=== PATIENT | male | born 1955 | race Caucasian/White ===

== ENCOUNTER 2017-07-12 12:14 | Day surgery (SDC) | payer BC, SELFPAY ==
[2017-07-12 13:03] VITALS: BP 182/93; PULSE 71; RESP 18; TEMP 36.4
[2017-07-12 13:24] VITALS: BP 174/94; PULSE 64; RESP 20
[2017-07-12 13:26] VITALS: BP 172/97; PULSE 67; RESP 18
--- NOTE | 2017-07-12 13:29 | P.PCN_ITS ---
- Procedure Date: 07/12/17 Time: 13:27 Anesthesiologist:: Tj Moura CRNA Complications:: None Pre-procedure Diagnosis:: Left sacroiliitis Post-procedure Diagnosis:: Same Indications for Procedure:: Very pleasant 62-year-old white male with left hip pain he describes as constant , dull, sharp, stabbing. He has extreme point tenderness over the left SI joint he presents for left SI joint injection per Procedure Details:: Procedure: Left sacroiliac injection under fluoroscopy Informed consent was obtained and the risk and benefits of the procedure were explained to the patient.~ The patient was taken to the procedure room and noninvasive monitors were placed including noninvasive blood pressure cuff and pulse oximeter.~ The patient was placed prone on the procedure table.~ The~ left hip was cleansed using Betadine as a cleansing solution.~ C-arm fluorosocpy was used to view the left SI joint.~ The skin and subcutaneous tissues were anesthetized using Lidocaine 1.5% and a 25-gauge needle.~ After this, a 22-gauge spinal needle was inserted under fluoroscopic guidance into the inferior aspect of the left SI joint.~ Omnipaque dye was injected and a good spread was seen throughout the joint.~ After this, approximately 5 mL of bupivacaine 0.25% and Depo-Medrol 40 mg was incrementally injected into the sacroiliac joint.~ The patient tolerated the procedure well with no complications.~ The patient was observed in the Pain Clinic for a period of 30- 45 minutes, then discharged home neurologically intact.~ Plan and Disposition:: Patient was reevaluated 10 minutes post procedure. He reports 90% improvement terms of his left hip pain
[2017-07-12 13:32] VITALS: BP 165/96; PULSE 71; RESP 18; TEMP 36.4; O2SAT 98
== END 2017-07-12 13:33 | disposition home or self-care (01) ==
LOC: SC.PAINP 12:18
PROVIDERS: Family Provider Family Medicine Geriatric Medicine; PCP Family Medicine Geriatric Medicine; Visit Provider Nurse Anesthetist, Certified Registered
DX: M46.1 Sacroiliitis, not elsewhere classified (principal)
CPT/HCPCS: 27096; G0260; J1040

== ENCOUNTER → 2017-07-25 14:27 | Outpatient (POV) | payer BC, SELFPAY ==
[2017-07-25 14:42] VITALS: BP 141/81; PULSE 18; RESP 18; TEMP 36.1; O2SAT 96; BMI 27.3
--- NOTE | 2017-07-25 14:44 | HMH.PAINSOAP ---
[facility] Pain Management SOAP Note Subjective:: This patient is a pleasant 62-year-old white male with left-sided sacroiliitis. He had a left SI joint injection approximately 3 weeks ago. He got 5 days good pain relief he was approximately 90% better. When he returned to work his pain is to come back. His pain came back with increased activity. We will seek approval and plan on a repeat left SI joint injection again. Objective:: Alert and oriented ?3 in no acute distress. Tenderness over left SI joint. Positive Wilber's test on the left side. Motor strength of the lower extremities is 5/5. There is no gross sensory deficit. Assessment:: Sacroiliitis Plan:: We will seek approval and plan on a left SI joint injection under fluoroscopy.
== END ==
PROVIDERS: Family Provider Family Medicine Geriatric Medicine; PCP Family Medicine Geriatric Medicine; Visit Provider Anesthesiology
DX: M46.1 Sacroiliitis, not elsewhere classified (principal)
CPT/HCPCS: 99212

== ENCOUNTER 2017-08-05 07:24 | Day surgery (SDC) | payer BC, SELFPAY ==
[2017-08-05 08:00] VITALS: BP 169/86; PULSE 67; RESP 18; TEMP 36.1; O2SAT 97; BMI 30.9
--- NOTE | 2017-08-05 08:35 | HMH.PMPROC ---
- Procedure Date: 08/05/17 Time: 08:38 Anesthesiologist:: Reji Cobos MD Complications:: None Pre-procedure Diagnosis:: Sacroiliitis Post-procedure Diagnosis:: Same Indications for Procedure:: This patient is a pleasant 62-year-old white male who we have been treating for left-sided sacroiliitis. He is tender over his left SI joint. He has had this injection approximately a month ago and did very well. He was 90% better. His pain is returning. He is positive Wilber's test on the left side. We will do repeat left SI joint injection under fluoroscopy today. Procedure Details:: Left SI joint injection under fluoroscopy Informed consent was obtained and the risks and benefits of the procedure was going to the patient. Patient was taken to the procedure room. Patient was placed prone on the procedure table. The left hip was prepped using ChloraPrep. The skin and subcutaneous tissues were anesthetized using lidocaine. I placed a 22-gauge spinal needle into the inferior aspect of the left SI joint. Needle placement was confirmed with dye. After this we injected 5 mL bupivacaine 0.25% and Depo-Medrol 40 mg into the left SI joint. The patient tolerated the procedure well with no complication. Plan and Disposition:: We will follow-up with him in 2 weeks. We will reevaluate his symptoms at that time. He is to continue his Plavix.
[2017-08-05 08:36] VITALS: BP 189/100; PULSE 66; RESP 20; O2SAT 98
[2017-08-05 08:39] VITALS: BP 179/82; PULSE 64; RESP 20; O2SAT 98
[2017-08-05 08:40] VITALS: BP 154/94; PULSE 65; RESP 16; TEMP 36.3; O2SAT 96
== END 2017-08-05 08:50 ==
LOC: SC.PAINP 07:26
PROVIDERS: Family Provider Family Medicine Geriatric Medicine; PCP Family Medicine Geriatric Medicine; Visit Provider Anesthesiology
DX: M46.1 Sacroiliitis, not elsewhere classified (principal)
CPT/HCPCS: 27096; G0260; J1040; Q9966

== ENCOUNTER → 2019-03-09 14:26 | Outpatient (CLI) | payer BC, SELFPAY ==
[2019-03-09 15:20] LABS: Basophils % 0.4 % (0.1-2.0); Eosinophils # 0.2 K/mm3 (0.0-0.4); Eosinophils % 1.4 % (0.1-12.0); Hematocrit 44.9 % (42.0-52.0); Hemoglobin 14.4 g/dL (14.1-18.0); Lymphocytes # 3.3 K/mm3 (0.7-4.5); Lymphocytes % 29.5 % (10-50); Mean Corpuscular Hemoglobin 28.6 pg (27.0-31.2); Mean Corpuscular Volume 89.1 fl (80-94); Mean Platelet Volume 7.9 fl (7.4-10.4); Monocytes # 0.6 K/mm3 (0.1-1.0); Monocytes % 5.8 % (1.7-9.3); Neutrophils % 62.9 % (37.0-80.0); Platelet Count 266 K/mm3 (142-424); Red Blood Count 5.04 M/mm3 (4.60-6.20); Red Cell Distribution Width 14.8 % (11.5-17.5); White Blood Count 11.1 K/mm3 (4.8-10.8)
[2019-03-09 17:50] LABS: Alanine Aminotransferase 28 U/L (12-78); Albumin Level 3.6 gm/dL (3.4-5.0); Albumin/Globulin Ratio 1.1 (1.1-1.8); Alkaline Phosphatase 140 U/L (46-116); Anion Gap 14.5 mEq/L (5-15); Aspartate Amino Transferase 14 U/L (15-37); Bilirubin,Total 0.3 mg/dL (0.2-1.0); Blood Urea Nitrogen 19 mg/dL (7-18); Calcium 8.9 mg/dL (8.5-10.1); Carbon Dioxide 25 mmol/L (21.0-32.0); Chloride 104 mmol/L (98-107); Chol/HDL Ratio 3.7 (1-3.5); Cholesterol 132 mg/dL (140-200); Creatinine,Serum 0.97 mg/dL (0.70-1.30); Estimated Glomerular Filt Rate 78 ml/min (>60); GFR (African American) 95 ML/MIN (>60); Globulin 3.4 gm/dl (1.3-3.2); Glucose 118 mg/dL (74-106); HDL Cholesterol 36 mg/dL (27-67); LDL Cholesterol 81 mg/dL (0-130); Potassium 4.5 mmoL/L (3.5-5.1); Sodium 139 mmol/L (136-145); T4 (Thyroxine) 9.7 ug/dl (4.7-13.3); Triglycerides 77 mg/dL (30-200); VLDL Cholesterol 15 mg/dL (0-40)
[2019-03-12 09:55] LABS: Vitamin D 25 Hydroxy 36.9 ng/mL (30.0-100.0)
== END ==
PROVIDERS: Visit Provider Emergency Medicine
DX: I10 Essential (primary) hypertension (principal)
CPT/HCPCS: 80053; 80061; 82652; 84436; 84443; 85025

== ENCOUNTER → 2020-01-01 07:13 | Outpatient (CLI) | payer MEDICARE, BC, SELFPAY ==
--- NOTE | 2020-01-01 | CA_ITS ---
APPROVED REPORT Exam: Pharmacologic Technologist: Smiley Lewis Ht: 5 ft 9 in Wt: 200 lbs BSA: 2.07 m2 HR: 51 bpm BP: 154/73 mmHg Indications: Chest pain, Shortness of Breath Medical History Medications: Clonidine,,,,, Hydralazine,,,,, Aspirin,,,,, Hydrocodone,,,,, Atorvastatin,,,,, EnALAPRIL,,,,, Cyclobenzaprine,,,,, DilTiazem,,,,, Stress Test Details Test: LEXISCAN HR Resting HR: 56 bpm Max Heart Rate (APMHR): 156 bpm Max HR Achieved: 68 bpm Target HR (85% APMHR): 132 bpm % of APMHR: 43 Recovery HR: 56 bpm BP Resting BP: 154.0/73.0 mmHg Max BP: 154.0/73.0 mmHg Recovery BP: 140.0/71.0 mmHg ECG Clinical Exercise duration: 04:01 min Highest Stage Achieved: Exercise capacity: 1.0 METs Stress ECG Conclusion Resting ECG: Sinus bradycardia, ST-T abnormalities inferiorly and laterally (V6). Symptoms: Shortness of air, light-headed. No chest pain. Arrhythmias/Ectopy: Rare PAC ST-T Changes: Exaggeration of baseline ST-T abnormalities. Conclusion: Non-diagnostic Lexiscan stress. Moderate and symptomatic drop in blood pressure with Lexiscan. Myoview images reported separately. Electronically signed by : Yomi Bernard, 01/07/2020 13:00:53
--- NOTE | 2020-01-01 07:13 | NM_ITS ---
APPROVED REPORT Exam: Nuclear Stress Test Indication: Chest pain, SOB, Palpitations, HTN, High cholesterol, Tobacco use, Family history Patient Location: Outpatient Stress Tech: Smiley Joshua [place] Tech:Herminia Cazares, ARRT, RT (R)(N) Ht: 5 ft 9 in Wt: 200 lbs HR: 57 bpm BP: 154/73 mmHg BSA: 2.07 m2 BMI: 29.5 History: Chest pain, SOB, Palpitations, HTN, High cholesterol, Tobacco use, Family history Procedure: Patient received a 0.4 mg of intravenous Lexiscan, resting heart rate 57 bpm, resting blood pressure 154/73 mmHg, with Lexiscan maximum heart rate achived was 64 bpm which is 85 % of the maximum predicted heart rate and blood pressure was 86/50 mmHg. With Lexiscan, patient denied any complaint of chest pain. Cardiac Stress and Resting SPECT Images: Cardiac Stress and Resting SPECT images were obtained using technetium 99m Myoview 31.7 mCi stress and 10.45 mCi at rest. EF= 53% Stress images show decrease activity at the apex and inferior wall more prominent on rest images of uncertain clinical significance. Please correlate with ECG findings. No reversible defects Conclusion: EF= 53% Stress images show decrease activity at the apex and inferior wall more prominent on rest images of uncertain clinical significance. Please correlate with ECG findings. No reversible defects Electronically signed by : Blu Mendosa MD 01/01/2020 19:05:07
--- NOTE | 2020-01-01 07:32 | HMH.ITSHM ---
Current Home Medications as stated by this patient Alejandro Jasmine or traveling sales representative. []HYDROCODONE HYDRALAZINE FLUOXETINE ENALAPRIL DILTIAZEM CYCLOBENZAPRINE CLONIDINE ATORVASTATIN ASA
== END ==
PROVIDERS: PCP Emergency Medicine; Visit Provider Urology
DX: E78.5 Hyperlipidemia, unspecified (principal); F17.200 Nicotine dependence, unspecified, uncomplicated; I10 Essential (primary) hypertension; I25.118 Atherosclerotic heart disease of native coronary artery with other forms of angina pectoris; J44.9 Chronic obstructive pulmonary disease, unspecified; R00.2 Palpitations; R07.89 Other chest pain; Z82.49 Family history of ischemic heart disease and other diseases of the circulatory system; Z90.49 Acquired absence of other specified parts of digestive tract
CPT/HCPCS: 78452; 93017; 93306; A9502; J2785

== ENCOUNTER → 2020-01-22 10:11 | Outpatient (POV) | payer MEDICARE, BC, SELFPAY | PROVIDERS: PCP Emergency Medicine; Visit Provider Otolaryngology | DX: Z00.00 Encounter for general adult medical examination without abnormal findings (principal) ==

== ENCOUNTER → 2020-06-04 16:51 | Outpatient (CLI) | payer MEDICARE, BC, SELFPAY ==
[2020-06-04 19:03] LABS: Basophils # 0.1 K/mm3 (0-0.2); Basophils % 0.9 % (0.1-2.0); Eosinophils # 0.3 K/mm3 (0.0-0.4); Eosinophils % 2.9 % (0.1-12.0); Hematocrit 44.8 % (42.0-52.0); Hemoglobin 15.1 g/dL (14.1-18.0); Lymphocytes # 2.7 K/mm3 (0.7-4.5); Lymphocytes % 26.9 % (10-50); Mean Corpuscular HGB Conc 33.7 g/dL (31.8-35.4); Mean Corpuscular Hemoglobin 30.4 pg (27.0-31.2); Mean Corpuscular Volume 90.3 fl (80-94); Mean Platelet Volume 9.6 fl (7.4-10.4); Monocytes # 0.5 K/mm3 (0.1-1.0); Monocytes % 5.3 % (1.7-9.3); Neutrophils # 6.3 K/mm3 (1.8-7.8); Platelet Count 254 K/mm3 (142-424); Red Blood Count 4.96 M/mm3 (4.60-6.20); Red Cell Distribution Width 14.2 % (11.5-17.5); White Blood Count 9.9 K/mm3 (4.8-10.8)
[2020-06-04 19:21] LABS: Alanine Aminotransferase 20 U/L (12-78); Albumin/Globulin Ratio 1.4 (1.1-1.8); Alkaline Phosphatase 133 U/L (38-126); Anion Gap 12.2 mEq/L (5-15); Aspartate Amino Transferase 24 U/L (17-59); Bilirubin,Total 0.5 mg/dl (0.2-1.3); Blood Urea Nitrogen 18 mg/dl (9-20); Calcium 9.2 mg/dl (8.4-10.2); Carbon Dioxide 27 mmol/L (22.0-30.0); Chloride 103 mmol/L (98-107); Chol/HDL Ratio 3.6 (1-3.5); Cholesterol 144 mg/dl (140-200); Estimated Glomerular Filt Rate 97 ml/min (>60); GFR (African American) 117 ML/MIN (>60); Globulin 2.8 g/dL (1.3-3.2); Glucose 138 mg/dl (74-100); HDL Cholesterol 40 mg/dl (40-60); Potassium 4.2 mmoL/L (3.5-5.1); Sodium 138 mmol/L (136-145); Total Protein,Serum 6.8 g/dl (6.3-8.2); Triglycerides 83 mg/dl (30-150); VLDL Cholesterol 17 mg/dL (0-40)
[2020-06-04 19:33] LABS: Direct LDL Cholesterol 86.51 mg/dL (100-129)
[2020-06-04 19:38] LABS: 25-OH Vitamin D, Total 19.5 ng/mL (30-100)
[2020-06-04 19:39] LABS: Free T4 (Free Thyroxine) 1.17 ng/dl (0.78-2.19)
[2020-06-04 19:53] LABS: Prostate Specific Ag Screen 0.3 ng/ml (0.0-4.0); Thyroid Stimulating Hormone 0.73 uIU/mL (0.465-4.68)
== END ==
PROVIDERS: Visit Provider Emergency Medicine
DX: E55.9 Vitamin D deficiency, unspecified (principal); E66.3 Overweight; R00.1 Bradycardia, unspecified; Z12.5 Encounter for screening for malignant neoplasm of prostate
CPT/HCPCS: 80053; 80061; 82306; 84439; 84443; 85025; G0103

== ENCOUNTER → 2020-07-14 10:33 | Outpatient (CLI) | payer MEDICARE, BC, SELFPAY ==
[2020-07-14 12:42] LABS: Anion Gap 12.3 mEq/L (5-15); Blood Urea Nitrogen 23 mg/dl (9-20); Calcium 9.4 mg/dl (8.4-10.2); Carbon Dioxide 29 mmol/L (22.0-30.0); Chloride 102 mmol/L (98-107); Estimated Glomerular Filt Rate 85 ml/min (>60); GFR (African American) 102 ML/MIN (>60); Glucose 151 mg/dl (74-100); Potassium 4.3 mmoL/L (3.5-5.1); Sodium 139 mmol/L (136-145)
[2020-07-14 13:25] LABS: Hemoglobin A1C 7.1 % (4.0-6.0)
== END ==
PROVIDERS: Emergency Medicine; Visit Provider Nurse Practitioner Family
DX: R73.09 Other abnormal glucose (principal); E78.5 Hyperlipidemia, unspecified; I10 Essential (primary) hypertension; I25.10 Atherosclerotic heart disease of native coronary artery without angina pectoris; J44.9 Chronic obstructive pulmonary disease, unspecified; R00.1 Bradycardia, unspecified; Z72.0 Tobacco use; Z90.49 Acquired absence of other specified parts of digestive tract
CPT/HCPCS: 36415; 80048; 83036

== ENCOUNTER 2020-09-18 11:36 | Emergency (ER) | payer MEDICARE, BC, SELFPAY ==
[2020-09-18] VITALS (8 sets, daily range): BP systolic 125–140; BP diastolic 64–72; PULSE 50–78; RESP 16–18; TEMP 36.6–37.1; O2SAT 92–98; BMI 30.7
--- NOTE | 2020-09-18 12:03 | HMH.EDGENADL ---
ED Disposition Clinical Impression: Horseshoe kidney, Right renal stone Low back pain Qualifiers: Chronicity: acute Back pain laterality: left Sciatica presence: without sciatica Qualified Code(s): M54.5 - Low back pain Disposition: Home, Self-Care Condition on Discharge: Good Instructions: DI for Low Back Pain, DI for Kidney Stones Additional Instructions: Chalfont as needed for pain. Prednisone as prescribed. Follow-up with Dr. Dodson, urology, for horseshoe kidney and renal stone. Call for appointment. Follow-up with your primary care provider for low back pain. Additional instructions for BACK PAIN: See your physician as soon as possible for further evaluation. Return immediately if back pain becomes intolerable, or if fever, numbness or weakness of your legs, loss of control of your bowels or bladder. Additional instructions for CONTROLLED SUBSTANCES: You have been prescribed a medication that is a controlled substance. Controlled substances include pain medications known as opiates and sedative nerve medications known as benzodiazepines. Tramadol, fioricet, and gabapentin are also controlled substances. Some common opiates include: Codeine (such as Tylenol #3) Hydrocodone (Vicodin, Lortab, Lorcet, Chalfont) Oxycodone (Percocet, Percodan, Oxycodone, Oxy IR) Some common benzodiazepines include: Diazepam (Valium) Lorazepam (Ativan) Alprazolam (Xanax) Clonazepam (Klonopin) Oxazepam (Serax) All of these controlled substances are highly addictive and frequently abused. Misuse can and frequently does lead to addiction as well as overdose and . Medication should be stored in a locked cabinet or other secure storage unit. Do not store the medication in a motor vehicle. Short term supplies, 3 days or less, are prescribed because of the highly addictive nature of the medication. Any of the controlled substance medication NOT taken should be disposed of properly and NOT SAVED. The recommended method of disposing of unused medications is: Place the medicines in a sealable plastic bag. If the medicine is a solid, crush it or add water to dissolve it. Add something undesirable (cat litter, coffee grounds, etc.) Dispose of sealed bag in household trash Do not flush or pour unused medicines down a sink or drain. Controlled substances should not be shared, given away or sold. Because of the addictive nature and frequent abuse, these medications are sometimes stolen. These medications should be kept in a safe place where they cannot be stolen. Do not keep them in your car or purse. Lost or stolen prescriptions for controlled substances WILL NOT BE REFILLED in this emergency department, regardless of whether a police report was filed. Prescriptions: Hydrocod/Acet 5/325 mg [Chalfont 5/325mg tablet] 1 tab PO Q6HP PRN #10 tab PRN Reason: Pain Transmission Status: Sent to [id number] predniSONE [Prednisone 20mg Tab] 20 mg PO BID #10 tab Transmission Status: Pending to [id number] Referrals: Homero Jaquez MD [Primary Care Provider] - - Critical Care Critical Care Time: No Attestation: On 09/18/20, the high probability of a clinically significant, sudden or life threatening deterioration of the following system(s) required my full and direct attention, intervention and personal management. The time I documented below is in addition to time spent performing reported procedures but includes the following listed in this critical care notation. Medical Decision Making - Nav Inquiry Pt receiving controlled substance: Yes Nav was queried for this patient: Yes Risks and benefits of using a controlled substance: were discussed with pt by me Vital Signs: 09/18/20 11:37 09/18/20 13:10 09/18/20 13:13 Temperature 98.8 F Temperature Source Oral Pulse Rate 54 L Pulse Rate [Radial] 57 L 51 L Respiratory Rate 16 16 18 Blood Pressure 125/64 Blood Pressure [Right
[2020-09-18 12:06] LABS: Microscopic, Urine URINE MICROSCOPIC (MICROSCOPIC)
[2020-09-18 12:15] LABS: Basophils # 0.1 K/mm3 (0-0.2); Basophils % 0.7 % (0.1-2.0); Eosinophils # 0.6 K/mm3 (0.0-0.4); Eosinophils % 3.6 % (0.1-12.0); Hematocrit 43.2 % (42.0-52.0); Hemoglobin 14.5 g/dL (14.1-18.0); Lymphocytes % 32.6 % (10-50); Mean Corpuscular HGB Conc 33.7 g/dL (31.8-35.4); Mean Corpuscular Hemoglobin 29.1 pg (27.0-31.2); Mean Corpuscular Volume 86.5 fl (80-94); Mean Platelet Volume 7.3 fl (7.4-10.4); Monocytes # 0.8 K/mm3 (0.1-1.0); Monocytes % 5.2 % (1.7-9.3); Neutrophils # 8.9 K/mm3 (1.8-7.8); Neutrophils % 57.9 % (37.0-80.0); Platelet Count 264 K/mm3 (142-424); Red Cell Distribution Width 14.5 % (11.5-17.5); White Blood Count 15.3 K/mm3 (4.8-10.8)
[2020-09-18 12:18] LABS: Chloride 106 mmol/L (98-107); MANUAL DIFFERENTIAL MANUAL DIFFERENTIAL (MANUAL DIFF); Potassium 3.8 mmoL/L (3.5-5.1); Sodium 138 mmol/L (136-145)
[2020-09-18 12:18] LABS: Appearance,Urine CLEAR (Clear); Bilirubin,Urine Negative (Negative); Blood, Urine TRACE-I (Negative); Color,Urine YELLOW (Yellow); Glucose,Urine (UA) Negative (Negative); Ketones,Urine Negative (Negative); Leukocyte Esterase,Urine Negative (Negative); Nitrate,Urine Negative (Negative); Protein,Urine Negative (Negative); Specific Gravity, Urine <= 1.005 (1.005-1.030); Urobilinogen,Urine 0.2 EU/dl (0.2)
[2020-09-18 12:21] LABS: Alanine Aminotransferase 33 U/L (12-78); Albumin/Globulin Ratio 1.3 (1.1-1.8); Alkaline Phosphatase 113 U/L (38-126); Aspartate Amino Transferase 28 U/L (17-59); Bilirubin,Total 0.3 mg/dl (0.2-1.3); Blood Urea Nitrogen 15 mg/dl (9-20); Carbon Dioxide 26 mmol/L (22.0-30.0); Creatinine Clearance Estimated 98 mL/min (50-200); Estimated Glomerular Filt Rate 97 ml/min (>60); GFR (African American) 117 ML/MIN (>60); Globulin 3.1 g/dL (1.3-3.2); Total Protein,Serum 7.1 g/dl (6.3-8.2)
[2020-09-18 12:22] LABS: Calcium 8.9 mg/dl (8.4-10.2); Glucose 154 mg/dl (74-100)
[2020-09-18 12:24] LABS: RBC,Urine Occasional #/hpf (0-3); Squamous Epithelial Cell,Urine Occasional #/hpf (0-5)
--- NOTE | 2020-09-18 12:32 | CT_ITS ---
PROCEDURE: CT ABDOMEN PELVIS WO CON CLINICAL INDICATION: kidney stone Left flank pain COMPARISON: No exams were available for comparison TECHNIQUE: Axial images obtained with sagittal and coronal reformats. All CT scans at the facility use one or more dose reduction, viz: automated exposure control, ma/kV adjustment per patient size (including targeted exams where dose is matched to indication, i.e. head), or iterative reconstruction technique. FINDINGS: LOWER THORAX: 4 mm nodule right middle lobe image number 3. There is mild dilatation of the distal descending thoracic aorta at 3.5 cm. Coronary artery calcifications noted ABDOMEN & PELVIS: The liver, spleen, and pancreas have an unremarkable appearance. There is a 2 cm right adrenal nodule consistent with an adenoma. The left adrenal gland is somewhat enlarged but maintains an adrenal form shape. There is a horseshoe kidney. There is a 9 mm stone in the right renal moiety at the region of the UPJ. No hydronephrosis. The left renal moiety has an unremarkable appearance. No ureteral calculi apparent. No ureteral dilatation. No evidence of appendicitis. There is colonic diverticulosis but no evidence of diverticulitis. No intestinal obstruction or free air. There is mild dilatation of the infrarenal abdominal aorta measuring up to 3.8 cm transverse and 3.1 cm AP. The dilatation is somewhat focal beginning 3 cm below the level renal arteries. Well-circumscribed cystic areas present in the right ilium bilocular measuring approximately 16 x 8 mm. There are degenerative changes of the lumbar spine. IMPRESSION: 1. Horseshoe kidney with 9 mm stone in the right renal moiety at the UPJ. No hydronephrosis. No ureteral calculi. 2. Colonic diverticulosis without diverticulitis. 3. Mild dilatation of the distal descending thoracic aorta at 3.5 cm and in the mid infrarenal abdominal aorta at 3.8 cm. Dictated by: Blu Mendosa MD 09/18/2020 13:20 Blu Mendosa MD in [place] 09/18/2020 13:20
[2020-09-18 12:39] LABS: Eosinophils % 1 % (0-3); Lymphocytes % 38 % (10-50); Monocytes % 5 % (2-9); Neutrophils % 56 % (42-76); Platelet Estimate Normal; RBC Morphology Normal; Total Cells Counted 100
[2020-09-18 13:17] LABS: Erythrocyte Sedimentation Rate 28 mm/hr (0-20)
== END 2020-09-18 13:57 | disposition home or self-care (01) ==
PROVIDERS: Emergency Provider Emergency Medicine; PCP Emergency Medicine
DX: N20.0 Calculus of kidney (principal); Q63.1 Lobulated, fused and horseshoe kidney; E78.5 Hyperlipidemia, unspecified; I10 Essential (primary) hypertension; I25.2 Old myocardial infarction; Z87.442 Personal history of urinary calculi; F17.210 Nicotine dependence, cigarettes, uncomplicated; Z88.5 Allergy status to narcotic agent
CPT/HCPCS: 74176; 80053; 81001; 85007; 85025; 85651; 86140; 96374; 96375; 99283; J2405

== ENCOUNTER → 2020-10-29 07:07 | Outpatient (CLI) | payer MEDICARE, SELFPAY ==
[2020-10-29 08:13] LABS: Basophils # 0.1 K/mm3 (0-0.2); Eosinophils # 0.4 K/mm3 (0.0-0.4); Eosinophils % 3.7 % (0.1-12.0); Hematocrit 41.5 % (42.0-52.0); Hemoglobin 13.5 g/dL (14.1-18.0); Lymphocytes # 4.2 K/mm3 (0.7-4.5); Lymphocytes % 38.7 % (10-50); Mean Corpuscular HGB Conc 32.5 g/dL (31.8-35.4); Mean Corpuscular Hemoglobin 28.8 pg (27.0-31.2); Mean Corpuscular Volume 88.8 fl (80-94); Mean Platelet Volume 7.9 fl (7.4-10.4); Monocytes # 0.7 K/mm3 (0.1-1.0); Monocytes % 6.5 % (1.7-9.3); Neutrophils # 5.4 K/mm3 (1.8-7.8); Neutrophils % 50.1 % (37.0-80.0); Platelet Count 245 K/mm3 (142-424); Red Blood Count 4.67 M/mm3 (4.60-6.20); Red Cell Distribution Width 14.5 % (11.5-17.5); White Blood Count 10.7 K/mm3 (4.8-10.8)
[2020-10-29 08:15] LABS: Chloride 101 mmol/L (98-107); Potassium 3.8 mmoL/L (3.5-5.1); Sodium 136 mmol/L (136-145)
[2020-10-29 08:18] LABS: Anion Gap 12.8 mEq/L (5-15); Blood Urea Nitrogen 21 mg/dl (9-20); Carbon Dioxide 26 mmol/L (22.0-30.0); Estimated Glomerular Filt Rate 85 ml/min (>60); GFR (African American) 102 ML/MIN (>60)
[2020-10-29 08:19] LABS: Calcium 8.9 mg/dl (8.4-10.2); Glucose 219 mg/dl (74-100)
[2020-10-29 08:34] LABS: Coronavirus 19 IgG Antibody Positive (Negative); Coronavirus 19 IgM Antibody Negative (Negative)
== END ==
PROVIDERS: Visit Provider Urology
DX: N20.0 Calculus of kidney (principal); N20.1 Calculus of ureter; Z01.812 Encounter for preprocedural laboratory examination; Z20.822 Contact with and (suspected) exposure to COVID-19
CPT/HCPCS: 36415; 80048; 85025; 86328

== ENCOUNTER 2020-10-31 08:52 | Day surgery (SDC) | payer MEDICARE, MEDICAID, SELFPAY ==
[2020-10-29 11:16] VITALS: BMI 31.0
[2020-10-31] VITALS (11 sets, daily range): BP systolic 115–131; BP diastolic 55–64; PULSE 60–98; RESP 14–20; TEMP 36.4–37.6; O2SAT 92–97
[2020-10-31 10:53] LABS: POC Glucose,Bedside 135 (70-110)
--- NOTE | 2020-10-31 11:59 | P.PN_ITS ---
[facility] Anesthesia Checklist - Patient Identification Patient Identification: Arm Band - Structural Data Admitted From: Home Planned Operative Procedure/s: Right ureteroscopy with laser litho Consent for Planned Operative Procedure(s) Verified: Yes Verified Documents: Surgical Consent, History and Physical - NPO Status Verified Time NPO: 00:00 - Additional verifications Anesthesia Reactions: Yes (hypotension/hypertension) Hx Blood Transfusions: No Blood Transfusion Reaction: No - Anesthesia Plan Anesthesia Risk discussed: Yes Anesthesia Plan: Verified ASA Class: III Anesthesia Type: General [facility] History Medical History: Reports:: Coronary Artery Disease, Diabetes Mellitus Type 2, Hyperlipidemia, Hypertension, Kidney Stones, Myocardial Infarction, Palpitations Denies:: Cancer, Diabetes Mellitus Type 1, Internal Pacemaker, MRSA, Seizures *Have you ever received a pneumonia vaccine?: Yes *Have you received a flu vaccine this season?: Yes Other Medical History: Reports: Arthritis, Sinus Problems. Denies: Blood Transfusion Reaction Anesthesia experience/problems:: None Laterality Cases: Bilateral: Carpal Tunnel Release Other Surgeries: Yes: Cardiac Catheterization, Colon Resection, Coronary Stent, Other. No: Pacemaker Amputation: No Fractures: No - *Social History Smoking Status: Current every day smoker Tobacco Type: cigarettes # Packs/Day (cigarettes): 1 Alcohol Intake: never Substance Use Type: denies use *Occupational Status:: retired Housing: house Household Members: spouse *Travel in the last 8 weeks: None Family Hx:: Heart Attack, Cancer, Coronary Artery Disease
--- NOTE | 2020-10-31 12:59 | P.OP_ITS ---
Date of procedure: 10/31/20 Pre-op Diagnosis:: Kidney stone in a horseshoe kidney, 9 mm Post-op Diagnosis:: Same Procedure performed:: Right ureteroscopy, laser lithotripsy, stone extraction Surgeon:: Amandeep Dodson MD FORESTRY FOREMAN:: Other Anesthesia: GETA Estimated blood loss (mL): 0 Clinical Note:: Patient is a 65-year-old white male with recent right renal colic. CT scan reveals a 9 mm stone near the right UPJ. He presents for urologic management. Operative findings:: The stone was noted to be in the medial portion of the collecting system in the isthmus portion of the horseshoe kidney. Operative note:: Patient taken to the operating room after informed consent was obtained. Was placed on the operating table in the supine position and general anesthesia administered. He was then prepped and draped in a standard surgical fashion. Preoperative antibiotics and sequential compression devices placed. Placed into the lithotomy position and a 22 Maltese cystoscope passed into the urethra and into the bladder without difficulty. The bladder was examined in a systematic fashion. There is no evidence of gross abnormalities, stones, diverticula or trabeculation. The ureteral orifices in their normal anatomic position. A guidewire was passed into the right ureteral orifice and under fluoroscopy passed into the renal pelvis. The cystoscope removed and a navigator ureteral sheath 05/16 was then passed over the wire and the wire removed. A flexible ureteroscope was then passed through the sheath and into the ureter and we navigated up to the renal pelvis. Renal pelvis was inspected and no evidence of any stones superiorly or laterally. Contrast was then injected through the sc ope and the collecting system was noted to extend medially. I was able to flex the scope and cannulate the medial portion of the collecting system and the stone was noted in one of the calyces there. Our 220 nm laser fiber then passed through the ureteroscope and the stone broke up into multiple fragments.. Fragments were removed with a 1.9 Maltese stone basket. The ureteroscope then removed as the rest the stones were felt to be small enough to pass without difficulty. The navigator sheath was removed and the cystoscope was replaced into the bladder and the bladder emptied. Scope removed and Urojet placed into the urethra for comfort. Patient tolerated procedure well without complications. A stent was not felt necessary. Condition: stable Disposition: PACU Specimens:: Stones were removed Complications:: None
[2020-10-31 13:11] LABS: POC Glucose,Bedside 133 (70-110)
--- NOTE | 2020-10-31 13:15 | XR_ITS ---
PROCEDURE: XR KUB CLINICAL INDICATION: URETEROSCOPY COMPARISON: No exams were available for comparison FINDINGS: Fluoroscopy time: 2 minutes and 41 seconds. Single images submitted with a catheter looped in the mid abdominal region on the right. IMPRESSION: Ureteroscopy performed with C-arm guidance Dictated by: Blu Mendosa MD 10/31/2020 15:31 Blu Mendosa MD in [place] 10/31/2020 15:31
--- NOTE | 2020-10-31 15:08 | HMH.ANESI ---
[facility] Anesthesia Record Part I Intake, IV Amount: 1,400 Estimated blood loss (mL): 30 Urine output (mL): 0 Blood Pressure: 130/63 SaO2: 93 Pulse Rate: 98 Respiratory Rate: 14 Temperature: 99.7 F Patient is:: Awake, Drowsy Stable to PACU at:: 12:59
--- NOTE | 2020-11-03 08:21 | HMH.ANESII ---
[facility] Anesthesia Record Part II Discharge Time: 13:29 Destination: Surgical Day Care (OP Surgery) PACU nurse assessment reviewed?: Yes Patient Condition:: Good Anesthesia Complications:: None Swallowing reflex intact?: Yes Cyanosis?: No Blood Pressure: 121/58 Pulse Rate: 69 Temperature: 98.3 F Mental Status: Alert & Oriented Pain level:: 0 Nausea and/or vomitting:: None Intake, IV Amount: 0
[2020-11-03 08:22] VITALS: BP 121/58; PULSE 69; TEMP 36.8
== END 2020-10-31 14:08 | disposition home or self-care (01) ==
PROVIDERS: PCP Emergency Medicine; Visit Provider Urology
PROC: (CPT 52352; principal; 2020-10-31 10:45)
DX: N20.0 Calculus of kidney (principal); I25.10 Atherosclerotic heart disease of native coronary artery without angina pectoris; E11.9 Type 2 diabetes mellitus without complications; E78.5 Hyperlipidemia, unspecified; I10 Essential (primary) hypertension; I25.2 Old myocardial infarction; R00.2 Palpitations; M19.90 Unspecified osteoarthritis, unspecified site; Z72.0 Tobacco use; Z82.49 Family history of ischemic heart disease and other diseases of the circulatory system; Z82.3 Family history of stroke; Z80.9 Family history of malignant neoplasm, unspecified
CPT/HCPCS: 50590; 74018; 76000; 82962; 96374; J2405

== ENCOUNTER → 2020-11-14 12:49 | Outpatient (CLI) | payer MEDICARE, MEDICAID, SELFPAY ==
--- NOTE | 2020-11-14 12:53 | XR_ITS ---
PROCEDURE: XR KUB CLINICAL INDICATION: ureteral stone COMPARISON: CT CT ABDOMEN PELVIS WO CON from 09/18/2020 FINDINGS: The presence of overlying bowel gas limits evaluation for calculi. Mild to moderate fecal retention of the colon. No evidence of ureteral calculi noted within the limitations of the study. Multilevel degenerative changes of the lumbar spine are noted. Multiple metallic densities are noted projecting over the left lower quadrant. IMPRESSION: No evidence of ureteral calculi within the limitations of the study. Noncontrast CT scan of the abdomen and pelvis should be considered for further evaluation. Dictated by: Claudia Rios 11/14/2020 16:45 Claudia Rios in [place] 11/14/2020 16:45
== END ==
PROVIDERS: PCP Emergency Medicine; Visit Provider Urology
DX: N20.1 Calculus of ureter (principal)
CPT/HCPCS: 74018

== ENCOUNTER → 2021-01-12 14:26 | Outpatient (CLI) | payer MEDICARE, MEDICAID, SELFPAY ==
[2021-01-12 14:46] LABS: Basophils # 0.1 K/mm3 (0-0.2); Basophils % 0.7 % (0.1-2.0); Eosinophils # 0.3 K/mm3 (0.0-0.4); Eosinophils % 2.8 % (0.1-12.0); Hematocrit 40.4 % (42.0-52.0); Hemoglobin 13.8 g/dL (14.1-18.0); Lymphocytes # 2.8 K/mm3 (0.7-4.5); Lymphocytes % 26.2 % (10-50); Mean Corpuscular HGB Conc 34.1 g/dL (31.8-35.4); Mean Corpuscular Hemoglobin 29.4 pg (27.0-31.2); Mean Platelet Volume 8.4 fl (7.4-10.4); Monocytes # 0.5 K/mm3 (0.1-1.0); Monocytes % 4.3 % (1.7-9.3); Platelet Count 288 K/mm3 (142-424); Red Cell Distribution Width 14.5 % (11.5-17.5); White Blood Count 10.5 K/mm3 (4.8-10.8)
[2021-01-12 14:57] LABS: Chloride 104 mmol/L (98-107)
[2021-01-12 14:58] LABS: Potassium 4.2 mmoL/L (3.5-5.1); Sodium 139 mmol/L (136-145)
[2021-01-12 15:00] LABS: Alanine Aminotransferase 21 U/L (12-78); Alkaline Phosphatase 113 U/L (38-126); Anion Gap 13.2 mEq/L (5-15); Aspartate Amino Transferase 27 U/L (17-59); Bilirubin,Total 0.3 mg/dl (0.2-1.3); Blood Urea Nitrogen 18 mg/dl (9-20); Carbon Dioxide 26 mmol/L (22.0-30.0); Cholesterol 135 mg/dl (140-200); Estimated Glomerular Filt Rate 85 ml/min (>60); GFR (African American) 102 ML/MIN (>60); Triglycerides 123 mg/dl (30-150); VLDL Cholesterol 25 mg/dL (0-40)
[2021-01-12 15:01] LABS: Albumin Level 3.9 g/dl (3.5-5.0); Albumin/Globulin Ratio 1.4 (1.1-1.8); Calcium 8.8 mg/dl (8.4-10.2); Chol/HDL Ratio 3.6 (1-3.5); Globulin 2.8 g/dL (1.3-3.2); Glucose 118 mg/dl (74-100); HDL Cholesterol 37 mg/dl (40-60); Total Protein,Serum 6.7 g/dl (6.3-8.2)
[2021-01-12 15:07] LABS: Opiate Screen,Urine Negative ng/ml (<300); Phencyclidine Screen,Urine Negative ng/ml (<25)
[2021-01-12 15:09] LABS: Amphetamine/Metha Screen,Urine Negative ng/ml (<1000); Benzodiazepines Screen,Urine Negative ng/ml (<200)
[2021-01-12 15:10] LABS: Barbiturates Screen,Urine Negative ng/ml (<200)
[2021-01-12 15:12] LABS: Cannabinoid Screen,Urine Negative ng/ml (<50); Direct LDL Cholesterol 74.89 mg/dL (100-129)
[2021-01-12 15:13] LABS: Cocaine Screen,Urine Negative ng/ml (<300)
[2021-01-12 15:14] LABS: Methadone Screen,Urine Negative ng/ml (<300)
[2021-01-12 15:15] LABS: Hemoglobin A1C 6.7 % (4.0-6.0)
[2021-01-12 15:18] LABS: T4 (Thyroxine) 9.1 ug/dl (5.53-11.0)
[2021-01-12 15:32] LABS: Thyroid Stimulating Hormone 1.23 uIU/mL (0.465-4.68)
[2021-01-14 09:01] LABS: PSA, Free 0.09 ng/mL; Prostate Specific Ag 0.4 ng/mL (0.0-4.0)
== END ==
PROVIDERS: Visit Provider Emergency Medicine
DX: E11.9 Type 2 diabetes mellitus without complications (principal); M54.5 Low back pain; Z12.5 Encounter for screening for malignant neoplasm of prostate; Z79.84 Long term (current) use of oral hypoglycemic drugs
CPT/HCPCS: 80053; 80061; 80305; 83036; 84153; 84154; 84436; 84443; 85025

== ENCOUNTER → 2021-07-29 17:45 | Outpatient (CLI) | payer MEDICARE, MEDICAID, SELFPAY ==
[2021-07-29 18:20] LABS: Barbiturates Screen,Urine Negative ng/ml (<200)
[2021-07-29 18:21] LABS: Amphetamine/Metha Screen,Urine Negative ng/ml (<1000); Benzodiazepines Screen,Urine Negative ng/ml (<200)
[2021-07-29 18:22] LABS: Cannabinoid Screen,Urine Negative ng/ml (<50)
[2021-07-29 18:23] LABS: Cocaine Screen,Urine Negative ng/ml (<300); Methadone Screen,Urine Negative ng/ml (<300)
[2021-07-29 18:24] LABS: Opiate Screen,Urine Negative ng/ml (<300)
[2021-07-29 18:25] LABS: Phencyclidine Screen,Urine Negative ng/ml (<25)
== END ==
PROVIDERS: Visit Provider Emergency Medicine
DX: M25.512 Pain in left shoulder (principal)
CPT/HCPCS: 80305

== ENCOUNTER 2021-11-26 08:00 | Outpatient (RCR) | payer MEDICARE, MEDICAID, SELFPAY ==
--- NOTE | 2021-10-13 13:56 | HMH.PTOPEV ---
PT Outpatient Evaluation Rehab PT Outpatient Evaluation Start: 10/13/21 13:38 Freq: Status: Active Protocol: Document 10/13/21 13:38 KAREN (Rec: 10/13/21 13:55 KAREN [id number]) Electronically Signed By Micah Marte, PT 10/13/21 13:38 Outpatient Therapy Subjective History Subjective History Patient is a 66 year old male presenting to outpatient PT with reports of chronic LBP with LLE radicular symptoms. Patient has hx of LS discectomy approximately 20 years ago. Patient reports hx of DDD, though no imaging to confirm. No specific mechanism of injury to report. Comorbidities include hx of of HTN, HL, diabetes, cardiac stents x 2 and chronic kidney stones. Chief Complaint Pain,Stiff,Paresthesia Symptom Type Ache,Sharp,Burning Symptoms Relieved By Rest/Positioning,Heat, Prescription Meds Symptoms Aggravated By Standing,Physical Activity, Walking Prior Functional Limitations Lifting,Standing,Walking, Bending/Stooping Current Functional Limitations Lifting,Housework,Standing, Walking,Bending/Stooping Symptom Description Constant but Variable Level of pain today (0-10) 7 Pain scale - at its best (0-10) 4 Pain scale - at its worst (0-10) 9 Lumbopelvic Eval Posture Thoracic Spine Posture Standing Position Increased Kyphosis Lumbar Spine Posture Standing Position Decreased Lordosis Palapation tenderness bilateral lumbar spinal tenderness Yes: 3/4 buttock tenderness Yes: 3/4 Accessory Movement L2 bilateral L3 bilateral L4 bilateral L5 bilateral S1 bilateral Range of Motion Lumbar Spine Active Flexion Range of 58 Motion (degrees) Lumbar Spine Active Extension Range of 16 Motion (degrees) Left Lumbar Spine Lateral Flexion Active 15 Range of Motion (degrees) Right Lumbar Spine Lateral Flexion 17 Active Range of Motion (degrees) Lumbar Spine ROM Limitations Soft Tissue Tightness,Bony Restriction Manual Muscle Test Left Knee Extension Strength Grade 4- Good- Knee Flexion Strength Grade 4- Good- Hip Flexion Strength Grade 4- Good- Extensor Hallucis Longus Strength Grade
--- NOTE | 2021-11-10 10:30 | HMH.RHREAS ---
Rehab Reassessment Rehab OP Re-assessment Start: 11/10/21 10:08 Freq: Status: Active Protocol: Document 11/10/21 10:08 KAREN (Rec: 11/10/21 10:30 KAREN [id number]) Electronically Signed By Micah Marte, PT 11/10/21 10:08 Rehab Re-assessment Subjective Subjective Patient reports 50% improvement since start of care. Objective Objective Notes AROM: flx WNL; ext WNL; SBr 22 ; SBl 20 MMT: RLE WNL; LLE 4/5 grossly Pain: 2/10 today; 6/10 at worst over past week Neuro: intermittent NT to LLE L4/5 dermatome Walking tolerance: approx 10' Assessment Progress Assessment Progressing as Expected Assessment Notes Patient agrees that he is showing significant improvement. He continues to have LLE weakness/radicular symptoms, though he is experiencing decreased intensity, frequency and duration of symptoms. Patient is responding well to progression of lumbar mechanical traction. Compliance with HEP noted. Patient would benefit from continuing skilled PT services in order to address functional limitations with all standing, ambulatory, bending and lifting activities . Patient goals met STG 2 Goals Not Met All other Revised Goals NA Plan Plan Continue with current POC. Frequency of Therapy 2x/week Duration of therapy 4 weeks Time and Billing Re-Eval Time 15 Re-Eval Billing Units 1 PHYSICIAN CERTIFICATION: I certify the specified therapy services for Alejandro Jasmine are required, authorized, and reviewed every 30 days.
== END 2021-11-26 08:05 | disposition home or self-care (01) ==
LOC: PT 08:00
PROVIDERS: PCP Emergency Medicine; Visit Provider Nurse Practitioner Family
DX: M54.50 Low back pain, unspecified (principal)
CPT/HCPCS: 97010; 97012; 97014; 97110; 97163; 97164; G0283

== ENCOUNTER → 2022-01-01 13:13 | Outpatient (CLI) | payer MEDICARE, MEDICAID, SELFPAY ==
[2022-01-01 12:37] LABS: Basophils # 0.1 K/mm3 (0-0.2); Eosinophils # 0.5 K/mm3 (0.0-0.4); Eosinophils % 4.3 % (0.1-12.0); Hematocrit 46.2 % (42.0-52.0); Hemoglobin 14.3 g/dL (14.1-18.0); Lymphocytes # 3.9 K/mm3 (0.7-4.5); Lymphocytes % 31.3 % (10-50); Mean Corpuscular HGB Conc 30.9 g/dL (31.8-35.4); Mean Corpuscular Hemoglobin 29.5 pg (27.0-31.2); Mean Corpuscular Volume 95.3 fl (80-94); Monocytes # 0.8 K/mm3 (0.1-1.0); Neutrophils # 7.2 K/mm3 (1.8-7.8); Neutrophils % 57.5 % (37.0-80.0); Platelet Count 286 K/mm3 (142-424); Red Blood Count 4.85 M/mm3 (4.60-6.20); White Blood Count 12.5 K/mm3 (4.8-10.8)
[2022-01-01 12:42] LABS: Alanine Aminotransferase 25 U/L (12-78); Albumin Level 3.8 g/dl (3.5-5.0); Albumin/Globulin Ratio 1.4 (1.1-1.8); Alkaline Phosphatase 113 U/L (38-126); Anion Gap 11.5 mEq/L (5-15); Aspartate Amino Transferase 25 U/L (17-59); Bilirubin,Total 0.2 mg/dl (0.2-1.3); Blood Urea Nitrogen 15 mg/dl (9-20); Calcium 9.1 mg/dl (8.4-10.2); Carbon Dioxide 30 mmol/L (22.0-30.0); Chloride 101 mmol/L (98-107); Chol/HDL Ratio 3.9 (1-3.5); Cholesterol 121 mg/dl (140-200); Estimated Glomerular Filt Rate 84 ml/min (>60); GFR (African American) 102 ML/MIN (>60); Globulin 2.7 g/dL (1.3-3.2); Glucose 144 mg/dl (74-100); HDL Cholesterol 31 mg/dl (40-60); Potassium 4.5 mmoL/L (3.5-5.1); Sodium 138 mmol/L (136-145); Total Protein,Serum 6.5 g/dl (6.3-8.2); Triglycerides 104 mg/dl (30-150); VLDL Cholesterol 21 mg/dL (0-40)
[2022-01-01 12:53] LABS: Direct LDL Cholesterol 66.93 mg/dL (100-129)
[2022-01-01 12:59] LABS: Free T4 (Free Thyroxine) 0.93 ng/dl (0.78-2.19)
[2022-01-01 13:00] LABS: 25-OH Vitamin D, Total 45.1 ng/mL (30-100)
[2022-01-01 13:04] LABS: Hemoglobin A1C 7.2 % (4.0-6.0)
[2022-01-01 13:13] LABS: Prostate Specific Ag Screen 0.4 ng/ml (0.0-4.0); Thyroid Stimulating Hormone 0.56 uIU/mL (0.465-4.68)
== END ==
PROVIDERS: PCP Emergency Medicine; Visit Provider Emergency Medicine
DX: E11.9 Type 2 diabetes mellitus without complications (principal); Z12.5 Encounter for screening for malignant neoplasm of prostate; E55.9 Vitamin D deficiency, unspecified; Z79.84 Long term (current) use of oral hypoglycemic drugs
CPT/HCPCS: 80053; 80061; 82306; 83036; 84439; 84443; 85025; G0103

== ENCOUNTER → 2022-04-02 15:53 | Outpatient (CLI) | payer MEDICARE, MEDICAID, SELFPAY ==
[2022-04-02 14:45] LABS: Creatinine,Urine Random 87 mg/dL (Not Estab.)
[2022-04-02 14:47] LABS: Microalbumin < 6.000 mg/L (0-16.7)
== END ==
PROVIDERS: PCP Emergency Medicine; Visit Provider Emergency Medicine
DX: E11.9 Type 2 diabetes mellitus without complications (principal); Z79.84 Long term (current) use of oral hypoglycemic drugs
CPT/HCPCS: 82043; 82570

== ENCOUNTER → 2022-10-01 23:40 | Outpatient (CLI) | payer MEDICARE, MEDICAID, SELFPAY ==
[2022-10-01 19:14] LABS: Amphetamine/Metha Screen,Urine Negative ng/ml (<1000)
[2022-10-01 19:15] LABS: Barbiturates Screen,Urine Negative ng/ml (<200); Benzodiazepines Screen,Urine Negative ng/ml (<200)
[2022-10-01 19:16] LABS: Cannabinoid Screen,Urine Negative ng/ml (<50)
[2022-10-01 19:17] LABS: Cocaine Screen,Urine Negative ng/ml (<300); Methadone Screen,Urine Negative ng/ml (<300)
[2022-10-01 19:18] LABS: Opiate Screen,Urine Negative ng/ml (<300)
[2022-10-01 19:19] LABS: Phencyclidine Screen,Urine Negative ng/ml (<25)
== END ==
PROVIDERS: PCP Emergency Medicine; Visit Provider Emergency Medicine
DX: Z79.899 Other long term (current) drug therapy (principal)
CPT/HCPCS: 80305

== ENCOUNTER → 2022-10-06 14:56 | Outpatient (CLI) | payer MEDICARE, MEDICAID, SELFPAY ==
--- NOTE | 2022-10-06 14:56 | CT_ITS ---
FINAL REPORT TECHNIQUE: Thin section axial CT images of the facial bones and sinuses were obtained without contrast. Coronal reformatted images were also obtained.This study was performed with techniques to keep radiation doses as low as reasonably achievable, (ALARA). Individualized dose reduction techniques using automated exposure control or adjustment of mA and/or kV according to the patient''''s size were employed. CLINICAL HISTORY: sinusitis COMPARISON: None FINDINGS: There is mild mucoperiosteal thickening of the ethmoid air cells and maxillary sinuses. There are no air-fluid levels. The OMCs are patent. There is no fracture. IMPRESSION: Mild chronic changes of chronic bilateral maxillary and ethmoid sinusitis. Reviewed, Interpreted and Dictated by Esequiel Núñez MD Transcribed by Sabine Clark Authenticated and [facility]
== END ==
PROVIDERS: PCP Emergency Medicine; Visit Provider Emergency Medicine
DX: J32.9 Chronic sinusitis, unspecified (principal)
CPT/HCPCS: 70486

== ENCOUNTER → 2022-11-24 09:05 | Outpatient (CLI) | payer MEDICARE, MEDICAID, SELFPAY ==
[2022-11-24 09:37] LABS: Basophils % 0.5 % (0.1-2.0); Eosinophils # 0.2 K/mm3 (0.0-0.4); Eosinophils % 2.9 % (0.1-12.0); Hematocrit 41.4 % (42.0-52.0); Hemoglobin 13.7 g/dL (14.1-18.0); Lymphocytes # 2.9 K/mm3 (0.7-4.5); Lymphocytes % 39.7 % (10-50); Mean Corpuscular HGB Conc 33.2 g/dL (31.8-35.4); Mean Corpuscular Hemoglobin 29.4 pg (27.0-31.2); Mean Corpuscular Volume 88.5 fl (80-94); Mean Platelet Volume 8.1 fl (7.4-10.4); Monocytes # 0.5 K/mm3 (0.1-1.0); Monocytes % 6.7 % (1.7-9.3); Neutrophils # 3.7 K/mm3 (1.8-7.8); Neutrophils % 50.2 % (37.0-80.0); Platelet Count 229 K/mm3 (142-424); Red Blood Count 4.68 M/mm3 (4.60-6.20); Red Cell Distribution Width 14.2 % (11.5-17.5); White Blood Count 7.4 K/mm3 (4.8-10.8)
[2022-11-24 10:02] LABS: Alanine Aminotransferase 33 U/L (12-78); Albumin Level 3.7 g/dl (3.5-5.0); Alkaline Phosphatase 104 U/L (38-126); Aspartate Amino Transferase 33 U/L (17-59); Bilirubin,Indirect 0.3 mg/dL (0.0-0.9); Bilirubin,Total 0.3 mg/dl (0.2-1.3); Bilirubin,Unconjugated 0.4 mg/dL (0.0-1.1); Blood Urea Nitrogen 20 mg/dl (9-20); Calcium 8.6 mg/dl (8.4-10.2); Carbon Dioxide 27 mmol/L (22.0-30.0); Chloride 99 mmol/L (98-107); Chol/HDL Ratio 4.3 (1-3.5); Cholesterol 139 mg/dl (140-200); Estimated Glomerular Filt Rate 84 ml/min (>60); GFR (African American) 102 ML/MIN (>60); Glucose 129 mg/dl (74-100); HDL Cholesterol 32 mg/dl (40-60); Sodium 138 mmol/L (136-145); Total Protein,Serum 6.2 g/dl (6.3-8.2); Triglycerides 119 mg/dl (30-150); VLDL Cholesterol 24 mg/dL (0-40)
[2022-11-24 10:13] LABS: Direct LDL Cholesterol 84.62 mg/dL (100-129)
[2022-11-24 10:19] LABS: Free T4 (Free Thyroxine) 0.95 ng/dl (0.78-2.19)
[2022-11-24 10:33] LABS: Thyroid Stimulating Hormone 1.52 uIU/mL (0.465-4.68)
== END ==
PROVIDERS: PCP Emergency Medicine; Visit Provider Physician Assistant
DX: E11.9 Type 2 diabetes mellitus without complications (principal); E78.2 Mixed hyperlipidemia; F17.200 Nicotine dependence, unspecified, uncomplicated; I25.10 Atherosclerotic heart disease of native coronary artery without angina pectoris; J44.9 Chronic obstructive pulmonary disease, unspecified; I63.9 Cerebral infarction, unspecified; R06.00 Dyspnea, unspecified; I11.9 Hypertensive heart disease without heart failure; Z79.84 Long term (current) use of oral hypoglycemic drugs
CPT/HCPCS: 36415; 80048; 80061; 80076; 84439; 84443; 85025

== ENCOUNTER 2022-12-06 11:21 | Emergency (ER) | payer MEDICARE, MEDICAID, SELFPAY ==
[2022-12-06] VITALS (9 sets, daily range): BP systolic 127–160; BP diastolic 66–81; PULSE 55–64; RESP 14–17; TEMP 36.8; O2SAT 95–98; BMI 29.9
--- NOTE | 2022-12-06 | ECG_ITS ---
APPROVED REPORT Exam: Resting ECG HR:66 bpm ECG Measurements Heart Rate 66 AXES NJ 164 P 68 QRSd 94 QRS 48 QT 419 T 72 QTc 432 Conclusion SINUS RHYTHM NONSPECIFIC T-WAVE ABNORMALITY BORDERLINE ECG UNCONFIRMED REPORT Electronically signed by : Clifton Ortega MD 12/09/2022 13:30:53
--- NOTE | 2022-12-06 11:27 | PC.NURSE ---
Dr. Leahy at
--- NOTE | 2022-12-06 11:31 | XR_ITS ---
FINAL REPORT TECHNIQUE: Single view chest CLINICAL HISTORY: chest pain COMPARISON: 09/11/2019 FINDINGS: A single view of the chest was obtained. The heart and mediastinum are within normal limits. The lungs are clear. There is no pneumothorax. Osseous structures are unremarkable. IMPRESSION: No acute cardiopulmonary process. Reviewed, Interpreted and Dictated by Lita Guy MD Transcribed by Arlene Romero Authenticated and [facility]
--- NOTE | 2022-12-06 11:31 | HMH.EDGENADL ---
Discharge Plan Disposition Patient Disposition: Home, Self-Care Condition: Fair Chief Complaint: Chest Pain Prescriptions Prescriptions: No Action aspirin [Adult Low Dose Aspirin] 81 mg tablet,delayed release (DR/EC) 81 mg PO DAILY cholecalciferol (vitamin D3) 50 mcg (2,000 unit) capsule 50 mcg PO DAILY fluoxetine 20 mg capsule 20 mg PO DAILY (DME) lancets [Accu-Chek Fastclix Lancet Drum] Misc See Rx Instructions .ROUTE .COMPLEX Qty: 102 0RF Dose Instruction: USE 1 LANCET TO CHECK GLUCOSE TWICE DAILY Rx Instructions: USE 1 LANCET TO CHECK GLUCOSE TWICE DAILY hydrocodone-acetaminophen 5-325 mg tablet 1 tab PO Q6H 30 Days Qty: 120 0RF hydralazine 10 mg tablet See Rx Instructions .ROUTE .COMPLEX Qty: 360 0RF Rx Instructions: Take 2 tablets by mouth twice daily clonidine HCl 0.1 mg tablet 0.1 mg PO HS Qty: 90 3RF atorvastatin 80 mg tablet See Rx Instructions .ROUTE .COMPLEX Rx Instructions: TAKE 1 TABLET BY MOUTH AT BEDTIME diltiazem HCl [DILT-XR] 240 mg capsule,ext.rel 24h degradable See Rx Instructions .ROUTE .COMPLEX Rx Instructions: Take 1 capsule by mouth once daily enalapril maleate 20 mg tablet See Rx Instructions .ROUTE .COMPLEX Rx Instructions: Take 1 tablet by mouth once daily hydrochlorothiazide 25 mg tablet See Rx Instructions .ROUTE .COMPLEX Rx Instructions: Take 1 tablet by mouth once daily metformin 500 mg tablet extended release 24 hr See Rx Instructions .ROUTE .COMPLEX Rx Instructions: Take 1 tablet by mouth once daily cyclobenzaprine 5 mg tablet See Rx Instructions .ROUTE .COMPLEX Rx Instructions: TAKE 1 TABLET BY MOUTH AT BEDTIME NEEDED FOR MUSCLE SPASM Repatha SureClick 140 mg/mL pen injector 140 mg SQ Q2W Referrals Follow up/Referrals: Homero Jaquez MD [Primary Care Provider] - See instructions Yomi Bernard MD [Staff Physician] - See instructions Activity Restrictions/Add. Instructions Additional Instructions/Restrictions: You have been evaluated for chest pain. Work-up today does not show signs of a heart attack or abnormal heart rhythm. Please follow-up with cardiology, Dr. Bernard in clinic. Continue taking all medications as prescribed. Return to the emergency department at once if chest pain should return or if you have any new or worsening symptoms, difficulty breathing or any other concerns. Clinical Impressions Clinical Impression: Chest pain, CAD (coronary artery disease) Instructions Patient Instructions: DI for Chest Pain Discharge ED Provider: Pao Leahy Adult HPI General Chief complaint: Chest Pain Stated complaint: chest pain Time Seen by Provider: 12/06/22 11:26 Mode of Arrival: Ambulatory Source of Information: Patient Limitations: No Limitations History of Present Illness HPI narrative: 67-year-old male presenting to the emergency department with chest pain. Episode happened approximately 1 hour prior to arrival. He was sitting at home when he had a sharp pain that radiated across his chest. Located anterior and radiated to his left arm. No radiation to the jaw or back. Pain lasted for a few minutes and then resolved. No associated nausea, diaphoresis. No numbness, weakness, tingling in his arms or legs. He has had occasional fatigue over the last few days. Feels like he tires easily with minimal work. He has a history of coronary artery disease. Took 325 mg aspirin after chest pain this morning. Continues to smoke tobacco, about 9 cigarettes a day Related Data Home Medications Medication Instructions Recorded Confirmed aspirin 81 mg tablet,delayed 81 mg PO DAILY heart 09/06/18 12/06/22 release (Adult Low Dose Aspirin) cholecalciferol (vitamin D3) 50 50 mcg PO DAILY Supplement 11/04/20 12/06/22 mcg (2,000 unit) capsule fluoxetine 20 mg capsule 20 mg PO DAILY Depression 11/24
[2022-12-06 11:37] LABS: Basophils # 0.1 K/mm3 (0-0.2); Basophils % 0.6 % (0.1-2.0); Eosinophils # 0.2 K/mm3 (0.0-0.4); Eosinophils % 2.3 % (0.1-12.0); Hematocrit 43.1 % (42.0-52.0); Hemoglobin 14.1 g/dL (14.1-18.0); Lymphocytes # 2.8 K/mm3 (0.7-4.5); Mean Corpuscular HGB Conc 32.7 g/dL (31.8-35.4); Mean Corpuscular Hemoglobin 28.7 pg (27.0-31.2); Mean Corpuscular Volume 87.8 fl (80-94); Mean Platelet Volume 8.6 fl (7.4-10.4); Monocytes # 0.6 K/mm3 (0.1-1.0); Monocytes % 7.2 % (1.7-9.3); Neutrophils % 57.9 % (37.0-80.0); Platelet Count 275 K/mm3 (142-424); Potassium 3.8 mmoL/L (3.5-5.1); Red Blood Count 4.91 M/mm3 (4.60-6.20); Red Cell Distribution Width 14.2 % (11.5-17.5); Sodium 140 mmol/L (136-145); White Blood Count 8.7 K/mm3 (4.8-10.8)
[2022-12-06 11:38] LABS: Chloride 102 mmol/L (98-107)
--- NOTE | 2022-12-06 11:38 | PC.NURSE ---
rad at BS for portable xray
[2022-12-06 11:40] LABS: Anion Gap 12.8 mEq/L (5-15); Blood Urea Nitrogen 27 mg/dl (9-20); Calcium 9.1 mg/dl (8.4-10.2); Carbon Dioxide 29 mmol/L (22.0-30.0); Creatinine Clearance Estimated 85 mL/min (50-200); Estimated Glomerular Filt Rate 67 ml/min (>60); GFR (African American) 81 ML/MIN (>60); Glucose 169 mg/dl (74-100)
[2022-12-06 11:54] LABS: Troponin I < 0.01 ng/ml (0.00-0.034)
--- NOTE | 2022-12-06 12:42 | PC.NURSE ---
spoke with rad staff r/t xray results-states sending down a preliminary report
--- NOTE | 2022-12-06 12:43 | PC.NURSE ---
rounded on pt. no needs at this time.
--- NOTE | 2022-12-06 13:24 | PC.NURSE ---
waiting nurse infection control back from [facility] in cardiology for consult
--- NOTE | 2022-12-06 13:51 | EXP.CARD.CON ---
History of Present Illness History of Present Illness Consult date: 12/06/22 Requesting physician: Pao Leahy Consult reason: chest pain Chief complaint: Chest pain, fatigue Additional Medical History:: 1. 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 No records available. 2. Hypertension 3. Hyperlipidemia 4. Continued tobacco use A. COPD 5. Diabetes mellitus type 2 History of present illness: 67-year-old male presenting to the emergency department with chest pain.? Episode happened approximately 1 hour prior to arrival.? He was sitting at home when he had a sharp pain that radiated across his chest.? Located anterior and radiated to his left arm.? No radiation to the jaw or back.? Pain lasted for a few minutes and then resolved.? No associated nausea, diaphoresis.? No numbness, weakness, tingling in his arms or legs.? He has had occasional fatigue over the last few days.? Feels like he tires easily with minimal work.? He has a history of coronary artery disease.? Took 325 mg aspirin after chest pain this morning.? Continues to smoke tobacco, about 9 cigarettes a day. The above per Dr. Leahy Patient confirms events as noted above. He relates that the symptoms of fatigue are reminiscent of his symptoms prior to coronary stenting in 2017. Initial troponin at this time is normal. He does relate some hard heartbeat episodes at times without lightheadedness or dizziness. Home blood pressure and pulse rate recordings are reviewed with no significant findings. [facility] Disclaimer: The information contained in this section may have been updated after the patient was seen, as this information can be updated by other users. Medical History CAD (coronary artery disease) Chronic back pain COPD (chronic obstructive pulmonary disease) Dyspnea Family history of heart disease Hypertension Palpitations Sinus bradycardia Tobacco user Surgical History History of colon resection Social History (Updated 12/06/22 @ 11:33 by Yessenia Tabares RN) Smoking Status: Current every day smoker tobacco type: cigars second hand exposure: No alcohol intake: never substance use type: denies use current occupational status: retired Travel in the last 8 weeks: None household members: spouse housing: house current occupational exposures/hazards: No caffeine: No Review of Systems Review of Systems Review of systems:: pertinent systems reviewed and negative unless documented below Constitutional Constitutional: Denies headache(s) ENT Ears, Nose, Mouth, and Throat: Denies dizziness and Denies headache(s) *Cardiovascular Cardiovascular: Reports as per HPI, Reports chest pain, Denies dyspnea and Reports palpitations *Respiratory Respiratory: Denies dyspnea *Musculoskeletal Musculoskeletal: Denies numbness *Neurologic Neurologic: Denies dizziness, Denies headache(s) and Denies numbness Endocrine Endocrine: Reports palpitations Exam Data for Last 24 hours Vital signs and Labs for Last 24 Hours: Temp Pulse Resp BP Pulse Ox 98.3 F 55 L 14 138/71 96 12/06/22 11:26 12/06/22 13:00 12/06/22 13:00 12/06/22 13:00 12/06/22 13:00 Laboratory Results - last 24 hr 12/06/22 11:23: WBC 8.7, RBC 4.91, Hgb 14.1, Hct 43.1, MCV 87.8, MCH 28.7, MCHC 32.7, RDW 14.2, Plt Count 275, MPV 8.6, Neut % (Auto) 57.9, Lymph % (Auto) 32.0, Richardson % (Auto) 7.2, Eos % (Auto) 2.3, Baso % (Auto) 0.6, Neut # (Auto) 5.0, Lymph # (Auto) 2.8, Richardson # (Auto) 0.6, Eos # (Auto) 0.2, Baso # (Auto) 0.1 12/06/22 11:23: Sodium 140, Potassium 3.8, Chloride 102, Carbon Dioxide 29, Anion Gap 12.8, BUN 27 H, Creatinine 1.10, Estimated Creat Clear 85, Estimated GFR 67, Est GFR ( Amer) 81, Glucose 169 H, Calcium 9.1, Troponin I < 0.01 I & O for Last 24 hours: Intake & Output 12/04/22 12/05/22 12/06/22 12/07/22 11:59 11:59 11:59 11:59 Weight 203 lb Constitutional Cons
--- NOTE | 2022-12-06 14:15 | PC.NURSE ---
RT at BS
--- NOTE | 2022-12-06 14:24 | PC.NURSE ---
Holter monitor in place per RT Fany
[2022-12-06 14:33] LABS: Troponin I < 0.01 ng/ml (0.00-0.034)
== END 2022-12-06 14:53 | disposition home or self-care (01) ==
PROVIDERS: Emergency Provider Emergency Medicine; PCP Emergency Medicine
DX: R07.9 Chest pain, unspecified (principal); M79.602 Pain in left arm; I10 Essential (primary) hypertension; J44.9 Chronic obstructive pulmonary disease, unspecified; F17.290 Nicotine dependence, other tobacco product, uncomplicated; I25.10 Atherosclerotic heart disease of native coronary artery without angina pectoris
CPT/HCPCS: 71045; 80048; 84484; 85025; 93005; 93225; 99285

== ENCOUNTER → 2022-12-17 10:45 | Outpatient (CLI) | payer MEDICARE, MEDICAID, SELFPAY ==
--- NOTE | 2022-12-17 | CA_ITS ---
APPROVED REPORT Exam: Pharmacologic Technologist: Emma Roldan, Ht: 5 ft 9 in Wt: 203 lbs BSA: 2.08 m2 HR: 46 bpm BP: 117/61 mmHg Rhythm: Sinus bradycardia Medical History Medical History: HTN, Hyperlipidemia, Diabetes Medications: Hydralazine,,,,, Aspirin,,,,, Hydrochlorothiazide,,,,, Atorvastatin,,,,, Vit D3,,,,, Cyclobenzaprine,,,,, Fluoxetine HCL,,,,, EnALAPRIL Maleate,,,,, Hydrocodone-Acetaminohen,,,,, Metformin ER,,,,, DilTiazem HCI ER,,,,, Allergies: MORPHINE, OXYCODONE, ACETAMINOPHEN Cardiac Risk Factors: HTN, Hyperlipidemia, Diabetes , FHX of CAD, Smoking Stress Test Details Test: LEXISCAN HR Resting HR: 47 bpm Max Heart Rate (APMHR): 153 bpm Max HR Achieved: 66 bpm Target HR (85% APMHR): 130 bpm % of APMHR: 43 Recovery HR: 56 bpm BP Resting BP: 117/61 mmHg Max BP: 118/55 mmHg Recovery BP: 117.0/55.0 mmHg ECG Resting ECG: SB Clinical Exercise duration: 04:00 min Highest Stage Achieved: Exercise capacity: n/a METs Stress ECG Conclusion The patient developed mild shortness of breath and lightheadedness. Significant ST change with pharmacologic stress testing. Myoview images are reported separately Test Summary REST 01:18 . . 47 . 117/ 61 . . Stage 1 . . . . . . . Myoview Injected Stage 1 01:00 . . 57 . . . . Stage 2 01:00 . . 66 . 109/ 50 . . Stage 3 01:00 . . 62 . 110/ 57 . . Stage 4 01:00 . . 60 . 118/ 55 . Stop exercise at 04:00 RECOVERY 01:00 . . 55 . . . . RECOVERY 01:47 . . 56 . 117/ 55 . . Electronically signed by : Mireille Benito, 12/20/2022 01:28:29
--- NOTE | 2022-12-17 10:45 | NM_ITS ---
APPROVED REPORT Exam: Nuclear Stress Test Indication: chest pain..palpitations..fatigue Patient Location: Outpatient Stress Tech: Emma Roldan NM Tech:Milagros ReyesUMBERTO RT(R)(N) Ht: 5 ft 9 in Wt: 209 lbs HR: 47 bpm BP: 117/61 mmHg BSA: 2.10 m2 TID: 1.29 BMI: 30.8 History: chest pain..palpitations..fatigue Procedure: Patient received 0.4 mg of intravenous Lexiscan, resting heart rate 47 bpm, resting blood pressure 117/61 mmHg, with Lexiscan maximum heart rate achieved was 66 bpm which is 85 % of the maximum predicted heart rate and blood pressure was 118/55 mmHg. With Lexiscan, patient denied any complaint of chest pain. Cardiac Stress and Resting SPECT Images: Cardiac Stress and Resting SPECT images were obtained using technetium 99m Myoview 32.9 mCi stress and 10.98 mCi at rest. Resting and stress perfusion imaging in both supine and prone positions demonstrate medium sized, mild, fixed perfusion defect in the basal to mid inferior LV wall. There is increase in transient ischemic dilatation (TID 1.29), suggestive of possible balanced ischemia or multivessel disease. Gated imaging demonstrates normal global LV systolic function. There is mild hypokinesis in the basal inferior LV wall. LVEF is calculated at 54%. Conclusion: Medium sized, mild, fixed perfusion defect in the basal to mid inferior LV wall. No evidence of reversible ischemia There is increase in transient ischemic dilatation (TID 1.29), suggestive of possible balanced ischemia or multivessel disease. Gated imaging demonstrates normal global LV systolic function. There is mild hypokinesis in the basal inferior LV wall. LVEF is calculated at 54%. Electronically signed by : Mireille Benito, 12/20/2022 01:33:41
== END ==
LOC: RAD 10:45
PROVIDERS: PCP Emergency Medicine; Visit Provider Physician Assistant
DX: E78.2 Mixed hyperlipidemia (principal); I10 Essential (primary) hypertension; I25.10 Atherosclerotic heart disease of native coronary artery without angina pectoris; R07.9 Chest pain, unspecified
CPT/HCPCS: 78452; 93017; A9502; J2785

== ENCOUNTER 2022-12-25 21:03 | Emergency (ER) | payer MEDICARE, MEDICAID, SELFPAY ==
[2022-12-25 21:05] VITALS: BP 171/90; PULSE 63; RESP 16; TEMP 36.7; O2SAT 97; BMI 31.0
[2022-12-25 21:11] VITALS: BMI 31.0
--- NOTE | 2022-12-25 21:12 | XR_ITS ---
PROCEDURE INFORMATION: Exam: XR Chest Exam date and time: 12/25/2022 9:53 PM Age: 67 years old Clinical indication: Pain; Chest pressure; Additional info: Cp TECHNIQUE: Imaging protocol: Radiologic exam of the chest. Views: 2 views. Total images: 2 COMPARISON: CR XR CHEST PORTABLE 12/06/2022 11:33 AM FINDINGS: Tubes, catheters and devices: EKG leads are present. Lungs: Chronic accentuation of bronchovascular markings. No acute infiltrate, airspace consolidation, or vascular congestion. No pulmonary interstitial edema. Pleural spaces: Unremarkable. No pleural effusion. No pneumothorax. Heart/Mediastinum: Unremarkable. No cardiomegaly. No mediastinal widening or hilar enlargement. Vasculature: Tortuous atherosclerotic thoracic aorta. Bones/joints: Moderate degenerative changes thoracic spine. IMPRESSION: No radiographically acute cardiopulmonary process.
--- NOTE | 2022-12-25 21:15 | ECG_ITS ---
APPROVED REPORT Exam: Resting ECG HR:63 bpm ECG Measurements Heart Rate 63 AXES NC 164 P 71 QRSd 93 QRS 53 QT 433 T 82 QTc 439 Conclusion SINUS RHYTHM NORMAL ECG UNCONFIRMED REPORT Electronically signed by : Clifton Ortega MD 12/26/2022 06:44:26
[2022-12-25 21:16] LABS: Basophils % 0.3 % (0.1-2.0); Eosinophils # 0.5 K/mm3 (0.0-0.4); Eosinophils % 4.2 % (0.1-12.0); Hematocrit 41.8 % (42.0-52.0); Hemoglobin 13.8 g/dL (14.1-18.0); Lymphocytes # 3.4 K/mm3 (0.7-4.5); Lymphocytes % 29.3 % (10-50); Mean Corpuscular Hemoglobin 28.7 pg (27.0-31.2); Mean Corpuscular Volume 86.9 fl (80-94); Monocytes # 0.6 K/mm3 (0.1-1.0); Monocytes % 5.3 % (1.7-9.3); Neutrophils # 7.1 K/mm3 (1.8-7.8); Neutrophils % 60.9 % (37.0-80.0); Platelet Count 262 K/mm3 (142-424); Red Blood Count 4.81 M/mm3 (4.60-6.20); Red Cell Distribution Width 14.3 % (11.5-17.5); White Blood Count 11.7 K/mm3 (4.8-10.8)
[2022-12-25 21:21] LABS: Anion Gap 15.7 mEq/L (5-15); Blood Urea Nitrogen 20 mg/dl (9-20); Calcium 8.3 mg/dl (8.4-10.2); Carbon Dioxide 26 mmol/L (22.0-30.0); Chloride 101 mmol/L (98-107); Creatinine Clearance Estimated 97 mL/min (50-200); Estimated Glomerular Filt Rate 75 ml/min (>60); GFR (African American) 90 ML/MIN (>60); Glucose 232 mg/dl (74-100); Potassium 3.7 mmoL/L (3.5-5.1); Sodium 139 mmol/L (136-145)
[2022-12-25 21:30] VITALS: BP 128/65; PULSE 62; O2SAT 95
[2022-12-25 21:33] LABS: NT Pro Brain Natriuretic Pep. 76.7 pg/mL (0-125)
[2022-12-25 21:34] LABS: Troponin I < 0.01 ng/ml (0.00-0.034)
--- NOTE | 2022-12-25 21:39 | PC.NURSE ---
ROUNDED ON PT NOTHING NEEDED AT THIS TIME
--- NOTE | 2022-12-25 21:48 | HMH.EDCP ---
Discharge Plan Disposition Patient Disposition: Home, Self-Care Prescriptions Prescriptions: New isosorbide mononitrate 30 mg tablet extended release 24 hr 30 mg PO DAILY Qty: 30 0RF No Action aspirin [Adult Low Dose Aspirin] 81 mg tablet,delayed release (DR/EC) 81 mg PO DAILY cholecalciferol (vitamin D3) 50 mcg (2,000 unit) capsule 50 mcg PO DAILY hydrocodone-acetaminophen 5-325 mg tablet 1 tab PO Q6H 30 Days Qty: 120 0RF hydralazine 10 mg tablet See Rx Instructions .ROUTE .COMPLEX Qty: 360 0RF Rx Instructions: Take 2 tablets by mouth twice daily fluoxetine 20 mg capsule 20 mg PO DAILY Qty: 90 2RF (DME) lancets [Accu-Chek Fastclix Lancet Drum] [facility] [place] See Rx Instructions .ROUTE .COMPLEX Qty: 102 3RF Dose Instruction: USE 1 LANCET TO CHECK GLUCOSE TWICE DAILY Rx Instructions: USE 1 LANCET TO CHECK GLUCOSE TWICE DAILY metformin 500 mg tablet extended release 24 hr See Rx Instructions .ROUTE .COMPLEX Qty: 90 0RF Rx Instructions: Take 1 tablet by mouth once daily diltiazem HCl [DILT-XR] 240 mg capsule,ext.rel 24h degradable See Rx Instructions .ROUTE .COMPLEX Qty: 90 0RF Rx Instructions: Take 1 capsule by mouth once daily atorvastatin 80 mg tablet See Rx Instructions .ROUTE .COMPLEX Rx Instructions: TAKE 1 TABLET BY MOUTH AT BEDTIME enalapril maleate 20 mg tablet See Rx Instructions .ROUTE .COMPLEX Rx Instructions: Take 1 tablet by mouth once daily hydrochlorothiazide 25 mg tablet See Rx Instructions .ROUTE .COMPLEX Rx Instructions: Take 1 tablet by mouth once daily cyclobenzaprine 5 mg tablet See Rx Instructions .ROUTE .COMPLEX Rx Instructions: TAKE 1 TABLET BY MOUTH AT BEDTIME NEEDED FOR MUSCLE SPASM Repatha SureClick 140 mg/mL pen injector 140 mg SQ Q2W clonidine HCl 0.1 mg tablet 0.1 mg PO HS Referrals Follow up/Referrals: Homero Jaquez MD [Primary Care Provider] - See instructions Yomi Bernard MD [Staff Physician] - See instructions Clinical Impressions Clinical Impression: Angina at rest Instructions Patient Instructions: DI for Angina Discharge ED Provider: Leonid (ED)Homero Chest Pain HPI General Chief Complaint: Chest Pain Stated Complaint: Chest pain Time Seen by Provider: 12/25/22 21:30 Mode of Arrival: Ambulatory Source of Information: Patient, Spouse and Medical Record Limitations: No Limitations Description of Symptoms (Recalled from ER Triage Doc. by RN): pt c/o lt side achy chest pain that started 30 min prior to arrival. pt states took 324mg ASA, and is scheduled for heart cath on tuesday History of Present Illness HPI narrative: lt sided chest pain with hx of angina and relieved with ntg - has pending heart cath - MD complaint: chest pain indicative of cardiac Onset (ago): hour(s) Duration: now resolved Activity at onset: during rest Pain location: substernal Severity: moderate Quality: tightness Risk Factors for CAD: Family Hx of CAD, Diabetes and Smoking Treatments prior to or on arrival for Cardiac Chest Pain: none KALLIE Score for Non-Stemi Age of Patient: 60-69 years old Heart Rate: 70-89 bpm Systolic Blood Pressure: 120-139 mmhg Serum Creatinine: 0.80-1.19 mg/dl CHF [place] Class: I-No CHF Other Risk Factors: None Non-Stemi Risk Score: 108 Risk Stratification: 1-108 = Low Risk Related Data Home Medications Medication Instructions Recorded Confirmed aspirin 81 mg tablet,delayed 81 mg PO DAILY heart 09/06/18 12/25/22 release (Adult Low Dose Aspirin) cholecalciferol (vitamin D3) 50 50 mcg PO DAILY Supplement 11/04/20 12/25/22 mcg (2,000 unit) capsule atorvastatin 80 mg tablet See Rx Instructions .Route 12/06/22 12/25/22 .COMPLEX Cholesterol cyclobenzaprine 5 mg tablet See Rx Instructions .Route 12/06/22 12/25/22 .COMPLEX Pain enalapril maleate 20 mg tablet See Rx Instructions .Route 12/06/22 0
--- NOTE | 2022-12-25 21:55 | PC.NURSE ---
leandro on phone with dr noyola
[2022-12-25 22:00] VITALS: BP 141/69; PULSE 61; O2SAT 95
[2022-12-25 22:30] VITALS: BP 143/71; PULSE 57; O2SAT 95
--- NOTE | 2022-12-25 22:45 | PC.NURSE ---
NOTHING NEEDED AT THIS TIME, VISITOR AT BS
[2022-12-25 23:00] VITALS: BP 143/70; PULSE 49; RESP 18; O2SAT 96
[2022-12-25 23:31] VITALS: BP 130/60; PULSE 42; RESP 16; O2SAT 96
[2022-12-26] VITALS: BP 128/66; PULSE 50; RESP 14; O2SAT 95
[2022-12-26 00:39] LABS: Troponin I < 0.01 ng/ml (0.00-0.034)
[2022-12-26 00:44] VITALS: BP 125/69; PULSE 51; RESP 16; TEMP 36.6; O2SAT 96
== END 2022-12-26 01:20 | disposition home or self-care (01) ==
PROVIDERS: Emergency Provider Emergency Medicine; PCP Emergency Medicine
DX: I20.9 Angina pectoris, unspecified (principal); I11.9 Hypertensive heart disease without heart failure; J44.9 Chronic obstructive pulmonary disease, unspecified; Z87.891 Personal history of nicotine dependence
CPT/HCPCS: 71046; 80048; 83880; 84484; 85025; 93005; 96360; 99284; 99285

== ENCOUNTER 2023-01-15 11:17 | Emergency (ER) | payer MEDICARE, MEDICAID, SELFPAY ==
[2023-01-15 11:17] VITALS: BP 120/47; PULSE 53; RESP 18; TEMP 36.8; O2SAT 99; BMI 29.2
--- NOTE | 2023-01-15 11:33 | EXP.UTC ---
Discharge Plan Disposition Patient Disposition: Home, Self-Care Condition: Good Prescriptions Prescriptions: No Action aspirin [Adult Low Dose Aspirin] 81 mg tablet,delayed release (DR/EC) 81 mg PO DAILY cholecalciferol (vitamin D3) 50 mcg (2,000 unit) capsule 50 mcg PO DAILY hydrocodone-acetaminophen 5-325 mg tablet 1 tab PO Q6H 30 Days Qty: 120 0RF hydralazine 10 mg tablet See Rx Instructions .ROUTE .COMPLEX Qty: 360 0RF Rx Instructions: Take 2 tablets by mouth twice daily fluoxetine 20 mg capsule 20 mg PO DAILY Qty: 90 2RF (DME) lancets [Accu-Chek Fastclix Lancet Drum] [facility] [place] See Rx Instructions .ROUTE .COMPLEX Qty: 102 3RF Dose Instruction: USE 1 LANCET TO CHECK GLUCOSE TWICE DAILY Rx Instructions: USE 1 LANCET TO CHECK GLUCOSE TWICE DAILY metformin 500 mg tablet extended release 24 hr See Rx Instructions .ROUTE .COMPLEX Qty: 90 0RF Rx Instructions: Take 1 tablet by mouth once daily diltiazem HCl [DILT-XR] 240 mg capsule,ext.rel 24h degradable See Rx Instructions .ROUTE .COMPLEX Qty: 90 0RF Rx Instructions: Take 1 capsule by mouth once daily atorvastatin 80 mg tablet See Rx Instructions .ROUTE .COMPLEX Rx Instructions: TAKE 1 TABLET BY MOUTH AT BEDTIME enalapril maleate 20 mg tablet See Rx Instructions .ROUTE .COMPLEX Rx Instructions: Take 1 tablet by mouth once daily hydrochlorothiazide 25 mg tablet See Rx Instructions .ROUTE .COMPLEX Rx Instructions: Take 1 tablet by mouth once daily cyclobenzaprine 5 mg tablet See Rx Instructions .ROUTE .COMPLEX Rx Instructions: TAKE 1 TABLET BY MOUTH AT BEDTIME NEEDED FOR MUSCLE SPASM Repatha SureClick 140 mg/mL pen injector 140 mg SQ Q2W clonidine HCl 0.1 mg tablet 0.1 mg PO HS isosorbide mononitrate 30 mg tablet extended release 24 hr 30 mg PO DAILY Qty: 30 0RF Referrals Follow up/Referrals: Homero Jaquez MD [Primary Care Provider] - See instructions Jany Parker DPM [Staff Physician] - See instructions Activity Restrictions/Add. Instructions Additional Instructions/Restrictions: Rest the extremity, Wear the eduardo wrap for compression, Elevate the extremity as tolerated while you are resting. Follow up with Dr. Parker (podiatry). I put in a referral but you need to call her office and schedule an appointment. Follow up with your regular doctor. GO TO THE ER FOR ANY WORSENING SYMPTOMS Clinical Impressions Clinical Impression: Ankle pain, left Instructions Patient Instructions: DI for Ankle Pain, Ketorolac Injection Discharge [place] [facility] [place] General Stated complaint: left pain no known accident Time Seen by Provider: 01/15/23 11:33 History of Present Illness Provider Complaint: He states that he has had left ankle and foot pain since last night. He denies any known injury. Related Data Home Medications Medication Instructions Recorded Confirmed aspirin 81 mg tablet,delayed 81 mg PO DAILY heart 09/06/18 01/13/23 release (Adult Low Dose Aspirin) cholecalciferol (vitamin D3) 50 50 mcg PO DAILY Supplement 11/04/20 01/13/23 mcg (2,000 unit) capsule atorvastatin 80 mg tablet See Rx Instructions .Route 12/06/22 01/13/23 .COMPLEX Cholesterol cyclobenzaprine 5 mg tablet See Rx Instructions .Route 12/06/22 01/13/23 .COMPLEX Pain enalapril maleate 20 mg tablet See Rx Instructions .Route 12/06/22 01/13/23 .COMPLEX High blood pressure evolocumab 140 mg/mL subcutaneous 140 mg SQ Q2W Cholesterol 12/06/22 01/13/23 pen injector (Alia Guillen) hydrochlorothiazide 25 mg tablet See Rx Instructions .Route 12/06/22 01/13/23 .COMPLEX High blood pressure clonidine HCl 0.1 mg tablet 0.1 mg PO HS High blood pressure 12/25/22 01/13/23 Previous Rx's Medication Instructions Recorded hydrocodone 5 mg-acetaminophen 325 1 tab PO Q6H Pain 30 days #120 tabs 10/26/22
--- NOTE | 2023-01-15 11:42 | XR_ITS ---
PROCEDURE INFORMATION: Exam: XR Left Foot Exam date and time: 01/15/2023 11:43 AM Age: 67 years old Clinical indication: Pain; Foot; Left; Additional info: Left foot and ankle pain, no known injury TECHNIQUE: Imaging protocol: Radiologic exam of the left foot. Views: 3 or more views. COMPARISON: CR XR ANKLE LT MIN 3V 01/15/2023 11:41 AM FINDINGS: Bones/joints: Normal. Soft tissues: Normal. IMPRESSION: No acute findings.
--- NOTE | 2023-01-15 11:42 | XR_ITS ---
PROCEDURE INFORMATION: Exam: XR Left Ankle Exam date and time: 01/15/2023 11:41 AM Age: 67 years old Clinical indication: Pain; Ankle; Left; Additional info: Left foot and ankle pain, no known injury TECHNIQUE: Imaging protocol: Radiologic exam of the left ankle. Views: 3 or more views. COMPARISON: No relevant prior studies available. FINDINGS: Bones/joints: Normal. Soft tissues: Normal. IMPRESSION: No acute findings.
[2023-01-15 12:35] VITALS: BP 120/47; PULSE 53; RESP 18; TEMP 36.8; O2SAT 99
== END 2023-01-15 12:36 | disposition home or self-care (01) ==
PROVIDERS: Emergency Provider Nurse Practitioner Family; PCP Emergency Medicine
DX: M25.572 Pain in left ankle and joints of left foot (principal); I25.10 Atherosclerotic heart disease of native coronary artery without angina pectoris; J44.9 Chronic obstructive pulmonary disease, unspecified; Z87.891 Personal history of nicotine dependence; I11.9 Hypertensive heart disease without heart failure
CPT/HCPCS: 73610; 73630; 96372; 99204; 99212; G0463

== ENCOUNTER 2023-01-25 07:55 | Day surgery (SDC) | payer MEDICARE, MEDICAID, SELFPAY ==
[2023-01-25] VITALS (13 sets, daily range): BP systolic 112–147; BP diastolic 61–85; PULSE 42–54; RESP 16–20; TEMP 36.8; O2SAT 93–99; BMI 29.2
--- NOTE | 2023-01-25 07:14 | IR_ITS ---
APPROVED REPORT Patient Location: Outpatient PROCEDURES Left heart catheterization Left ventriculogram Selective coronary angiogram Drug-eluting stent deployment to the distal circumflex artery Intravascular ultrasound to the circumflex artery Intravascular ultrasound to the proximal LAD Informed consent was obtained prior to the procedure. COMPLICATIONS None Estimated Blood Loss: Less than 10 mls TECHNIQUE One percent lidocaine used to anesthetize the right anterior aspect of the wrist. The right radial artery was accessed via the Seldinger technique. A 6 English sheath was placed in the right radial artery. 150 mg magnesium sulfate, 800 mcg of nitroglycerin, 1mg Lidocaine and 5000 U Heparin were given through the arterial sheath. The papa catheter was also used to perform left heart catheterization, left ventriculogram and selective coronary angiogram. At the end the diagnostic angiogram therapeutic heparin was administered giving a therapeutic ACT and the guide catheter was placed in the left main artery followed by Choice PT extra-support wire being placed on the circumflex artery. A 3.5 x 12 mm [place] frontier stent was deployed at 18 vinod reducing the severe stenosis to 0%. AASHISH-3 flow was present before and after the procedure. Intravascular ultrasound probe was then advanced to assess the expansion of the stent as well as the moderate calcified proximal disease. The stent had excellent stent apposition with excellent sizing. The proximal portion of the dominant circumflex artery had an MLA greater then 4 mm??? therefore no percutaneous revascularization was undertaken in the proximal segment. The Choice PT extra-support wire was then placed to the LAD where additional interrogation was performed with intravascular ultrasound probe. The proximal portion had an MLA of 4.5 mm???. Because this did not meet hemodynamic significance the apparatus was removed. At the end of the procedure the apparatus was removed the sheath was removed good hemostasis was achieved using TR banding patient was transferred to the postop putting in stable condition ANGIOGRAPHIC RESULTS The left main artery Normal The left anterior descending artery Has proximal 30% calcified stenoses. The midportion has diffuse 20 to 30% stenoses. Large first diagonal artery has proximal and mid vessel 20 to 30% stenoses The circumflex artery There is a large dominant vessel and proximally normal. Gives rise to a large first obtuse marginal artery which has an ostial 60 to 70% stenosis followed by a proximal 50% stenosis. This vessel is 2.75 mm in diameter. Distal to the first obtuse marginal artery the circumflex artery has a calcified concentric 50 to 60% stenosis followed by additional mid vessel 40% stenoses. Distally he had still proximal to a large posterior descending artery the circumflex artery has a concentric 70 to 80% stenosis. Distal to the stenosis there are 3 obtuse marginal arteries. 1 functioning as a posterior descending artery and then to small to medium size distal terminal obtuse marginal arteries The right coronary artery Vestigial with proximal 40% stenosis The RIDLEY ventriculogram reveals Normal 65% The left ventricular end-diastolic pressure 10 mmHg IMPRESSION Severe disease in the distal dominant circumflex artery as described above Successful stent to the distal circumflex artery severe disease reduced to 0% with 1 drug-eluting stent Moderate to severe disease throughout the proximal and mid LAD as described above as well as moderate disease throughout the proximal and mid dominant right coronary Normal ejection fraction Normal left ventricular end-diastolic pressure PLAN 1. Dual antiplatelet therapy 2. LDL less than 55 to be achieved with high intensity statin 3. Avoid
[2023-01-25 08:33] LABS: Basophils # 0.1 K/mm3 (0-0.2); Basophils % 0.6 % (0.1-2.0); Eosinophils # 0.5 K/mm3 (0.0-0.4); Eosinophils % 3.7 % (0.1-12.0); Hematocrit 44.7 % (42.0-52.0); Hemoglobin 14.2 g/dL (14.1-18.0); Lymphocytes # 3.4 K/mm3 (0.7-4.5); Lymphocytes % 25.8 % (10-50); Mean Corpuscular HGB Conc 31.8 g/dL (31.8-35.4); Mean Corpuscular Hemoglobin 28.7 pg (27.0-31.2); Mean Corpuscular Volume 90.3 fl (80-94); Monocytes # 0.8 K/mm3 (0.1-1.0); Monocytes % 5.7 % (1.7-9.3); Neutrophils # 8.4 K/mm3 (1.8-7.8); Neutrophils % 64.2 % (37.0-80.0); Platelet Count 288 K/mm3 (142-424); Red Blood Count 4.95 M/mm3 (4.60-6.20); Red Cell Distribution Width 14.4 % (11.5-17.5); White Blood Count 13.1 K/mm3 (4.8-10.8)
[2023-01-25 08:39] LABS: Blood Urea Nitrogen 23 mg/dl (9-20); Calcium 8.9 mg/dl (8.4-10.2); Carbon Dioxide 30 mmol/L (22.0-30.0); Chloride 106 mmol/L (98-107); Creatinine Clearance Estimated 83 mL/min (50-200); Estimated Glomerular Filt Rate 67 ml/min (>60); GFR (African American) 81 ML/MIN (>60); Glucose 144 mg/dl (74-100); Sodium 141 mmol/L (136-145)
[2023-01-25 13:34] LABS: CATHL Activated Clotting Time > 400 SEC (74-125)
--- NOTE | 2023-01-25 14:54 | P.CONPHA_ITS ---
PHA Field Administrative Assistant Discharge Med Data Warehouse Manager: Alejandro Jasmine has received discharge medication counseling on the following medications: ASPIRIN DR 81 MG DAILY ATORVASTATIN 80 MG HS ENALAPRIL 20 MG DAILY MD ADDING BRILINTA 90 MG BID BUT NOT BETA REYMUNDO AT THIS TIME.
== END 2023-01-25 15:14 | disposition home or self-care (01) ==
PROVIDERS: PCP Emergency Medicine; Visit Provider Internal Medicine
DX: I25.118 Atherosclerotic heart disease of native coronary artery with other forms of angina pectoris; E11.9 Type 2 diabetes mellitus without complications; E78.2 Mixed hyperlipidemia; F17.210 Nicotine dependence, cigarettes, uncomplicated; I10 Essential (primary) hypertension; J44.9 Chronic obstructive pulmonary disease, unspecified; R94.39 Abnormal result of other cardiovascular function study; Z79.899 Other long term (current) drug therapy; Z79.84 Long term (current) use of oral hypoglycemic drugs; Z82.49 Family history of ischemic heart disease and other diseases of the circulatory system
CPT/HCPCS: 80048; 85025; 85347; 92928; 92978; 92979; 93458; 99152; 99153; C1725; C1760; C1769; C1876; C9600; J1644; Q9967

== ENCOUNTER → 2023-01-26 16:35 | Outpatient (CLI) | payer MEDICARE, MEDICAID, SELFPAY ==
[2023-01-26 13:57] LABS: Opiate Screen,Urine Negative ng/ml (<300); Phencyclidine Screen,Urine Negative ng/ml (<25)
[2023-01-26 13:59] LABS: Amphetamine/Metha Screen,Urine Negative ng/ml (<1000); Barbiturates Screen,Urine Negative ng/ml (<200)
[2023-01-26 14:00] LABS: Benzodiazepines Screen,Urine Positive ng/ml (<200)
[2023-01-26 14:04] LABS: Cannabinoid Screen,Urine Negative ng/ml (<50); Cocaine Screen,Urine Negative ng/ml (<300)
[2023-01-26 14:05] LABS: Methadone Screen,Urine Negative ng/ml (<300)
== END ==
PROVIDERS: PCP Emergency Medicine; Visit Provider Emergency Medicine
DX: Z79.899 Other long term (current) drug therapy (principal)
CPT/HCPCS: 80305

== ENCOUNTER → 2023-02-08 09:59 | Outpatient (CLI) | payer MEDICARE, MEDICAID, SELFPAY ==
[2023-02-08 10:31] LABS: Basophils # 0.1 K/mm3 (0-0.2); Basophils % 0.6 % (0.1-2.0); Eosinophils # 0.3 K/mm3 (0.0-0.4); Eosinophils % 3.2 % (0.1-12.0); Hematocrit 43.2 % (42.0-52.0); Hemoglobin 13.9 g/dL (14.1-18.0); Lymphocytes % 28.3 % (10-50); Mean Corpuscular HGB Conc 32.1 g/dL (31.8-35.4); Mean Corpuscular Hemoglobin 28.8 pg (27.0-31.2); Mean Corpuscular Volume 89.7 fl (80-94); Monocytes # 0.6 K/mm3 (0.1-1.0); Neutrophils # 6.6 K/mm3 (1.8-7.8); Platelet Count 282 K/mm3 (142-424); Red Blood Count 4.81 M/mm3 (4.60-6.20); Red Cell Distribution Width 14.2 % (11.5-17.5); White Blood Count 10.6 K/mm3 (4.8-10.8)
[2023-02-08 10:53] LABS: Alanine Aminotransferase 28 U/L (12-78); Albumin Level 3.9 g/dl (3.5-5.0); Alkaline Phosphatase 98 U/L (38-126); Aspartate Amino Transferase 24 U/L (17-59); Bilirubin,Indirect 0.2 mg/dL (0.0-0.9); Bilirubin,Total 0.2 mg/dl (0.2-1.3); Bilirubin,Unconjugated 0.4 mg/dL (0.0-1.1); Blood Urea Nitrogen 26 mg/dl (9-20); Calcium 9.2 mg/dl (8.4-10.2); Carbon Dioxide 30 mmol/L (22.0-30.0); Chloride 104 mmol/L (98-107); Cholesterol 110 mg/dl (140-200); Estimated Glomerular Filt Rate 67 ml/min (>60); GFR (African American) 81 ML/MIN (>60); Glucose 137 mg/dl (74-100); HDL Cholesterol 37 mg/dl (40-60); Sodium 141 mmol/L (136-145); Total Protein,Serum 6.6 g/dl (6.3-8.2); Triglycerides 115 mg/dl (30-150); VLDL Cholesterol 23 mg/dL (0-40)
[2023-02-08 11:04] LABS: Direct LDL Cholesterol 53.89 mg/dL (100-129)
[2023-02-08 11:09] LABS: Free T4 (Free Thyroxine) 0.67 ng/dl (0.78-2.19)
[2023-02-08 11:24] LABS: Thyroid Stimulating Hormone 2.49 uIU/mL (0.465-4.68)
== END ==
PROVIDERS: PCP Emergency Medicine; Visit Provider Internal Medicine
DX: E11.9 Type 2 diabetes mellitus without complications (principal); E78.5 Hyperlipidemia, unspecified; F17.200 Nicotine dependence, unspecified, uncomplicated; I20.8 Other forms of angina pectoris; J44.9 Chronic obstructive pulmonary disease, unspecified; R06.00 Dyspnea, unspecified; I63.9 Cerebral infarction, unspecified; I11.9 Hypertensive heart disease without heart failure; Z79.84 Long term (current) use of oral hypoglycemic drugs
CPT/HCPCS: 36415; 80048; 80061; 80076; 84439; 84443; 85025

== ENCOUNTER 2023-03-10 11:02 | Emergency (ER) | payer MEDICARE, MEDICAID, SELFPAY ==
[2023-03-10 11:32] VITALS: BMI 29.8
[2023-03-10 11:33] VITALS: BP 141/70; PULSE 62; RESP 18; TEMP 36.6; O2SAT 98; BMI 29.8
[2023-03-10 11:37] VITALS: BP 141/70; PULSE 62; RESP 16; TEMP 36.6; O2SAT 98
[2023-03-10 11:51] LABS: Microscopic, Urine URINE MICROSCOPIC (MICROSCOPIC)
[2023-03-10 11:54] LABS: Appearance,Urine CLEAR (Clear); Bilirubin,Urine Negative (Negative); Blood, Urine TRACE-I (Negative); Color,Urine YELLOW (Yellow); Glucose,Urine (UA) TRACE (Negative); Ketones,Urine Negative (Negative); Leukocyte Esterase,Urine Negative (Negative); Nitrate,Urine Negative (Negative); PH,Urine 6.5 (5.0-8.5); Protein,Urine Negative (Negative); Specific Gravity, Urine 1.015 (1.005-1.030); Urobilinogen,Urine 0.2 EU/dl (0.2)
[2023-03-10 11:59] LABS: Basophils # 0.1 K/mm3 (0-0.2); Basophils % 0.4 % (0.1-2.0); Chloride 103 mmol/L (98-107); Eosinophils # 0.5 K/mm3 (0.0-0.4); Eosinophils % 3.5 % (0.1-12.0); Hematocrit 46.8 % (42.0-52.0); Hemoglobin 15.3 g/dL (14.1-18.0); Lymphocytes # 3.2 K/mm3 (0.7-4.5); Mean Corpuscular HGB Conc 32.6 g/dL (31.8-35.4); Mean Corpuscular Hemoglobin 29.2 pg (27.0-31.2); Mean Corpuscular Volume 89.5 fl (80-94); Mean Platelet Volume 7.6 fl (7.4-10.4); Monocytes # 0.7 K/mm3 (0.1-1.0); Monocytes % 5.1 % (1.7-9.3); Neutrophils # 8.6 K/mm3 (1.8-7.8); Neutrophils % 65.9 % (37.0-80.0); Platelet Count 259 K/mm3 (142-424); Red Blood Count 5.23 M/mm3 (4.60-6.20); Red Cell Distribution Width 14.1 % (11.5-17.5); Sodium 141 mmol/L (136-145)
[2023-03-10 12:00] LABS: Potassium 4.3 mmoL/L (3.5-5.1)
[2023-03-10 12:02] LABS: Alanine Aminotransferase 31 U/L (12-78); Alkaline Phosphatase 126 U/L (38-126); Aspartate Amino Transferase 31 U/L (17-59); Bilirubin,Total 0.3 mg/dl (0.2-1.3); Blood Urea Nitrogen 18 mg/dl (9-20); Creatinine Clearance Estimated 71 mL/min (50-200); Estimated Glomerular Filt Rate 55 ml/min (>60); GFR (African American) 67 ML/MIN (>60)
[2023-03-10 12:03] LABS: Albumin/Globulin Ratio 1.3 (1.1-1.8); Anion Gap 12.3 mEq/L (5-15); Calcium 9.7 mg/dl (8.4-10.2); Carbon Dioxide 30 mmol/L (22.0-30.0); Globulin 3.1 g/dL (1.3-3.2); Glucose 121 mg/dl (74-100); Total Protein,Serum 7.1 g/dl (6.3-8.2)
[2023-03-10 12:07] LABS: Squamous Epithelial Cell,Urine Occasional #/hpf (0-5); WBC,Urine Occasional #/hpf (0-3)
--- NOTE | 2023-03-10 12:18 | CT_ITS ---
FINAL REPORT TECHNIQUE: Pre-and postcontrast images of the abdomen and pelvis were performed by computed tomography. Extensive 3-D reconstruction images were performed. A CTA was performed. This study was performed with techniques to keep radiation doses as low as reasonably achievable (ALARA). Individualized dose reduction techniques using automated exposure control or adjustment of mA and/or kV according to the patient''s size were employed. CLINICAL HISTORY: L flank pain, PCP concerned about AAA. h/o stones COMPARISON: 09/18/2020 FINDINGS: ABDOMEN There is mild bibasilar atelectasis. There is a horseshoe kidney. The stone seen on the prior exam is no longer seen today. There is bilateral adrenal gland enlargement, favor adenomas. The liver, spleen and pancreas are unremarkable. CTA: There is a 4.2 cm abdominal aortic aneurysm below the level of the main renal arteries. The SMA, celiac axis, and CHAD are patent. There is no significant stenosis or calcification. The renal arteries are patent bilaterally. IMPRESSION: Abdominal aortic aneurysm. PELVIS: The appendix is not identified. The bladder is unremarkable. There are multiple sigmoid diverticula. The iliac arteries are unremarkable. IMPRESSION: No acute process. Reviewed, Interpreted and Dictated by Rbo Levine III, MD Transcribed by Miriam Lema Authenticated and [facility]
--- NOTE | 2023-03-10 12:24 | HMH.EDGENADL ---
Discharge Plan Disposition Patient Disposition: Home, Self-Care Condition: Good Prescriptions Prescriptions: No Action aspirin [Adult Low Dose Aspirin] 81 mg tablet,delayed release (DR/EC) 81 mg PO DAILY cholecalciferol (vitamin D3) 50 mcg (2,000 unit) capsule 50 mcg PO DAILY clopidogrel [Plavix] 75 mg tablet 75 mg PO DAILY Qty: 30 11RF enalapril maleate 20 mg tablet 20 mg PO DAILY hydrochlorothiazide 25 mg tablet 25 mg PO DAILY diltiazem HCl 120 mg capsule,extended release 24 hr 120 mg PO DAILY Qty: 90 3RF hydrocodone-acetaminophen 5-325 mg tablet 1 tab PO Q6H 30 Days Qty: 120 0RF fluoxetine 20 mg capsule 20 mg PO DAILY Qty: 90 2RF (DME) lancets [Accu-Chek Fastclix Lancet Drum] Misc See Rx Instructions .ROUTE .COMPLEX Qty: 102 3RF Dose Instruction: USE 1 LANCET TO CHECK GLUCOSE TWICE DAILY Rx Instructions: USE 1 LANCET TO CHECK GLUCOSE TWICE DAILY metformin 500 mg tablet extended release 24 hr See Rx Instructions .ROUTE .COMPLEX Qty: 90 0RF Hold Instructions: Resume on 01/28/23. Rx Instructions: Take 1 tablet by mouth once daily Repatha SureClick 140 mg/mL pen injector 140 mg SQ Q2W Qty: 2 5RF hydralazine 10 mg tablet See Rx Instructions .ROUTE .COMPLEX 30 Days Qty: 120 3RF Rx Instructions: Take 2 tablets by mouth twice daily (DME) Accu-Chek Guide test strips Strip See Rx Instructions .Route Qty: 100 2RF Rx Instructions: As directed or bid cyclobenzaprine 5 mg tablet See Rx Instructions .ROUTE .COMPLEX Rx Instructions: TAKE 1 TABLET BY MOUTH AT BEDTIME NEEDED FOR MUSCLE SPASM clonidine HCl 0.1 mg tablet 0.1 mg PO HS Referrals Follow up/Referrals: Homero Jaquez MD [Primary Care Provider] - See instructions Activity Restrictions/Add. Instructions Additional Instructions/Restrictions: You were evaluated in the emergency department today. Please take your pain medication at home as prescribed. Orally hydrate at home is much as possible. Follow-up with your urologist as soon as possible as well as your primary care provider for reassessment of your kidney function. Return to the emergency department for any new or worsening symptoms, such as fever, inability to tolerate oral intake, worsening pain, or other concerns. Clinical Impressions Clinical Impression: Ureterolithiasis, LUCIAN (acute kidney injury) Instructions Patient Instructions: DI for Kidney Stones, DI for Low Back Pain Discharge ED Provider: Clarice Kevin General Adult HPI General Chief complaint: Back Pain/Injury Stated complaint: phy ref, Lt lower side back pain Time Seen by Provider: 03/10/23 11:21 Mode of Arrival: Ambulatory Source of Information: Patient Limitations: No Limitations Description of Symptoms (Recalled from ER Triage Doc. by RN): Pt arrives to ed via private vehicle with complaints of left flank pain that began Tuesday while fishing. Pt denies any injury. Pt states that pain became worse Tuesday. Pt states that the pain is intermittent and is a 10 when it occurs. Denies hematuria, fever, nausea or vomiting. History of Present Illness HPI narrative: This patient is a 67-year-old male with a history of CAD, horseshoe kidney, COPD, AAA on CT scan from 2020, and recurrent ureterolithiasis presenting to the emergency department for evaluation with concern for left flank pain that radiates around to his abdomen. He states that it started on Tuesday while fishing and became worse Tuesday. It is intermittent and colicky and is sharp 10 out of 10 when it is happening. He denies any gross hematuria, fevers, chills, nausea, vomiting, or other concerns. He states that he feels the same as prior kidney stones. He denies any changes with movement, recent traumatic injuries, notable strain/sprains, or other concerns. He was seen by his PCP, Dr. Jaquez, here today, who he reports referred him here with conc
[2023-03-10 13:01] VITALS: BP 124/67; PULSE 58; RESP 16; O2SAT 96
[2023-03-10 13:31] VITALS: BP 120/73; PULSE 54; RESP 14; O2SAT 97
--- NOTE | 2023-03-10 13:36 | PC.NURSE ---
BRIAN Amin rounded on patient, no needs. Call light within reach
[2023-03-10 14:58] VITALS: BP 154/66; PULSE 56; RESP 17; TEMP 36.6; O2SAT 97
== END 2023-03-10 15:07 | disposition home or self-care (01) ==
PROVIDERS: Emergency Provider Emergency Medicine; PCP Emergency Medicine
DX: R10.9 Unspecified abdominal pain (principal); N20.1 Calculus of ureter; N17.9 Acute kidney failure, unspecified; I25.10 Atherosclerotic heart disease of native coronary artery without angina pectoris; J44.9 Chronic obstructive pulmonary disease, unspecified; Q63.1 Lobulated, fused and horseshoe kidney; I10 Essential (primary) hypertension; F17.290 Nicotine dependence, other tobacco product, uncomplicated
CPT/HCPCS: 74174; 80053; 81001; 85025; 96361; 96374; 96375; 99285; J0131; Q9967

== ENCOUNTER → 2023-03-28 06:15 | Outpatient (CLI) | payer MEDICARE, MEDICAID, SELFPAY ==
--- NOTE | 2023-03-28 06:27 | CT_ITS ---
FINAL REPORT TECHNIQUE: Thin section axial images were obtained from the lung bases to the pubic symphysis without IV contrast. Coronal reconstruction images were obtained from the axial data. Exam was performed using dose reduction technique. CLINICAL HISTORY: LEFT FLANK PAIN COMPARISON: 03/10/2023, 09/18/2020 FINDINGS: There is a horseshoe kidney. There are no renal or ureteral stones. There is no hydronephrosis or perinephric stranding. The gallbladder is present. There are bilateral adrenal nodules, stable from prior exam which likely represent adenomas. The remaining unenhanced solid abdominal organs are unremarkable. There is a stable, infrarenal abdominal aortic aneurysm measuring 4.2 cm. There is no evidence of small bowel obstruction. The appendix is not visualized. There are no secondary findings of appendicitis. There is diverticulosis without evidence of diverticulitis. GI tract is without acute abnormality. There is no lymphadenopathy or ascites. No acute osseous abnormality is identified. IMPRESSION: No renal or ureteral stones. No hydronephrosis. Horseshoe kidney Stable infrarenal abdominal aortic aneurysm. Reviewed, Interpreted and Dictated by Lita Guy MD Transcribed by Arlene Romero Authenticated and [facility]
== END ==
PROVIDERS: PCP Emergency Medicine; Visit Provider Urology
DX: R10.9 Unspecified abdominal pain (principal)
CPT/HCPCS: 74176

== ENCOUNTER → 2023-04-11 15:40 | Outpatient (CLI) | payer MEDICARE, MEDICAID, SELFPAY ==
[2023-04-11 21:46] LABS: Amphetamine/Metha Screen,Urine Negative ng/ml (<1000); Barbiturates Screen,Urine Negative ng/ml (<200)
[2023-04-11 21:47] LABS: Benzodiazepines Screen,Urine Negative ng/ml (<200); Cannabinoid Screen,Urine Negative ng/ml (<50)
[2023-04-11 21:48] LABS: Cocaine Screen,Urine Negative ng/ml (<300)
[2023-04-11 21:49] LABS: Methadone Screen,Urine Negative ng/ml (<300); Opiate Screen,Urine Negative ng/ml (<300)
[2023-04-11 21:51] LABS: Phencyclidine Screen,Urine Negative ng/ml (<25)
== END ==
PROVIDERS: PCP Emergency Medicine; Visit Provider Emergency Medicine
DX: M25.512 Pain in left shoulder (principal); Z79.899 Other long term (current) drug therapy
CPT/HCPCS: 80305

== ENCOUNTER 2023-10-27 13:20 | Outpatient (CLI) | payer MEDICARE, MEDICAID, SELFPAY ==
[2023-10-27 19:26] LABS: Basophils # 0.1 K/mm3 (0-0.2); Basophils % 1.1 % (0.1-2.0); Eosinophils # 0.4 K/mm3 (0.0-0.4); Eosinophils % 3.8 % (0.1-12.0); Hemoglobin 13.9 g/dL (14.1-18.0); Lymphocytes # 2.7 K/mm3 (0.7-4.5); Lymphocytes % 29.4 % (10-50); Mean Corpuscular HGB Conc 30.9 g/dL (31.8-35.4); Mean Corpuscular Hemoglobin 29.6 pg (27.0-31.2); Mean Corpuscular Volume 95.7 fl (80-94); Mean Platelet Volume 9.6 fl (7.4-10.4); Monocytes # 0.5 K/mm3 (0.1-1.0); Monocytes % 5.8 % (1.7-9.3); Neutrophils # 5.5 K/mm3 (1.8-7.8); Neutrophils % 59.9 % (37.0-80.0); Platelet Count 279 K/mm3 (142-424); Red Cell Distribution Width 14.3 % (11.5-17.5); White Blood Count 9.1 K/mm3 (4.8-10.8)
[2023-10-27 19:31] LABS: Alanine Aminotransferase 22 U/L (12-78); Albumin Level 4.1 g/dl (3.5-5.0); Albumin/Globulin Ratio 1.6 (1.1-1.8); Alkaline Phosphatase 98 U/L (38-126); Anion Gap 10.7 mEq/L (5-15); Aspartate Amino Transferase 25 U/L (17-59); Bilirubin,Total 0.5 mg/dl (0.2-1.3); Blood Urea Nitrogen 22 mg/dl (9-20); Calcium 9.6 mg/dl (8.4-10.2); Carbon Dioxide 30 mmol/L (22.0-30.0); Chloride 104 mmol/L (98-107); Cholesterol 159 mg/dl (140-200); Estimated Glomerular Filt Rate 55 ml/min (>60); GFR (African American) 66 ML/MIN (>60); Globulin 2.5 g/dL (1.3-3.2); Glucose 122 mg/dl (74-100); HDL Cholesterol 32 mg/dl (40-60); Potassium 4.7 mmoL/L (3.5-5.1); Sodium 140 mmol/L (136-145); Total Protein,Serum 6.6 g/dl (6.3-8.2); Triglycerides 143 mg/dl (30-150); VLDL Cholesterol 29 mg/dL (0-40)
[2023-10-27 19:47] LABS: Direct LDL Cholesterol 92.23 mg/dL (100-129)
[2023-10-27 19:48] LABS: 25-OH Vitamin D, Total 55.1 ng/mL (30-100)
[2023-10-27 20:05] LABS: Prostate Specific Ag Screen 0.6 ng/ml (0.0-4.0); Thyroid Stimulating Hormone 0.83 uIU/mL (0.465-4.68)
[2023-10-27 20:24] LABS: Vitamin B12 278 pg/mL (239-931)
[2023-10-27 20:36] LABS: Creatinine,Urine Random 100 mg/dL (Not Estab.)
[2023-10-27 20:42] LABS: Microalbumin < 6.000 mg/L (0-16.7)
[2023-10-27 21:07] LABS: Hemoglobin A1C 6.5 % (4.0-6.0)
== END 2023-10-27 23:59 | disposition home or self-care (01) ==
LOC: LAB.DROPOF 10-28 13:21
PROVIDERS: PCP Internal Medicine; Visit Provider Internal Medicine
DX: R53.83 Other fatigue (principal); E11.9 Type 2 diabetes mellitus without complications; E05.90 Thyrotoxicosis, unspecified without thyrotoxic crisis or storm; Z12.5 Encounter for screening for malignant neoplasm of prostate; E55.9 Vitamin D deficiency, unspecified; E53.8 Deficiency of other specified B group vitamins; E78.5 Hyperlipidemia, unspecified; Z79.899 Other long term (current) drug therapy
CPT/HCPCS: 80053; 80061; 82043; 82306; 82570; 82607; 83036; 84443; 85025; G0103

== ENCOUNTER 2023-11-14 11:38 | Outpatient (CLI) | payer MEDICARE, SELFPAY ==
--- NOTE | 2023-11-14 11:42 | XR_ITS ---
FINAL REPORT CLINICAL HISTORY: Foot Pain FINDINGS: RIGHT FOOT 3 views of the right foot were obtained. There is no acute fracture or dislocation. There is a plantar calcaneal spur. Visualized joint spaces are normally aligned. Soft tissues are unremarkable. IMPRESSION: No acute bony abnormality. Reviewed, Interpreted and Dictated by Rob Levine III, MD Transcribed by Arlene Romero Authenticated and [facility]
--- NOTE | 2023-11-14 11:42 | XR_ITS ---
FINAL REPORT CLINICAL HISTORY: Foot Pain FINDINGS: LEFT FOOT Three views of the left foot demonstrate no acute fracture or dislocation. There are mild degenerative changes. The visualized joint spaces are normally aligned. The soft tissues are unremarkable. IMPRESSION: No acute bony abnormality. Reviewed, Interpreted and Dictated by Rob Levine III, MD Transcribed by Arlene Romero Authenticated and [facility]
== END 2023-11-14 23:59 | disposition home or self-care (01) ==
LOC: RAD 11:39
PROVIDERS: PCP Internal Medicine; Visit Provider Podiatrist
DX: M79.671 Pain in right foot (principal); M79.672 Pain in left foot; B35.1 Tinea unguium; B37.9 Candidiasis, unspecified; B48.8 Other specified mycoses
CPT/HCPCS: 73630; 87102; 87206; 87220

== ENCOUNTER 2023-11-25 14:41 | Outpatient (CLI) | payer MEDICARE, SELFPAY ==
--- NOTE | 2023-11-25 14:42 | CT_ITS ---
FINAL REPORT TECHNIQUE: Thin section axial images were obtained from the lung apices to the upper abdomen by computed tomography. Reformatted images were obtained and reviewed. This study was performed with techniques to keep radiation doses al low as reasonably achievable (ALARA). Individualized dose reduction techniques using automated exposure control or adjustment of mA and/or kV according to the patient's size were employed. CLINICAL HISTORY: lung cancer screening former smoker x 1 year 1ppd x 50 years COMPARISON: None FINDINGS: CHEST CT LOW DOSE 69-year-old male, former smoker who quit 1 year ago, [id number] history of smoking CTDI vol (mGy): 2.9 DLP (mGy-cm): 104.99 There is no axillary adenopathy. There is no mediastinal or hilar mass or adenopathy. The heart is normal in size. Dense coronary artery calcifications are present. There is no pericardial or pleural effusion. Lung window images demonstrate no suspicious infiltrate or nodule. Limited images of the upper abdomen reveal small low-attenuation foci in the adrenal glands bilaterally most likely adrenal adenomas.. IMPRESSION: Lung-RADS category 1. Recommend 12 month follow up low dose chest CT. Reviewed, Interpreted and Dictated by Esequiel Núñez MD Transcribed by Raya Asher Authenticated and [facility]
== END 2023-11-25 23:59 | disposition home or self-care (01) ==
LOC: RAD 14:42
PROVIDERS: PCP Internal Medicine; Visit Provider Internal Medicine
DX: Z87.891 Personal history of nicotine dependence (principal)
CPT/HCPCS: 71271

== ENCOUNTER 2023-12-19 11:07 | Outpatient (CLI) | payer MEDICARE, SELFPAY ==
--- NOTE | 2023-12-19 11:08 | NM_ITS ---
APPROVED REPORT Exam: Nuclear Stress Test Indication: CAD, HTN, DM, Family history Patient Location: Outpatient Stress Tech: Smiley Lewis NM Tech:Herminia Cazares, ARRT, RT (R)(N) Ht: 5 ft 9 in Wt: 208 lbs HR: 63 bpm BP: 115/61 mmHg BSA: 2.10 m2 Rhythm: NSR TID: 1.16 BMI: 30.7 History: CAD, HTN, DM, Family history Procedure: Patient received 0.4 mg of intravenous Lexiscan, resting heart rate 63 bpm, resting blood pressure 115/61 mmHg, with Lexiscan maximum heart rate achieved was 83 bpm which is % of the maximum predicted heart rate and blood pressure was 115/61 mmHg. With Lexiscan, patient denied any complaint of chest pain. Cardiac Stress and Resting SPECT Images: Cardiac Stress and Resting SPECT images were obtained using technetium 99m Myoview 32.5 mCi stress and 10.86 mCi at rest. Resting and stress imaging in supine and prone positions demonstrate medium sized, moderate, partially reversible perfusion defect in the basal to mid inferior LV wall. Gated imaging demonstrates normal global LV systolic function. LVEF is calculated at 59%. Conclusion: Medium sized, moderate, partially reversible perfusion defect in the basal to mid inferior LV wall. Findings are suggestive of partial reversible ischemia. Gated imaging demonstrates normal global LV systolic function. LVEF is calculated at 59%. Electronically signed by : Mireille Benito MD 12/20/2023 12:54:58
[2023-12-19] MEDS: ISOTOPE MYOVIEW (PER STUDY) 1 DOSE IV (13:04)
[2023-12-19] MEDS: SODIUM CHLORIDE 0.9% 10ML SYR (RAD ONLY) 10 ML IV ×2 (13:04)
[2023-12-19] MEDS: REGADENOSON 0.4MG/5ML SYRINGE 0.4 MG IV (13:04)
--- NOTE | 2023-12-19 14:05 | CA_ITS ---
APPROVED REPORT Exam: Pharmacologic Technologist: Smiley Lewis Ht: 5 ft 9 in Wt: 208 lbs BSA: 2.10 m2 HR: 59 bpm BP: 115/61 mmHg Rhythm: NSR Indications: CAD Medical History Medications: Hydralazine,,,,, Aspirin,,,,, Vitamin D3,,,,, HCTZ,,,,, EnALAPRIL,,,,, Plavix,,,,, Fluoxetine,,,,, Cyclobenzaprine,,,,, DilTiazem,,,,, Evolocumab,,,,, SeMaglutide,,,,, Hydrocodone-Acetaminophen,,,,, Stress Test Details Test: LEXISCAN HR Resting HR: 63 bpm Max Heart Rate (APMHR): 152 bpm Max HR Achieved: 83 bpm Target HR (85% APMHR): 129 bpm % of APMHR: 55 Recovery HR: 71 bpm BP Resting BP: 115.0/61.0 mmHg Max BP: 115.0/61.0 mmHg Recovery BP: 111.0/59.0 mmHg ECG Resting ECG: Normal sinus rhythm, NSSTTW Abnormalities inferiorly and laterally. Stress ECG: No significant ST changes Arrhythmia: None Clinical Exercise duration: 04:03 min Highest Stage Achieved: Exercise capacity: 1.0 METs Stress ECG Conclusion Symptoms: None Arrhythmias/Ectopy: None ST-T Changes: No significant ST changes Concluision: Unremarkable ECG portion of Lexiscan stress test. Myoview images reported separately. Test Summary REST . . . . . . . Resting REST 07:50 . . 63 . 115/ 61 . . Stage 1 . . . . . . . Myoview Injected Stage 1 01:00 . . 77 . . . . Stage 2 . . . . . . . lightheaded Stage 2 01:00 . . 80 . 98/ 50 . . Stage 3 01:00 . . 73 . 105/ 51 . . Stage 4 01:00 . . 70 . 107/ 51 . . Stage 4 01:03 . . 69 . 107/ 51 . Stop exercise at 04:03 RECOVERY 01:00 . . 67 . . . . RECOVERY 02:00 . . 70 . 111/ 57 . . RECOVERY 03:00 . . 65 . 111/ 59 . . RECOVERY 03:16 . . 68 . 111/ 59 . . Electronically signed by : Mireille Benito MD 12/20/2023 12:02:15
== END 2023-12-19 23:59 | disposition home or self-care (01) ==
PROVIDERS: PCP Internal Medicine; Visit Provider Nurse Practitioner
DX: I25.118 Atherosclerotic heart disease of native coronary artery with other forms of angina pectoris (principal); I11.9 Hypertensive heart disease without heart failure; Z87.891 Personal history of nicotine dependence
CPT/HCPCS: 78452; 93017; 93018; A9502; J2785

== ENCOUNTER 2023-12-23 07:48 | Emergency (ER) | payer MEDICARE, SELFPAY ==
[2023-12-23 07:49] VITALS: BP 129/84; PULSE 78; RESP 22; TEMP 36.6; O2SAT 100; BMI 30.7
[2023-12-23 07:51] VITALS: BP 129/84; PULSE 87; O2SAT 95
--- NOTE | 2023-12-23 07:56 | PC.NURSE ---
family at [facility]
[2023-12-23 08:00] VITALS: BP 129/84; PULSE 83; O2SAT 97
[2023-12-23] MEDS: KETOROLAC 30MG/ML VIAL 30 MG IM (08:12)
[2023-12-23] MEDS: LIDOCAINE 5% TRANSDERMAL PATCH 1 EACH TP (08:12)
[2023-12-23] MEDS: predniSONE 20MG TAB 40 MG PO (08:12)
[2023-12-23] MEDS: ACETAMINOPHEN 500MG TAB 1000 MG PO (08:12)
[2023-12-23] MEDS: METHOCARBAMOL 500MG TABLET 1500 MG PO (08:12)
[2023-12-23] MEDS: diazePAM 5MG TABLET 5 MG PO (08:16)
[2023-12-23 08:30] VITALS: BP 129/84; PULSE 68; O2SAT 94
--- NOTE | 2023-12-23 08:50 | ED_ITS ---
Discharge Plan Disposition Patient Disposition: Home, Self-Care Prescriptions Prescriptions: New lidocaine 5 % adhesive patch,medicated 1 patch topical DAILY Qty: 30 0RF Rx Instructions: leave on most painful area for up to 12 hrs methocarbamol 750 mg tablet 1,500 mg PO TID 5 Days Qty: 30 0RF No Action aspirin [Adult Low Dose Aspirin] 81 mg tablet,delayed release (DR/EC) 81 mg PO DAILY cholecalciferol (vitamin D3) 50 mcg (2,000 unit) capsule 50 mcg PO DAILY hydrocodone-acetaminophen 5-325 mg tablet 1 tab PO Q6H PRN (Reason: Pain in lower back) clopidogrel [Plavix] 75 mg tablet 75 mg PO DAILY Qty: 30 11RF diltiazem HCl 120 mg capsule,extended release 24 hr 120 mg PO DAILY Qty: 90 3RF (DME) lancets [Accu-Chek Fastclix Lancet Drum] Misc See Rx Instructions .ROUTE .COMPLEX Qty: 102 3RF Dose Instruction: USE 1 LANCET TO CHECK GLUCOSE TWICE DAILY Rx Instructions: USE 1 LANCET TO CHECK GLUCOSE TWICE DAILY metformin 500 mg tablet extended release 24 hr See Rx Instructions .ROUTE .COMPLEX Qty: 90 2RF Hold Instructions: Resume on 01/28/23. Rx Instructions: Take 1 tablet by mouth once daily hydrochlorothiazide 25 mg tablet See Rx Instructions .ROUTE .COMPLEX Qty: 90 3RF Dose Instruction: Take 1 tablet by mouth once daily Rx Instructions: Take 1 tablet by mouth once daily fluoxetine 20 mg capsule 20 mg PO DAILY Qty: 90 2RF Repatha SureClick 140 mg/mL pen injector 140 mg SQ Q2W Qty: 6 3RF Ozempic 0.25 mg or 0.5 mg (2 mg/3 mL) pen injector See Rx Instructions .ROUTE .COMPLEX Qty: 3 0RF Dose Instruction: INJECT 0.25MG SUBCUTANEOUSLY ONCE WEEKLY FOR 4 WEEKS Rx Instructions: INJECT 0.25MG SUBCUTANEOUSLY ONCE WEEKLY FOR 4 WEEKS hydralazine 10 mg tablet See Rx Instructions .ROUTE .COMPLEX Qty: 120 0RF Dose Instruction: TAKE 2 TABLETS BY MOUTH TWICE DAILY FOR HIGH BLOOD PRESSURE FOR 30 DAYS Rx Instructions: TAKE 2 TABLETS BY MOUTH TWICE DAILY FOR HIGH BLOOD PRESSURE FOR 30 DAYS (DME) Accu-Chek Guide test strips Strip See Rx Instructions .Route Qty: 100 2RF Rx Instructions: As directed or bid enalapril maleate 20 mg tablet See Rx Instructions .ROUTE .COMPLEX Qty: 90 0RF Dose Instruction: Take 1 tablet by mouth once daily Rx Instructions: Take 1 tablet by mouth once daily cyclobenzaprine 5 mg tablet See Rx Instructions .ROUTE .COMPLEX Rx Instructions: TAKE 1 TABLET BY MOUTH AT BEDTIME NEEDED FOR MUSCLE SPASM Referrals Follow up/Referrals: Duy Smiley DO [Primary Care Provider] - See instructions Activity Restrictions/Add. Instructions Additional Instructions/Restrictions: Prednisone each morning for the next 5 days. Take Tylenol 1000 mg every 6 hours (4 times daily) to help with pain. Lidocaine patch once every 24 hours as needed over point of maximal tenderness. Robaxin can cause you to feel drowsy. Do not drive, operate heavy machinery, or engage in any activity that may make you tired, fall asleep, and because harm to yourself or others while taking this medication. Also do not mix this medication with cyclobenzaprine. Be sure to only take 1 or the other as they can cause sedation. Check your sugars throughout the day while on prednisone. Follow-up with family doctor regarding this visit to the emergency department. Talk to them about scheduling spine surgeon appointment sometime in the next 6 or 7 months. In the meantime, go through physical therapy, medications, etc. If MRI is needed, be sure to have that scheduled before spine surgery appointment. If symptoms resolve, you can cancel the spine surgery appointment, as it is no longer needed. Clinical Impressions Clinical Impression: Cervical radiculopathy, Back muscle spasm Discharge ED Provider: Vin Morton General Adult HPI General Chief complaint: PAIN Stated complaint: back pain Time Seen by Provider: 12/23/23 07:57 Mode of Arrival: Ambulatory Source of Information: Patient and Spouse Limitations: No Limitations Description of Symptoms (Recalled from ER Triage Doc. by RN): back spasms.pain History of Present Illness HPI narrative: Please note that above description of symptoms, in this electronic medical record under categorization of recalled from ER triage doctor by RN are reflective of an initial nursing assessment, however, is not reflective of my full history and physical exam that was personally taken and clarified. Consequentially, this preceding description of symptoms, which may include the patient's categorized chief complaint in the EMR, do not reflect my personal clinical impression, and the ultimate description of history of present illness and patient stated complaints should be deferred to this section of the note. Unless stated otherwise or congruent with this section of the note, additional signs, symptoms, or incongruence should be interpreted as inaccurate with my clinical impression. Related Data Home Medications Medication Instructions Recorded Confirmed aspirin 81 mg tablet,delayed 81 mg PO DAILY heart 09/06/18 12/21/23 release (Adult Low Dose Aspirin) cholecalciferol (vitamin D3) 50 50 mcg PO DAILY Supplement 11/04/20 12/21/23 mcg (2,000 unit) capsule cyclobenzaprine 5 mg tablet See Rx Instructions .Route 12/06/22 12/21/23 .COMPLEX Pain hydrocodone 5 mg-acetaminophen 325 1 tab PO Q6H PRN Pain in lower back 12/13/23 12/21/23 mg tablet Previous Rx's Medication Instructions Recorded lancets (Accu-Chek Fastclix Lancet #102 ea 12/15/22 Drum) clopidogrel 75 mg tablet (Plavix) 75 mg PO DAILY #30 tabs 02/08/23 diltiazem HCl 120 mg capsule,24 120 mg PO DAILY #90 caps 02/08/23 hr,extended release metformin 500 mg tablet,extended See Rx Instructions .Route 04/26/23 release 24 hr .COMPLEX dm #90 tabs hydrochlorothiazide 25 mg tablet See Rx Instructions .Route 08/23/23 .COMPLEX #90 tabs fluoxetine 20 mg capsule 20 mg PO DAILY Depression #90 caps 09/12/23 evolocumab 140 mg/mL subcutaneous 140 mg SQ Q2W Cholesterol #6 mL 10/11/23 pen injector (Alia Guillen) semaglutide 0.25 mg or 0.5 mg (2 See Rx Instructions .Route 11/23/23 mg/3 mL) subcutaneous pen injector .COMPLEX #3 mL (Ozempic) hydralazine 10 mg tablet See Rx Instructions .Route 11/29/23 .COMPLEX #120 tabs blood sugar diagnostic (Accu-Chek #100 ea 12/12/23 Guide test strips) enalapril maleate 20 mg tablet See Rx Instructions .Route 12/21/23 .COMPLEX #90 tabs lidocaine 5 % topical patch 1 patch topical DAILY #30 ea 12/23/23 methocarbamol 750 mg tablet 1,500 mg (2 x 750 mg) PO TID 5 12/23/23 days #30 tabs Allergies Allergy/AdvReac Type Severity Reaction Status Date / Time oxycodone [From Percocet] Allergy Unknown Verified 12/21/23 10:51 allergy reaction atorvastatin AdvReac Unknown Verified 12/21/23 10:51 morphine AdvReac Unknown Verified 12/21/23 10:51 allergy reaction PFSH [facility] Disclaimer: The information contained in this section may have been updated after the patient was seen, as this information can be updated by other users. Medical History Abrasion of ear canal Hearing loss in left ear Otalgia, bilateral Bleeding from right ear I saw some dried blood in the right EAC however I did not see any in overt lesions. Myopathy Dyspnea Sinus bradycardia Palpitations Family history of heart disease Tobacco user COPD (chronic obstructive pulmonary disease) Patient has quit smoking. Patient states he will have the limited dose CT scan done in the very near future. Will review this at this time. Will follow-up with him in about 4 weeks. CAD (coronary artery disease) Hypertension Patient and his significant other bring in blood pressure readings and blood sugar readings. I congratulated them on their thoroughness. His blood pressures have been doing extremely well at home and have been generally less than 130/80 as he said. Will continue current therapy. Chronic back pain Surgical History History of heart artery stent History of cardiac cath History of colon resection Social History Smoking Status: Never smoker second hand exposure: No alcohol intake: never substance use type: denies use current occupational status: retired Travel in the last 8 weeks: None household members: spouse housing: house current occupational exposures/hazards: No caffeine: No ROS Obtained: Yes All systems reviewed & no additional complaints except as documented Physical Exam General General appearance: alert and in no apparent distress Head Head exam: atraumatic and normocephalic Eye Eye exam: Present normal appearance, PERRL and EOMI ENT ENT exam: Present mucous membranes moist Neck Neck exam: Present normal inspection, full ROM and trachea midline Respiratory Respiratory exam: Absent respiratory distress, wheezes, stridor, accessory muscle use or prolonged expiratory phase Cardiovascular Cardiovascular exam: Present normal rhythm Abdominal Exam Abdominal exam: Present soft; Absent distention, tenderness, guarding, rebound or rigidity Extremities Exam Extremities exam: Absent edema Back Exam Back exam: Present paraspinal tenderness Neurological Exam Neurological exam: Present alert, oriented X3, CN II-XII intact and normal gait; Absent motor sensory deficit Skin Skin exam: Present warm and dry; Absent diaphoresis or erythema Medical Decision Making Medical Records Medical records reviewed: Yes I reviewed the patient's medical records. Nav Inquiry Pt receiving controlled substance: No Nav was queried for this patient: No Vital Signs: 12/23/23 07:49 12/23/23 07:51 12/23/23 08:00 Temperature 97.9 F Temperature Source Oral Pulse Rate 87 83 Pulse Rate [Right] 78 Respiratory Rate 22 Blood Pressure 129/84 129/84 Blood Pressure [Right Arm] 129/84 Blood Pressure Mean [Right Arm] 99 02 Sat by Pulse Oximetry 100 95 97 Oxygen Delivery Method Room Air Room Air 12/23/23 08:30 Temperature Temperature Source Pulse Rate 68 Pulse Rate [Right] Respiratory Rate Blood Pressure 129/84 Blood Pressure [Right Arm] Blood Pressure Mean [Right Arm] 02 Sat by Pulse Oximetry 94 L Oxygen Delivery Method Room Air Orders (Tests/Meds): ED MEDICATIONS Discontinued Medications Generic Name Dose Route Start Last Admin Trade Name Freq PRN Reason Stop Dose Admin Acetaminophen 1,000 mg 12/23/23 07:57 12/23/23 08:12 Acetaminophen 500mg Tab PO 12/23/23 07:58 1,000 mg ONCE ONE Administration Diazepam 5 mg 12/23/23 08:14 12/23/23 08:16 Diazepam 5mg Tablet PO 12/23/23 08:15 5 mg ONCE ONE Administration Ketorolac Tromethamine 30 mg 12/23/23 07:57 12/23/23 08:12 Ketorolac 30mg/Ml Vial IM 12/23/23 07:58 30 mg ONCE ONE Administration Lidocaine 1 each 12/23/23 07:57 12/23/23 08:12 Lidocaine 5% Transdermal Patch TP 12/23/23 07:58 1 each ONCE ONE Administration Methocarbamol 1,500 mg 12/23/23 07:57 12/23/23 08:12 Methocarbamol 500mg Tablet PO 12/23/23 07:58 1,500 mg ONCE ONE Administration Prednisone 40 mg 12/23/23 07:57 12/23/23 08:12 Prednisone 20mg Tab PO 12/23/23 07:58 40 mg ONCE ONE Administration Medical Decision Narrative: 68-year-old male history of hypertension, high for lipidemia, CAD, tobacco use disorder, AAA 4.2 cm (most recently checked just a couple weeks ago, stable from 6 months ago), degenerative disc disease, rotator cuff injury presenting with back spasms. They have been going on for about a week at this point. Patient was seen 2 days ago by his family doctor, received trigger point injection of the muscle. Helped for about 24 hours, his back and significantly worse. Has cramping, stabbing, directly medial to his left shoulder blade between left shoulder blade and spine. Made worse with moving, twisting, changing position. No associated chest pain, shortness of breath, nausea, vomiting, syncope, neurologic deficits, or any other concerns. No bowel or bladder dysfunction, lower extremity weakness. No fevers. No recent trauma. States that he thinks it is related to his rotator cuff injury or cervical spine disease. History was obtained via conversation with patient. On arrival, patient hemodynamically stable, alert, oriented x4, appropriate, GCS 15, moving all extremities spontaneously, pupils equal and reactive to light. Full physical exam performed and significant for patient in mild distress secondary to pain when moving, but no distress at all at rest. Has acute muscular spasm and paraspinal tenderness on the left side made worse with application of pressure. Range of motion makes this worse. No bowel or bladder dysfunction. Cardiac exam within normal limits. Pulmonary exam within normal limits. Pulses equal and symmetric in upper and lower extremities. Neurovascular intact. Differential includes muscle spasm, cervical radiculopathy, trigger point, thoracic aortic disease, ACS, ND, among others. Patient was given ketamine for pain, Toradol IM, topical lidocaine patch 5%, 5 mg Valium p.o., 1500 mg Robaxin p.o. for symptomatic management and correction of underlying abnormalities. Patient was placed in observation beginning at 8 AM in order to give meds, evaluate for improvement and determine need for more medication, admission versus home-going. The patient was provided meds as above while awaiting results. Because pain is topical, made worse with change in position, no neurovascular deficits, normal cardiopulmonary exam, very well- appearing, labs imaging of the chest was considered, but given well appearance not deemed necessary at this time. On reevaluation, around 920, patient states that his pain is much further improved, tolerable. At this time, I feel patient is appropriate for discharge. Total observation time 1.5 hours. Conversation was had with patient regarding checking his sugars throughout the day while being on prednisone as well as his blood pressure and heart rate, he voiced his understanding. Also recommended that he follow-up with his family doctor to schedule spine evaluation for cervical spine, meds, physical therapy, and potentially MRI in the meantime to prepare for spine surgery appointment if needed. He voices understanding. Because patient at baseline without signs or symptoms of clinical decompensation, deemed appropriate for discharge. Results were relayed to patient who voiced understanding and were agreeable to outpatient management and follow up. I discussed my clinical impression with patient and answered all questions. At this time, the evidence for any other entities in the differential is insufficient to warrant any further testing or ED observation. This was explained as well. Advisory was given that persistent or worsening symptoms require further evaluation. I confirmed the understanding of this discussion. Manager Of Regulatory Affairs disclaimer Much of this encounter note is an electronic front end drupal developer spoken language to printed text. Electronic front end drupal developer of the spoken language may permit errors. Although I have reviewed the note, some errors may still exist. Critical Care Critical Care Time Critical Care Time: No
[2023-12-23 09:38] VITALS: BP 129/81; PULSE 61; RESP 13; TEMP 36.7
== END 2023-12-23 09:39 | disposition home or self-care (01) ==
PROVIDERS: Emergency Provider Emergency Medicine; PCP Internal Medicine
DX: M54.12 Radiculopathy, cervical region (principal); M62.830 Muscle spasm of back
CPT/HCPCS: 96372; 99283; J1885

== ENCOUNTER 2024-01-13 08:12 | Outpatient (CLI) | payer MEDICARE, SELFPAY ==
[2024-01-13 09:39] LABS: Alanine Aminotransferase 18 U/L (12-78); Albumin Level 3.9 g/dl (3.5-5.0); Alkaline Phosphatase 95 U/L (38-126); Aspartate Amino Transferase 21 U/L (17-59); Bilirubin,Indirect 0.4 mg/dL (0.0-0.9); Bilirubin,Total 0.4 mg/dl (0.2-1.3); Bilirubin,Unconjugated 0.5 mg/dL (0.0-1.1); Chol/HDL Ratio 3.8 (1-3.5); Cholesterol 161 mg/dl (140-200); HDL Cholesterol 42 mg/dl (40-60); Total Protein,Serum 6.6 g/dl (6.3-8.2); Triglycerides 115 mg/dl (30-150); VLDL Cholesterol 23 mg/dL (0-40)
[2024-01-13 09:40] LABS: Alanine Aminotransferase 19 U/L (12-78); Albumin Level 3.9 g/dl (3.5-5.0); Albumin/Globulin Ratio 1.6 (1.1-1.8); Alkaline Phosphatase 96 U/L (38-126); Aspartate Amino Transferase 21 U/L (17-59); Bilirubin,Total 0.4 mg/dl (0.2-1.3); Blood Urea Nitrogen 25 mg/dl (9-20); Calcium 9.5 mg/dl (8.4-10.2); Carbon Dioxide 29 mmol/L (22.0-30.0); Chloride 104 mmol/L (98-107); Estimated Glomerular Filt Rate 60 ml/min (>60); GFR (African American) 73 ML/MIN (>60); Globulin 2.5 g/dL (1.3-3.2); Glucose 125 mg/dl (74-100); Sodium 139 mmol/L (136-145); Total Protein,Serum 6.4 g/dl (6.3-8.2)
[2024-01-13 09:50] LABS: Direct LDL Cholesterol 100.13 mg/dL (100-129)
[2024-01-13 11:44] LABS: Hemoglobin A1C 6.5 % (4.0-6.0)
[2024-01-13 15:35] LABS: Creatinine,Urine Random 88 mg/dL (Not Estab.)
[2024-01-13 15:38] LABS: Microalbumin < 6.000 mg/L (0-16.7)
== END 2024-01-13 23:59 | disposition home or self-care (01) ==
LOC: LAB 08:12
PROVIDERS: Physician Assistant; PCP Internal Medicine; Visit Provider Internal Medicine
DX: I11.9 Hypertensive heart disease without heart failure (principal); Z87.891 Personal history of nicotine dependence; E11.9 Type 2 diabetes mellitus without complications; Z79.84 Long term (current) use of oral hypoglycemic drugs; Z79.85 Long-term (current) use of injectable non-insulin antidiabetic drugs
CPT/HCPCS: 36415; 80053; 80061; 80076; 82043; 82570; 83036

== ENCOUNTER 2024-02-08 08:45 | Emergency (ER) | payer MEDICARE, SELFPAY ==
[2024-02-08 08:55] VITALS: BP 123/59; PULSE 74; RESP 22; TEMP 36.8; O2SAT 95; BMI 30.5
--- NOTE | 2024-02-08 09:02 | ED_ITS ---
Discharge Plan Disposition Patient Disposition: Still a Patient Condition: Good Prescriptions Prescriptions: New prednisone 10 mg tablet 10 mg PO BID 5 Days Qty: 10 0RF amoxicillin-pot clavulanate 875-125 mg Tablet 1 tab PO Q12H Qty: 20 0RF guaifenesin [Mucinex] 600 mg tablet extended release 12hr 1,200 mg PO BID PRN (Reason: cough) Qty: 20 0RF benzonatate 100 mg capsule 100 mg PO TID PRN (Reason: cough) Qty: 15 0RF No Action (DME) lancets [Accu-Chek Fastclix Lancet Drum] Misc See Rx Instructions .ROUTE .COMPLEX Qty: 102 3RF Dose Instruction: USE 1 LANCET TO CHECK GLUCOSE TWICE DAILY Rx Instructions: USE 1 LANCET TO CHECK GLUCOSE TWICE DAILY (DME) Accu-Chek Guide test strips Strip See Rx Instructions .Route Qty: 100 2RF Rx Instructions: As directed or bid hydralazine 10 mg tablet 10 mg PO DAILY Patient Comments: TAKE 2 TABLETS BY MOUTH TWICE DAILY FOR HIGH BLOOD PRESSURE hydrocodone-acetaminophen 5-325 mg tablet 1 tab PO DAILY Patient Comments: TAKE 1 TABLET BY MOUTH EVERY 6 HOURS NEEDED IN FOR PAIN LOWER BACK enalapril maleate 20 mg tablet 20 mg PO DAILY Patient Comments: TAKE 1 TABLET BY MOUTH ONCE DAILY clopidogrel 75 mg tablet 75 mg PO DAILY Patient Comments: TAKE 1 TABLET BY MOUTH ONCE DAILY diltiazem HCl 120 mg capsule,extended release 24 hr 120 mg PO DAILY Patient Comments: TAKE 1 CAPSULE BY MOUTH ONCE DAILY nitroglycerin 0.4 mg tablet, sublingual 0.4 mg sublingual [id number] PRN (Reason: Chest Pain) Patient Comments: DISSOLVE ONE TABLET UNDER THE TONGUE EVERY 5 MINUTES NEEDED FOR CHEST PAIN. DO NOT EXCEED A TOTAL OF 3 DOSES IN 15 MINUTES hydrochlorothiazide 25 mg tablet 25 mg PO DAILY Patient Comments: TAKE 1 TABLET BY MOUTH ONCE DAILY fluoxetine 20 mg capsule 20 mg PO DAILY Patient Comments: TAKE 1 CAPSULE BY MOUTH ONCE DAILY FOR DEPRESSION metformin 500 mg tablet extended release 24 hr 500 mg PO DAILY Patient Comments: TAKE 1 TABLET BY MOUTH ONCE DAILY FOR DIABETES cyclobenzaprine 5 mg tablet 5 mg PO HS Patient Comments: TAKE 1 TABLET BY MOUTH AT BEDTIME NEEDED FOR PAIN FOR MUSCLE SPASM ranolazine 500 mg tablet extended release 12 hr 500 mg PO BID Patient Comments: TAKE 1 TABLET BY MOUTH TWICE DAILY Repatha SureClick 140 mg/mL pen injector 140 mg SQ WEEKLY Patient Comments: INJECT 1 SYRINGE SUBCUTANEOUSLY EVERY TWO WEEKS FOR CHOLESTEROL Ozempic 0.25 mg or 0.5 mg (2 mg/3 mL) pen injector 0.25 mg SQ DAILY Patient Comments: INJECT 0.25MG SUBCUTANEOUSLY ONCE WEEKLY FOR 4 WEEKS Referrals Follow up/Referrals: Duy Smiley DO [Primary Care Provider] - See instructions Activity Restrictions/Add. Instructions Additional Instructions/Restrictions: * Start antibiotic tomorrow. Be sure to complete entire prescription even if feeling better * Monitor temp. Tylenol every 4 hours as needed and / or ibuprofen every 6 hours as needed ( As long as your primary care physician has told you that it ok to take both. For fever/aches/pains ER if no less than 101 despite Tylenol or Motrin * Humidifier/vaporizer or hot steamy shower * Mucinex during the day for your cough and cough suppressant only at night. Be sure to drink lots of water. *Tessalon Perles will not cause drowsiness but use at bedtime to help stop cough so that you may get some rest. *Start steroid tomorrow. Helps with inflammation therefore, cough and wheezing. Follow directions on the package. Reviewed side effects. Patient reports taking them before. Follow up IMMEDIATELY for new or worsening of symptoms OR no noticeable improvement over the next 48-72 hours. 911 immediately for any life threatening symptoms such as chest pain or difficulty breathing Clinical Impressions Clinical Impression: Bronchitis Sinusitis Qualifiers: Sinusitis location: unspecified location Chronicity: unspecified Qualified Code(s): J32.9 - Chronic sinusitis, unspecified Instructions Patient Instructions: Acute Bronchitis, DI for Sinusitis Print Language Print Language: [place] Discharge ED Provider: Ana Ware [facility] [place] General Stated complaint: cough, SOA, dizzyness, Mode of Arrival: Ambulatory Source of Information: Patient and Spouse Limitations: No Limitations Time Seen by Provider: 02/08/24 09:02 Description of Symptoms (Recalled from Triage Doc. by RN): PATIENT C/O SOA, BODY ACHES, RATTLING IN CHEST, DIZZINESS, AND SLIGHTLY PRODUCTIVE COUGH THAT STARTED LAST WEEK HEENT Symptoms (Recalled from RN notes): No Resp Symptoms (Recalled from RN notes): Yes Skin Symptoms (Recalled from RN notes): No MS Symptoms (Recalled from RN notes): No Functional Status (Recalled from RN notes): WNL History of Present Illness Provider Complaint: Patient states that he started feeling bad last week with sinus congestion and pressure, states feels like it has moved into his chest now causing him to have cough, chest congestion, burning in his chest like he gets with bronchitis, and rattling in his chest States today he wasnt feeling any better so he came in to get checked Related Data Home Medications ?Medication ?Instructions ?Recorded ?Confirmed clopidogrel 75 mg tablet 75 mg PO DAILY 02/08/24 02/08/24 cyclobenzaprine 5 mg tablet 5 mg PO HS 02/08/24 02/08/24 diltiazem HCl 120 mg capsule,24 120 mg PO DAILY 02/08/24 02/08/24 hr,extended release enalapril maleate 20 mg tablet 20 mg PO DAILY 02/08/24 02/08/24 evolocumab 140 mg/mL subcutaneous 140 mg SQ WEEKLY 02/08/24 02/08/24 pen injector (Alia Guillen) fluoxetine 20 mg capsule 20 mg PO DAILY 02/08/24 02/08/24 hydralazine 10 mg tablet 10 mg PO DAILY 02/08/24 02/08/24 hydrochlorothiazide 25 mg tablet 25 mg PO DAILY 02/08/24 02/08/24 hydrocodone 5 mg-acetaminophen 325 1 tab PO DAILY 02/08/24 02/08/24 mg tablet metformin 500 mg tablet,extended 500 mg PO DAILY 02/08/24 02/08/24 release 24 hr nitroglycerin 0.4 mg sublingual 0.4 mg sublingual [id number] PRN 02/08/24 02/08/24 tablet Chest Pain ranolazine 500 mg tablet,extended 500 mg PO BID 02/08/24 02/08/24 release,12 hr semaglutide 0.25 mg or 0.5 mg (2 0.25 mg SQ DAILY 02/08/24 02/08/24 mg/3 mL) subcutaneous pen injector (Saloni) Previous Rx's ?Medication ?Instructions ?Recorded lancets (Accu-Chek Fastclix Lancet #102 ea 12/15/22 Drum) blood sugar diagnostic (Accu-Chek #100 ea 12/12/23 Guide test strips) amoxicillin 875 mg-potassium 1 tab PO Q12H #20 tabs 02/08/24 clavulanate 125 mg tablet benzonatate 100 mg capsule 100 mg PO TID PRN cough #15 caps 02/08/24 guaifenesin 600 mg tablet, 1,200 mg (2 x 600 mg) PO BID PRN 02/08/24 extended release 12 hr (Mucinex) cough #20 tabs prednisone 10 mg tablet 10 mg PO BID 5 days #10 tabs 02/08/24 Allergies Allergy/AdvReac Type Severity Reaction Status Date / Time oxycodone [From Percocet] Allergy Unknown Verified 01/11/24 10:19 allergy reaction atorvastatin AdvReac Unknown Verified 01/11/24 10:19 morphine AdvReac Unknown Verified 01/11/24 10:19 allergy reaction Worker's Comp Is this a Worker's Comp case?: No [facility] Disclaimer: The information contained in this section may have been updated after the patient was seen, as this information can be updated by other users. Medical History (Updated 02/08/24 @ 09:34 by Ana Ware APRN) Hyperlipidemia Abrasion of ear canal Hearing loss in left ear Otalgia, bilateral Bleeding from right ear Myopathy Dyspnea Sinus bradycardia Palpitations Family history of heart disease Tobacco user COPD (chronic obstructive pulmonary disease) CAD (coronary artery disease) Hypertension Chronic back pain Surgical History History of heart artery stent History of cardiac cath History of colon resection Social History Smoking Status: Never smoker second hand exposure: No alcohol intake: never substance use type: denies use current occupational status: retired Travel in the last 8 weeks: None household members: spouse housing: house current occupational exposures/hazards: No caffeine: No ROS Obtained: Yes All systems reviewed & no additional complaints except as documented and Yes Systems reviewed as appropriate & no additional complaints except as documented Constitutional Constitutional: Reports system reviewed and no additional complaints, except as documented, Reports as per HPI, Reports body ache, Reports chills, Denies fever(s) and Reports headache(s) ENT Ears, Nose, Mouth, and Throat: Reports system reviewed and no additional complaints, except as documented, Reports as per HPI, Reports otalgia, Reports headache(s), Reports sinus pain and Reports sinus pressure Cardiovascular Cardiovascular: Reports system reviewed and no additional complaints, except as documented and Reports as per HPI Respiratory Respiratory: Reports system reviewed and no additional complaints, except as documented, Reports as per HPI, Denies shortness of breath, Reports chest congestion and Reports cough Gastrointestinal Gastrointestingal: Reports system reviewed and no additional complaints, except as documented and as per HPI Musculoskeletal Musculoskeletal: Reports system reviewed and no additional complaints, except as documented and Reports as per HPI Neurologic Neurologic: Reports headache(s) Physical Exam General General appearance: alert and in no apparent distress ENT ENT exam: Present mucous membranes moist Expanded ENT Exam Nose exam: Present sinus tenderness Throat exam: Present other (pharyngeal erythema noted with PND) Respiratory Respiratory exam: Present normal lung sounds bilaterally; Absent respiratory distress or wheezes Cardiovascular Cardiovascular exam: Present regular rate, normal rhythm and normal heart sounds Abdominal Exam Abdominal exam: Present soft and normal bowel sounds; Absent distention or tenderness Neurological Exam Neurological exam: Present alert, oriented X3 and normal gait Medical Decision Making Nav Inquiry Pt receiving controlled substance: No Nav was queried for this patient: No Vital Signs: 02/08/24 08:55 Temperature 98.3 F Temperature Source Oral Pulse Rate [Left Brachial] 74 Respiratory Rate 22 Blood Pressure [Left Arm] 123/59 L Blood Pressure Mean [Left Arm] 80 Blood Pressure Source [Left Arm] Automatic Cuff Blood Pressure Position [Left Arm] Sitting 02 Sat by Pulse Oximetry 95 Oxygen Delivery Method Room Air Medical Decision Narrative: Patient states that he is a diabetic but his blood sugars has been running ok an he has taken steriods in the past without complications or reactions Discussed Cxr and patient declined
[2024-02-08] MEDS: cefTRIAXone 1GM VIAL 1 GM IM (09:33)
[2024-02-08] MEDS: LIDOCAINE 1% 5ML PF VIAL IM (09:33)
[2024-02-08] MEDS: METHYLPREDNISOLONE SOD SUCC 125MG VIAL 125 MG IM (09:33)
[2024-02-08 09:37] VITALS: BP 123/59; PULSE 74; RESP 22; TEMP 36.8; O2SAT 95
== END 2024-02-08 09:47 | disposition home or self-care (01) ==
PROVIDERS: Emergency Provider Nurse Practitioner; PCP Internal Medicine
DX: J20.9 Acute bronchitis, unspecified (principal); J01.90 Acute sinusitis, unspecified; E11.9 Type 2 diabetes mellitus without complications; Z79.84 Long term (current) use of oral hypoglycemic drugs; Z79.85 Long-term (current) use of injectable non-insulin antidiabetic drugs
CPT/HCPCS: 96372; 99212; 99214; G0463; J0696; J2919

== ENCOUNTER 2024-02-12 14:55 | Emergency (ER) | payer MEDICARE, SELFPAY ==
[2024-02-12 15:00] VITALS: BP 145/91; PULSE 93; RESP 20; TEMP 36.7; O2SAT 95; BMI 30.4
--- NOTE | 2024-02-12 15:21 | XR_ITS ---
PROCEDURE INFORMATION: Exam: XR Chest Exam date and time: 02/12/2024 3:17 PM Age: 68 years old Clinical indication: Shortness of breath; Additional info: SOA, cough TECHNIQUE: Imaging protocol: Radiologic exam of the chest. Views: 2 views. COMPARISON: CT LUNG SCREENING 11/25/2023 2:43 PM FINDINGS: Lungs: Unremarkable. No consolidation. Pleural spaces: Unremarkable. No pleural effusion. No pneumothorax. Heart/Mediastinum: Unremarkable. No cardiomegaly. Bones/joints: Unremarkable. IMPRESSION: No acute findings.
--- NOTE | 2024-02-12 15:27 | EXP.UTC ---
Discharge Plan Disposition Patient Disposition: Home, Self-Care Condition: Good Prescriptions Prescriptions: New levofloxacin 500 mg tablet 500 mg PO DAILY Qty: 7 0RF methylprednisolone 4 mg Tablets,Dose Pack 4 mg PO DIRECTED 6 Days Qty: 21 0RF Rx Instructions: Take 1 pack as directed for 6 days albuterol sulfate [Ventolin HFA] 90 mcg/actuation HFA aerosol inhaler 2 puff inhalation Q6H PRN (Reason: shortness of breath or wheezing) Qty: 6.7 0RF No Action (DME) lancets [Accu-Chek Fastclix Lancet Drum] Misc See Rx Instructions .ROUTE .COMPLEX Qty: 102 3RF Dose Instruction: USE 1 LANCET TO CHECK GLUCOSE TWICE DAILY Rx Instructions: USE 1 LANCET TO CHECK GLUCOSE TWICE DAILY (DME) Accu-Chek Guide test strips Strip See Rx Instructions .Route Qty: 100 2RF Rx Instructions: As directed or bid hydralazine 10 mg tablet 10 mg PO DAILY Patient Comments: TAKE 2 TABLETS BY MOUTH TWICE DAILY FOR HIGH BLOOD PRESSURE hydrocodone-acetaminophen 5-325 mg tablet 1 tab PO DAILY Patient Comments: TAKE 1 TABLET BY MOUTH EVERY 6 HOURS NEEDED IN FOR PAIN LOWER BACK enalapril maleate 20 mg tablet 20 mg PO DAILY Patient Comments: TAKE 1 TABLET BY MOUTH ONCE DAILY clopidogrel 75 mg tablet 75 mg PO DAILY Patient Comments: TAKE 1 TABLET BY MOUTH ONCE DAILY diltiazem HCl 120 mg capsule,extended release 24 hr 120 mg PO DAILY Patient Comments: TAKE 1 CAPSULE BY MOUTH ONCE DAILY nitroglycerin 0.4 mg tablet, sublingual 0.4 mg sublingual [id number] PRN (Reason: Chest Pain) Patient Comments: DISSOLVE ONE TABLET UNDER THE TONGUE EVERY 5 MINUTES NEEDED FOR CHEST PAIN. DO NOT EXCEED A TOTAL OF 3 DOSES IN 15 MINUTES hydrochlorothiazide 25 mg tablet 25 mg PO DAILY Patient Comments: TAKE 1 TABLET BY MOUTH ONCE DAILY fluoxetine 20 mg capsule 20 mg PO DAILY Patient Comments: TAKE 1 CAPSULE BY MOUTH ONCE DAILY FOR DEPRESSION metformin 500 mg tablet extended release 24 hr 500 mg PO DAILY Patient Comments: TAKE 1 TABLET BY MOUTH ONCE DAILY FOR DIABETES cyclobenzaprine 5 mg tablet 5 mg PO HS Patient Comments: TAKE 1 TABLET BY MOUTH AT BEDTIME NEEDED FOR PAIN FOR MUSCLE SPASM ranolazine 500 mg tablet extended release 12 hr 500 mg PO BID Patient Comments: TAKE 1 TABLET BY MOUTH TWICE DAILY Repatha SureClick 140 mg/mL pen injector 140 mg SQ WEEKLY Patient Comments: INJECT 1 SYRINGE SUBCUTANEOUSLY EVERY TWO WEEKS FOR CHOLESTEROL Ozempic 0.25 mg or 0.5 mg (2 mg/3 mL) pen injector 0.25 mg SQ DAILY Patient Comments: INJECT 0.25MG SUBCUTANEOUSLY ONCE WEEKLY FOR 4 WEEKS prednisone 10 mg tablet 10 mg PO BID 5 Days Qty: 10 0RF amoxicillin-pot clavulanate 875-125 mg Tablet 1 tab PO Q12H Qty: 20 0RF guaifenesin [Mucinex] 600 mg tablet extended release 12hr 1,200 mg PO BID PRN (Reason: cough) Qty: 20 0RF benzonatate 100 mg capsule 100 mg PO TID PRN (Reason: cough) Qty: 15 0RF Referrals Follow up/Referrals: Duy Smiley DO [Primary Care Provider] - See instructions Activity Restrictions/Add. Instructions Additional Instructions/Restrictions: Drink plenty of fluids. Take tylenol for pain or fever. Stop the amoxicillin/clavulanate antibiotics and start the levaquin (levofloxacin) antibiotics. Stop the prednisone that you are on and start the steroid dose pack (medrol dose pack) tomorrow. Follow up with your regular doctor. GO TO THE ER FOR ANY WORSENING SYMPTOMS Clinical Impressions Clinical Impression: COPD exacerbation, Acute viral syndrome Instructions Patient Instructions: How to Use a Metered-Dose Inhaler, Albuterol Oral Inhalation, Ceftriaxone Injection, Dexamethasone Injection Print Language Print Language: [place]ian Discharge ED Provider: Bryce Jeffries [facility] [place] HPI General Stated complaint: soa, bodyaches, headache, cough Mode of Arrival: Ambulatory Source of Information: Patient Limitations: No Limitations Time Seen by Provider: 02/12/24 15:27 Description of Symptoms (Recalled from Triage Doc. by RN): PATIENT C/O SOA, COUGH AND CONGESTION SINCE LAST WEEK. HE STATES HE WAS SEEN AT [facility] 4 DAYS AGO AND GIVEN ANTIBIOTICS, STEROIDS, AND MUCINEX, BUT STATES HE IS NOT BETTER. HEENT Symptoms (Recalled from RN notes): Yes Resp Symptoms (Recalled from RN notes): Yes Skin Symptoms (Recalled from RN notes): No MS Symptoms (Recalled from RN notes): No Functional Status (Recalled from RN notes): WNL History of Present Illness Provider Complaint: He is back today with worsening chest congestion. He denies chest pain. Related Data Home Medications ?Medication ?Instructions ?Recorded ?Confirmed clopidogrel 75 mg tablet 75 mg PO DAILY 02/08/24 02/08/24 cyclobenzaprine 5 mg tablet 5 mg PO HS 02/08/24 02/08/24 diltiazem HCl 120 mg capsule,24 120 mg PO DAILY 02/08/24 02/08/24 hr,extended release enalapril maleate 20 mg tablet 20 mg PO DAILY 02/08/24 02/08/24 evolocumab 140 mg/mL subcutaneous 140 mg SQ WEEKLY 02/08/24 02/08/24 pen injector (Alia Guillen) fluoxetine 20 mg capsule 20 mg PO DAILY 02/08/24 02/08/24 hydralazine 10 mg tablet 10 mg PO DAILY 02/08/24 02/08/24 hydrochlorothiazide 25 mg tablet 25 mg PO DAILY 02/08/24 02/08/24 hydrocodone 5 mg-acetaminophen 325 1 tab PO DAILY 02/08/24 02/08/24 mg tablet metformin 500 mg tablet,extended 500 mg PO DAILY 02/08/24 02/08/24 release 24 hr nitroglycerin 0.4 mg sublingual 0.4 mg sublingual [id number] PRN 02/08/24 02/08/24 tablet Chest Pain ranolazine 500 mg tablet,extended 500 mg PO BID 02/08/24 02/08/24 release,12 hr semaglutide 0.25 mg or 0.5 mg (2 0.25 mg SQ DAILY 02/08/24 02/08/24 mg/3 mL) subcutaneous pen injector (Saloni) Previous Rx's ?Medication ?Instructions ?Recorded lancets (Accu-Chek Fastclix Lancet #102 ea 12/15/22 Drum) blood sugar diagnostic (Accu-Chek #100 ea 12/12/23 Guide test strips) amoxicillin 875 mg-potassium 1 tab PO Q12H #20 tabs 02/08/24 clavulanate 125 mg tablet benzonatate 100 mg capsule 100 mg PO TID PRN cough #15 caps 02/08/24 guaifenesin 600 mg tablet, 1,200 mg (2 x 600 mg) PO BID PRN 02/08/24 extended release 12 hr (Mucinex) cough #20 tabs prednisone 10 mg tablet 10 mg PO BID 5 days #10 tabs 02/08/24 albuterol sulfate 90 mcg/actuation 2 puff inhalation Q6H PRN 02/12/24 aerosol inhaler (Ventolin HFA) shortness of breath or wheezing #6.7 grams levofloxacin 500 mg tablet 500 mg PO DAILY #7 tabs 02/12/24 methylprednisolone 4 mg tablets in 4 mg PO DIRECTED 6 days #21 tabs 02/12/24 a dose pack Allergies Allergy/AdvReac Type Severity Reaction Status Date / Time oxycodone [From Percocet] Allergy Unknown Verified 01/11/24 10:19 allergy reaction atorvastatin AdvReac Unknown Verified 01/11/24 10:19 morphine AdvReac Unknown Verified 01/11/24 10:19 allergy reaction Worker's Comp Is this a Worker's Comp case?: No [facility] Disclaimer: The information contained in this section may have been updated after the patient was seen, as this information can be updated by other users. Medical History (Updated 02/12/24 @ 16:06 by Bryce Jeffries APRN) Hyperlipidemia Abrasion of ear canal Hearing loss in left ear Otalgia, bilateral Bleeding from right ear Myopathy Dyspnea Sinus bradycardia Palpitations Family history of heart disease Tobacco user COPD (chronic obstructive pulmonary disease) CAD (coronary artery disease) Hypertension Chronic back pain Surgical History History of heart artery stent History of cardiac cath History of colon resection Social History Smoking Status: Never smoker second hand exposure: No alcohol intake: never substance use type: denies use current occupational status: retired Travel in the last 8 weeks: None household members: spouse housing: house current occupational exposures/hazards: No caffeine: No ROS Obtained: Yes All systems reviewed & no additional complaints except as documented Constitutional Constitutional: Reports poor appetite Eyes Eyes: Reports system reviewed and no additional complaints, except as documented ENT Ears, Nose, Mouth, and Throat: Reports as per HPI Cardiovascular Cardiovascular: Reports system reviewed and no additional complaints, except as documented and Denies chest pain Respiratory Respiratory: Denies shortness of breath, Reports chest congestion, Reports cough, Denies stridor and Denies wheezing Gastrointestinal Gastrointestingal: Reports system reviewed and no additional complaints, except as documented; Denies abdominal pain, diarrhea or vomiting Musculoskeletal Musculoskeletal: Reports system reviewed and no additional complaints, except as documented and Denies arthralgias Integumentary/Breasts Skin/Breast: Reports system reviewed and no additional complaints, except as documented and Denies rash Neurologic Neurologic: Denies paresthesias Allergic/Immunologic Allergic/Immunologic: Denies wheezing Physical Exam General General appearance: alert and in no apparent distress Eye Eye exam: Present normal appearance, PERRL and EOMI ENT ENT exam: Present mucous membranes moist and normal external ear exam Expanded ENT Exam External ear exam: Present normal external inspection TM/Canal exam: Bilateral TM: erythema and bulging Nose exam: Absent sinus tenderness Nasal speculum exam: Bilateral: normal Mouth exam: Present normal external inspection; Absent drooling Teeth exam: Present normal inspection Throat exam: Present tonsillar erythema and tonsillomegaly Neck Neck exam: Present normal inspection, full ROM and trachea midline; Absent tenderness, lymphadenopathy or thyromegaly Chest Chest inspection: Present normal inspection and symmetric chest wall rise; Absent tenderness or rash Respiratory Respiratory exam: Present normal lung sounds bilaterally; Absent respiratory distress, wheezes, stridor or accessory muscle use Cardiovascular Cardiovascular exam: Present regular rate, normal rhythm and normal heart sounds Abdominal Exam Abdominal exam: Present soft; Absent distention, tenderness, guarding, rebound or rigidity Extremities Exam Extremities exam: Present normal inspection, full ROM and normal capillary refill; Absent tenderness or calf tenderness Back Exam Back exam: Present normal inspection and full ROM; Absent tenderness Neurological Exam Neurological exam: Present alert and oriented X3 Psychiatric Psychiatric exam: Present normal affect and normal mood Skin Skin exam: Present warm, dry, intact and normal color Lymphatic Lymphatic Findings: no adenopathy Medical Decision Making Medical Records Medical records reviewed: No I reviewed the patient's medical records. Nav Inquiry Pt receiving controlled substance: No Vital Signs: 02/12/24 15:00 Temperature 98.0 F Temperature Source Oral Pulse Rate [Left Brachial] 93 H Respiratory Rate 20 Blood Pressure [Left Arm] 145/91 H Blood Pressure Mean [Left Arm] 109 Blood Pressure Source [Left Arm] Automatic Cuff Blood Pressure Position [Left Arm] Sitting 02 Sat by Pulse Oximetry 95 Oxygen Delivery Method Room Air Lab Data Lab results reviewed: Yes I reviewed the patient's lab results. Orders (Tests/Meds): ORDERS Category Date Time Status Chest XR 2 view (NOT portable) [XR chest 2V] Stat Exams 02/12/24 15:21 Ordered
[2024-02-12] MEDS: LIDOCAINE 1% 5ML PF VIAL IM (15:55)
[2024-02-12] MEDS: DEXAMETHASONE 4MG/ML 1ML VIAL 8 MG IM (15:55)
[2024-02-12] MEDS: cefTRIAXone 1GM VIAL 1 GM IM (15:55)
[2024-02-12 16:07] VITALS: BP 145/91; PULSE 93; RESP 20; TEMP 36.7; O2SAT 95
[2024-02-12 16:17] LABS: Influenza A, PCR Not Detected (NotDetected); Influenza B, PCR Not Detected (NotDetected)
[2024-02-12 16:46] LABS: Coronavirus 19, PCR Detected (NotDetected)
--- NOTE | 2024-02-12 20:25 | PC.NURSE ---
ATTEMPTED TO CALL PATIENT TO NOTIFY HIM OF POSITIVE COVID TEST, NO ANSWER
== END 2024-02-12 16:12 | disposition home or self-care (01) ==
PROVIDERS: Emergency Provider Nurse Practitioner Family; PCP Internal Medicine
DX: U07.1 COVID-19 (principal); J44.1 Chronic obstructive pulmonary disease with (acute) exacerbation; R06.02 Shortness of breath; R05.9 Cough, unspecified
CPT/HCPCS: 71046; 87636; 96372; 99212; 99214; G0463; J0696; J1100

== ENCOUNTER 2024-02-14 09:45 | Outpatient (CLI) | payer MEDICARE, SELFPAY ==
[2024-02-14 19:45] LABS: Creatinine,Urine Random 96 mg/dL (Not Estab.); Microalbumin < 6.000 mg/L (0-16.7)
== END 2024-02-14 23:59 | disposition home or self-care (01) ==
LOC: LAB.DROPOF 02-15 13:58
PROVIDERS: PCP Internal Medicine; Visit Provider Internal Medicine
DX: R73.03 Prediabetes (principal)
CPT/HCPCS: 82043; 82570

== ENCOUNTER 2024-02-17 09:42 | Emergency (ER) | payer MEDICARE, SELFPAY ==
[2024-02-17] VITALS (9 sets, daily range): BP systolic 95–118; BP diastolic 48–66; PULSE 59–70; RESP 16–18; TEMP 36.8; O2SAT 95–98; BMI 30.4
--- NOTE | 2024-02-17 10:20 | CT_ITS ---
FINAL REPORT CLINICAL HISTORY: R flank and RLQ pain COMPARISON: 03/28/2023 FINDINGS: CT OF THE ABDOMEN AND PELVIS WITH CONTRAST Axial CT images of the abdomen and pelvis were obtained after the administration of IV contrast. Coronal reformatted images were also obtained and reviewed. This study was performed with techniques to keep radiation doses as low as reasonably achievable (ALARA). Individualized dose reduction techniques using automated exposure control or adjustment of mA and/or kV according to the patient''s size were employed. Abdomen: Mild atelectasis is noted at the lung bases.. The heart is normal in size. The liver has an unremarkable appearance, without evidence of mass or biliary ductal dilatation. The spleen is unremarkable. There are stable bilateral adrenal masses which are consistent with adenomas. The pancreas has an unremarkable appearance. 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 There is no hydronephrosis. A 4.2 cm infrarenal abdominal aortic aneurysm is stable. There is no free fluid or adenopathy. No mass or abnormal fluid collection is seen. Pelvis: The appendix is not visualized; there are no secondary signs of appendicitis. Descending and sigmoid diverticulosis is noted without evidence of diverticulitis. Mild bladder wall thickening is likely inflammatory. No inflammatory process is seen. There is no evidence of mass or adenopathy. There is no evidence of bowel obstruction. IMPRESSION: Descending and sigmoid diverticulosis without evidence of diverticulitis. Mild bladder wall thickening, likely inflammatory. 4.2 cm stable infrarenal abdominal arctic aneurysm. No evidence of appendicitis. Reviewed, Interpreted and Dictated by Rob Levine III, MD Transcribed by Sabine Clark Authenticated and [facility]
[2024-02-17 10:23] LABS: Microscopic, Urine URINE MICROSCOPIC (MICROSCOPIC)
[2024-02-17 10:26] LABS: Appearance,Urine CLEAR (Clear); Bilirubin,Urine Negative (Negative); Blood, Urine Negative (Negative); Color,Urine YELLOW (Yellow); Glucose,Urine (UA) Negative (Negative); Ketones,Urine Negative (Negative); Leukocyte Esterase,Urine Negative (Negative); Nitrate,Urine Negative (Negative); Protein,Urine Negative (Negative); Specific Gravity, Urine 1.015 (1.005-1.030); Urobilinogen,Urine 0.2 EU/dl (0.2)
[2024-02-17 10:27] LABS: Basophils # 0.1 K/mm3 (0-0.2); Basophils % 0.7 % (0.1-2.0); Eosinophils # 0.3 K/mm3 (0.0-0.4); Eosinophils % 1.7 % (0.1-12.0); Hematocrit 42.7 % (42.0-52.0); Hemoglobin 13.5 g/dL (14.1-18.0); Lymphocytes # 3.9 K/mm3 (0.7-4.5); Lymphocytes % 19.9 % (10-50); Mean Corpuscular HGB Conc 31.6 g/dL (31.8-35.4); Mean Corpuscular Hemoglobin 28.8 pg (27.0-31.2); Mean Corpuscular Volume 91.2 fl (80-94); Mean Platelet Volume 7.8 fl (7.4-10.4); Monocytes # 1.4 K/mm3 (0.1-1.0); Monocytes % 7.3 % (1.7-9.3); Neutrophils # 13.8 K/mm3 (1.8-7.8); Neutrophils % 70.5 % (37.0-80.0); Platelet Count 350 K/mm3 (142-424); Red Blood Count 4.68 M/mm3 (4.60-6.20); Red Cell Distribution Width 14.6 % (11.5-17.5); White Blood Count 19.6 K/mm3 (4.8-10.8)
[2024-02-17 10:29] LABS: Albumin Level 3.4 g/dl (3.5-5.0); Chloride 99 mmol/L (98-107); Potassium 3.3 mmoL/L (3.5-5.1); Sodium 132 mmol/L (136-145)
[2024-02-17] MEDS: diphenhydrAMINE 50MG/ML VIAL 25 MG IV (10:29)
[2024-02-17] MEDS: KETOROLAC 30MG/ML VIAL 15 MG IV (10:30)
[2024-02-17] MEDS: MORPHINE 4MG/ML SYRINGE 4 MG IV (10:30)
[2024-02-17 10:31] LABS: Alanine Aminotransferase 25 U/L (12-78); Aspartate Amino Transferase 21 U/L (17-59); Blood Urea Nitrogen 31 mg/dl (9-20); Creatinine Clearance Estimated 67 mL/min (50-200); Estimated Glomerular Filt Rate 50 ml/min (>60); GFR (African American) 61 ML/MIN (>60)
[2024-02-17] MEDS: ONDANSETRON 4MG/2ML VIAL 4 MG IV (10:31)
[2024-02-17 10:32] LABS: Albumin/Globulin Ratio 1.2 (1.1-1.8); Alkaline Phosphatase 81 U/L (38-126); Anion Gap 9.3 mEq/L (5-15); Bilirubin,Total 0.6 mg/dl (0.2-1.3); Calcium 8.4 mg/dl (8.4-10.2); Carbon Dioxide 27 mmol/L (22.0-30.0); Globulin 2.8 g/dL (1.3-3.2); Glucose 150 mg/dl (74-100); Lipase 160 U/L (23-300); MANUAL DIFFERENTIAL MANUAL DIFFERENTIAL (MANUAL DIFF); Total Protein,Serum 6.2 g/dl (6.3-8.2)
[2024-02-17] MEDS: LACTATED RINGERS 1000ML 1,000 ML 999 ML IV (10:32)
--- NOTE | 2024-02-17 10:40 | PC.NURSE ---
pt out of room with Rad for CT
[2024-02-17 10:43] LABS: Bacteria,Urine Trace /lpf; Squamous Epithelial Cell,Urine Occasional #/hpf (0-5); WBC,Urine Occasional #/hpf (0-3)
[2024-02-17] MEDS: IOPAMIDOL-370 (76%);100ML BOTTLE 75 ML IV (10:44)
[2024-02-17] MEDS: SODIUM CHLORIDE 0.9% 10ML SYR (RAD ONLY) 10 ML IV (10:45)
--- NOTE | 2024-02-17 10:46 | HMH.EDGENADL ---
Discharge Plan Disposition Patient Disposition: Home, Self-Care Prescriptions Prescriptions: New prednisone 20 mg tablet 40 mg PO DAILY 5 Days Qty: 10 0RF No Action (DME) lancets [Accu-Chek Fastclix Lancet Drum] Misc See Rx Instructions .ROUTE .COMPLEX Qty: 102 3RF Dose Instruction: USE 1 LANCET TO CHECK GLUCOSE TWICE DAILY Rx Instructions: USE 1 LANCET TO CHECK GLUCOSE TWICE DAILY (DME) Accu-Chek Guide test strips Strip See Rx Instructions .Route Qty: 100 2RF Rx Instructions: As directed or bid hydralazine 10 mg tablet 10 mg PO DAILY Patient Comments: TAKE 2 TABLETS BY MOUTH TWICE DAILY FOR HIGH BLOOD PRESSURE hydrocodone-acetaminophen 5-325 mg tablet 1 tab PO DAILY Patient Comments: TAKE 1 TABLET BY MOUTH EVERY 6 HOURS NEEDED IN FOR PAIN LOWER BACK enalapril maleate 20 mg tablet 20 mg PO DAILY Patient Comments: TAKE 1 TABLET BY MOUTH ONCE DAILY clopidogrel 75 mg tablet 75 mg PO DAILY Patient Comments: TAKE 1 TABLET BY MOUTH ONCE DAILY diltiazem HCl 120 mg capsule,extended release 24 hr 120 mg PO DAILY Patient Comments: TAKE 1 CAPSULE BY MOUTH ONCE DAILY nitroglycerin 0.4 mg tablet, sublingual 0.4 mg sublingual [id number] PRN (Reason: Chest Pain) Patient Comments: DISSOLVE ONE TABLET UNDER THE TONGUE EVERY 5 MINUTES NEEDED FOR CHEST PAIN. DO NOT EXCEED A TOTAL OF 3 DOSES IN 15 MINUTES hydrochlorothiazide 25 mg tablet 25 mg PO DAILY Patient Comments: TAKE 1 TABLET BY MOUTH ONCE DAILY fluoxetine 20 mg capsule 20 mg PO DAILY Patient Comments: TAKE 1 CAPSULE BY MOUTH ONCE DAILY FOR DEPRESSION metformin 500 mg tablet extended release 24 hr 500 mg PO DAILY Patient Comments: TAKE 1 TABLET BY MOUTH ONCE DAILY FOR DIABETES cyclobenzaprine 5 mg tablet 5 mg PO HS Patient Comments: TAKE 1 TABLET BY MOUTH AT BEDTIME NEEDED FOR PAIN FOR MUSCLE SPASM ranolazine 500 mg tablet extended release 12 hr 500 mg PO BID Patient Comments: TAKE 1 TABLET BY MOUTH TWICE DAILY Repatha SureClick 140 mg/mL pen injector 140 mg SQ WEEKLY Patient Comments: INJECT 1 SYRINGE SUBCUTANEOUSLY EVERY TWO WEEKS FOR CHOLESTEROL Ozempic 0.25 mg or 0.5 mg (2 mg/3 mL) pen injector 0.25 mg SQ DAILY Patient Comments: INJECT 0.25MG SUBCUTANEOUSLY ONCE WEEKLY FOR 4 WEEKS guaifenesin [Mucinex] 600 mg tablet extended release 12hr 1,200 mg PO BID PRN (Reason: cough) Qty: 20 0RF benzonatate 100 mg capsule 100 mg PO TID PRN (Reason: cough) Qty: 15 0RF levofloxacin 500 mg tablet 500 mg PO DAILY Qty: 7 0RF methylprednisolone 4 mg Tablets,Dose Pack 4 mg PO DIRECTED 6 Days Qty: 21 0RF Rx Instructions: Take 1 pack as directed for 6 days albuterol sulfate [Ventolin HFA] 90 mcg/actuation HFA aerosol inhaler 2 puff inhalation Q6H PRN (Reason: shortness of breath or wheezing) Qty: 6.7 0RF Referrals Follow up/Referrals: Duy Smiley DO [Primary Care Provider] - See instructions Activity Restrictions/Add. Instructions Additional Instructions/Restrictions: Call your family doctor to establish care for this visit to the emergency department and schedule follow-up within 48 hours to ensure improvement. If you have any worsening of your condition or any other concerning signs or symptoms, return to the emergency department or your primary care doctor for further evaluation. Clinical Impressions Clinical Impression: Radiculopathy Instructions Patient Instructions: DI for Low Back Pain Print Language Print Language: Kyrgyz Discharge ED Provider: Vin Morton General Adult HPI General Chief complaint: Back Pain/Injury Stated complaint: Back pain Time Seen by Provider: 02/17/24 09:44 Mode of Arrival: Ambulatory Source of Information: Patient and Spouse Limitations: No Limitations Description of Symptoms (Recalled from ER Triage Doc. by RN): pt c/o R flank pain that radiates accross his lower back. pt states this has been ongoing since 02/11. pt states the pain comes in waves, is sharp, and an 8/10. pt denies injury. pt has a hx of horseshoe kidneyes, multiple kidney stones, lithotripsy, a laser procedure on a stone, and 3x surgical removal of stones. pt last saw Dr. Dodson for a stone in 2020. pt took 2x 5mg hydrocodone and a cyclobenzaprine between [id number] without any relief. History of Present Illness HPI narrative: Please note that above description of symptoms, in this electronic medical record under categorization of recalled from ER triage doctor by RN are reflective of an initial nursing assessment, however, is not reflective of my full history and physical exam that was personally taken and clarified. Consequentially, this preceding description of symptoms, which may include the patient's categorized chief complaint in the EMR, do not reflect my personal clinical impression, and the ultimate description of history of present illness and patient stated complaints should be deferred to this section of the note. Unless stated otherwise or congruent with this section of the note, additional signs, symptoms, or incongruence should be interpreted as inaccurate with my clinical impression. Related Data Home Medications ?Medication ?Instructions ?Recorded ?Confirmed clopidogrel 75 mg tablet 75 mg PO DAILY 02/08/24 02/14/24 cyclobenzaprine 5 mg tablet 5 mg PO HS 02/08/24 02/14/24 diltiazem HCl 120 mg capsule,24 120 mg PO DAILY 02/08/24 02/14/24 hr,extended release enalapril maleate 20 mg tablet 20 mg PO DAILY 02/08/24 02/14/24 evolocumab 140 mg/mL subcutaneous 140 mg SQ WEEKLY 02/08/24 02/14/24 pen injector (Alia Guillen) fluoxetine 20 mg capsule 20 mg PO DAILY 02/08/24 02/14/24 hydralazine 10 mg tablet 10 mg PO DAILY 02/08/24 02/14/24 hydrochlorothiazide 25 mg tablet 25 mg PO DAILY 02/08/24 02/14/24 hydrocodone 5 mg-acetaminophen 325 1 tab PO DAILY 02/08/24 02/14/24 mg tablet metformin 500 mg tablet,extended 500 mg PO DAILY 02/08/24 02/14/24 release 24 hr nitroglycerin 0.4 mg sublingual 0.4 mg sublingual [id number] PRN 02/08/24 02/14/24 tablet Chest Pain ranolazine 500 mg tablet,extended 500 mg PO BID 02/08/24 02/14/24 release,12 hr semaglutide 0.25 mg or 0.5 mg (2 0.25 mg SQ DAILY 02/08/24 02/14/24 mg/3 mL) subcutaneous pen injector (Ozempic) Previous Rx's ?Medication ?Instructions ?Recorded lancets (Accu-Chek Fastclix Lancet #102 ea 12/15/22 Drum) blood sugar diagnostic (Accu-Chek #100 ea 12/12/23 Guide test strips) benzonatate 100 mg capsule 100 mg PO TID PRN cough #15 caps 02/08/24 guaifenesin 600 mg tablet, 1,200 mg (2 x 600 mg) PO BID PRN 02/08/24 extended release 12 hr (Mucinex) cough #20 tabs albuterol sulfate 90 mcg/actuation 2 puff inhalation Q6H PRN 02/12/24 aerosol inhaler (Ventolin HFA) shortness of breath or wheezing #6.7 grams levofloxacin 500 mg tablet 500 mg PO DAILY #7 tabs 02/12/24 methylprednisolone 4 mg tablets in 4 mg PO DIRECTED 6 days #21 tabs 02/12/24 a dose pack prednisone 20 mg tablet 40 mg (2 x 20 mg) PO DAILY 5 days 02/17/24 #10 tabs Allergies Allergy/AdvReac Type Severity Reaction Status Date / Time oxycodone [From Percocet] Allergy Unknown Verified 02/14/24 09:49 allergy reaction morphine AdvReac Mild Other Verified 02/17/24 10:26 atorvastatin AdvReac Unknown Verified 02/14/24 09:49 [facility] Disclaimer: The information contained in this section may have been updated after the patient was seen, as this information can be updated by other users. Medical History Hyperlipidemia Abrasion of ear canal Hearing loss in left ear Otalgia, bilateral Bleeding from right ear I saw some dried blood in the right EAC however I did not see any in overt lesions. Myopathy Dyspnea Sinus bradycardia Palpitations Family history of heart disease Tobacco user COPD (chronic obstructive pulmonary disease) CAD (coronary artery disease) Hypertension Chronic back pain Surgical History History of heart artery stent History of cardiac cath History of colon resection Social History Smoking Status: Former smoker second hand exposure: No alcohol intake: never substance use type: denies use current occupational status: retired Travel in the last 8 weeks: None household members: spouse housing: house current occupational exposures/hazards: No caffeine: No ROS Obtained: Yes All systems reviewed & no additional complaints except as documented Physical Exam General General appearance: alert and in no apparent distress Head Head exam: atraumatic and normocephalic Eye Eye exam: Present normal appearance, PERRL and EOMI Neck Neck exam: Present normal inspection, full ROM and trachea midline Respiratory Respiratory exam: Present normal lung sounds bilaterally; Absent respiratory distress, wheezes, stridor, accessory muscle use or prolonged expiratory phase Cardiovascular Cardiovascular exam: Present regular rate, normal rhythm and other (Pulses equal symmetric in upper and lower extremities) Abdominal Exam Abdominal exam: Present soft; Absent distention, tenderness, guarding, rebound, rigidity or pulsatile mass Extremities Exam Extremities exam: Absent edema Back Exam Back exam: Present CVA tenderness (R); Absent CVA tenderness (L) Neurological Exam Neurological exam: Present alert, oriented X3 and CN II-XII intact; Absent motor sensory deficit Skin Skin exam: Present warm and dry; Absent diaphoresis or erythema Medical Decision Making Medical Records Medical records reviewed: Yes I reviewed the patient's medical records. Nav Inquiry Pt receiving controlled substance: No Nav was queried for this patient: No Vital Signs: 02/17/24 10:01 02/17/24 10:02 02/17/24 10:29 Temperature 98.2 F Temperature Source Oral Pulse Rate 68 67 Pulse Rate [Left] 70 Respiratory Rate 16 Blood Pressure 99/60 L 98/48 L Blood Pressure [Right Arm] 113/63 Blood Pressure Mean [Right Arm] 79 Blood Pressure Source [Right Arm] Automatic Cuff Blood Pressure Position [Right Arm] Sitting 02 Sat by Pulse Oximetry 97 98 95 Oxygen Delivery Method Room Air Room Air 02/17/24 11:00 02/17/24 11:30 Temperature Temperature Source Pulse Rate 65 64 Pulse Rate [Left] Respiratory Rate Blood Pressure 99/55 L 111/66 Blood Pressure [Right Arm] Blood Pressure Mean [Right Arm] Blood Pressure Source [Right Arm] Blood Pressure Position [Right Arm] 02 Sat by Pulse Oximetry 97 96 Oxygen Delivery Method Room Air Lab Data Lab Results 02/17/24 09:48: Urine Color Yellow, Urine Appearance Clear, Urine pH 6.0, Ur Specific [place] 1.015, Urine Protein Negative, Urine Glucose (UA) Negative, Urine Ketones Negative, Urine Blood Negative, Urine Nitrate Negative, Urine Bilirubin Negative, Urine Urobilinogen 0.2, Ur Leukocyte Esterase Negative, Urine RBC None, Urine WBC Occasional, Ur Squamous Epith Cells Occasional, Urine Bacteria Trace 02/17/24 10:05: WBC 19.6 H, RBC 4.68, Hgb 13.5 L, Hct 42.7, MCV 91.2, MCH 28.8, MCHC 31.6 L, RDW 14.6, Plt Count 350, MPV 7.8, Neut % (Auto) 70.5, Lymph % (Auto) 19.9, [place] % (Auto) 7.3, Eos % (Auto) 1.7, Baso % (Auto) 0.7, Neut # (Auto) 13.8 H, Lymph # (Auto) 3.9, [place] # (Auto) 1.4 H, Eos # (Auto) 0.3, Baso # (Auto) 0.1, Total Counted 100, Neutrophils % (Manual) 61, Lymphocytes % (Manual) 31, Monocytes % (Manual) 6, Eosinophils % (Manual) 2, Platelet Estimate Normal, RBC Morphology Normal, Sodium 132 L, Potassium 3.3 L, Chloride 99, Carbon Dioxide 27, Anion Gap 9.3, BUN 31 H, Creatinine 1.40 H, Estimated Creat Clear 67, Estimated GFR 50 L, Est GFR ( Amer) 61, Glucose 150 H, Calcium 8.4, Total Bilirubin 0.6, AST 21, ALT 25, Alkaline Phosphatase 81, Total Protein 6.2 L, Albumin 3.4 L, Globulin 2.8, Albumin/Globulin Ratio 1.2, Lipase 160 02/17/24 10:05 02/17/24 10:05 Orders (Tests/Meds): ED MEDICATIONS Generic Name Dose Route Start Last Admin Trade Name Freq PRN Reason Stop Dose Admin Sodium Chloride 10 ml 02/17/24 10:43 02/17/24 10:45 Sodium Chloride 0.9% 10ml Syr (Rad Only) IV 03/18/24 10:42 10 ml NEEDED PRN Administration Maintain IV Site Discontinued Medications Generic Name Dose Route Start Last Admin Trade Name Freq PRN Reason Stop Dose Admin Diphenhydramine HCl 25 mg 02/17/24 10:18 02/17/24 10:29 Diphenhydramine 50mg/Ml Vial IV 02/17/24 10:19 25 mg ONCE ONE Administration Lactated Ringer's 1,000 mls @ 999 mls/hr 02/17/24 10:20 02/17/24 10:32 Lactated Ringer's 1000 Ml Bag IV 02/17/24 11:20 999 mls/hr .Q1H1M ONE Administration Iopamidol 75 ml 02/17/24 10:43 02/17/24 10:44 Iopamidol-370 (76%);100ml Bottle IV 02/17/24 10:44 75 ml ONCE ONE Administration Ketorolac Tromethamine 15 mg 02/17/24 10:18 02/17/24 10:30 Ketorolac 30mg/Ml Vial IV 02/17/24 10:19 15 mg ONCE ONE Administration Morphine Sulfate 4 mg 02/17/24 10:18 02/17/24 10:30 Morphine 4mg/Ml Syringe IV 02/17/24 10:19 4 mg ONCE ONE Administration Ondansetron HCl 4 mg 02/17/24 10:18 02/17/24 10:31 Ondansetron 4mg/2ml Vial IV 02/17/24 10:19 4 mg ONCE ONE Administration ORDERS Category Date Time Status CT abdomen pelvis w con Stat Cat Scan 02/17/24 10:20 Completed POCUS Point of Care (ER Only) Stat Exams 02/17/24 11:40 Ordered CBC w/Auto Diff [Complete Blood Count Auto Diff] Stat Lab 02/17/24 10:05 Completed CMP [Comprehensive Metabolic Panel] Stat Lab 02/17/24 10:05 Completed Lipase Stat Lab 02/17/24 10:05 Completed [place] Ab, Modified 2-Tier Stat Lab 02/17/24 11:05 Received UA [Urinalysis and Microscopic] Stat Lab 02/17/24 09:48 Completed Medical Decision Narrative: 68-year-old male history of hypertension, hyperlipidemia, COPD, chronic tobacco use, horseshoe kidneys, infrarenal AAA, numerous kidney stones necessitating instrumentation presenting with right flank pain. Patient states has been going on for 3 to 4 days. Is intensifying, but waxes and wanes, mostly in his right flank, radiates intermittently into his abdomen on the right side. No vomiting, fevers, chills, dysuria, hematuria, changes in bowel habits, urinary or stool incontinence or retention. Patient states that he has taken Tylenol, Motrin, hydrocodone, lidocaine patches, minimal help with any of this. Also states that he incidentally noted a tick that was on the back of his neck about a week ago and was engorged with blood when he removed it. Lightheadedness intermittently. has had tenderness and redness in the area since that time. Denies chest pain, shortness of breath, palpitations, neck stiffness, confusion, vision changes, or any other concerns. It should be noted that patient has , which is currently not at goal and complicates care. History was obtained via conversation with patient. On arrival, patient hemodynamically stable, alert, oriented x4, appropriate, GCS 15, moving all extremities spontaneously, pupils equal and reactive to light. Full physical exam performed and significant for very well-appearing male no acute distress. He does have right paraspinal flank tenderness without overlying skin changes. Abdomen is soft, nontender, nondistended, no skin changes there is well. No pulsatile abdominal mass. Lower extremities nontender, patient ambulatory. No midline spinal tenderness. No saddle anesthesia or lower extremity neurologic deficits. Differential includes nephrolithiasis, UTI/pyelonephritis, abdominal dissection, pancreatitis, cholecystitis, among others. Patient placed on continuous cardiac monitoring and continuous pulse ox with initial blood pressure 99/60, heart rate 68, saturation 97% on room air Patient was given Toradol, morphine, lidocaine patch, Benadryl for symptomatic management and correction of underlying abnormalities. Workup independently interpreted and significant for leukocytosis, the patient is on prednisone for bronchitis recently, likely contributing. Mild LUCIAN, given fluids for this. Urinalysis negative, CT abdomen pelvis without concern for intra-abdominal abnormality on independent interpretation. Bedside [id number] ultrasound without gallbladder abnormality or aortic abnormality. On reevaluation, patient states that he is having pain, lidocaine patch was applied. Results were relayed to patient. Given history, physical exam, workup, I feel like this is most likely dealer compliance representative of a radiculopathy and musculoskeletal pain in the setting of coughing from bronchitis. Prednisone called in again. I feel this is less likely to be related to patient's horseshoe kidney, aorta, etc. given workup and very well-appearing patient. Doxycycline was discussed, patient preferred not being started on empiric doxycycline until hydros resulted, I feel this is appropriate. Because patient at baseline without signs or symptoms of clinical decompensation, deemed appropriate for discharge. Results were relayed to patient who voiced understanding and were agreeable to outpatient management and follow up. I discussed my clinical impression with patient and answered all questions. At this time, the evidence for any other entities in the differential is insufficient to warrant any further testing or ED observation. This was explained as well. Advisory was given that persistent or worsening symptoms require further evaluation. I confirmed the understanding of this discussion. Licensed Tax Consultant disclaimer Much of this encounter note is an electronic enterprise application architect spoken language to printed text. Electronic enterprise application architect of the spoken language may permit errors. Although I have reviewed the note, some errors may still exist. Critical Care Critical Care Time Critical Care Time: No
[2024-02-17 12:27] LABS: Eosinophils % 2 % (0-3); Lymphocytes % 31 % (10-50); Monocytes % 6 % (2-9); Neutrophils % 61 % (42-76); Total Cells Counted 100
[2024-02-17 12:28] LABS: Platelet Estimate Normal; RBC Morphology Normal
[2024-02-17] MEDS: LIDOCAINE 5% TRANSDERMAL PATCH 1 EACH TP (13:18)
[2024-02-18 11:31] LABS: Lyme Ab CIA Negative (Negative)
== END 2024-02-17 13:22 | disposition home or self-care (01) ==
PROVIDERS: Emergency Provider Emergency Medicine; PCP Internal Medicine
DX: M54.16 Radiculopathy, lumbar region (principal); R05.9 Cough, unspecified; E87.1 Hypo-osmolality and hyponatremia; E87.6 Hypokalemia; D72.829 Elevated white blood cell count, unspecified; J44.9 Chronic obstructive pulmonary disease, unspecified; I10 Essential (primary) hypertension; E78.5 Hyperlipidemia, unspecified; Q63.1 Lobulated, fused and horseshoe kidney; E11.9 Type 2 diabetes mellitus without complications; Z79.84 Long term (current) use of oral hypoglycemic drugs; Z79.85 Long-term (current) use of injectable non-insulin antidiabetic drugs; Z87.442 Personal history of urinary calculi
CPT/HCPCS: 74177; 80053; 81001; 83690; 85007; 85025; 85027; 86618; 96361; 96374; 96375; 99285; J1200; J1885; J2270; J2405; J7120; Q9967

== ENCOUNTER 2024-02-20 15:46 | Emergency (ER) | payer MEDICARE, SELFPAY ==
[2024-02-20] VITALS (9 sets, daily range): BP systolic 118–149; BP diastolic 66–79; PULSE 60–84; RESP 15–22; TEMP 36.8–37.1; O2SAT 95–97; BMI 30.4
--- NOTE | 2024-02-20 15:48 | ECG_ITS ---
APPROVED REPORT Exam: Resting ECG HR:79 bpm ECG Measurements Heart Rate 79 AXES OK 157 P 83 QRSd 89 QRS 67 QT 386 T 87 QTc 420 Conclusion Normal sinus rhythm Electronically signed by : ARIC BOURNE, 02/21/2024 14:25:40
--- NOTE | 2024-02-20 15:52 | CT_ITS ---
PROCEDURE INFORMATION: Exam: CTA Chest With Contrast Exam date and time: 02/20/2024 4:13 PM Age: 68 years old Clinical indication: Shortness of breath; Sternal or substernal pain; Additional info: Chest pain/soa TECHNIQUE: Imaging protocol: Computed tomographic angiography of the chest with contrast. Exam focused on the arteries. 3D rendering (Not supervised by radiologist): MIP and/or 3D reconstructed images were created by the technologist. Radiation optimization: All CT scans at this facility use at least one of these dose optimization techniques: automated exposure control; mA and/or kV adjustment per patient size (includes targeted exams where dose is matched to clinical indication); or iterative reconstruction. Contrast material: ISOVUE 370; Contrast volume: 70 ml; Contrast route: INTRAVENOUS (IV); COMPARISON: 1. CT LUNG SCREENING 11/25/2023 2:43 PM 2. CR XR CHEST 2V 02/12/2024 3:17 PM 3. CR XR CHEST 2V 12/25/2022 9:53 PM FINDINGS: Pulmonary arteries: There is weak opacification of the pulmonary arterial tree without large central pulmonary arterial filling defect. Aorta: There is atherosclerotic disease of the visualized aorta and its major branch vessels. Stable dilation of the descending thoracic aorta without evidence for aortic dissection. Lungs: There are questionable peripheral subsegmental filling defects such as in the posterior right lower lobe (image 220 series 110) and left lower lobe (image 232 series 10). Scattered areas of bronchial wall thickening which are likely chronic inflammatory. A few areas of subpleural reticulation are noted, nonspecific. Pleural spaces: Unremarkable. No pneumothorax. No pleural effusion. Heart: Unremarkable. No cardiomegaly. No pericardial effusion. Heart RV/LV ratio: The RV to LV ratio is 0.0. Coronary arteries: There is moderate coronary atherosclerotic disease/calcification although evaluation is limited secondary to the non gated nature of the study. Lymph nodes: There are calcified mediastinal lymph nodes likely reflecting prior granulomatous disease. Dominant mediastinal nodes Pancreas: There is fatty replacement of the pancreas. Adrenal glands: There is a 1.9 cm right adrenal adenoma. There is adenomatous change of the left adrenal gland. Kidneys and ureters: Partially visualized horseshoe kidney. Bones/joints: There is diffuse degenerative disease of the visualized osseous structures. Soft tissues: Unremarkable. Other findings: Motion artifact mildly limits evaluation. IMPRESSION: 1. There is weak opacification of the pulmonary arterial tree without large central pulmonary arterial filling defect. There are questionable peripheral subsegmental filling defects such as in the posterior right lower lobe (image 220 series 110) and left lower lobe (image 232 series 10). 2. Stable dilation of the descending thoracic aorta measuring up to 3.6 cm without evidence for dissection or aneurysm.
--- NOTE | 2024-02-20 15:52 | CT_ITS ---
PROCEDURE INFORMATION: Exam: CTA Abdomen and Pelvis With Contrast Exam date and time: 02/20/2024 4:13 PM Age: 68 years old Clinical indication: Abdominal pain; Generalized; Additional info: Gi bleed, brbpr, abd pain/nausea TECHNIQUE: Imaging protocol: Computed tomographic angiography of the abdomen and pelvis with contrast. Exam focused on the arteries. 3D rendering (Not supervised by radiologist): MIP and/or 3D reconstructed images were created by the technologist. Radiation optimization: All CT scans at this facility use at least one of these dose optimization techniques: automated exposure control; mA and/or kV adjustment per patient size (includes targeted exams where dose is matched to clinical indication); or iterative reconstruction. Contrast material: ISOVUE 370; Contrast volume: 70 ml; Contrast route: INTRAVENOUS (IV); COMPARISON: 1. CT ANGIO ABDOMEN PELVIS 03/10/2023 1:[address] ABDOMEN PELVIS W CON 02/17/2024 10:[address] ABDOMEN PELVIS WO CON 03/28/2023 6:25 AM FINDINGS: Aorta: No aortic aneurysm. No aortic dissection. Celiac trunk and mesenteric arteries: No occlusion or significant stenosis. Renal arteries: No occlusion or significant stenosis. Right iliac arteries: No occlusion or significant stenosis. Left iliac arteries: No occlusion or significant stenosis. Liver: No mass. Gallbladder and biliary ducts: Unremarkable. No calcified stones. No ductal dilation. Pancreas: There is fatty replacement of the pancreas. Spleen: Unremarkable. No splenomegaly. Adrenal glands: Stable right adrenal adenoma measuring 1.9 cm. Thickening of the left adrenal gland likely reflecting adenomatous hyperplasia. Kidneys and ureters: There is a horseshoe kidney. Stomach and bowel: There are scattered colonic diverticula without evidence for active diverticulitis. Linear hyperdensity is noted within mid sigmoid colon on the arterial phase (153 series 5). Appendix: No evidence of appendicitis. Intraperitoneal space: Unremarkable. No free air. No significant fluid collection. Lymph nodes: Unremarkable. No enlarged lymph nodes. Urinary bladder: There is moderate distention of the urinary bladder. Reproductive: Unremarkable as visualized. Bones/joints: No acute fracture. Soft tissues: There are postsurgical changes of the ventral abdominal wall. Other findings: Please see the dedicated interpretation of the thorax for findings in that region. IMPRESSION: 1. Extensive colonic diverticula without CT evidence for active diverticulitis. There is linear hyperdensity within the mid sigmoid colon (image 153 series 5) which may reflect normal mucosal enhancement but active hemorrhage is difficult to exclude in the absence delayed phase imaging. 2. Please see the dedicated interpretation of the thorax for findings in that region.
--- NOTE | 2024-02-20 15:52 | PC.NURSE ---
RT notified of VBG order
[2024-02-20 15:57] LABS: Lactate Venous 2.4 mmol/L (0.4-2.0); VBG Base Excess 2.9 mmol/L (-2.4-2.3); VBG HCO3 27.8 mmol/L (23-30); VBG Oxygen Saturation 59.3 % (50-70); VBG PCO2 46.6 mmol/L (35-51); VBG PH 7.39 mmol/L (7.31-7.41); VBG PO2 31.9 mmol/L (28-40); VBG Total CO2 29.2 mmol/L (23-27)
[2024-02-20 15:59] LABS: Basophils # 0.1 K/mm3 (0-0.2); Basophils % 0.6 % (0.1-2.0); Eosinophils # 0.3 K/mm3 (0.0-0.4); Eosinophils % 2.5 % (0.1-12.0); Hematocrit 39.5 % (42.0-52.0); Hemoglobin 12.6 g/dL (14.1-18.0); Lymphocytes # 2.6 K/mm3 (0.7-4.5); Lymphocytes % 19.9 % (10-50); Mean Corpuscular HGB Conc 31.9 g/dL (31.8-35.4); Mean Corpuscular Hemoglobin 29.3 pg (27.0-31.2); Mean Corpuscular Volume 91.8 fl (80-94); Mean Platelet Volume 7.8 fl (7.4-10.4); Monocytes # 0.8 K/mm3 (0.1-1.0); Monocytes % 6.1 % (1.7-9.3); Neutrophils # 9.3 K/mm3 (1.8-7.8); Platelet Count 363 K/mm3 (142-424); Red Cell Distribution Width 14.5 % (11.5-17.5); White Blood Count 13.1 K/mm3 (4.8-10.8)
--- NOTE | 2024-02-20 16:00 | [facility].EDCP ---
Discharge Plan Disposition Patient Disposition: Home, Self-Care Condition: Good Prescriptions Prescriptions: New pantoprazole 40 mg tablet,delayed release (DR/EC) 40 mg PO DAILY Qty: 30 1RF No Action (DME) lancets [Accu-Chek Fastclix Lancet Drum] Misc See Rx Instructions .ROUTE .COMPLEX Qty: 102 3RF Dose Instruction: USE 1 LANCET TO CHECK GLUCOSE TWICE DAILY Rx Instructions: USE 1 LANCET TO CHECK GLUCOSE TWICE DAILY (DME) Accu-Chek Guide test strips Strip See Rx Instructions .Route Qty: 100 2RF Rx Instructions: As directed or bid prednisone 20 mg tablet 40 mg PO DAILY 5 Days Qty: 10 0RF hydralazine 10 mg tablet 10 mg PO DAILY Patient Comments: TAKE 2 TABLETS BY MOUTH TWICE DAILY FOR HIGH BLOOD PRESSURE hydrocodone-acetaminophen 5-325 mg tablet 1 tab PO DAILY Patient Comments: TAKE 1 TABLET BY MOUTH EVERY 6 HOURS NEEDED IN FOR PAIN LOWER BACK enalapril maleate 20 mg tablet 20 mg PO DAILY Patient Comments: TAKE 1 TABLET BY MOUTH ONCE DAILY clopidogrel 75 mg tablet 75 mg PO DAILY Patient Comments: TAKE 1 TABLET BY MOUTH ONCE DAILY diltiazem HCl 120 mg capsule,extended release 24 hr 120 mg PO DAILY Patient Comments: TAKE 1 CAPSULE BY MOUTH ONCE DAILY nitroglycerin 0.4 mg tablet, sublingual 0.4 mg sublingual [id number] PRN (Reason: Chest Pain) Patient Comments: DISSOLVE ONE TABLET UNDER THE TONGUE EVERY 5 MINUTES NEEDED FOR CHEST PAIN. DO NOT EXCEED A TOTAL OF 3 DOSES IN 15 MINUTES hydrochlorothiazide 25 mg tablet 25 mg PO DAILY Patient Comments: TAKE 1 TABLET BY MOUTH ONCE DAILY fluoxetine 20 mg capsule 20 mg PO DAILY Patient Comments: TAKE 1 CAPSULE BY MOUTH ONCE DAILY FOR DEPRESSION metformin 500 mg tablet extended release 24 hr 500 mg PO DAILY Patient Comments: TAKE 1 TABLET BY MOUTH ONCE DAILY FOR DIABETES cyclobenzaprine 5 mg tablet 5 mg PO HS Patient Comments: TAKE 1 TABLET BY MOUTH AT BEDTIME NEEDED FOR PAIN FOR MUSCLE SPASM ranolazine 500 mg tablet extended release 12 hr 500 mg PO BID Patient Comments: TAKE 1 TABLET BY MOUTH TWICE DAILY Repatha SureClick 140 mg/mL pen injector 140 mg SQ WEEKLY Patient Comments: INJECT 1 SYRINGE SUBCUTANEOUSLY EVERY TWO WEEKS FOR CHOLESTEROL Ozempic 0.25 mg or 0.5 mg (2 mg/3 mL) pen injector 0.25 mg SQ DAILY Patient Comments: INJECT 0.25MG SUBCUTANEOUSLY ONCE WEEKLY FOR 4 WEEKS guaifenesin [Mucinex] 600 mg tablet extended release 12hr 1,200 mg PO BID PRN (Reason: cough) Qty: 20 0RF benzonatate 100 mg capsule 100 mg PO TID PRN (Reason: cough) Qty: 15 0RF levofloxacin 500 mg tablet 500 mg PO DAILY Qty: 7 0RF albuterol sulfate [Ventolin HFA] 90 mcg/actuation HFA aerosol inhaler 2 puff inhalation Q6H PRN (Reason: shortness of breath or wheezing) Qty: 6.7 0RF Referrals Follow up/Referrals: Duy Smiley DO [Primary Care Provider] - See instructions Activity Restrictions/Add. Instructions Additional Instructions/Restrictions: You were evaluated in the emergency department today. At this time, your workup is reassuring. It is possible your chest pain could be due to acid reflux in the setting of your steroid use. Please filler picker your prescription for pantoprazole and take daily as prescribed. Follow-up very closely with your primary care provider as well as your channel specialist. Return to the emergency department for new or worsening symptoms. Clinical Impressions Clinical Impression: Chest pain Instructions Patient Instructions: DI for Gastroesophageal Reflux Disease (GERD), DI for Atypical Chest Pain Print Language Print Language: Maltese Discharge ED Provider: Clarice Kevin HPI General Chief Complaint: Chest Pain Stated Complaint: CHest Pain Time Seen by Provider: 02/20/24 15:49 Mode of Arrival: Ambulatory Source of Information: Patient and Spouse Limitations: No Limitations Description of Symptoms (Recalled from ER Triage Doc. by RN): Pt. here with complaints of shortness of breath and chest pain since this morning at 430 am. His states he woke up and has been having intermintent chest discomfort, she gave him a nitro at 1000 am and 300 pm. She states he was diagnosed with covid and bronchitis on 02/12/24. He was then seen in the ED on 02/17/24 with similar complaints. He states he is not feeling better even with the medication he was given. History of Present Illness HPI narrative: This patient is a 68-year-old male with a history of CAD status post stenting, AAA, hypertension, hyperlipidemia, COPD, tobacco dependence, type 2 diabetes, and diverticulosis presenting to the emergency department for evaluation with concern for chest pain. He states that he is having midsternal/left-sided chest pain that is nonradiating that is intermittent. It started this morning. Nothing seems to bring it on or make it worse. He states he took some nitroglycerin x 2 around 3 PM which did improve the pain a little bit, but is still there. He states all he wants is the pain to go away. Patient reports that he has been sick for about 10 days now with bronchitis. He also notes that he is having bright red blood per rectum for the last 10 days. He was evaluated 02/08/2024 in [facility] because he felt like nasal congestion had moved to his chest. It looks like he was diagnosed with upper respiratory infection was prescribed prednisone, Augmentin, Mucinex, and Tessalon Perles. He was then evaluated 02/12/2024 in [facility] for similar issues and was prescribed Levaquin, Medrol Dosepak, and albuterol. he was diagnosed with COVID-19 and bronchitis at that time. He also saw his primary care provider 02/14/2024, and at that time he was noted to be improved on the steroid taper. He was then evaluated in the emergency department 02/17/2024 for right flank/right-sided abdominal pain at that time and it was felt that he likely had musculoskeletal pain in the setting of his cough. CT scan showed diverticulosis without evidence of diverticulitis. Patient was discharged home after reassuring workup. Related Data Home Medications ?Medication ?Instructions ?Recorded ?Confirmed clopidogrel 75 mg tablet 75 mg PO DAILY 02/08/24 02/20/24 cyclobenzaprine 5 mg tablet 5 mg PO HS 02/08/24 02/20/24 diltiazem HCl 120 mg capsule,24 120 mg PO DAILY 02/08/24 02/20/24 hr,extended release enalapril maleate 20 mg tablet 20 mg PO DAILY 02/08/24 02/20/24 evolocumab 140 mg/mL subcutaneous 140 mg SQ WEEKLY 02/08/24 02/20/24 pen injector (Alia Guillen) fluoxetine 20 mg capsule 20 mg PO DAILY 02/08/24 02/20/24 hydralazine 10 mg tablet 10 mg PO DAILY 02/08/24 02/20/24 hydrochlorothiazide 25 mg tablet 25 mg PO DAILY 02/08/24 02/20/24 hydrocodone 5 mg-acetaminophen 325 1 tab PO DAILY 02/08/24 02/20/24 mg tablet metformin 500 mg tablet,extended 500 mg PO DAILY 02/08/24 02/20/24 release 24 hr nitroglycerin 0.4 mg sublingual 0.4 mg sublingual [id number] PRN 02/08/24 02/20/24 tablet Chest Pain ranolazine 500 mg tablet,extended 500 mg PO BID 02/08/24 02/20/24 release,12 hr semaglutide 0.25 mg or 0.5 mg (2 0.25 mg SQ DAILY 02/08/24 02/20/24 mg/3 mL) subcutaneous pen injector (Ozempic) Previous Rx's ?Medication ?Instructions ?Recorded lancets (Accu-Chek Fastclix Lancet #102 ea 12/15/22 Drum) blood sugar diagnostic (Accu-Chek #100 ea 12/12/23 Guide test strips) benzonatate 100 mg capsule 100 mg PO TID PRN cough #15 caps 02/08/24 guaifenesin 600 mg tablet, 1,200 mg (2 x 600 mg) PO BID PRN 02/08/24 extended release 12 hr (Mucinex) cough #20 tabs albuterol sulfate 90 mcg/actuation 2 puff inhalation Q6H PRN 02/12/24 aerosol inhaler (Ventolin HFA) shortness of breath or wheezing #6.7 grams levofloxacin 500 mg tablet 500 mg PO DAILY #7 tabs 02/12/24 prednisone 20 mg tablet 40 mg (2 x 20 mg) PO DAILY 5 days 02/17/24 #10 tabs pantoprazole 40 mg tablet,delayed 40 mg PO DAILY #30 tabs 02/20/24 release Allergies Allergy/AdvReac Type Severity Reaction Status Date / Time oxycodone [From Percocet] Allergy Unknown Verified 02/20/24 15:50 allergy reaction morphine AdvReac Mild Other Verified 02/20/24 15:50 atorvastatin AdvReac Unknown Verified 02/20/24 15:50 [facility] Disclaimer: The information contained in this section may have been updated after the patient was seen, as this information can be updated by other users. Medical History Hyperlipidemia Abrasion of ear canal Hearing loss in left ear Otalgia, bilateral Bleeding from right ear Myopathy Dyspnea Sinus bradycardia Palpitations Family history of heart disease Tobacco user COPD (chronic obstructive pulmonary disease) CAD (coronary artery disease) Hypertension Chronic back pain Surgical History History of heart artery stent History of cardiac cath History of colon resection Social History Smoking Status: Former smoker second hand exposure: No alcohol intake: never substance use type: denies use current occupational status: retired Travel in the last 8 weeks: None household members: spouse housing: house current occupational exposures/hazards: No caffeine: No ROS Obtained: Yes All systems reviewed & no additional complaints except as documented Physical Exam General General appearance: alert and in no apparent distress Comment: Pale, diaphoretic, uncomfortable appearing Head Head exam: atraumatic and normocephalic Eye Eye exam: Present normal appearance, PERRL and EOMI ENT ENT exam: Present normal exam, normal oropharynx, mucous membranes moist and normal external ear exam Neck Neck exam: Present normal inspection, full ROM and trachea midline; Absent tenderness Chest Chest inspection: Present symmetric chest wall rise and tenderness (Midsternal) Respiratory Respiratory exam: Present normal lung sounds bilaterally; Absent respiratory distress, wheezes, stridor or accessory muscle use Cardiovascular Cardiovascular exam: Present regular rate and normal rhythm Abdominal Exam Abdominal exam: Present soft and tenderness (Mild); Absent distention or guarding Extremities Exam Extremities exam: Present normal inspection, full ROM and normal capillary refill; Absent tenderness or edema Back Exam Back exam: Present normal inspection and full ROM; Absent tenderness Neurological Exam Neurological exam: Present alert, oriented X3, CN II-XII intact and normal gait; Absent motor sensory deficit Psychiatric Psychiatric exam: Present normal affect and normal mood Skin Skin exam: Present warm, dry, diaphoresis and pallor HEART Score HEART Score HEART Score assessment performed?: Yes History (anamnesis): Slightly suspicious ECG: Normal Age: >65 years Risk factors: Atherosclerosis history Troponin: </= normal limit HEART Score: 4 Critical Care Critical Care Time Critical Care Time: No Medical Decision Making Medical Records Medical records reviewed: Yes I reviewed the patient's medical records. Nav Inquiry Pt receiving controlled substance: No Vital Signs Vital Signs: 02/20/24 15:48 02/20/24 15:50 02/20/24 16:31 Temperature 98.7 F Temperature Source Oral Pulse Rate 79 67 Pulse Rate [Right Brachial] 84 Respiratory Rate 22 18 Blood Pressure 134/68 Blood Pressure [Right Arm] 149/73 H Blood Pressure Mean Blood Pressure Mean [Right Arm] 98 Blood Pressure Source [Right Arm] Automatic Cuff Blood Pressure Position [Right Arm] Sitting 02 Sat by Pulse Oximetry 97 97 Oxygen Delivery Method Room Air Room Air 02/20/24 17:00 02/20/24 17:30 02/20/24 18:01 Temperature Temperature Source Pulse Rate 63 62 60 Pulse Rate [Right Brachial] Respiratory Rate 15 15 19 Blood Pressure 118/70 118/66 141/72 H Blood Pressure [Right Arm] Blood Pressure Mean Blood Pressure Mean [Right Arm] Blood Pressure Source [Right Arm] Blood Pressure Position [Right Arm] 02 Sat by Pulse Oximetry 95 96 96 Oxygen Delivery Method Room Air Room Air Room Air 02/20/24 18:30 02/20/24 19:08 02/20/24 19:31 Temperature 98.2 F Temperature Source Pulse Rate 64 65 69 Pulse Rate [Right Brachial] Respiratory Rate 15 16 Blood Pressure 131/75 122/79 122/79 Blood Pressure [Right Arm] Blood Pressure Mean 93 Blood Pressure Mean [Right Arm] Blood Pressure Source [Right Arm] Blood Pressure Position [Right Arm] 02 Sat by Pulse Oximetry 95 97 Oxygen Delivery Method Room Air Room Air Room Air Lab Data Labs: Lab Results 02/20/24 15:50: WBC 13.1 H, RBC 4.30 L, Hgb 12.6 L, Hct 39.5 L, MCV 91.8, MCH 29.3, MCHC 31.9, RDW 14.5, Plt Count 363, MPV 7.8, Neut % (Auto) 71.0, Lymph % (Auto) 19.9, [place] % (Auto) 6.1, Eos % (Auto) 2.5, Baso % (Auto) 0.6, Neut # (Auto) 9.3 H, Lymph # (Auto) 2.6, [place] # (Auto) 0.8, Eos # (Auto) 0.3, Baso # (Auto) 0.1, PT 10.3, INR 0.91, APTT 28.2, D-Dimer 0.48, Sodium 134 L, Potassium 3.9, Chloride 99, Carbon Dioxide 30, Anion Gap 8.9, BUN 15, Creatinine 1.00, Estimated Creat Clear 93, Estimated GFR 74, Est GFR ( Amer) 90, Glucose 231 H, Calcium 8.8, Total Bilirubin 0.4, AST 24, ALT 31, Alkaline Phosphatase 82, Troponin I < 0.01, Total Protein 6.7, Albumin 3.5, Globulin 3.2, Albumin/Globulin Ratio 1.1, Lipase 61 02/20/24 15:52: VBG pH 7.39, VBG pCO2 46.6, VBG pO2 31.9, VBG HCO3 27.8, VBG Total CO2 29.2 H, VBG O2 Saturation 59.3, VBG Base Excess 2.9 H, VBG Lactic Acid 2.4 H 02/20/24 15:54: Lactate 2.0 02/20/24 17:09: Urine Color Yellow, Urine Appearance Clear, Urine pH 7.0, Ur Specific [place] 1.015, Urine Protein Negative, Urine Glucose (UA) Trace, Urine Ketones Negative, Urine Blood Negative, Urine Nitrate Negative, Urine Bilirubin Negative, Urine Urobilinogen 0.2, Ur Leukocyte Esterase Negative, Urine RBC None, Urine WBC None, Ur Squamous Epith Cells None, Urine Bacteria None 02/20/24 18:36: Troponin I < 0.01 02/20/24 15:50 02/20/24 15:50 Response Orders (Tests/Meds): ED MEDICATIONS Discontinued Medications Generic Name Dose Route Start Last Admin Trade Name Freq PRN Reason Stop Dose Admin Acetaminophen 1,000 mg 02/20/24 15:54 02/20/24 16:03 Acetaminophen 1,000mg/100ml Vial IV 02/20/24 15:55 1,000 mg ONCE ONE Administration Belladonna Alkaloids 60 ml 02/20/24 15:54 02/20/24 16:03 Belladonna Alkaloids 60 Ml Ml PO 02/20/24 15:55 60 ml ONCE ONE Administration Iopamidol 70 ml 02/20/24 16:22 02/20/24 16:25 Iopamidol-370 (76%);100ml Bottle IV 02/20/24 16:23 70 ml ONCE ONE Administration Morphine Sulfate 4 mg 02/20/24 15:54 02/20/24 15:59 Morphine 4mg/Ml Syringe IV 02/20/24 15:55 Not Given ONCE ONE Ondansetron HCl 4 mg 02/20/24 15:54 02/20/24 16:03 Ondansetron 4mg/2ml Vial IV 02/20/24 15:55 4 mg ONCE ONE Administration Pantoprazole Sodium 40 mg 02/20/24 15:54 02/20/24 16:03 Pantoprazole 40mg Vial IV 02/20/24 15:55 40 mg ONCE ONE Administration Sodium Chloride 10 ml 02/20/24 15:54 02/20/24 16:03 Sodium Chloride 0.9% 10ml Vial IV 03/21/24 15:53 10 ml NEEDED PRN Administration dilute protonix Sodium Chloride 50 ml 02/20/24 16:22 02/20/24 16:24 0.9 % Sodium Chloride 50 Ml Vial IV 02/20/24 16:23 50 ml ONCE ONE Administration Sodium Chloride 10 ml 02/20/24 16:22 02/20/24 16:25 Sodium Chloride 0.9% 10ml Syr (Rad Only) IV 03/21/24 16:21 10 ml NEEDED PRN Administration Maintain IV Site ORDERS Category Date Time Status CT angio abdomen pelvis Stat Cat Scan 02/20/24 15:52 Completed CTA Chest [CT angio chest PE protocol] Stat Cat Scan 02/20/24 15:52 Completed Activated Partial Thrombo Time Stat Lab 02/20/24 15:50 Completed Complete Blood Count Auto Diff Stat Lab 02/20/24 15:50 Completed Comprehensive Metabolic Panel Stat Lab 02/20/24 15:50 Completed D-Dimer Stat Lab 02/20/24 15:50 Completed Lactic Acid Stat Lab 02/20/24 15:54 Completed Lipase Stat Lab 02/20/24 15:50 Completed Prothrombin Time INR Stat Lab 02/20/24 15:50 Completed Trop I [Troponin I] Stat Lab 02/20/24 15:50 Completed Troponin I Q3H Lab 02/20/24 18:36 Completed UA [Urinalysis and Microscopic] Stat Lab 02/20/24 17:09 Completed VBG [Venous Blood Gas] Stat RT 02/20/24 15:52 Completed ECG Data Tracing #1: Attestation: I reviewed this ECG and interpreted as documented below: ECG Narrative: Normal sinus rhythm with a ventricular rate of [address] changes concerning for ischemia. Normal axis and intervals. ECG initial impression date: 02/20/24 ECG initial impression time: 15:49 MDM Narrative Medical Decision Narrative: In summary, this patient is a 68-year-old male presenting to the Emergency Department for evaluation of chest pain. He has also been having bright red blood per rectum and has had multiple recent visits for upper respiratory infection. Differential diagnoses considered include but are not limited to COPD exacerbation, pneumonia, viral syndrome, ACS, dysrhythmia, PE, GERD, esophageal spasms, costochondritis, bleeding diverticulum, bleeding hemorrhoid, colitis, symptomatic anemia. Ruling out the most morbid conditions drove assessment. It should be noted patient's history includes CAD, hypertension, hyperlipidemia, type 2 diabetes, COPD which may or may not be at goal therapy. This complicates all aspects of care by increasing patient's risk for morbidity. I reviewed patient's past medical records and noted multiple recent evaluations and CTC, primary care, as well as here as per HPI, which details his visits and diagnoses. On exam, the patient is uncomfortable appearing, pale, and diaphoretic. Workup included CBC, CMP, troponin, BNP, VBG with lactic acid, lipase, PT, PTT, urinalysis, EKG, CTA chest, abdomen, pelvis. EKG is normal. Vitals are reassuring on cardiac telemetry with no hypoxia or tachycardia. I gave the patient GI cocktail, IV Tylenol, and pantoprazole for symptomatic improvement. It is possible he could have gastritis/esophagitis in the setting of all of this steroid use causing spasms and irritation. I independently interpreted CT scan prior to the radiologist read and noted large focal consolidation concerning for pneumonia and no obvious stranding around his distal colon concerning for diverticulitis or colitis. Please see their read for final interpretation. Radiology noted concerns for possible area of bleeding versus normal mucosa in the sigmoid colon. For this, I called general surgery Dr. Burciaga for consultation. Ultimately, doubt serious active bleed as the bleeding has been going on for approximately 10 days, the patient is hemodynamically stable, and hemoglobin is only slightly dropped. I called and had an interactive discussion with Dr. Burciaga who advised that he feels this is unlikely to be acute contrast extravasation in the setting of minor bleeding, and he feels that the patient would benefit from close monitoring by PCP as an outpatient since he is stable. Radiology noted they noted they cannot exclude PE given poor contrast timing, though he does not have central PE. I added on a D-dimer for further assessment, which is negative. Unlikely to be PE. Labs were obtained that demonstrated mild leukocytosis which is improved from prior labs in the setting of steroid use. Hemoglobin is down slightly from 13.5 3 days ago to 12.6 today. VBG was reassuring, though the VBG lactic acid is mildly elevated her serum lactic acid is actually normal. Lipase, liver enzymes, kidney function normal. initial troponin negative. On subsequent reassessments, the patient is resting early with improved symptoms and normal vital signs on cardiac telemetry. Ultimately, he would benefit from close outpatient follow-up for his rectal bleeding. He had resolution of his symptoms after administration of medications above and states that he is feeling fine. At 1700, patient was placed in ED observation status pending second troponin and reassessment to determine whether or not the patient would be appropriate for discharge versus admission. The patient was provided serial reevaluations and cardiac monitoring while awaiting ultimate disposition. On multiple subsequent reassessments, the patient states that he is still feeling better. Second troponin came back negative. Given reassuring workup and exam, it is felt that the patient is appropriate for discharge at this time. I had discussions with him regarding the importance of outpatient follow-up for all of his complaints, with both primary care and with cardiology. He was discharged at 1930. total ED observation time was 2 hours 30 minutes. I had a [id number] visit with the patient when providing discharge instructions. The total time involved in discharging this patient was less than 30 minutes.
[2024-02-20] MEDS: ACETAMINOPHEN 1,000MG/100ML VIAL 1000 MG IV (16:03)
[2024-02-20] MEDS: BELLADONNA ALKALOIDS 60 ML ML PO (16:03)
[2024-02-20] MEDS: ONDANSETRON 4MG/2ML VIAL 4 MG IV (16:03)
[2024-02-20] MEDS: SODIUM CHLORIDE 0.9% 10ML VIAL 10 ML IV (16:03)
[2024-02-20] MEDS: PANTOPRAZOLE 40MG VIAL 40 MG IV (16:03)
--- NOTE | 2024-02-20 16:04 | PC.NURSE ---
Pt gone to RAD via wheelchair
[2024-02-20 16:09] LABS: Albumin Level 3.5 g/dl (3.5-5.0); Chloride 99 mmol/L (98-107); Potassium 3.9 mmoL/L (3.5-5.1); Sodium 134 mmol/L (136-145)
[2024-02-20 16:11] LABS: Activated Partial Thrombo Time 28.2 seconds (22.8-30.6); INR 0.91 (0.9-1.1); Prothrombin Time 10.3 seconds (10.1-12.5)
[2024-02-20 16:12] LABS: Alanine Aminotransferase 31 U/L (12-78); Albumin/Globulin Ratio 1.1 (1.1-1.8); Alkaline Phosphatase 82 U/L (38-126); Anion Gap 8.9 mEq/L (5-15); Aspartate Amino Transferase 24 U/L (17-59); Bilirubin,Total 0.4 mg/dl (0.2-1.3); Blood Urea Nitrogen 15 mg/dl (9-20); Calcium 8.8 mg/dl (8.4-10.2); Carbon Dioxide 30 mmol/L (22.0-30.0); Creatinine Clearance Estimated 93 mL/min (50-200); Estimated Glomerular Filt Rate 74 ml/min (>60); GFR (African American) 90 ML/MIN (>60); Globulin 3.2 g/dL (1.3-3.2); Glucose 231 mg/dl (74-100); Lipase 61 U/L (23-300); Total Protein,Serum 6.7 g/dl (6.3-8.2)
--- NOTE | 2024-02-20 16:22 | PC.NURSE ---
Pt returned to room from RAD
[2024-02-20] MEDS: 0.9 % SODIUM CHLORIDE 50 ML VIAL IV (16:24)
[2024-02-20 16:25] LABS: Troponin I < 0.01 ng/ml (0.00-0.034)
[2024-02-20] MEDS: SODIUM CHLORIDE 0.9% 10ML SYR (RAD ONLY) 10 ML IV (16:25)
[2024-02-20] MEDS: IOPAMIDOL-370 (76%);100ML BOTTLE 70 ML IV (16:25)
[2024-02-20 17:14] LABS: Microscopic, Urine URINE MICROSCOPIC (MICROSCOPIC)
[2024-02-20 17:18] LABS: D-Dimer 0.48 ug/mL (0.0-0.5)
[2024-02-20 17:19] LABS: Appearance,Urine CLEAR (Clear); Bilirubin,Urine Negative (Negative); Blood, Urine Negative (Negative); Color,Urine YELLOW (Yellow); Glucose,Urine (UA) TRACE (Negative); Ketones,Urine Negative (Negative); Leukocyte Esterase,Urine Negative (Negative); Nitrate,Urine Negative (Negative); Protein,Urine Negative (Negative); Specific Gravity, Urine 1.015 (1.005-1.030); Urobilinogen,Urine 0.2 EU/dl (0.2)
[2024-02-20 19:12] LABS: Troponin I < 0.01 ng/ml (0.00-0.034)
[2024-02-20 19:57] LABS: Reflex Lactic Add Lactic Reflex
== END 2024-02-20 19:33 | disposition home or self-care (01) ==
PROVIDERS: Emergency Provider Emergency Medicine; PCP Internal Medicine
DX: R07.9 Chest pain, unspecified (principal); I11.9 Hypertensive heart disease without heart failure; I25.10 Atherosclerotic heart disease of native coronary artery without angina pectoris; E78.5 Hyperlipidemia, unspecified; E11.9 Type 2 diabetes mellitus without complications; J44.9 Chronic obstructive pulmonary disease, unspecified; Z87.891 Personal history of nicotine dependence
CPT/HCPCS: 71275; 74174; 80053; 81001; 82803; 83605; 83690; 84484; 85025; 85378; 85610; 85730; 93005; 96374; 96375; 99285; J0131; J2405; Q9967

== ENCOUNTER 2024-04-02 10:14 | Day surgery (SDC) | payer MEDICARE, SELFPAY ==
[2024-04-02] VITALS (11 sets, daily range): BP systolic 100–164; BP diastolic 61–107; PULSE 59–76; RESP 18–20; O2SAT 95–99; BMI 30.8
--- NOTE | 2024-04-02 07:08 | IR_ITS ---
APPROVED REPORT Patient Location: Outpatient Administrative Resources Associate: UMBERTO Kyle RT (R) PROCEDURES Left heart catheterization Left ventriculogram Selective coronary angiogram Drug-eluting stent deployment to the proximal and mid dominant circumflex artery Drug-eluting stent deployment to the ostial proximal ramus intermedius INDICATION Coronary artery disease, Angina pectoris, Informed consent was obtained prior to the procedure. COMPLICATIONS NONE Estimated Blood Loss: LESS THAN 10 ML TECHNIQUE One percent lidocaine used to anesthetize the right anterior aspect of the wrist. The right radial artery was accessed via the Seldinger technique. A 6 Norwegian sheath was placed in the right radial artery. 2.5 mg of Verapamil, 800 mcg of nitroglycerin, 1mg Lidocaine and 5000 U Heparin were given through the arterial sheath. The papa catheter was also used to perform selective coronary angiogram. At the end of the diagnostic angiogram therapeutic Was administered giving a therapeutic ACT and the guide catheters placed in left main artery followed by a Choice PT extra-support wire placed down the dominant circumflex artery. A 3.5 x 30 mm Heidrick frontier stent was placed in the proximal to mid circumflex artery and deployed at 20 vinod. An additional wire was then placed into the ramus intermedius and a 2.75 x 22 mm Bautista frontier stent was placed in the ostial proximal segment and deployed at 20 vinod. A 3 mm x 12 mm balloon was then placed in the proximal circumflex artery adjacent from the ramus intermedius and then deployed pushing the struts of the ramus intermedius out of the way of the left circumflex artery. Following this a 4 mm x 15 mm Bautista frontier stent was placed in the proximal circumflex artery overlapping the ostium of the ramus intermedius as well as overlapping the 3.5 mm stent. This was deployed at 20 vinod. The wire which had been removed from the ramus intermedius was then placed back through the stent struts into the ramus intermedius and a 1.5 x 12 mm balloon was deployed at 15 vinod in the ostial segment to open the struts going into the ramus intermedius. Following this a 3 mm x 12 mm compliant balloon was deployed at 15 vinod in the ostial proximal segment to further post dilate. AASHISH-3 flow was present before and after the procedure. After achieving excellent angiographic sterols with AASHISH-3 flow being present before and after the procedure and both blood vessels the apparatus was removed the sheath was removed and hemostasis was achieved using TR banding patient was transferred to the postop putting in stable condition ANGIOGRAPHIC RESULTS The left main artery Normal The left anterior descending artery Has proximal 30% stenoses with mid vessel 30% stenoses. Stent in the ostial proximal first diagonal artery is widely patent with minimal in-stent restenosis The circumflex artery Is a large dominant vessel and has proximal and mid vessel 40% hazy stenoses. A large ramus intermedius has an ostial 80 to 90% stenosis followed by an additional 60% concentric stenosis The right coronary artery Small nondominant normal The RIDLEY ventriculogram reveals Not performed The left ventricular end-diastolic pressure Not measured IMPRESSION Severe disease in a large ostial proximal ramus intermedius Successful stenting of the proximal to mid dominant circumflex artery moderate disease reduced to 0% with 2 contiguous drug-eluting stents with bifurcating stents into a large ostial proximal ramus intermedius Patent diagonal artery stent Mild disease in the proximal mid LAD as described above PLAN 1. Dual antiplatelet therapy 2. Cardiac rehabilitation 3. Avoidance of tobacco products 4. Risk factor modification 5. LDL less than 55 to achieve that high intensity statin Electronically signed by : Yomi Bernard MD 04/02/2024 13:57:57
[2024-04-02 10:44] LABS: Basophils # 0.1 K/mm3 (0-0.2); Basophils % 0.7 % (0.1-2.0); Eosinophils # 0.4 K/mm3 (0.0-0.4); Eosinophils % 3.1 % (0.1-12.0); Hematocrit 43.1 % (42.0-52.0); Lymphocytes # 3.6 K/mm3 (0.7-4.5); Lymphocytes % 29.2 % (10-50); Mean Corpuscular HGB Conc 32.5 g/dL (31.8-35.4); Mean Corpuscular Hemoglobin 29.5 pg (27.0-31.2); Mean Corpuscular Volume 90.8 fl (80-94); Mean Platelet Volume 7.2 fl (7.4-10.4); Monocytes # 0.7 K/mm3 (0.1-1.0); Monocytes % 5.4 % (1.7-9.3); Neutrophils # 7.7 K/mm3 (1.8-7.8); Neutrophils % 61.5 % (37.0-80.0); Platelet Count 320 K/mm3 (142-424); Red Blood Count 4.75 M/mm3 (4.60-6.20); Red Cell Distribution Width 14.5 % (11.5-17.5); White Blood Count 12.5 K/mm3 (4.8-10.8)
[2024-04-02 10:48] LABS: Chloride 98 mmol/L (98-107); Potassium 3.3 mmoL/L (3.5-5.1); Sodium 135 mmol/L (136-145)
[2024-04-02 10:51] LABS: Anion Gap 11.3 mEq/L (5-15); Blood Urea Nitrogen 19 mg/dl (9-20); Carbon Dioxide 29 mmol/L (22.0-30.0); Creatinine Clearance Estimated 86 mL/min (50-200); Estimated Glomerular Filt Rate 67 ml/min (>60); GFR (African American) 81 ML/MIN (>60)
[2024-04-02 10:52] LABS: Calcium 9.1 mg/dl (8.4-10.2); Glucose 140 mg/dl (74-100)
[2024-04-02] MEDS: diphenhydrAMINE 50MG/ML VIAL 50 MG IV (12:58)
[2024-04-02] MEDS: HEPARIN 1,000 UNITS/ML 10ML VIAL (CATH LAB) 10000 UNIT IV ×2 (12:59→14:15)
[2024-04-02] MEDS: NITROGLYCERIN 800MCG/8ML SYR (CATH LAB) 800 MCG IA (12:59)
[2024-04-02] MEDS: LIDOCAINE 1% 10ML MDV 20 ML IJ (12:59)
[2024-04-02] MEDS: VERAPAMIL 2.5MG/ML 2ML VIAL 2.5 MG IV (12:59)
[2024-04-02] MEDS: HEPARIN 1,000 UNITS/500ML NS (CATH LAB) 3000 UNIT IV (12:59)
[2024-04-02] MEDS: 0.9 % SODIUM CHLORIDE 500 ML 25 ML IV (13:00)
[2024-04-02] MEDS: MIDAZOLAM HCL 1MG/1ML 5ML VIAL 1 MG IV (13:01)
[2024-04-02] MEDS: FENTANYL 100MCG/2ML VIAL 50 MCG IV (13:01)
[2024-04-02] MEDS: PROPOFOL 10MG/ML 20ML VIAL 60 MG IV (13:51)
[2024-04-02] MEDS: IOPAMIDOL-370 (76%);100ML BOTTLE 90 ML IV (14:25)
[2024-04-02 14:32] LABS: CATHL Activated Clotting Time 218 SEC (74-125)
== END 2024-04-02 16:34 | disposition home or self-care (01) ==
PROVIDERS: PCP Internal Medicine; Visit Provider Internal Medicine
DX: E11.9 Type 2 diabetes mellitus without complications; R94.39 Abnormal result of other cardiovascular function study; I25.118 Atherosclerotic heart disease of native coronary artery with other forms of angina pectoris; E78.2 Mixed hyperlipidemia; R06.00 Dyspnea, unspecified; I10 Essential (primary) hypertension; Z79.84 Long term (current) use of oral hypoglycemic drugs; Z79.85 Long-term (current) use of injectable non-insulin antidiabetic drugs; Z79.899 Other long term (current) drug therapy; I77.1 Stricture of artery
CPT/HCPCS: 36415; 80048; 85025; 85347; 92928; 93458; 99152; 99153; C1725; C1769; C1874; C9600; J1200; J1644; J2250; J3010; Q9967

== ENCOUNTER 2024-04-05 09:20 | Outpatient (CLI) | payer MEDICARE, SELFPAY ==
[2024-04-05 09:41] LABS: Basophils # 0.1 K/mm3 (0-0.2); Basophils % 0.6 % (0.1-2.0); Eosinophils # 0.5 K/mm3 (0.0-0.4); Eosinophils % 4.1 % (0.1-12.0); Hematocrit 40.4 % (42.0-52.0); Hemoglobin 13.2 g/dL (14.1-18.0); Lymphocytes # 3.7 K/mm3 (0.7-4.5); Lymphocytes % 33.1 % (10-50); Mean Corpuscular HGB Conc 32.7 g/dL (31.8-35.4); Mean Corpuscular Hemoglobin 29.7 pg (27.0-31.2); Mean Corpuscular Volume 90.8 fl (80-94); Mean Platelet Volume 7.1 fl (7.4-10.4); Monocytes # 0.6 K/mm3 (0.1-1.0); Monocytes % 5.5 % (1.7-9.3); Neutrophils # 6.4 K/mm3 (1.8-7.8); Neutrophils % 56.7 % (37.0-80.0); Platelet Count 301 K/mm3 (142-424); Red Blood Count 4.45 M/mm3 (4.60-6.20); Red Cell Distribution Width 14.5 % (11.5-17.5); White Blood Count 11.2 K/mm3 (4.8-10.8)
[2024-04-05 09:59] LABS: Chloride 101 mmol/L (98-107); Sodium 136 mmol/L (136-145)
[2024-04-05 10:00] LABS: Potassium 3.3 mmoL/L (3.5-5.1)
[2024-04-05 10:02] LABS: Blood Urea Nitrogen 19 mg/dl (9-20); Estimated Glomerular Filt Rate 74 ml/min (>60); GFR (African American) 90 ML/MIN (>60)
[2024-04-05 10:03] LABS: Anion Gap 11.3 mEq/L (5-15); Calcium 9.2 mg/dl (8.4-10.2); Carbon Dioxide 27 mmol/L (22.0-30.0); Glucose 163 mg/dl (74-100)
== END 2024-04-05 23:59 | disposition home or self-care (01) ==
LOC: LAB 09:21
PROVIDERS: PCP Internal Medicine; Visit Provider Internal Medicine
DX: I25.10 Atherosclerotic heart disease of native coronary artery without angina pectoris (principal)
CPT/HCPCS: 36415; 80048; 85025

== ENCOUNTER 2024-04-16 12:03 | Outpatient (CLI) | payer MEDICARE, SELFPAY ==
[2024-04-16 13:03] LABS: Chloride 101 mmol/L (98-107)
[2024-04-16 13:04] LABS: Potassium 3.8 mmoL/L (3.5-5.1); Sodium 137 mmol/L (136-145)
[2024-04-16 13:07] LABS: Anion Gap 9.8 mEq/L (5-15); Blood Urea Nitrogen 16 mg/dl (9-20); Calcium 9.4 mg/dl (8.4-10.2); Carbon Dioxide 30 mmol/L (22.0-30.0); Estimated Glomerular Filt Rate 60 ml/min (>60); GFR (African American) 73 ML/MIN (>60); Glucose 141 mg/dl (74-100)
== END 2024-04-16 23:59 | disposition home or self-care (01) ==
LOC: LAB 12:04
PROVIDERS: PCP Internal Medicine; Visit Provider Physician Assistant
DX: E87.6 Hypokalemia (principal)
CPT/HCPCS: 36415; 80048

== ENCOUNTER 2024-07-05 10:35 | Outpatient (CLI) | payer MEDICARE, SELFPAY ==
[2024-07-05 19:00] LABS: Hemoglobin A1C 7.2 % (4.0-6.0)
[2024-07-05 19:11] LABS: Chol/HDL Ratio 6.8 (1-3.5); Cholesterol 163 mg/dl (140-200); HDL Cholesterol 24 mg/dl (40-60); Triglycerides 248 mg/dl (30-150); VLDL Cholesterol 50 mg/dL (0-40)
[2024-07-05 19:22] LABS: Direct LDL Cholesterol 105.03 mg/dL (100-129)
== END 2024-07-05 23:59 | disposition home or self-care (01) ==
LOC: LAB.DROPOF 07-07 08:28
PROVIDERS: PCP Internal Medicine; Visit Provider Internal Medicine
DX: E78.5 Hyperlipidemia, unspecified (principal); E11.9 Type 2 diabetes mellitus without complications; Z79.84 Long term (current) use of oral hypoglycemic drugs; Z79.85 Long-term (current) use of injectable non-insulin antidiabetic drugs
CPT/HCPCS: 80061; 83036

== ENCOUNTER 2024-12-28 08:43 | Outpatient (CLI) | payer MEDICARE, SELFPAY ==
[2024-12-28 18:36] LABS: Creatinine,Urine Random 160 mg/dL (Not Estab.)
[2024-12-28 18:39] LABS: Microalbumin/Creatinine Ratio 6.4
[2024-12-28 18:49] LABS: Alanine Aminotransferase 18 U/L (12-78); Albumin/Globulin Ratio 1.6 (1.1-1.8); Alkaline Phosphatase 115 U/L (38-126); Anion Gap 16.1 mEq/L (5-15); Aspartate Amino Transferase 21 U/L (17-59); Bilirubin,Total 0.6 mg/dl (0.2-1.3); Blood Urea Nitrogen 17 mg/dl (9-20); Calcium 9.6 mg/dl (8.4-10.2); Carbon Dioxide 29 mmol/L (22.0-30.0); Chloride 94 mmol/L (98-107); Estimated Glomerular Filt Rate 60 ml/min (>60); GFR (African American) 73 ML/MIN (>60); Globulin 2.5 g/dL (1.3-3.2); Glucose 130 mg/dl (74-100); Potassium 4.1 mmoL/L (3.5-5.1); Sodium 135 mmol/L (136-145); Total Protein,Serum 6.5 g/dl (6.3-8.2)
[2024-12-28 18:54] LABS: Hemoglobin A1C 9.3 % (4.0-6.0)
[2024-12-28 19:17] LABS: Prostate Specific Ag Screen 0.4 ng/ml (0.0-4.0)
--- OUTSIDE RECORDS SUMMARY | 2024-12-29 08:14 | XMS_ITS | Clinical Summary ---
Author Organization Healthcare Address [address] [id number] Care Team Providers Care Bundle Helper Name Role Phone Annmarie Gutierrez MD Primary Care Provider [phone] Social History Tobacco Use Types Packs/Day Years Used Date Smoking Tobacco: Never Assessed Sex and Gender Information Value Date Recorded Sex Assigned at Not on file Legal Sex Male 8:25 PM EDT Gender Identity Not on file Sexual Orientation Not on file Plan of Treatment Health Maintenance Due Date Last Done Comments UKY-Depression Screening 1955 UKY-/Child/Adol SDOH Screenings 1955 UKY- SDOH Screenings 1973 UKY-Adult SDOH Screenings 1973 UKY-DTaP,Tdap,and Td Vaccine s (1 - Tdap) 1974 CT Colonography 2000 Colonoscopy 2000 FIT-DNA 2000 FIT 2000 FOBT 2000 Sigmoidoscopy 2000 UKY-Colorectal Cancer Screening 2000 UKY-Pneumococcal Vaccine: 50 + Years (1 of 1 - PCV) 2005 UKY-Zoster Vaccines (1 of 2) 2005 [id number] Vaccine (1 - 20 24-25 season) 2024 UKY-Influenza Vaccine (Seas[place] n Ended) 2025 UKY-RSV Vaccine: 60+ Years o r (1 - 1-dose 75+ series) 2030 HPV Vaccines Aged Out No longer eligi ble based on patient's age to complete this topic UKY-HIB Vaccines Aged Out No longer e ligible based on patient's age to complete this topic UKY-Hepatitis A Vaccines Aged Out No longer eligible based on patient's age to complete this topic UKY-IPV Vaccines Aged Out No longer e ligible based on patient's age to complete this topic UKY-Rotavirus Vaccines Aged Out No lo nger eligible based on patient's age to complete this topic Care Teams Bundle Helper Relationship Specialty Start Date End [place] [address] PCP - General 11/14/20
--- OUTSIDE RECORDS SUMMARY | 2024-12-29 08:15 | XMS_ITS | Data Portability ---
Author Organization [place] [facility] [place] [facility] Address [address] [place] [address] Care Team Providers Care Surveying Or Spatial Science Technician Name Role Phone NATALEE SIMPSON Primary Care Provider [phone] Assessment No assessment recorded. Plan of Treatment Reminders Order Date Submit Date Provider Last Modified By Organization Details Last Modified Time Details Appointments None recorded. Lab None recorded. Referral None recorded. Procedures None recorded. Surgeries None recorded. Imaging CT, abdomen + pelvis, w/o contrast 2022 023 [facility] (Scheduling), [address], [place], [address], 09:28:13 Medication Orders None recorded. Patient TargetsNo targets recorded. Patient InstructionsNo instructions recorded. Reason for Referral None Reported. Results Created Date Observation Date Name Description Value Unit Range Abnormal Flag Note LastModifiedBy Organization Detail LastModifiedTime 03/28/20 23 03/28/2023 CT, abdom en + pelvi s, w/o contr ast No observ ation record ed. [facility] [address], [place], [address], 04/14/2023 14:49:58 Result Notes None recorded. Medical Equipment None Reported. Allergies No known drug allergies Medications Name Sig Start Date Stop Date Status Note LastModified by Organization Details LastModified Time hydralazine 10 mg tablet TAKE 2 TABLETS BY MOUTH TWICE DAILY FOR HIGH BLOOD PRESSURE active Not Available Not Available No t Available atorvastatin 80 mg tablet TAKE 1 TABLET BY MOUTH AT BEDTIME active Not Available Not Available No t Available clonidine HCl 0.1 mg tablet TAKE 1 TABLET BY MOUTH ONCE DAILY AT BEDTIME NIGHTLY active Not Available Not Available No t Available hydrocodone 5 mg-acetamino phen 325 mg tablet TAKE 1 TABLET BY MOUTH EVERY 6 HOURS FOR PAIN active Not Available Not Available No t Available enalapril maleate 20 mg tablet TAKE 1 TABLET BY MOUTH ONCE DAILY active Not Available Not Available No t Available isosorbide mononitrate ER 30 mg tablet,exten ded release 24 hr TAKE 1 TABLET BY MOUTH ONCE DAILY active Not Available Not Available No t Available clopidogrel 75 mg tablet TAKE 1 TABLET BY MOUTH ONCE DAILY active Not Available Not Available No t Available diltiazem ER 120 mg capsule,24 hr,extended release TAKE 1 CAPSULE BY MOUTH ONCE DAILY active Not Available Not Available No t Available hydrochlorot hiazide 25 mg tablet TAKE 1 TABLET BY MOUTH ONCE DAILY active Not Available Not Available No t Available fluoxetine 20 mg capsule TAKE 1 CAPSULE BY MOUTH ONCE DAILY active Not Available Not Available No t Available metformin ER 500 mg tablet,exten ded release 24 hr TAKE 1 TABLET BY MOUTH ONCE DAILY active Not Available Not Available No t Available cyclobenzapr ine 5 mg tablet TAKE 1 TABLET BY MOUTH AT BEDTIME NEEDED FOR MUSCLE SPASM active Not Available Not Available No t Available DILT-XR 240 mg capsule, extended release TAKE 1 CAPSULE BY MOUTH ONCE DAILY FOR HIGH BLOOD PRESSURE active Not Available Not Available No t Available aspirin active Not Available Not Avail able Not Available hydrochlorot hiazide active Not Available Not Available Not Available Brilinta 90 mg tablet TAKE ONE TABLET BY MOUTH TWICE DAILY active Not Available Not Available No t Available Repatha SureClick 140 mg/mL subcutaneous pen injector INJECT 140MG SUBCUTANEOU SLY EVERY 2 WEEKS FOR CHOLESTEROL active Not Available Not Available Not Available Accu-Chek Guide test strips USE 1 STRIP TO CHECK GLUCOSE TWICE DAILY TO TEST SUGAR DIRECTED active Not Available Not Available No t Available Accu-Chek Fastclix Lancet Drum USE 1 TO CHECK GLUCOSE TWICE DAILY FOR DIABETES active Not Available Not Available No t Available Vitals Date Recorded Body height Body mass index (BMI) Body weight Body temperature Provider Name and Address Organization Details Last Updated DateTime 03/21/2023 175.26 cm 29.8 kg/m2 00115.66 g 97 [degF] [facility] - [facility] - [place] [facility] [place] 03/21/2023 14:56:01 Social History None recorded. Functional Status None recorded. Mental Status None recorded. Family History Relationship Description Onset Age of this Age Resolved Age Notes LastModified by Organization Details LastModified Time Father Myocardial infarction pt. added direct ly (03/21) [email or web address] Not available 03/21/2023 07:11:36 Father Hypertensive disorder pt. added direct ly (03/21) [email or web address] Not available 03/21/2023 07:12:00 Brother Myocardial infarction pt. added direct ly (03/21) [email or web address] Not available 03/21/2023 07:11:36 Brother Hypertensive disorder pt. added direct ly (03/21) [email or web address] Not available 03/21/2023 07:12:01 Brother Kidney disease pt. added direct ly (03/21) [email or web address] Not available 03/21/2023 07:12:12 Sister Myocardial infarction pt. 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 Recent CT scan shows no evidence of kidney stones or obstructio n. This study was done with contrast. We will repeat a CT scan without contrast to evaluate for stone. Health Concerns Section Related Observation LastModified by Organization Detai ls LastModified Time None Recorded Concern Status LastModified by Organization Details LastModified Time None Recorded Advance Directives Directive None Recorded Payers Insurance Date Sequence Insurance Name Policy Number Policy Mcgee Covered Member ID Mcgee Member ID Guarantor Name 01/21/2024 1 [employer] [employer] (MEDICARE REPLACEMENT HMO) [id number] Alejandro Jasmine [id number] Alejandro Jasmine Notes Date Note Type Note Provider Name and Address Organization Details Recorded Time 03/21/2023 text/html Patient is a 67-year-old white male with a history of nephrolithiasis with recent left-sided flank pain. He went to [facility] on March 10 with left-sided flank pain. 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 No evidence of stones were noted. Amandeep Dodson Jr, MD [address] [place] [address], [address], [place], [address], [facility] [place] [facility] [place] & [place] 03/24/2023 12:49:03
== END 2024-12-29 23:59 | disposition home or self-care (01) ==
PROVIDERS: PCP Family Medicine; Visit Provider Family Medicine
DX: E11.9 Type 2 diabetes mellitus without complications (principal); Z12.5 Encounter for screening for malignant neoplasm of prostate
CPT/HCPCS: 80053; 82043; 82570; 83036; G0103

== ENCOUNTER 2025-01-15 09:31 | Outpatient (CLI) | payer MEDICARE, SELFPAY ==
--- OUTSIDE RECORDS SUMMARY | 2025-01-15 09:35 | XMS_ITS | Clinical Summary ---
Author Organization Healthcare Address [address] [id number] Care Team Providers Care Retail Department Reset Name Role Phone Annmarie Gutierrez MD Primary Care Provider [phone] Social History Tobacco Use Types Packs/Day Years [...] 2005 UKY-Zoster Vaccines (1 of 2) 2005 [id number] Vaccine (1 - 20 24-25 season) 2024 UKY-Influenza Vaccine (#1) 2025 UKY-RSV Vaccine: 60+ Years o r [...] age to complete this topic Care Teams Retail Department Reset Relationship Specialty Start Date End Date [place] [address] PCP - General 11/14/20
[2025-01-15 10:10] LABS: Hematocrit 38.9 % (42.0-52.0); Hemoglobin 12.7 g/dL (14.1-18.0); Immature Granulocytes % 0.2 %; Mean Corpuscular HGB Conc 32.6 g/dL (31.8-35.4); Mean Corpuscular Hemoglobin 27.5 pg (27.0-31.2); Mean Corpuscular Volume 84.4 fl (80-94); Nucleated Red Blood Cells % 0 %; Platelet Count 255 K/mm3 (142-424); Red Blood Count 4.61 M/mm3 (4.60-6.20); Red Cell Distribution Width-SD 42.6 fL; White Blood Count 13.1 K/mm3 (4.8-10.8)
[2025-01-15 10:45] LABS: Albumin Level 3.8 g/dl (3.5-5.0); Chloride 98 mmol/L (98-107)
[2025-01-15 10:46] LABS: Potassium 4.1 mmoL/L (3.5-5.1); Sodium 137 mmol/L (136-145)
[2025-01-15 10:48] LABS: Alanine Aminotransferase 18 U/L (12-78); Anion Gap 14.1 mEq/L (5-15); Aspartate Amino Transferase 22 U/L (17-59); Bilirubin,Unconjugated 0.2 mg/dL (0.0-1.1); Blood Urea Nitrogen 10 mg/dl (9-20); Carbon Dioxide 29 mmol/L (22.0-30.0); Creatinine,Serum 1.10 mg/dl (0.66-1.25); Estimated Glomerular Filt Rate 66 ml/min (>60); GFR (African American) 80 ML/MIN (>60); Total Protein,Serum 6.2 g/dl (6.3-8.2)
[2025-01-15 10:49] LABS: Alkaline Phosphatase 117 U/L (38-126); Bilirubin,Direct 0.1 mg/dl (0.0-0.4); Bilirubin,Indirect 0.2 mg/dL (0.0-0.9); Bilirubin,Total 0.3 mg/dl (0.2-1.3); Calcium 8.4 mg/dl (8.4-10.2); Cholesterol 127 mg/dl (140-200); Glucose 123 mg/dl (74-100); HDL Cholesterol 30 mg/dl (40-60); Magnesium 1.5 mg/dl (1.6-2.3); Triglycerides 142 mg/dl (30-150)
[2025-01-15 11:07] LABS: Free T4 (Free Thyroxine) 1.18 ng/dl (0.78-2.19)
[2025-01-15 11:18] LABS: Thyroid Stimulating Hormone 2.15 uIU/mL (0.465-4.68)
== END 2025-01-15 23:59 | disposition home or self-care (01) ==
LOC: LAB 09:32
PROVIDERS: PCP Family Medicine; Visit Provider Physician Assistant
DX: I25.118 Atherosclerotic heart disease of native coronary artery with other forms of angina pectoris (principal); E11.9 Type 2 diabetes mellitus without complications; I10 Essential (primary) hypertension; E78.2 Mixed hyperlipidemia
CPT/HCPCS: 36415; 80048; 80061; 80076; 83735; 84439; 84443; 85025

== ENCOUNTER 2025-02-25 12:59 | Outpatient (CLI) | payer MEDICARE, SELFPAY ==
--- OUTSIDE RECORDS SUMMARY | 2025-02-25 13:07 | XMS_ITS | Clinical Summary ---
Author Organization Healthcare Address [address] [id number] Care Team Providers Care Paper Carrier Name Role Phone Annmarie Gutierrez MD Primary Care Provider [phone] Social History Tobacco Use Types Packs/Day Years Used Date Smoking Tobacco: Never Assessed Sex and Gender Information Value Date Recorded Sex Assigned at Not on file Legal Sex Male 8:25 PM EDT Gender Identity Not on file Sexual Orientation Not on file Plan of Treatment Health Maintenance Due Date Last Done Comments UKY-Depression Screening 1955 UKY-Infant/Child/Adol SDOH Screenings 1955 UKY- SDOH Screenings 1973 UKY-Adult SDOH Screenings 1973 UKY-DTaP,Tdap,and Td Vaccine s (1 - Tdap) 1974 CT Colonography 2000 Colonoscopy 2000 FIT-DNA 2000 FIT 2000 FOBT 2000 Sigmoidoscopy 2000 UKY-Colorectal Cancer Screening 2000 UKY-Pneumococcal Vaccine: 50 + Years (1 of 1 - PCV) 2005 UKY-Zoster Vaccines (1 of 2) 2005 [id number] Vaccine (1 - 20 24-25 season) 2024 [...] age to complete this topic Care Teams Paper Carrier Relationship Specialty Start Date End [place] [address] PCP - General 11/14/20
--- OUTSIDE RECORDS SUMMARY | 2025-02-25 13:07 | XMS_ITS | Clinical Summary ---
[facility] Address [address] [place] [address] Care Team Providers Care Dry Kiln Worker Name Role Phone Annmarie Gutierrez MD Primary Care Provider [phone] Allergies Active Allergy Reactions Criticality Noted Date Comments Morphine And Codeine Delirium 01/25/2017 all opioids above 5 mg makes me itch Medications enalapril (VASOTEC) 20 MG tablet Take 20 mg by mouth Daily. Active diltiaZEM CD (CARTIA XT) 120 MG 24 hr capsule Take 120 mg by mouth 2 (Two) Times a Day. Active FLUoxetine (PROzac) 20 MG capsule Take 20 mg by mouth Daily. Active CloNIDine (CATAPRES) 0.1 MG tablet Take 0.1 mg by mouth As Needed for High Blood Pressure. Active cyclobenzaprine (FLEXERIL) 10 MG tablet Take 10 mg by mouth 3 (Three) Times a Day As Needed for Muscle Spasms. Active HYDROcodone-acet aminophen (NORCO) 5-325 MG per tablet Take 1 tablet by mouth Every 6 (Six) Hours As Needed. Active hydrALAZINE (APRESOLINE) 25 MG tablet Take 20 mg by mouth 2 (Two) Times a Day. Active aspirin 325 MG tablet Take 325 mg by mouth Daily. Active clopidogrel (PLAVIX) 75 MG tablet Take 1 tablet by mouth Daily. 30 tablet 11 01/25/2017 Active atorvastatin (LIPITOR) 40 MG tablet Take 1 tablet by mouth Daily. 30 tablet 11 01/25/2017 Active Active Problems Problem Noted Date Diagnosed Date Abnormal stress test 01/20/2017 Overview (01/20/2017): Added automatically from request for surgery [id number] Family History Medical History Relation Name Comments Heart disease Brother Heart disease Father Relation Name Status Comments Brother Father Social History Tobacco Use Types Packs/Day Years Used Date Smoking Tobacco: Every Day Cigarettes Smokeless Tobacco: Never Comments:3-4 cigs per day cu rrently Alcohol Use Standard Drinks/Week Comments No 0 (1 standard drink = 0.6 oz pur e alcohol) Abuse Screen Answer Date Recorded Unsafe at Home or Work/School Not on file Feels Threatened by Someone? Not on file 03/2023 Does Anyone Keep You from Co ntacting Others or Doint Things Outside the Home? Not on file 04/11/2023 Physical Sign of Abuse Present Not on file 1 Housing Stability Answer Date Recorded Current Living Arrangements Not on file 03/2023 Potentially Unsafe Housing Conditions Not on dillon e 04/11/2023 Family and Community Support Answer Danyel e Recorded Help with Day-to-Day Activities Not on file 04/11/2023 Lonely or Isolated Not on file 04/11/2023 Employment Answer Date Recorded Do you want help finding or keeping work or a ruy b? Not on file 04/11/2023 Disabilities Answer Date Recorded Concentrating, Remembering, or Making Decisions Difficulty Not on file 04/11/2023 Doing Errands Independently Difficulty Not on fi le 04/11/2023 Education Answer Date Recorded Help with school or training? Not on file Preferred Language Not on file 04/11/2023 Sex and Gender Information Value Date Recorded Sex Assigned at Not on file Legal Sex Male 11:24 AM EDT Gender Identity Not on file Sexual Orientation Not on file Last Filed Vital Signs Vital Sign Reading Time Taken Comments Blood Pressure 152/91 01/25/2017 3:45 PM EDT Pulse 56 01/25/2017 3:45 PM EDT Temperature 36.6 C (97.8 F) 01/25/2017 8:45 AM EDT Respiratory Rate 16 01/25/2017 11:38 AM EDT Oxygen Saturation 97% 01/25/2017 11:38 AM EDT Inhaled Oxygen Concentration - - Weight 92.1 kg (203 lb 0.7 oz) 01/25/2017 8:45 A M EDT Height 175.3 cm (5' 9 ) 01/25/2017 8:45 AM EDT Body Mass Index 29.98 01/25/2017 8:45 AM EDT Plan of Treatment Health Maintenance Due Date Last Done Comments TDAP/TD VACCINES (1 - Tdap) 1974 COLOGUARD 2000 COLON CANCER SCREENING 5 YEA R SIGMOIDOSCOPY 2000 COLONOSCOPY [address] S[address]ING [address] COLONOGRAPHY 2000 FECAL OCCULT BLOOD TEST 2000 FIT Testing (1 year) 2000 ZOSTER VACCINE (1 of 2) 2005 ANNUAL PHYSICAL 01/21/2017 HEPATITIS C SCREENING 01/21/2017 AAA SCREEN ONCE 2020 Pneumococcal Vaccine 50+ (2 of 2 - PCV) 06/04/2021 06/04/2020 COVID-19 Vaccine (6 - 2023-2 5 season) 2024 04/06/2022, 11/24/2021, 05/26/2021, Additional history exists INFLUENZA VACCINE 04/03/2025 04/06/2022, , 04/22/2020, Additional history exists Medical Devices Implanted Type Area Postbed Stitcher Device Identifier Shelf Expiration Date Model / Serial / Lot Stent Xience Alpine Wali Rx [id number] - [id number] Implanted:Qty: 1 on 01/25/2017 by Saurav English MD at [facility] [id number] / / Stent Xience Alpine Wali Rx [id number] - [id number] Implanted:Qty: 1 on 01/25/2017 by Saurav English MD at [facility] VASCULAR [id number] / / Insurance J[facility]ET [facility] PPO Care Teams Dry Kiln Worker Relationship Specialty Start Date End Date Annmarie Gutierrez MD PCP - General Family Medicine 01/25/17
--- NOTE | 2025-02-25 14:00 | US_ITS ---
FINAL REPORT TECHNIQUE: Limited sonographic imaging of the urinary bladder was obtained. CLINICAL HISTORY: urinary issues FINDINGS: Urinary bladder is incompletely distended on initial imaging. Urinary bladder volume is 74 cc. There is wall thickening of the urinary bladder favored to be related to incomplete distention. No filling defect is seen. There are bilateral ureteral jets identified. There is 17 cc postvoid residual noted. IMPRESSION: Incomplete distention on initial imaging. Small postvoid residual noted. Reviewed, Interpreted and Dictated by Lita Guy MD Transcribed by Arlene Romero Authenticated and [facility]
[2025-02-25 14:39] LABS: Prostate Specific Ag, Diagnost 0.491 ng/ml (0.0-4.0)
== END 2025-02-25 23:59 | disposition home or self-care (01) ==
PROVIDERS: PCP Family Medicine; Visit Provider Family Medicine
DX: N39.43 Post-void dribbling (principal); R39.198 Other difficulties with micturition; Z87.442 Personal history of urinary calculi
CPT/HCPCS: 36415; 76857; 84153

== ENCOUNTER 2025-03-15 18:45 | Emergency (ER) | payer MEDICARE, SELFPAY ==
[2025-03-15 18:50] VITALS: BP 143/69; PULSE 64; RESP 18; TEMP 36.4; O2SAT 96; BMI 29.3
--- OUTSIDE RECORDS SUMMARY | 2025-03-15 19:03 | XMS_ITS | Clinical Summary ---
Author Organization Healthcare Address [address] [id number] Care Team Providers Care Pet Sitter Name Role Phone Annmarie Gutierrez MD Primary Care Provider [phone] Social History Tobacco Use Types Packs/Day Years [...] 2005 UKY-Zoster Vaccines (1 of 2) 2005 [id number] Vaccine (1 - 20 24-25 season) 2025 UKY-Influenza Vaccine (#1) 2025 UKY-RSV Vaccine: 60+ [...] age to complete this topic Care Teams Pet Sitter Relationship Specialty Start Date End [place] [address] PCP - General 11/14/20
--- OUTSIDE RECORDS SUMMARY | 2025-03-15 19:03 | XMS_ITS | Clinical Summary ---
[facility] [address] [place] [address] Care Team Providers Care Inspector Automatic Typewriter Name Role Phone Annmarie Gutierrez MD Primary Care Provider [phone] Allergies Active Allergy Reactions Criticality Noted Date [...] (01/20/2017): Added automatically from request for surgery [id number] Family History Medical History Relation Name Comments [...] PCV) 06/04/2021 06/04/2020 COVID-19 Vaccine (6 - 2024-2 6 season) 2025 04/06/2022, 11/24/2021, 05/26/2021, Additional history exists INFLUENZA VACCINE 04/03/2025 04/06/2022, , 04/22/2020, Additional history exists Medical Devices Implanted Type Area Protective Signal Repairer Device Identifier Shelf Expiration Date Model / Serial / Lot Stent Xience Alpine Wali Rx [id number] - [id number] Implanted:Qty: 1 on 01/25/2017 by Saurav English MD at [facility] [id number] / / Stent Xience Alpine Wali Rx [id number] - [id number] Implanted:Qty: 1 on 01/25/2017 by Saurav English MD at [facility] VASCULAR [id number] / / Insurance [facility]ET [facility] PPO Care Teams Inspector Automatic Typewriter Relationship Specialty Start Date End Date Annmarie Gutierrez MD PCP - General Family Medicine 01/25/17
[2025-03-15 19:06] LABS: Hematocrit 37.3 % (42.0-52.0); Hemoglobin 12.6 g/dL (14.1-18.0); Immature Granulocytes % 0.4 %; Mean Corpuscular HGB Conc 33.8 g/dL (31.8-35.4); Mean Corpuscular Hemoglobin 28.1 pg (27.0-31.2); Mean Corpuscular Volume 83.1 fl (80-94); Nucleated Red Blood Cells % 0 %; Platelet Count 278 K/mm3 (142-424); Red Blood Count 4.49 M/mm3 (4.60-6.20); Red Cell Distribution Width-SD 43.2 fL; White Blood Count 15.1 K/mm3 (4.8-10.8)
[2025-03-15 19:06] LABS: Microscopic, Urine URINE MICROSCOPIC (MICROSCOPIC)
[2025-03-15 19:07] LABS: Bilirubin,Urine Negative (Negative); Color,Urine YELLOW (Yellow); Glucose,Urine (UA) Negative (Negative); Ketones,Urine Negative (Negative); Leukocyte Esterase,Urine Negative (Negative); PH,Urine 6.0 (5.0-8.5); Protein,Urine Negative (Negative); Specific Gravity, Urine 1.015 (1.005-1.030); Urobilinogen,Urine 0.2 EU/dl (0.2)
[2025-03-15 19:16] LABS: INR 0.97 (0.9-1.1); Prothrombin Time 10.8 seconds (10.1-12.5)
[2025-03-15 19:17] LABS: Albumin Level 4.0 g/dl (3.5-5.0); Chloride 100 mmol/L (98-107); Potassium 3.3 mmoL/L (3.5-5.1); Sodium 138 mmol/L (136-145)
[2025-03-15 19:19] LABS: Blood Urea Nitrogen 20 mg/dl (9-20); Creatinine Clearance Estimated 81 mL/min (50-200); Creatinine,Serum 1.10 mg/dl (0.66-1.25); Estimated Glomerular Filt Rate 66 ml/min (>60); GFR (African American) 80 ML/MIN (>60); Lipase 68 U/L (23-300)
[2025-03-15 19:20] LABS: Alanine Aminotransferase 15 U/L (12-78); Albumin/Globulin Ratio 1.6 (1.1-1.8); Alkaline Phosphatase 92 U/L (38-126); Anion Gap 14.3 mEq/L (5-15); Aspartate Amino Transferase 23 U/L (17-59); Bilirubin,Total 0.4 mg/dl (0.2-1.3); Calcium 8.8 mg/dl (8.4-10.2); Carbon Dioxide 27 mmol/L (22.0-30.0); Globulin 2.5 g/dL (1.3-3.2); Glucose 128 mg/dl (74-100); Total Protein,Serum 6.5 g/dl (6.3-8.2)
[2025-03-15 19:38] LABS: Troponin I < 0.01 ng/ml (0.00-0.034)
[2025-03-15 19:41] VITALS: BP 129/79; PULSE 59; RESP 14; O2SAT 96
--- NOTE | 2025-03-15 19:44 | CT_ITS ---
PROCEDURE INFORMATION: Exam: CTA Abdomen and Pelvis With Contrast Exam date and time: 03/15/2025 7:58 PM Age: 69 years old Clinical indication: Abdominal pain; Generalized; Additional info: Abd pain TECHNIQUE: Imaging protocol: Computed tomographic angiography of the abdomen and pelvis with contrast. Exam focused on the arteries. 3D rendering (Not supervised by radiologist): MIP and/or 3D reconstructed images were created by the technologist. Radiation optimization: All CT scans at this facility use at least one of these dose optimization techniques: automated exposure control; mA and/or kV adjustment per patient size (includes targeted exams where dose is matched to clinical indication); or iterative reconstruction. Contrast material: ISOVUE; Contrast volume: 80 ml; Contrast route: INTRAVENOUS (IV); COMPARISON: CT ANGIO ABDOMEN PELVIS 02/20/2024 4:13 PM FINDINGS: Aorta: Infrarenal abdominal aortic aneurysm 4.47 x 3.3 cm. Celiac trunk and mesenteric arteries: No occlusion or significant stenosis. Renal arteries: No occlusion or significant stenosis. Right iliac arteries: No occlusion or significant stenosis. Left iliac arteries: No occlusion or significant stenosis. Liver: No mass. Gallbladder and biliary ducts: The gallbladder is unremarkable Pancreas: Pancreatic atrophy Spleen: Unremarkable. No splenomegaly. Adrenal glands: Unremarkable. No mass. Kidneys and ureters: Horseshoe kidney Stomach and bowel: Heterogeneous mass in the cecum measures 4.5 x 3.7 cm. There may be additional masses in the right colon Rule out colon cancer. Diverticulosis of the rectosigmoid. No diverticulitis. Appendix: No evidence of appendicitis. Intraperitoneal space: Unremarkable. No free air. No significant fluid collection. Lymph nodes: Unremarkable. No enlarged lymph nodes. Urinary bladder: Unremarkable. No mass. Reproductive: Unremarkable as visualized. Bones/joints: No acute fracture. Soft tissues: Unremarkable. IMPRESSION: Heterogeneous mass in the cecum measures 4.5 x 3.7 cm. There may be additional masses in the right colon Rule out colon cancer Infrarenal abdominal aortic aneurysm 4.47 x 3.3 cm. THIS REPORT CONTAINS FINDINGS THAT MAY BE CRITICAL TO PATIENT CARE. The findings were verbally communicated via telephone conference with VIVI LAYTON at 9:24 PM EDT on 03/15/2025. The findings were acknowledged and understood.
--- NOTE | 2025-03-15 19:54 | ED_ITS ---
<Statement entered by Houston Mg DO - 03/16/25 23:38> I was consulted by the HARSH, and we discussed the complexity of problems being addressed. I approved the treatment and management plan for this patient's care in the emergency department, thus performing a substantive portion of the medical decision making. This is a 69-year-old gentleman who presented to the emergency department for concerns of GI bleeding. His hemoglobin was ultimately stable from prior at 12.6. We did perform a CT scan of the abdomen pelvis which found concerns for a colonic mass. Patient was offered admission as well as transfer to the [facility] for further workup of this and he declined and instead wished to go home as he stated that he would not pursue any treatment surgically or with chemotherapy. I felt like this was a reasonable decision and given that he was not actively anemic and was stable from a vital sign perspective. He was discharged home with instructions for outpatient follow-up with COLBY Mg DO Discharge Plan Disposition Patient Disposition: Home, Self-Care Condition: Good Prescriptions Prescriptions: No Action cholecalciferol (vitamin D3) 50 mcg (2,000 unit) capsule 50 mcg PO DAILY tamsulosin [Flomax] 0.4 mg capsule 0.4 mg PO DAILY Qty: 30 2RF cyclobenzaprine 5 mg tablet See Rx Instructions .ROUTE .COMPLEX Qty: 90 3RF Dose Instruction: TAKE 1 TABLET BY MOUTH AT BEDTIME NEEDED FOR PAIN FOR MUSCLE SPASM Rx Instructions: TAKE 1 TABLET BY MOUTH AT BEDTIME NEEDED FOR PAIN FOR MUSCLE SPASM enalapril maleate 20 mg tablet 20 mg PO DAILY Qty: 180 5RF clopidogrel 75 mg tablet See Rx Instructions .ROUTE .COMPLEX Qty: 90 3RF Dose Instruction: Take 1 tablet by mouth once daily Rx Instructions: Take 1 tablet by mouth once daily (DME) lancets [Accu-Chek Fastclix Lancet Drum] [facility] [place] See Rx Instructions .ROUTE .COMPLEX Qty: 102 3RF Dose Instruction: USE 1 LANCET TO CHECK GLUCOSE TWICE DAILY Rx Instructions: USE 1 LANCET TO CHECK GLUCOSE TWICE DAILY pantoprazole 40 mg tablet,delayed release (DR/EC) 40 mg PO DAILY Qty: 90 1RF bisoprolol fumarate 5 mg tablet 5 mg PO DAILY Qty: 90 3RF metformin 1,000 mg tablet 1,000 mg PO BID Qty: 120 4RF hydralazine 10 mg tablet See Rx Instructions .ROUTE .COMPLEX Qty: 120 2RF Dose Instruction: TAKE 2 TABLETS BY MOUTH TWICE DAILY FOR HIGH BLOOD PRESSURE Rx Instructions: TAKE 2 TABLETS BY MOUTH TWICE DAILY FOR HIGH BLOOD PRESSURE hydrocodone-acetaminophen 5-325 mg tablet 1 tab PO DAILY PRN (Reason: pain) Qty: 30 0RF atorvastatin 80 mg tablet 80 mg PO DAILY Qty: 30 5RF hydrochlorothiazide 25 mg tablet 25 mg PO DAILY Qty: 90 1RF Patient Comments: TAKE 1 TABLET BY MOUTH ONCE DAILY (DME) Accu-Chek Guide test strips Strip See Rx Instructions .Route Qty: 100 5RF Rx Instructions: As directed or bid fluoxetine 20 mg capsule See Rx Instructions .ROUTE .COMPLEX Qty: 90 0RF Dose Instruction: Take 1 capsule by mouth once daily Rx Instructions: Take 1 capsule by mouth once daily nitroglycerin 0.4 mg tablet, sublingual 0.4 mg sublingual [id number] PRN (Reason: Chest Pain) Patient Comments: DISSOLVE ONE TABLET UNDER THE TONGUE EVERY 5 MINUTES NEEDED FOR CHEST PAIN. DO NOT EXCEED A TOTAL OF 3 DOSES IN 15 MINUTES aspirin 81 mg Tablet,Chewable 81 mg PO DAILY Qty: 30 3RF Referrals Follow up/Referrals: Stacie Arango APRN [Primary Care Provider, Family Practice] - See instructions Activity Restrictions/Add. Instructions Additional Instructions/Restrictions: Today you were evaluated in the emergency department for abdominal pain. We discussed that you have masses in your colon on your CT scan, which may be suggestive of cancer. You were offered admission, transfer to , however ultimately decided to be discharged home. Please know that you may return to the ED at any time. Return to the ED immediately if you have any worsening of your condition. Please call your GI doctor Tuesday and discuss new findings with them. Keep your follow-up appointment. Clinical Impressions Clinical Impression: Abdominal pain, Cecum mass, Fatigue Instructions Patient Instructions: DI for Acute Abdominal Pain Print Language Print Language: Brazilian Discharge ED Provider: Houston Mg Adult HPI General Chief complaint: Abdominal Pain Stated complaint: abdominal pain Time Seen by Provider: 03/15/25 19:38 Mode of Arrival: Ambulatory Source of Information: Patient and Spouse Description of Symptoms (Recalled from ER Triage Doc. by RN): Pt presents for evaluation of abdominal pain. Pt has been having black tarry stool. Pt reports he has had dark stools 2-3 weeks. Pt reports having mid upper abd pain. Pt states he has nausea every time he eats and drinks. History of Present Illness HPI narrative: patient is a 69-year-old male PMHx diabetes, CAD (clopidogrel), obesity, abdominal aortic aneurysm, hyperlipidemia, tobacco use, COPD, chronic back pain who presents to the ED for complaints of upper abdominal pain x 2 weeks & fatigue. Patient states he has had black tarry stools for almost 1 month, has been seen by PCP for this and is scheduled to see GI the first week of April. Patient states that his abdominal pain has been persistent, no change in the type of abdominal pain over the past 2 weeks. Related Data Home Medications ?Medication ?Instructions ?Recorded ?Confirmed nitroglycerin 0.4 mg sublingual 0.4 mg sublingual Q10M INP PRN 02/08/24 03/06/25 tablet Chest Pain cholecalciferol (vitamin D3) 50 50 mcg PO DAILY 03/06/25 mcg (2,000 unit) capsule Previous Rx's ?Medication ?Instructions ?Recorded aspirin 81 mg chewable tablet 81 mg PO DAILY #30 tabs 04/02/24 clopidogrel 75 mg tablet See Rx Instructions .Route 1 .COMPLEX #90 tabs lancets (Accu-Chek Fastclix Lancet #102 ea 05/11/24 Drum) cyclobenzaprine 5 mg tablet See Rx Instructions .Route 07/05/24 .COMPLEX #90 tabs pantoprazole 40 mg tablet,delayed 40 mg PO DAILY stoma ch issues #90 11/12/24 release tabs bisoprolol fumarate 5 mg tablet 5 mg PO DAILY #90 tabs 12/12/24 metformin 1,000 mg tablet 1,000 mg PO BID #120 tabs hydralazine 10 mg tablet See Rx Instructions .Route 0 01/14/25 .COMPLEX #120 tabs hydrocodone 5 mg-acetaminophen 325 1 tab PO DAILY PRN pain #30 tabs 01/24/25 mg tablet atorvastatin 80 mg tablet 80 mg PO DAILY #30 tabs 01/02 02/25 hydrochlorothiazide 25 mg tablet 25 mg PO DAILY #90 ta bs 02/12/25 blood sugar diagnostic (Accu-Chek #100 ea 02/14/25 Guide test strips) tamsulosin 0.4 mg capsule (Flomax) 0.4 mg PO DAILY #30 caps 02/20/25 enalapril maleate 20 mg tablet 20 mg PO DAILY #180 tab s 03/06/25 fluoxetine 20 mg capsule See Rx Instructions .Route 0 03/10/25 .COMPLEX #90 caps Allergies Allergy/AdvReac Type Severity Reaction Status Date / Time morphine AdvReac Mild Other Verified 03/06/25 08:50 oxycodone (From Percocet) AdvReac Unknown Verified 03/06/25 08:50 allergy reaction [facility] Disclaimer: The information contained in this section may have been updated after the patient was seen, as this information can be updated by other users. Medical History Perforation of left tympanic membrane Deviated septum Mixed hearing loss Mixed hyperlipidemia Bradycardia Diabetes mellitus type 2 with complications Diabetes mellitus type 2, noninsulin dependent Acute dysfunction of both eustachian tubes Sinus bradycardia Bleeding from right ear I saw some dried blood in the right EAC however I did not see any in overt lesions. Abrasion of ear canal Atypical chest pain Arthralgia of left acromioclavicular joint Obesity Diabetes mellitus Right renal stone Low back pain Sinusitis Chest pain Abnormal cardiovascular stress test Atypical angina Angina at rest Ankle pain, left Ureterolithiasis LUCIAN (acute kidney injury) Lamellar nail splitting Onychoincurvatum Ingrown toenail of both feet Class 1 obesity Trigger point of thoracic region Fatigue Bronchitis COPD exacerbation Acute viral syndrome H/O nephrolithotomy with removal of calculi Chest pain Sinus pressure Tinnitus Dizziness Hypokalemia Hyperlipidemia Hearing loss in left ear Otalgia, bilateral Myopathy Dyspnea Palpitations Family history of heart disease Tobacco user COPD (chronic obstructive pulmonary disease) CAD (coronary artery disease) Hypertension Chronic back pain Surgical History History of back surgery History of carpal tunnel release of both wrists History of heart artery stent History of cardiac cath History of colon resection Family History Other No significant family history Social History Smoking Status: Former smoker second hand exposure: No alcohol intake: never substance use type: denies use current occupational status: retired Travel in the last 8 weeks?: Inside the [place] household members: spouse housing: house current occupational exposures/hazards: No caffeine: No Have you lived/traveled outside [place] in past 30 days?: No Contact w/someone who lives/traveled outside US past 30 days?: No Exposure to someone with infectious disease in past 14 days?: No Do you have a fever (greater than 100.4 F or 38 C)?: No Have you tested positive for COVID-19?: No Exposed to someone with COVID-19 in past 14 days?: No Do you have a sore throat?: No Do you have a cough?: No Do you have any weakness?: No Do you have any diarrhea?: No Are you experiencing any unusual bleeding?: No Do you have any muscle aches/pain?: No Do you have any abdominal pain?: No Are you experiencing loss of taste or smell?: No Other Medical History Have you received the Flu Vaccine for this season: Yes Have you received the Pneumonia Vaccine: Yes ROS Obtained: Yes Systems reviewed as appropriate & no additional complaints except as documented Physical Exam General General appearance: alert Head Head exam: atraumatic Eye Eye exam: Present PERRL Neck Neck exam: Present full ROM Respiratory Respiratory exam: Present normal lung sounds bilaterally Cardiovascular Cardiovascular exam: Present regular rate Abdominal Exam Abdominal exam: Present soft and tenderness (midline upper ); Absent distention Extremities Exam Extremities exam: Present full ROM Neurological Exam Neurological exam: Present alert and oriented X3 Skin Skin exam: Present warm Medical Decision Making Medical Records Screening: Per USPSTF and CDC recommendations, given the prevalence of disease in our region, it is our hospital?s policy to screen for HIV and viral Hepatitis for all patients aged 18 and over and those with ongoing risk factors. Nav Inquiry Pt receiving controlled substance: No Vital Signs: 03/15/25 18:50 03/15/25 19:41 03/15/25 20:30 Temperature 97.5 F L Temperature Source Oral Pulse Rate 59 L 56 L Pulse Rate [Left] 64 Respiratory Rate 18 14 13 Blood Pressure 129/79 129/68 Blood Pressure [Right Arm] 143/69 H Blood Pressure Mean [Right Arm] 93 Blood Pressure Source Blood Pressure Source [Right Arm] Automatic Cuff Blood Pressure Position Blood Pressure Position [Right Arm] Sitting 02 Sat by Pulse Oximetry 96 96 95 Oxygen Delivery Method Room Air 03/15/25 21:57 Temperature 98.6 F Temperature Source Pulse Rate 68 Pulse Rate [Left] Respiratory Rate 16 Blood Pressure 121/69 Blood Pressure [Right Arm] Blood Pressure Mean [Right Arm] Blood Pressure Source Automatic Cuff Blood Pressure Source [Right Arm] Blood Pressure Position Sitting Blood Pressure Position [Right Arm] 02 Sat by Pulse Oximetry Oxygen Delivery Method Room Air Lab Data Lab Results 03/15/25 18:55: WBC 15.1 H, RBC 4.49 L, Hgb 12.6 L, Hct 37.3 L, MCV 83.1, MCH 28.1, MCHC 33.8, RDW 14.3, Plt Count 278, MPV 9.6, Neut % (Auto) 63.6, Lymph % (Auto) 26.5, [place] % (Auto) 6.7, Eos % (Auto) 2.4, Baso % (Auto) 0.4, Neut # (Auto) 9.6 H, Lymph # (Auto) 4.0, [place] # (Auto) 1.0, Eos # (Auto) 0.4, Baso # (Auto) 0.1, PT 10.8, INR 0.97, Sodium 138, Potassium 3.3 L, Chloride 100, Carbon Dioxide 27, Anion Gap 14.3, BUN 20, Creatinine 1.10, Estimated Creat Clear 81, Estimated GFR 66, Est GFR ( Amer) 80, Glucose 128 H, Calcium 8.8, Total Bilirubin 0.4, AST 23, ALT 15, Alkaline Phosphatase 92, Troponin I < 0.01, Total Protein 6.5, Albumin 4.0, Globulin 2.5, Albumin/Globulin Ratio 1.6, Lipase 68 03/15/25 18:57: Urine Color Yellow, Urine Appearance Clear, Urine pH 6.0, Ur Specific [place] 1.015, Urine Protein Negative, Urine Glucose (UA) Negative, Urine Ketones Negative, Urine Blood Negative, Urine Nitrate Negative, Urine Bilirubin Negative, Urine Urobilinogen 0.2, Ur Leukocyte Esterase Negative, Urine RBC 3-5, Urine WBC Occasional, Ur Squamous Epith Cells 3-5, Urine Mucus 2+ 03/15/25 18:55 03/15/25 18:55 Orders (Tests/Meds): ED MEDICATIONS Discontinued Medications Generic Name Dose Route Start Last Admin Trade Name Freq PRN Reason Stop Dose Admin Hydroxyzine Pamoate 25 mg 03/15/25 21:41 03/15/25 21:54 Hydroxyzine Pamoate 25mg Capsule PO 03/15/25 21:42 25 mg ONCE ONE Administration Iopamidol 80 ml 03/15/25 19:58 03/15/25 19:59 Iopamidol-370 (76%);100ml Bottle IV 03/15/25 19:59 80 ml ONCE ONE Administration Sodium Chloride 50 ml 03/15/25 19:58 03/15/25 19:59 0.9 % Sodium Chloride 50 Ml Vial IV 03/15/25 19:59 50 ml ONCE ONE Administration Sodium Chloride 10 ml 03/15/25 19:58 03/15/25 19:59 Sodium Chloride 0.9% 10ml Syr (Rad Only) IV 04/14/25 19:57 10 ml NEEDED PRN Administration Maintain IV Site ORDERS Category Date Time Status CT angio abd/pel - GI Bleed Stat Cat Scan 03/15/25 19:44 Completed Complete Blood Count Auto Diff Stat Lab 03/15/25 18:55 Completed Comprehensive Metabolic Panel Stat Lab 03/15/25 18:55 Completed Lipase Stat Lab 03/15/25 18:55 Completed Prothrombin Time INR Stat Lab 03/15/25 18:55 Completed Troponin I Stat Lab 03/15/25 18:55 Completed Urinalysis and Microscopic Stat Lab 03/15/25 18:57 Completed Medical Decision Narrative: In summary, patient is a 69-year-old male PMHx diabetes, CAD (clopidogrel), obesity, abdominal aortic aneurysm, hyperlipidemia, tobacco use, COPD, chronic back pain who presents to the ED for complaints of upper abdominal pain x 2 weeks & fatigue. Patient states he has had black tarry stools for almost 1 month, has been seen by PCP for this and is scheduled to see GI the first week of April. Patient states that his abdominal pain has been persistent, no change in the type of abdominal pain over the past 2 weeks. He states it feels more like a ache. He also denies any change in his chronic back pain. Patient denies fever, chills, headache, visual disturbance, vomiting, chest pain, shortness of breath dysuria. Upon initial evaluation patient is alert, oriented and cooperative. He is stable. Physical exam is remarkable for a soft abdomen, upper abdominal tenderness midline. Differential diagnosis include GI bleed, rupture, ACS, dissection, infectious process, among others. Discussed with patient and family that we will proceed with labs and imaging, GI protocol. CBC remarkable for WBC 15.1, stable hemoglobin and hematocrit. Normal PT and INR. CMP unremarkable for any actionable abnormalities. First troponin < 0.01. Lipase 68. Urinalysis unremarkable for any infectious process. CT scan of the abdomen and pelvis remarkable for a mass in the cecum measuring 4.5 x 3.7 cm with additional masses in the right colon. Noted to have a abdominal aortic aneurysm 4.47 x 3.3 cm. I had a long, interactive discussion with patient about the CT scan findings. Advised him that a final diagnosis of cancer cannot be made until there is further evaluation including biopsy. I offered transfer to , patient states he does not want to be transferred or admitted. He would like to go home. I discussed the risk, patient verbalized understanding. He is very clear on his wishes to go home, he verbalizes an understanding that if he changes his mind he may return to the ED. We discussed very strict return precautions and he verbalized understanding of this as well. With respect to the patient's wishes, he remains alert and oriented, hemodynamically stable, I am comfortable he discharging him home at this time in the care of his . Patient is requesting a medication to help him sleep tonight due to the news he received. Shared decision making used, we will administer 1 Vistaril dose. He was advised to continue to follow-up with GI, call them Tuesday morning to update them as they will most likely move his appointment. Critical Care Critical Care Time Critical Care Time: No
--- NOTE | 2025-03-15 19:58 | PC.NURSE ---
Dr. Mg said that he did not want to call [facility] back he wanted to just go ahead with calling [facility] is on the phone with them now.
[2025-03-15] MEDS: 0.9 % SODIUM CHLORIDE 50 ML VIAL IV (19:59)
[2025-03-15] MEDS: SODIUM CHLORIDE 0.9% 10ML SYR (RAD ONLY) 10 ML IV (19:59)
[2025-03-15] MEDS: IOPAMIDOL-370 (76%);100ML BOTTLE 80 ML IV (19:59)
[2025-03-15 20:02] LABS: Mucus,Urine 2+ /lpf; WBC,Urine Occasional #/hpf (0-3)
[2025-03-15 20:30] VITALS: BP 129/68; PULSE 56; RESP 13; O2SAT 95
[2025-03-15 21:57] VITALS: BP 121/69; PULSE 68; RESP 16; TEMP 37; O2SAT 97
== END 2025-03-15 22:00 | disposition home or self-care (01) ==
PROVIDERS: Emergency Provider Student in an Organized Health Care Education/Training Program; PCP Family Medicine
DX: R10.9 Unspecified abdominal pain (principal); K63.89 Other specified diseases of intestine; R53.83 Other fatigue; E11.9 Type 2 diabetes mellitus without complications; E78.5 Hyperlipidemia, unspecified; I10 Essential (primary) hypertension
CPT/HCPCS: 74174; 80053; 81001; 83690; 84484; 85025; 85610; 99285; Q9967

== ENCOUNTER 2025-03-18 08:34 | Emergency (ER) | payer MEDICARE, SELFPAY ==
--- NOTE | 2025-03-18 08:40 | ECG_ITS ---
APPROVED REPORT Exam: Resting ECG HR:72 bpm ECG Measurements Heart Rate 72 AXES CA 169 P 60 QRSd 99 QRS 30 QT 446 T 38 QTc 470 Conclusion SINUS RHYTHM WITH OCCASIONAL SUPRAVENTRICULAR PREMATURE COMPLEXES NONSPECIFIC ST & T-WAVE ABNORMALITY PROLONGED QT INTERVAL ABNORMAL ECG UNCONFIRMED REPORT Electronically signed by : Bryce Jeffries, 03/18/2025 15:26:26
[2025-03-18 08:44] VITALS: BP 146/75; PULSE 79; RESP 18; TEMP 36.9; O2SAT 97; BMI 29.3
[2025-03-18] MEDS: LACTATED RINGERS 1000ML 1,000 ML 999 ML IV ×2 (08:56→10:02)
--- OUTSIDE RECORDS SUMMARY | 2025-03-18 08:57 | XMS_ITS | Clinical Summary ---
Author Organization Healthcare Address [address] [id number] Care Team Providers Care Instructional Leader Name Role Phone Annmarie Gutierrez MD Primary Care Provider [phone] Social History Tobacco Use Types Packs/Day Years [...] 2005 UKY-Zoster Vaccines (1 of 2) 2005 [id number] Vaccine (1 - 20 24-25 season) 2025 [...] age to complete this topic Care Teams Instructional Leader Relationship Specialty Start Date End [place] [id number] PCP - General 11/14/20
--- OUTSIDE RECORDS SUMMARY | 2025-03-18 08:57 | XMS_ITS | Clinical Summary ---
Author Organization [facility] Address [address] [place] [address] Care Team Providers Care Pipe Layer Helper Name Role Phone Annmarie Gutierrez MD Primary Care Provider [phone] Allergies Active Allergy Reactions Criticality Noted Date [...] (01/20/2017): Added automatically from request for surgery [id number] Family History Medical History Relation Name Comments [...] history exists Medical Devices Implanted Type Area Enrober Tender Device Identifier Shelf Expiration Date Model / Serial / Lot Stent Xience Alpine Wali Rx [id number] - [id number] Implanted:Qty: 1 on 01/25/2017 by Saurav English MD at [facility] [id number] / / Stent Xience Alpine Wali Rx [id number] - [id number] Implanted:Qty: 1 on 01/25/2017 by Saurav English MD at [facility] VASCULAR [id number] / / Insurance [facility] P[facility] Care Teams Pipe Layer Helper Relationship Specialty Start Date End Date Annmarie Gutierrez MD PCP - General Family Medicine 01/25/17
[2025-03-18 09:00] VITALS: BP 134/69; PULSE 67; RESP 19; O2SAT 96
[2025-03-18 09:00] LABS: Hematocrit 38.6 % (42.0-52.0); Hemoglobin 12.7 g/dL (14.1-18.0); Immature Granulocytes % 0.4 %; Mean Corpuscular HGB Conc 32.9 g/dL (31.8-35.4); Mean Corpuscular Hemoglobin 27.4 pg (27.0-31.2); Mean Corpuscular Volume 83.4 fl (80-94); Nucleated Red Blood Cells % 0 %; Platelet Count 308 K/mm3 (142-424); Red Blood Count 4.63 M/mm3 (4.60-6.20); Red Cell Distribution Width-SD 43.4 fL; White Blood Count 17.0 K/mm3 (4.8-10.8)
[2025-03-18 09:04] LABS: Alanine Aminotransferase 21 U/L (12-78); Albumin Level 4.3 g/dl (3.5-5.0); Albumin/Globulin Ratio 1.7 (1.1-1.8); Alkaline Phosphatase 87 U/L (38-126); Anion Gap 15.0 mEq/L (5-15); Aspartate Amino Transferase 28 U/L (17-59); Bilirubin,Total 0.5 mg/dl (0.2-1.3); Blood Urea Nitrogen 15 mg/dl (9-20); Calcium 9.0 mg/dl (8.4-10.2); Carbon Dioxide 25 mmol/L (22.0-30.0); Chloride 98 mmol/L (98-107); Creatinine Clearance Estimated 68 mL/min (50-200); Creatinine,Serum 1.30 mg/dl (0.66-1.25); Estimated Glomerular Filt Rate 55 ml/min (>60); GFR (African American) 66 ML/MIN (>60); Globulin 2.6 g/dL (1.3-3.2); Glucose 112 mg/dl (74-100); Sodium 135 mmol/L (136-145); Total Protein,Serum 6.9 g/dl (6.3-8.2)
[2025-03-18 09:07] LABS: Potassium 3.0 mmoL/L (3.5-5.1)
[2025-03-18 09:30] VITALS: BP 129/61; PULSE 61; RESP 19; O2SAT 96
--- NOTE | 2025-03-18 09:47 | HMH.EDGENADL ---
Discharge Plan Disposition Patient Disposition: Home, Self-Care Prescriptions Prescriptions: No Action cholecalciferol (vitamin D3) 50 mcg (2,000 unit) capsule 50 mcg PO DAILY tamsulosin [Flomax] 0.4 mg capsule 0.4 mg PO DAILY Qty: 30 2RF cyclobenzaprine 5 mg tablet See Rx Instructions .ROUTE .COMPLEX Qty: 90 3RF Dose Instruction: TAKE 1 TABLET BY MOUTH AT BEDTIME NEEDED FOR PAIN FOR MUSCLE SPASM Rx Instructions: TAKE 1 TABLET BY MOUTH AT BEDTIME NEEDED FOR PAIN FOR MUSCLE SPASM enalapril maleate 20 mg tablet 20 mg PO DAILY Qty: 180 5RF clopidogrel 75 mg tablet See Rx Instructions .ROUTE .COMPLEX Qty: 90 3RF Dose Instruction: Take 1 tablet by mouth once daily Rx Instructions: Take 1 tablet by mouth once daily (DME) lancets [Accu-Chek Fastclix Lancet Drum] Misc See Rx Instructions .ROUTE .COMPLEX Qty: 102 3RF Dose Instruction: USE 1 LANCET TO CHECK GLUCOSE TWICE DAILY Rx Instructions: USE 1 LANCET TO CHECK GLUCOSE TWICE DAILY pantoprazole 40 mg tablet,delayed release (DR/EC) 40 mg PO DAILY Qty: 90 1RF bisoprolol fumarate 5 mg tablet 5 mg PO DAILY Qty: 90 3RF metformin 1,000 mg tablet 1,000 mg PO BID Qty: 120 4RF hydralazine 10 mg tablet See Rx Instructions .ROUTE .COMPLEX Qty: 120 2RF Dose Instruction: TAKE 2 TABLETS BY MOUTH TWICE DAILY FOR HIGH BLOOD PRESSURE Rx Instructions: TAKE 2 TABLETS BY MOUTH TWICE DAILY FOR HIGH BLOOD PRESSURE hydrocodone-acetaminophen 5-325 mg tablet 1 tab PO DAILY PRN (Reason: pain) Qty: 30 0RF atorvastatin 80 mg tablet 80 mg PO DAILY Qty: 30 5RF hydrochlorothiazide 25 mg tablet 25 mg PO DAILY Qty: 90 1RF Patient Comments: TAKE 1 TABLET BY MOUTH ONCE DAILY (DME) Accu-Chek Guide test strips Strip See Rx Instructions .Route Qty: 100 5RF Rx Instructions: As directed or bid fluoxetine 20 mg capsule See Rx Instructions .ROUTE .COMPLEX Qty: 90 0RF Dose Instruction: Take 1 capsule by mouth once daily Rx Instructions: Take 1 capsule by mouth once daily nitroglycerin 0.4 mg tablet, sublingual 0.4 mg sublingual [id number] PRN (Reason: Chest Pain) Patient Comments: DISSOLVE ONE TABLET UNDER THE TONGUE EVERY 5 MINUTES NEEDED FOR CHEST PAIN. DO NOT EXCEED A TOTAL OF 3 DOSES IN 15 MINUTES aspirin 81 mg Tablet,Chewable 81 mg PO DAILY Qty: 30 3RF Referrals Follow up/Referrals: Stacie Arango APRN [Primary Care Provider, Family Practice] - See instructions Activity Restrictions/Add. Instructions Additional Instructions/Restrictions: Please follow-up tomorrow at 10:30 AM with Caitlyn carrasquillo with Dr. Baeza office. You may bring your stool sample with the outpatient diarrhea PCR panel order with you. There is no evidence of any upper gastrointestinal bleed today. Clinical Impressions Clinical Impression: Abdominal pain, Diarrhea, Hypokalemia, Palpitations, Hypomagnesemia Instructions Patient Instructions: DI for Diarrhea and Traveler's Diarrhea -- Adult, DI for Diarrhea and Traveler's Diarrhea -- Child, DI for Nausea -- Adult, DI for Nausea -- Child Print Language Print Language: Dutch Discharge ED Provider: Seb Jeffries General Adult HPI General Chief complaint: Nausea/Vomiting/Diarrhea Stated complaint: heart palpitations-light headed Time Seen by Provider: 03/18/25 09:32 Mode of Arrival: Wheelchair Source of Information: Patient Description of Symptoms (Recalled from ER Triage Doc. by RN): Reports being in this ER recently with diarrhea for weeks. States he was told that he has several masses in his colon. States that the diarrhea is not getting any better and he has started to become dizzy, weak and feels like his heart is pounding sometimes. History of Present Illness HPI narrative: Patient is a 69-year-old male presenting today with palpitations diarrhea and what he describes as black stool. States has been having black tarry stool for the last 2 weeks and having some epigastric discomfort. Was here just a few days ago and had unremarkable labs but had a CT scan showing a potential colonic mass. He has follow-up with gastroenterology in April of next month. States his abdominal pain is somewhat improved but still present. Is on aspirin and Plavix for coronary artery disease and stents. Denies any chest pain exertional symptoms etc. Related Data Home Medications ?Medication ?Instructions ?Recorded ?Confirmed nitroglycerin 0.4 mg sublingual 0.4 mg sublingual [id number] PRN 02/08/24 03/06/25 tablet Chest Pain cholecalciferol (vitamin D3) 50 50 mcg PO DAILY 04/16/24 03/06/25 mcg (2,000 unit) capsule Previous Rx's ?Medication ?Instructions ?Recorded aspirin 81 mg chewable tablet 81 mg PO DAILY #30 tabs 04/02/24 clopidogrel 75 mg tablet See Rx Instructions .Route 04/16/24 .COMPLEX #90 tabs lancets (Accu-Chek Fastclix Lancet #102 ea 05/11/24 Drum) cyclobenzaprine 5 mg tablet See Rx Instructions .Route 07/05/24 .COMPLEX #90 tabs pantoprazole 40 mg tablet,delayed 40 mg PO DAILY stomach issues #90 11/12/24 release tabs bisoprolol fumarate 5 mg tablet 5 mg PO DAILY #90 tabs 12/12/24 metformin 1,000 mg tablet 1,000 mg PO BID #120 tabs 01/02/25 hydralazine 10 mg tablet See Rx Instructions .Route 01/14/25 .COMPLEX #120 tabs hydrocodone 5 mg-acetaminophen 325 1 tab PO DAILY PRN pain #30 tabs 01/24/25 mg tablet atorvastatin 80 mg tablet 80 mg PO DAILY #30 tabs 01/28/25 hydrochlorothiazide 25 mg tablet 25 mg PO DAILY #90 tabs 02/12/25 blood sugar diagnostic (Accu-Chek #100 ea 02/14/25 Guide test strips) tamsulosin 0.4 mg capsule (Flomax) 0.4 mg PO DAILY #30 caps 02/20/25 enalapril maleate 20 mg tablet 20 mg PO DAILY #180 tabs 03/06/25 fluoxetine 20 mg capsule See Rx Instructions .Route 03/10/25 .COMPLEX #90 caps Allergies Allergy/AdvReac Type Severity Reaction Status Date / Time morphine AdvReac Mild Other Verified 03/06/25 08:50 oxycodone (From Percocet) AdvReac Unknown Verified 03/06/25 08:50 allergy reaction [facility] Disclaimer: The information contained in this section may have been updated after the patient was seen, as this information can be updated by other users. Medical History Perforation of left tympanic membrane Deviated septum Mixed hearing loss Mixed hyperlipidemia Bradycardia Diabetes mellitus type 2 with complications Diabetes mellitus type 2, noninsulin dependent Acute dysfunction of both eustachian tubes Sinus bradycardia Bleeding from right ear I saw some dried blood in the right EAC however I did not see any in overt lesions. Abrasion of ear canal Atypical chest pain Arthralgia of left acromioclavicular joint Obesity Diabetes mellitus Right renal stone Low back pain Sinusitis Chest pain Abnormal cardiovascular stress test Atypical angina Angina at rest Ankle pain, left Ureterolithiasis LUCIAN (acute kidney injury) Lamellar nail splitting Onychoincurvatum Ingrown toenail of both feet Class 1 obesity Trigger point of thoracic region Fatigue Bronchitis COPD exacerbation Acute viral syndrome H/O nephrolithotomy with removal of calculi Chest pain Sinus pressure Tinnitus Dizziness Hypokalemia Hyperlipidemia Hearing loss in left ear Otalgia, bilateral Myopathy Dyspnea Palpitations Family history of heart disease Tobacco user COPD (chronic obstructive pulmonary disease) CAD (coronary artery disease) Hypertension Chronic back pain Surgical History History of back surgery History of carpal tunnel release of both wrists History of heart artery stent History of cardiac cath History of colon resection Family History Other No significant family history Social History Smoking Status: Former smoker second hand exposure: No alcohol intake: never substance use type: denies use current occupational status: retired Travel in the last 8 weeks?: Inside the [place] household members: spouse housing: house current occupational exposures/hazards: No caffeine: No Other Medical History Have you received the Flu Vaccine for this season: Yes Have you received the Pneumonia Vaccine: Yes ROS Obtained: Yes All systems reviewed & no additional complaints except as documented Physical Exam General General appearance: alert and in no apparent distress Respiratory Respiratory exam: Present normal lung sounds bilaterally Cardiovascular Cardiovascular exam: Present regular rate Abdominal Exam Abdominal exam: Present soft; Absent distention or tenderness Rectal Exam Rectal exam: Present other (Black stool on rectal exam sent to the lab for development) Neurological Exam Neurological exam: Present alert and oriented X3 Medical Decision Making Medical Records Screening: Per USPSTF and CDC recommendations, given the prevalence of disease in our region, it is our hospital?s policy to screen for HIV and viral Hepatitis for all patients aged 18 and over and those with ongoing risk factors. Nav Inquiry Pt receiving controlled substance: No Vital Signs: 03/18/25 08:44 03/18/25 09:00 03/18/25 09:30 Temperature 98.5 F Temperature Source Oral Pulse Rate 67 61 Pulse Rate [Radial] 79 Respiratory Rate 18 19 19 Blood Pressure 134/69 129/61 Blood Pressure [Right Arm] 146/75 H Blood Pressure Mean [Right Arm] 98 Blood Pressure Source [Right Arm] Automatic Cuff Blood Pressure Position [Right Arm] Sitting 02 Sat by Pulse Oximetry 97 96 96 Oxygen Delivery Method Room Air 03/18/25 10:06 Temperature Temperature Source Pulse Rate 61 Pulse Rate [Radial] Respiratory Rate 18 Blood Pressure 122/68 Blood Pressure [Right Arm] Blood Pressure Mean [Right Arm] Blood Pressure Source [Right Arm] Blood Pressure Position [Right Arm] 02 Sat by Pulse Oximetry 95 Oxygen Delivery Method Lab Data Lab results reviewed: Yes I reviewed the patient's lab results. Lab Results 03/18/25 08:45: WBC 17.0 H, RBC 4.63, Hgb 12.7 L, Hct 38.6 L, MCV 83.4, MCH 27.4, MCHC 32.9, RDW 14.4, Plt Count 308, MPV 9.9, Neut % (Auto) 64.0, Lymph % (Auto) 26.6, [place] % (Auto) 7.1, Eos % (Auto) 1.5, Baso % (Auto) 0.4, Neut # (Auto) 10.9 H, Lymph # (Auto) 4.5, [place] # (Auto) 1.2 H, Eos # (Auto) 0.3, Baso # (Auto) 0.1, PT 11.0, INR 0.99, APTT 25.2, Sodium 135 L, Potassium 3.0 L, Chloride 98, Carbon Dioxide 25, Anion Gap 15.0, BUN 15, Creatinine 1.30 H, Estimated Creat Clear 68, Estimated GFR 55 L, Est GFR ( Amer) 66, Glucose 112 H, Calcium 9.0, Magnesium 1.3 L, Total Bilirubin 0.5, AST 28, ALT 21 D, Alkaline Phosphatase 87, Troponin I < 0.01, Total Protein 6.9, Albumin 4.3, Globulin 2.6, Albumin/Globulin Ratio 1.7, Lipase 51, TSH 2.74 03/18/25 09:52: Stool Occult Blood Negative 03/18/25 10:06: Lactate 3.1 H 03/18/25 08:45 03/18/25 08:45 Orders (Tests/Meds): ED MEDICATIONS Discontinued Medications Generic Name Dose Route Start Last Admin Trade Name Jama PRN Reason Stop Dose Admin Lactated Ringer's 1,000 mls @ 999 mls/hr 03/18/25 08:52 03/18/25 10:03 Lactated Ringer's 1000 Ml Bag IV 03/18/25 09:52 Infused .Q1H1M ONE Infusion Lactated Ringer's 1,000 mls @ 999 mls/hr 03/18/25 09:45 03/18/25 10:02 Lactated Ringer's 1000 Ml Bag IV 03/18/25 10:45 999 mls/hr .Q1H1M WILBERTO Administration Magnesium Oxide 400 mg 03/18/25 11:08 Magnesium Oxide 400mg Tablet PO 03/18/25 11:09 ONCE ONE Potassium Chloride 40 meq 03/18/25 09:44 03/18/25 10:02 Potassium Chloride 20meq Tab PO 03/18/25 09:45 40 meq ONCE ONE Administration ORDERS Category Date Time Status Complete Blood Count Auto Diff Stat Lab 03/18/25 08:45 Completed Comprehensive Metabolic Panel Stat Lab 03/18/25 08:45 Completed Diarrhea 23 Panel, PCR Stat Lab 03/18/25 09:45 Ordered Lactic Acid Stat Lab 03/18/25 10:06 Completed Lipase Stat Lab 03/18/25 08:45 Completed Magnesium Stat Lab 03/18/25 08:45 Completed Occult Blood,Stool Stat Lab 03/18/25 09:52 Completed PT/PTT Stat Lab 03/18/25 08:45 Completed TSH [Thyroid Stimulating Hormone] Stat Lab 03/18/25 08:45 Completed Trop I [Troponin I] Stat Lab 03/18/25 08:45 Completed Troponin I Q3H Lab 03/18/25 12:45 Ordered Troponin I Q3H Lab 03/18/25 15:45 Ordered Medical Decision Narrative: Patient with above history and physical. EKG performed I personally interpreted shows a ventricular rate of 72 no acute ischemic changes noted no significant arrhythmia normal axis no significant conduction abnormalities noted. Patient's abdominal exam is benign. States has had melena for the last several days H&H is stable no BUN/creatinine ratio elevation. However he does have black stool on my exam will send Hemoccult and diarrhea panel. No indication for repeat CT imaging but he did have a colonic mass that was recently found possibly colonic cancer. Regarding palpitations EKG unremarkable potassium is low which could have caused him to have an arrhythmia he is asymptomatic from the standpoint at the moment we will replace his potassium. Will reassess after his workup is complete. Reassessment 1111 patient had a low potassium and magnesium both of which were replaced felt much better after IV fluids likely patient had some dehydration's electrolyte abnormalities causing his palpitations. No evidence of any significant arrhythmia particular ventricular arrhythmia while in the emergency department today. No stool sample was given we are trying to get an outpatient order placed for diarrhea PCR panel. Abdominal exams continue to be benign. We called Dr. Baeza office and they got him into their clinic tomorrow morning at 1030 to be seen by Caitlyn carrasquillo. No cardiovascular emergency noted today. Patient discharged in stable condition. Of note patient's H&H BUN and occult stool were all unremarkable. No evidence of upper GI bleed specifically. Critical Care Critical Care Time Critical Care Time: Yes Attestation: On 03/18/25, the high probability of a clinically significant, sudden or life threatening deterioration of the following system(s) required my full and direct attention, intervention and personal management. The time I documented below is in addition to time spent performing reported procedures but includes the following listed in this critical care notation. Total Time Total Critical Care Time: 35
--- NOTE | 2025-03-18 09:52 | PC.NURSE ---
Dr. Jeffries notified of K+3.0.
[2025-03-18 09:58] LABS: Activated Partial Thrombo Time 25.2 seconds (22.8-30.6); INR 0.99 (0.9-1.1); Prothrombin Time 11.0 seconds (10.1-12.5)
[2025-03-18 10:02] LABS: Lipase 51 U/L (23-300); Magnesium 1.3 mg/dl (1.6-2.3)
[2025-03-18] MEDS: POTASSIUM CHLORIDE 20MEQ TAB 40 MEQ PO (10:02)
[2025-03-18 10:05] LABS: Occult Blood,Stool Negative (Negative)
[2025-03-18 10:06] VITALS: BP 122/68; PULSE 61; RESP 18; O2SAT 95
[2025-03-18 10:17] LABS: Troponin I < 0.01 ng/ml (0.00-0.034)
[2025-03-18 10:32] LABS: Thyroid Stimulating Hormone 2.74 uIU/mL (0.465-4.68)
--- NOTE | 2025-03-18 11:03 | PC.NURSE ---
Appointment with Caitlyn Connell at Dr Baeza for Tuesday 10:30 am.
[2025-03-18 11:22] VITALS: BP 129/69; PULSE 66; RESP 18; TEMP 36.6; O2SAT 99
[2025-03-18 14:09] LABS: Reflex Lactic Add Lactic Reflex
--- NOTE | 2025-03-20 08:56 | PC.NURSE ---
Diarrhea panel discussed with . No change needed to pts treatment plan.
== END 2025-03-18 11:23 | disposition home or self-care (01) ==
PROVIDERS: Emergency Provider Student in an Organized Health Care Education/Training Program; PCP Family Medicine
DX: R10.13 Epigastric pain (principal); R74.02 Elevation of levels of lactic acid dehydrogenase [LDH]; E87.6 Hypokalemia; E83.42 Hypomagnesemia; R00.2 Palpitations; Z86.79 Personal history of other diseases of the circulatory system; Z95.5 Presence of coronary angioplasty implant and graft; Z79.01 Long term (current) use of anticoagulants
CPT/HCPCS: 80053; 82272; 83605; 83690; 83735; 84443; 84484; 85025; 85610; 85730; 93005; 96360; 96361; 99285; G0328; J7120

== ENCOUNTER 2025-03-19 10:00 | Outpatient (CLI) | payer MEDICARE, SELFPAY ==
[2025-03-19 10:07] LABS: Adenovirus F 40/41, stool Not Detected (NotDetected); Clostridium Difficile A/B, PCR Not Detected (NotDetected); Cyclospora Cayetanesis Not Detected (NotDetected); Plesimonas Shigalloides, PCR Not Detected (NotDetected); Salmonella, PCR Not Detected (NotDetected); Shiga-like toxin E coli Not Detected (NotDetected); Shigella Enterovasive E coli Not Detected (NotDetected); Vibrio, PCR Not Detected (NotDetected); Yersinia Entercolitica, PCR Not Detected (NotDetected)
--- OUTSIDE RECORDS SUMMARY | 2025-03-19 10:29 | XMS_ITS | Clinical Summary ---
[facility] Address [address] [place] [address] Care Team Providers Care Dog Obedience Instructor Name Role Phone Annmarie Gutierrez MD Primary Care Provider [phone] Allergies Active Allergy Reactions Criticality Noted Date [...] (01/20/2017): Added automatically from request for surgery [id number] Family History Medical History Relation Name Comments [...] history exists Medical Devices Implanted Type Area Toy Assembler Wood Device Identifier Shelf Expiration Date Model / Serial / Lot Stent Xience Alpine Wali Rx [id number] - [id number] Implanted:Qty: 1 on 01/25/2017 by Saurav English MD at [facility] [id number] / / Stent Xience Alpine Wali Rx [id number] - [id number] Implanted:Qty: 1 on 01/25/2017 by Saurav English MD at [facility] [id number] / / Insurance [facility] P[facility] Care Teams Dog Obedience Instructor Relationship Specialty Start Date End Date Annmarie Gutierrez MD PCP - General Family Medicine 01/25/17
--- OUTSIDE RECORDS SUMMARY | 2025-03-19 10:29 | XMS_ITS | Clinical Summary ---
Author Organization Healthcare Address [address] [id number] Care Team Providers Care Engine Installer Name Role Phone Annmarie Gutierrez MD Primary Care Provider [phone] Social History Tobacco Use Types Packs/Day Years [...] 2005 UKY-Zoster Vaccines (1 of 2) 2005 [id number] Vaccine (1 - 20 24-25 season) 2025 [...] age to complete this topic Care Teams Engine Installer Relationship Specialty Start Date End Date Annmar[place] [address] PCP - General 11/14/20
== END 2025-03-19 23:59 | disposition home or self-care (01) ==
LOC: LAB 10:02
PROVIDERS: PCP Family Medicine; Visit Provider Student in an Organized Health Care Education/Training Program
DX: R19.7 Diarrhea, unspecified (principal)
CPT/HCPCS: 87507

== ENCOUNTER 2025-03-20 07:33 | Day surgery (SDC) | payer MEDICARE, SELFPAY ==
[2025-03-20] VITALS (8 sets, daily range): BP systolic 107–176; BP diastolic 58–84; PULSE 60–79; RESP 14–18; TEMP 36.2–37.2; O2SAT 96–99; BMI 29.3
--- NOTE | 2025-03-20 07:06 | EXP.HP ---
History of Present Illness *Admission Date: 03/20/25 *Reason for visit:: Melena/anemia with change in bowel habits and mass in colon and cecum *History of present illness: Mr. Jasmine is a 69-year-old gentleman who is here for diagnostic EGD and colonoscopy. The patient did go to the ED 5 days ago and felt like he was dehydrated. He had mild anemia with hemoglobin of 12.6. A CAT scan showed a mass of the sacrum (4.5 x 3.7 cm) with additional masses in the right colon. The patient has never had EGD or colonoscopy. The patient declined transfer to the [facility] or admission. The patient has had epigastric abdominal pain, nausea and early satiety. He has also had some change in bowel habits with diarrhea and some black liquid stool. He has noted some bright red blood and some dark blood with his bowel movements and has generalized abdominal pain. The examination is deemed medically necessary for diagnostic EGD and colonoscopy. The patient has been seen, interviewed and examined prior to the procedure by both myself and the anesthesia provider. [facility] Disclaimer: The information contained in this section may have been updated after the patient was seen, as this information can be updated by other users. Medical History Perforation of left tympanic membrane Deviated septum Mixed hearing loss Mixed hyperlipidemia Bradycardia Diabetes mellitus type 2 with complications Diabetes mellitus type 2, noninsulin dependent Acute dysfunction of both eustachian tubes Sinus bradycardia Bleeding from right ear I saw some dried blood in the right EAC however I did not see any in overt lesions. Abrasion of ear canal Atypical chest pain Arthralgia of left acromioclavicular joint Obesity Diabetes mellitus Right renal stone Low back pain Sinusitis Chest pain Abnormal cardiovascular stress test Atypical angina Angina at rest Ankle pain, left Ureterolithiasis LUCIAN (acute kidney injury) Lamellar nail splitting Onychoincurvatum Ingrown toenail of both feet Class 1 obesity Trigger point of thoracic region Fatigue Bronchitis COPD exacerbation Acute viral syndrome H/O nephrolithotomy with removal of calculi Chest pain Sinus pressure Tinnitus Dizziness Hypokalemia Hyperlipidemia Hearing loss in left ear Otalgia, bilateral Myopathy Dyspnea Palpitations Family history of heart disease Tobacco user COPD (chronic obstructive pulmonary disease) CAD (coronary artery disease) Hypertension Chronic back pain Surgical History History of back surgery History of carpal tunnel release of both wrists History of heart artery stent History of cardiac cath History of colon resection Family History Other No significant family history Social History (Updated 03/20/25 @ 08:17 by Ileana Duke RN) Smoking Status: Former smoker second hand exposure: No alcohol intake: never substance use type: denies use current occupational status: retired Travel in the last 8 weeks?: Inside the [place] household members: spouse housing: house current occupational exposures/hazards: No caffeine: No Have you lived/traveled outside [place] in past 30 days?: No Contact w/someone who lives/traveled outside US past 30 days?: No Exposure to someone with infectious disease in past 14 days?: No Do you have a fever (greater than 100.4 F or 38 C)?: No Have you tested positive for COVID-19?: No Exposed to someone with COVID-19 in past 14 days?: No Do you have a sore throat?: No Do you have a cough?: No Do you have any weakness?: No Are you experiencing any nausea/vomitting?: No Do you have any diarrhea?: No Are you experiencing any unusual bleeding?: No Do you have any muscle aches/pain?: No Do you have any abdominal pain?: No Are you experiencing loss of taste or smell?: No Other Medical History Have you received the Flu Vaccine for this season: Yes Have you received the Pneumonia Vaccine: Yes Review of Systems Review of Systems Review of systems (narrative): Negative *Cardiovascular Comments: Negative *Gastrointestinal Comments: Negative *Genitourinary Comments: Negative *Musculoskeletal Comments: Negative *Neurologic Comments: Negative Meds Home Medications and Allergies Home Medications ?Medication ?Instructions ?Recorded ?Confirmed ?Type nitroglycerin 0.4 mg sublingual 0.4 mg sublingual [id number] PRN 02/08/24 03/20/25 History tablet Chest Pain aspirin 81 mg chewable tablet 81 mg PO DAILY #30 tabs 04/02/24 03/20/25 Rx cholecalciferol (vitamin D3) 50 50 mcg PO DAILY 04/16/24 03/20/25 History mcg (2,000 unit) capsule clopidogrel 75 mg tablet See Rx Instructions .Route 04/16/24 03/20/25 Rx .COMPLEX #90 tabs lancets (Accu-Chek Fastclix Lancet #102 ea 05/11/24 03/20/25 Rx Drum) cyclobenzaprine 5 mg tablet See Rx Instructions .Route 07/05/24 03/20/25 Rx .COMPLEX #90 tabs pantoprazole 40 mg tablet,delayed 40 mg PO DAILY stomach issues #90 11/12/24 03/20/25 Rx release tabs bisoprolol fumarate 5 mg tablet 5 mg PO DAILY #90 tabs 12/12/24 03/20/25 Rx metformin 1,000 mg tablet 1,000 mg PO BID #120 tabs 01/02/25 03/20/25 Rx hydralazine 10 mg tablet See Rx Instructions .Route 01/14/25 03/20/25 Rx .COMPLEX #120 tabs hydrocodone 5 mg-acetaminophen 325 1 tab PO DAILY PRN pain #30 tabs 01/24/25 03/20/25 Rx mg tablet atorvastatin 80 mg tablet 80 mg PO DAILY #30 tabs 01/28/25 03/20/25 Rx hydrochlorothiazide 25 mg tablet 25 mg PO DAILY #90 tabs 02/12/25 03/20/25 Rx blood sugar diagnostic (Accu-Chek #100 ea 02/14/25 03/20/25 Rx Guide test strips) enalapril maleate 20 mg tablet 20 mg PO DAILY #180 tabs 03/06/25 03/20/25 Rx fluoxetine 20 mg capsule See Rx Instructions .Route 03/10/25 03/20/25 Rx .COMPLEX #90 caps New Prescriptions to Start Prescriptions: Allergies Allergy/AdvReac Type Severity Reaction Status Date / Time morphine AdvReac Mild Other Verified 03/20/25 08:18 oxycodone (From Percocet) AdvReac Unknown Verified 03/20/25 08:18 allergy reaction Exam *Routine HEENT Exam Head: Present normocephalic Eye: Present EOMI and PERRL ENT: Present mucous membranes moist *Routine Neck Exam Neck: Present supple *Routine Respiratory Exam Respiratory: Present CTA bilaterally *Routine Cardiovascular Exam Cardiovascular: Present RRR *Routine Abdominal Exam Abdominal: Present soft and normoactive bowel sounds; Absent tenderness *Routine Rectal Exam Rectal:: deferred *Routine Genitalia Exam Genitalia:: deferred *Routine Extremities Exam Extremities: Absent cyanosis, clubbing or edema *Routine Skin Exam Skin: Present warm; Absent rash *Routine Neurological Exam Neurological: Present alert and oriented X3 Assessment and Plan *Assessment and plan (1) Mass of colon: Status: Acute Category: Medical Code(s): K63.89 - Other specified diseases of intestine (2) Change in bowel habits: Status: Acute Category: Medical Code(s): R19.4 - Change in bowel habit (3) Blood in stool: Status: Acute Category: Medical Code(s): K92.1 - Melena (4) Complaint of melena: Status: Acute Category: Medical Code(s): K92.1 - Melena (5) Generalized abdominal pain: Status: Acute Category: Medical Code(s): R10.84 - Generalized abdominal pain (6) Nausea: Status: Acute Category: Medical Code(s): R11.0 - Nausea (7) Early satiety: Status: Acute Category: Medical Code(s): R68.81 - Early satiety (8) Anemia: Status: Acute Category: Medical Code(s): D64.9 - Anemia, unspecified (9) Cecum mass: Status: Acute Category: Medical Code(s): K63.89 - Other specified diseases of intestine Plan A/P: 1. Blood in stool with CAT scan showing mass in cecum and colonic masses is the preprocedural diagnosis. The patient has had generalized abdominal pain, change in his bowel habits and anemia with MCV declining. The patient will be anesthetized/sedated using MAC sedation. The patient has been seen and examined. Cardiac and lung assessment prior to the examination is stable. Proceed with planned diagnostic EGD and colonoscopy.
[2025-03-20] MEDS: LACTATED RINGERS 1000ML 1,000 ML 50 ML IV (08:31)
--- NOTE | 2025-03-20 09:02 | P.PNANES_ITS ---
[facility] Disclaimer: The information contained in this section may have been updated after the patient was seen, as this information can be updated by other users. Medical History Perforation of left tympanic membrane Deviated septum Mixed hearing loss Mixed hyperlipidemia Bradycardia Diabetes mellitus type 2 with complications Diabetes mellitus type 2, noninsulin dependent Acute dysfunction of both eustachian tubes Sinus bradycardia Bleeding from right ear I saw some dried blood in the right EAC however I did not see any in overt lesions. Abrasion of ear canal Atypical chest pain Arthralgia of left acromioclavicular joint Obesity Diabetes mellitus Right renal stone Low back pain Sinusitis Chest pain Abnormal cardiovascular stress test Atypical angina Angina at rest Ankle pain, left Ureterolithiasis LUCIAN (acute kidney injury) Lamellar nail splitting Onychoincurvatum Ingrown toenail of both feet Class 1 obesity Trigger point of thoracic region Fatigue Bronchitis COPD exacerbation Acute viral syndrome H/O nephrolithotomy with removal of calculi Chest pain Sinus pressure Tinnitus Dizziness Hypokalemia Hyperlipidemia Hearing loss in left ear Otalgia, bilateral Myopathy Dyspnea Palpitations Family history of heart disease Tobacco user COPD (chronic obstructive pulmonary disease) CAD (coronary artery disease) Hypertension Chronic back pain Surgical History History of back surgery History of carpal tunnel release of both wrists History of heart artery stent History of cardiac cath History of colon resection Family History Other No significant family history Social History (Updated 03/20/25 @ 08:17 by Ileana Duke RN) Smoking Status: Former smoker second hand exposure: No alcohol intake: never substance use type: denies use current occupational status: retired Travel in the last 8 weeks?: Inside the [place] household members: spouse housing: house current occupational exposures/hazards: No caffeine: No Have you lived/traveled outside US in past 30 days?: No Contact w/someone who lives/traveled outside US past 30 days?: No Exposure to someone with infectious disease in past 14 days?: No Do you have a fever (greater than 100.4 F or 38 C)?: No Have you tested positive for COVID-19?: No Exposed to someone with COVID-19 in past 14 days?: No Do you have a sore throat?: No Do you have a cough?: No Do you have any weakness?: No Are you experiencing any nausea/vomitting?: No Do you have any diarrhea?: No Are you experiencing any unusual bleeding?: No Do you have any muscle aches/pain?: No Do you have any abdominal pain?: No Are you experiencing loss of taste or smell?: No [facility] Anesthesia Checklist Patient Identification Patient Identification: Verbal (Name & ) Structural Data Admitted From: Home Planned Operative Procedure/s: egd/colonoscopy Consent for Planned Operative Procedure(s) Verified: Yes NPO Status Verified Time NPO: 00:00 Additional verifications Anesthesia Reactions: Yes (hypotension/hypertension) Hx Blood Transfusions: No Blood Transfusion Reaction: No Airway Assessment Mallampati Score:: Class II C-Spine Mobility Assessed: Yes TMJ Mobility Assessed: Yes Dentition: Good Dentition Neurological Assessment Level of Consciousness: Awake, Alert and Appropriate Anesthesia Plan Anesthesia Risk discussed: Yes Anesthesia Plan: Verified ASA Class: II Anesthesia Type: MAC
--- NOTE | 2025-03-20 09:27 | P.PCN_ITS ---
[facility] Procedure Note Date: 03/20/25 Time: 09:47 Procedure Note:: Upper Endoscopy Procedure Report: Esophagogastroduodenoscopy with cold biopsies Endoscopost: Kings Baeza II, MD Referring Physician: VIC Sousa Date of Procedure: March 20, 2025 Equipment: Olympus GIF-1100 standard upper endoscope Sedation: MAC sedation Indications: Mr. Jasmine is a 69-year-old gentleman who is here for diagnostic EGD and colonoscopy. The patient did go to the ED 5 days ago and felt like he was dehydrated. He had mild anemia with hemoglobin of 12.6. A CAT scan showed a mass of the sacrum (4.5 x 3.7 cm) with additional masses in the right colon. The patient has never had EGD or colonoscopy. The patient declined transfer to the [facility] or admission. The patient has had epigastric abdominal pain, nausea and early satiety. He has had a 12 to 13 pound weight loss in the last 3 weeks. He has also had some change in bowel habits with diarrhea and some black liquid stool. He has noted some bright red blood and some dark blood with his bowel movements and has generalized abdominal pain. The patient's hemoglobin and hematocrit were 12.7 and 38.6. The patient stool testing was positive for enteropathogenic E. coli. The examination is deemed medically necessary for diagnostic EGD and colonoscopy. Procedure: Prior to the procedure, a history and physical exam was performed, and patient's medications and allergies were reviewed. The risks, benefits and alternatives of the sedation and procedure were discussed with the patient. All questions were answered and informed consent was obtained. The patient was brought to the procedure room. Patient identification and proposed procedure were verified by the physician and the nurse. The patient was placed in a left lateral decubitus position and the scope was passed under direct vision. Throughout the procedure, the patient's blood pressure, pulse, and oxygen saturations were monitored continuously. The upper GI endoscopy was accomplished without difficulty. The patient tolerated the procedure well. Findings: The scope was passed directly into the upper esophagus and advanced to the third portion of the duodenum. The post bulbar duodenum, ampulla and duodenal bulb were normal with normal mucosa and conniventes. The scope was withdrawn through a normal duodenal bulb and pylorus into the stomach. There was some bile reflux with very mild gastropathy. Cold biopsies were obtained. The remainder of the body and fundus of the stomach were normal. Upon retroflexion there was a very small sliding 1 to 2 cm hiatal hernia. The scope was then withdrawn into the esophagus. There was no evidence of reflux esophagitis or Cabral's. The remainder of the esophageal mucosa was normal. Impression: 1. Mild gastropathy Plan: There was no clear etiology for the patient's melena and hematochezia, weight loss and CAT scan findings. I will proceed with diagnostic colonoscopy.
--- NOTE | 2025-03-20 09:50 | HMH.PROCNOTE ---
[facility] Procedure Note Date: 03/20/25 Time: 10:16 Procedure Note:: Colonoscopy Procedure Report: Colonoscopy with cold snare polypectomy, submucosal injection of epinephrine, snare cautery, cold biopsies and Endo Clip placement Endoscopist: Kings Baeza II, MD Referring physician: VIC Sousa Date of Procedure: March 20, 2025 Equipment: Olympus [id number] adult colonoscope Sedation: MAC sedation Indication: Mr. Jasmine is a 69-year-old gentleman who is here for diagnostic EGD and colonoscopy. The patient did go to the ED 5 days ago and felt like he was dehydrated. He had mild anemia with hemoglobin of 12.6. A CAT scan showed a mass of the sacrum (4.5 x 3.7 cm) with additional masses in the right colon. The patient has never had EGD or colonoscopy. The patient declined transfer to the [facility] or admission. The patient has had epigastric abdominal pain, nausea and early satiety. He has had a 12 to 13 pound weight loss in the last 3 weeks. He has also had some change in bowel habits with diarrhea and some black liquid stool. He has noted some bright red blood and some dark blood with his bowel movements and has generalized abdominal pain. The patient's hemoglobin and hematocrit were 12.7 and 38.6. The patient stool testing was positive for enteropathogenic E. coli. The examination is deemed medically necessary for diagnostic EGD and colonoscopy. Procedure: Prior to the procedure, a history and physical exam was performed, and patient's medications and allergies were reviewed. The risks, benefits and alternatives of the sedation and procedure were discussed with the patient. All questions were answered and informed consent was obtained. The patient was brought to the procedure room. Patient identification and proposed procedure were verified by the physician and the nurse. The patient was placed in a left lateral decubitus position and the scope was passed under direct vision. Throughout the procedure, the patient's blood pressure, pulse, and oxygen saturations were monitored continuously. The colonoscopy was accomplished without difficulty. The patient tolerated the procedure well. Findings: On digital rectal examination there was normal rectal tone. There were no external hemorrhoids. The colonoscope was introduced through the anal canal to the rectum and advanced to the cecum. The ileocecal valve and appendiceal orifice were identified. The scope was advanced a short distance into the ileum which appeared grossly normal. The scope was then withdrawn into the colon. There were a total of 6 polyps (ascending x 3 (3, 3 and 4 mm) and transverse x 3 (5, 7 and 9 mm)) which were removed via cold snare polypectomy. There was a larger descending/sigmoid pedunculated polyp that was 16 to 17 mm. The polyp stalk was injected with 1-10,000 epinephrine (4 mL). This was removed via snare cautery. A single Endo Clip was placed over the apex of the stalk to prevent post polypectomy bleeding. In the sigmoid colon (lower sigmoid at 20 cm from the pectinate line) was a hemiferential friable fungating mass with excavation and central depression that encompassed 60% of the circumference and extended at least 3 to 4 cm. This was well above the pelvic reflection. Multiple cold biopsies were obtained. There were scattered diverticuli throughout the descending and sigmoid colon (LEFT colon). The rectum itself was normal. Upon retroflexion within the rectum there were grade 1-2 internal hemorrhoids. The preparation was excellent throughout with [place] Preparation Score of 9. The cecal time was 20 minutes. Impression: 1. Lower sigmoid hemiferential colonic mass (60% of colonic circumference at 20 cm from pectinate line) consistent with sigmoid colon cancer 2. Large pedunculated 17 mm polyp (at 30 cm from pectinate line) 3. 6 additional colonic polyps 4. Left-sided diverticulosis 5. Grade 1-2 internal hemorrhoids Plan: I am going to refer the patient to oncology initially especially since this does appear to be locally advanced. I will discuss the findings with the patient and family. I will obtain CEA level and iron studies.
[2025-03-20] MEDS: EPINEPHrine 0.1 MG/ML 10ML SYRINGE (CRASH CART) 0.4 MG IV (10:12)
[2025-03-20 11:18] LABS: Iron 30 ug/dL (49-181)
[2025-03-20 11:28] LABS: Total Iron Binding Capacity 241 ug/dL (261-462)
[2025-03-20 11:56] LABS: Ferritin 59.9 ng/ml (17.9-464)
[2025-03-20 20:02] LABS: POC Glucose,Bedside 124 gm/dL (70-110)
[2025-03-21 10:14] LABS: CEA 2.5 ng/mL (0.0-4.7)
== END 2025-03-20 11:35 | disposition home or self-care (01) ==
PROVIDERS: PCP Family Medicine; Visit Provider Internal Medicine Gastroenterology
PROC: 0DJ08ZZ Inspection of Upper Intestinal Tract, Via Natural or Artificial Opening Endoscopic (ICD-10-PCS; CPT 45378; principal; 2025-03-20 09:30)
DX: D12.2 Benign neoplasm of ascending colon (principal); D12.4 Benign neoplasm of descending colon; D12.3 Benign neoplasm of transverse colon; C18.7 Malignant neoplasm of sigmoid colon; K57.30 Diverticulosis of large intestine without perforation or abscess without bleeding; K64.0 First degree hemorrhoids; K64.1 Second degree hemorrhoids; K44.9 Diaphragmatic hernia without obstruction or gangrene; K31.9 Disease of stomach and duodenum, unspecified; K29.50 Unspecified chronic gastritis without bleeding; K21.9 Gastro-esophageal reflux disease without esophagitis; K92.1 Melena; D64.9 Anemia, unspecified; I25.10 Atherosclerotic heart disease of native coronary artery without angina pectoris; E78.2 Mixed hyperlipidemia; E11.9 Type 2 diabetes mellitus without complications; I10 Essential (primary) hypertension; Z79.02 Long term (current) use of antithrombotics/antiplatelets; Z88.5 Allergy status to narcotic agent; Z79.84 Long term (current) use of oral hypoglycemic drugs; Z87.891 Personal history of nicotine dependence
CPT/HCPCS: 43239; 45380; 45381; 45385; 36415; 82378; 82728; 82962; 83540; 83550; J0169; J2003; J2704; J7120

== ENCOUNTER 2025-03-28 18:11 | Emergency (ER) | payer MEDICARE, SELFPAY ==
[2025-03-28 18:27] VITALS: BP 196/86; PULSE 64; RESP 16; TEMP 37.1; O2SAT 93; BMI 29.3
--- OUTSIDE RECORDS SUMMARY | 2025-03-28 18:39 | XMS_ITS | Clinical Summary ---
[facility] Address [address] [place] [address] Care Team Providers Care Relationship Banker Name Role Phone Annmarie Gutierrez MD Primary Care Provider [phone] Allergies Active Allergy Reactions Criticality Noted Date [...] (01/20/2017): Added automatically from request for surgery [id number] Family History Medical History Relation Name Comments [...] (2 of 2 - PCV) 06/04/2021 06/04/2020 INFLUENZA VACCINE 02/01/2025 04/06/2022, , 04/22/2020, Additional history exists COVID-19 Vaccine (6 - 2024-2 6 season) 2025 04/06/2022, 11/24/2021, 05/26/2021, Additional history exists Medical Devices Implanted Type Area Engineering Analyst Device Identifier Shelf Expiration Date Model / Serial / Lot Stent Xience Alpine Wali Rx [id number] - [id number] Implanted:Qty: 1 on 01/25/2017 by Saurav English MD at [facility] [id number] / / Stent Xience Alpine Wali Rx [id number] - [id number] Implanted:Qty: 1 on 01/25/2017 by Saurav English MD at [facility] V[facility]ULAR [id number] / / Insurance [facility] PPO Care Teams Relationship Banker Relationship Specialty Start Date End Date Annmarie Gutierrez MD PCP - General Family Medicine 01/25/17
--- OUTSIDE RECORDS SUMMARY | 2025-03-28 18:39 | XMS_ITS | Data Portability ---
Author Organization [place] [facility] [place] & [facility] ADMIN Address [address] [place] [address] Care Team Providers Care Lead Housekeeper Name Role Phone NATALEE SIMPSON Primary Care Provider Assessment No assessment recorded. Plan of Treatment Reminders Order Date Submit Date Provider Last Modified By Organization Details Last Modified Time Details Appointments None recorded. Lab None recorded. Referral None recorded. Procedures None recorded. Surgeries None recorded. Imaging CT, abdomen + pelvis, w/o contrast 2022 023 [facility] (Scheduling), [address], [place], [address], 09:28:13 Medication Orders None recorded. Patient TargetsNo targets recorded. Patient InstructionsNo instructions recorded. Reason for Referral None Reported. Results Created Date Observation Date Name Description Value Unit Range Abnormal Flag Note LastModifiedBy Organization Detail LastModifiedTime 03/28/20 23 03/28/2023 CT, abdom en + pelvi s, w/o contr ast No observ ation record ed. [facility] [address], [place], [address], 04/14/2023 14:49:58 Result Notes None recorded. Medical [...] Updated DateTime 03/21/2023 175.26 cm 29.8 kg/m2 27300.66 g 97 [degF] Becky [facility] - [facility] - [place] & [place] 03/21/2023 14:56:01 Social History None recorded. Functional [...] available 03/21/2023 07:11:36 Medical History Condition Response Diabetes Y Hyperlipidemia Y Heart Disease Y Kidney Stones Y Depression Y Past Encounters Encounter ID Performer Location Encounter Start Date Encounter Closed Date Diagnosis/Indication Diagnosis SNOMED-CT Code Diagnosis ICD10 Code Diagnosis IMO Codes Diagnosis Note [id number] Amandeep Dodson Jr, MD [facility] Urology [address] [place] [phone] 03/21/2023 14:42:17 03/21/2023 15:53:05 Left flank pain 107810224 R10.9 patient with history of stones in [...] Mcgee Member ID Guarantor Name 01/21/2024 1 [place]MEDICARE REPLACEMENT HMO) [id number] Alejandro Jasmine [id number] Alejandro Jasmine Notes Date Note Type Note Provider Name and Address Organization Details Recorded Time 03/21/2023 text/html Patient is a 67-year-old white male with a history of nephrolithiasis with recent left-sided flank pain. He went to [facility] on March 10 with left-sided flank pain. 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 No evidence of stones were noted. Amandeep Dodson Jr, MD [address] [place] [address], [address], [place], [address], [place] & [place] 03/24/2023 12:49:03
--- OUTSIDE RECORDS SUMMARY | 2025-03-28 18:39 | XMS_ITS | Clinical Summary ---
Author Organization Healthcare Address [address] [id number] Care Team Providers Care Binder Chainstitch Name Role Phone Annmarie Gutierrez MD Primary Care Provider [phone] Social History Tobacco Use Types Packs/Day Years [...] 2005 UKY-Zoster Vaccines (1 of 2) 2005 [id number] Vaccine (1 - 20 24-25 season) 2025 [...] age to complete this topic Care Teams Binder Chainstitch Relationship Specialty Start Date [place] [address] PCP - General 11/14/20
== END 2025-03-28 18:39 | disposition left against medical advice (07) ==
LOC: ER 18:37
PROVIDERS: Emergency Provider Student in an Organized Health Care Education/Training Program; PCP Family Medicine
DX: Z53.21 Procedure and treatment not carried out due to patient leaving prior to being seen by health care provider (principal)
CPT/HCPCS: 99211; 99282

== ENCOUNTER 2025-03-31 08:26 | Emergency (ER) | payer MEDICARE, SELFPAY ==
[2025-03-31] VITALS (7 sets, daily range): BP systolic 139–155; BP diastolic 73–75; PULSE 68–78; RESP 15–19; TEMP 36.7–37.5; O2SAT 94–97; BMI 28.0
--- OUTSIDE RECORDS SUMMARY | 2025-03-31 08:34 | XMS_ITS | Clinical Summary ---
[facility] Address [address] [place] [address] Care Team Providers Care Finish Filer Name Role Phone Annmarie Gutierrez MD Primary Care Provider [phone]- [phone] Allergies Active Allergy Reactions Criticality Noted Date [...] (01/20/2017): Added automatically from request for surgery [id number] Family History Medical History Relation Name Comments [...] history exists Medical Devices Implanted Type Area Safety Investigator Device Identifier Shelf Expiration Date Model / Serial / Lot Stent Xience Alpine Wali Rx [id number] - [id number] Implanted:Qty: 1 on 01/25/2017 by Saurav English MD at [facility] [id number] / / Stent Xience Alpine Wali Rx [id number] - [id number] Implanted:Qty: 1 on 01/25/2017 by Saurav English MD at [facility] VASCULAR [id number] / / Insurance [facility] PPO Care Teams Finish Filer Relationship Specialty Start Date End Date Annmarie Gutierrez MD PCP - General Family Medicine 01/25/17
--- OUTSIDE RECORDS SUMMARY | 2025-03-31 08:34 | XMS_ITS | Clinical Summary ---
Author Organization Healthcare Address [address] [id number] Care Team Providers Care Program Host Name Role Phone Annmarie Gutierrez MD Primary Care Provider [phone] Social History Tobacco Use Types Packs/Day Years [...] 2005 UKY-Zoster Vaccines (1 of 2) 2005 [id number]-79 Vaccine (1 - 20 24-25 season) 2025 [...] age to complete this topic Care Teams Program Host Relationship Specialty Start Date End [place] [address] PCP - General 11/14/20
--- OUTSIDE RECORDS SUMMARY | 2025-03-31 08:34 | XMS_ITS | Data Portability ---
Author Organization [place] [facility] [place] & [facility] ADMIN Address [address] [place] [address] Care Team Providers Care Manager Critical Care Unit Name Role Phone NATALEE SIMPSON Primary Care Provider Assessment No assessment recorded. Plan of Treatment Reminders Order Date Submit Date Provider Last Modified By Organization Details Last Modified Time Details Appointments None recorded. Lab None recorded. Referral None recorded. Procedures None recorded. Surgeries None recorded. Imaging CT, abdomen + pelvis, w/o contrast 2022 023 [facility] (Scheduling), [address], [place], [address], 09:28:13 Medication Orders None recorded. Patient TargetsNo targets recorded. Patient InstructionsNo instructions recorded. Reason for Referral None Reported. Results Created Date Observation Date Name Description Value Unit Range Abnormal Flag Note LastModifiedBy Organization Detail LastModifiedTime 03/28/20 23 03/28/2023 CT, abdom en + pelvi s, w/o contr ast No observ ation record ed. [facility] [address], [place], [address], 04/14/2023 14:49:58 Result Notes None recorded. Medical [...] Updated DateTime 03/21/2023 175.26 cm 29.8 kg/m2 57267.66 g 97 [degF] Becky [facility] [place] & [place] 03/21/2023 14:56:01 Social History None recorded. Functional [...] ICD10 Code Diagnosis IMO Codes Diagnosis Note [id number] Amandeep Dodson Jr, MD [facility] Urology [address] [place] [phone] 03/21/2023 14:42:17 03/21/2023 15:53:05 Left flank pain [id number] R10.9 patient with history of stones in [...] PLUS (MEDICARE REPLACEMENT HMO) [id number] Alejandro Jasmine [id number] Alejandro Jasmine Notes Date Note Type Note Provider Name and Address Organization Details Recorded Time 03/21/2023 text/html Patient is a 67-year-old white male with a history of nephrolithiasis with recent left-sided flank pain. He went to [facility] on March 10 with left-sided flank pain. 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 No evidence of stones were noted. Amandeep Dodson Jr, MD [address] [place] [address], [address], [place], [address], [place] & [place] 03/24/2023 12:49:03
--- NOTE | 2025-03-31 08:46 | CT_ITS ---
PROCEDURE INFORMATION: Exam: CT Head Without Contrast Exam date and time: 03/31/2025 8:58 AM Age: 69 years old Clinical indication: Dizziness; Additional info: dizzy recently dx w/colon CA TECHNIQUE: Imaging protocol: Computed tomography of the head without contrast. Radiation optimization: All CT scans at this facility use at least one of these dose optimization techniques: automated exposure control; mA and/or kV adjustment per patient size (includes targeted exams where dose is matched to clinical indication); or iterative reconstruction. COMPARISON: CT SINUS WO CON 10/06/2022 3:09 PM FINDINGS: Brain: Mild periventricular and subcortical white matter hypodensities are identified. There is no evidence of acute parenchymal hemorrhage, extra-axial collection, or acute infarction. There is no mass effect, midline shift, or downward herniation. Cerebral ventricles: No ventriculomegaly. Paranasal sinuses: Visualized sinuses are unremarkable. No fluid levels. Mastoid air cells: Visualized mastoid air cells are well aerated. Bones: Unremarkable. No acute fracture. Soft tissues: Unremarkable. IMPRESSION: 1. No evidence of acute intracranial process. 2. Mild white matter hypodensities statistically secondary to chronic microvascular ischemic change.
--- NOTE | 2025-03-31 08:52 | HMH.EDGENADL ---
Discharge Plan Disposition Patient Disposition: Home, Self-Care Prescriptions Prescriptions: No Action cholecalciferol (vitamin D3) 50 mcg (2,000 unit) capsule 50 mcg PO DAILY cyclobenzaprine 5 mg tablet See Rx Instructions .ROUTE .COMPLEX Qty: 90 3RF Dose Instruction: TAKE 1 TABLET BY MOUTH AT BEDTIME NEEDED FOR PAIN FOR MUSCLE SPASM Rx Instructions: TAKE 1 TABLET BY MOUTH AT BEDTIME NEEDED FOR PAIN FOR MUSCLE SPASM calcium polycarbophil [FiberCon] 625 mg tablet 1,250 mg PO DAILY iron sucrose [Venofer] 200 mg iron/10 mL solution 200 mg IV Q3D Rx Instructions: administer over 30 mins clopidogrel 75 mg tablet See Rx Instructions .ROUTE .COMPLEX Qty: 90 3RF Dose Instruction: Take 1 tablet by mouth once daily Rx Instructions: Take 1 tablet by mouth once daily (DME) lancets [Accu-Chek Fastclix Lancet Drum] Misc See Rx Instructions .ROUTE .COMPLEX Qty: 102 3RF Dose Instruction: USE 1 LANCET TO CHECK GLUCOSE TWICE DAILY Rx Instructions: USE 1 LANCET TO CHECK GLUCOSE TWICE DAILY pantoprazole 40 mg tablet,delayed release (DR/EC) 40 mg PO DAILY Qty: 90 1RF bisoprolol fumarate 5 mg tablet 5 mg PO DAILY Qty: 90 3RF metformin 1,000 mg tablet 1,000 mg PO BID Qty: 120 4RF hydralazine 10 mg tablet See Rx Instructions .ROUTE .COMPLEX Qty: 120 2RF Dose Instruction: TAKE 2 TABLETS BY MOUTH TWICE DAILY FOR HIGH BLOOD PRESSURE Rx Instructions: TAKE 2 TABLETS BY MOUTH TWICE DAILY FOR HIGH BLOOD PRESSURE hydrocodone-acetaminophen 5-325 mg tablet 1 tab PO DAILY PRN (Reason: pain) Qty: 30 0RF atorvastatin 80 mg tablet 80 mg PO DAILY Qty: 30 5RF hydrochlorothiazide 25 mg tablet 25 mg PO DAILY Qty: 90 1RF Patient Comments: TAKE 1 TABLET BY MOUTH ONCE DAILY (DME) Accu-Chek Guide test strips Strip See Rx Instructions .Route Qty: 100 5RF Rx Instructions: As directed or bid fluoxetine 20 mg capsule See Rx Instructions .ROUTE .COMPLEX Qty: 90 0RF Dose Instruction: Take 1 capsule by mouth once daily Rx Instructions: Take 1 capsule by mouth once daily enalapril maleate 20 mg tablet 20 mg PO DAILY Qty: 180 5RF nitroglycerin 0.4 mg tablet, sublingual 0.4 mg sublingual [id number] PRN (Reason: Chest Pain) Patient Comments: DISSOLVE ONE TABLET UNDER THE TONGUE EVERY 5 MINUTES NEEDED FOR CHEST PAIN. DO NOT EXCEED A TOTAL OF 3 DOSES IN 15 MINUTES aspirin 81 mg Tablet,Chewable 81 mg PO DAILY Qty: 30 3RF Referrals Follow up/Referrals: Stacie Arango APRN [Primary Care Provider, [facility]] - See instructions Activity Restrictions/Add. Instructions Additional Instructions/Restrictions: No emergent medical condition identified today specifically no evidence of any metastatic disease in your brain. Your symptoms today were consistent with dehydration and low magnesium. Please follow-up with primary care doctor and your other specialist as previously instructed. Clinical Impressions Clinical Impression: Dizziness, Dehydration, Hypomagnesemia Print Language Print Language: Bulgarian Discharge ED Provider: Seb Jeffries General Adult HPI General Chief complaint: Dizziness Stated complaint: dizzy, light headed Time Seen by Provider: 03/31/25 08:34 Mode of Arrival: Ambulatory Source of Information: Patient Description of Symptoms (Recalled from ER Triage Doc. by RN): patient states he has been dizzy lightheaded dehydrated for a while had black tarry stool yesterday and painful urination. recently diagnosed with BPH and colon cancer. History of Present Illness HPI narrative: Patient is a 69-year-old male presenting today with dizziness and lightheadedness. States she has had bloody stools for extended period of time. Recently had a colonoscopy on the of this month where he was diagnosed with sigmoid mass pathology showing that it was malignant. Has an appointment on Tuesday of this week to be seen by one of our surgeons and has been seen by Dr. Marte. When trying to articulate how his dizziness feels he states that he feels as if everything is moving but he is not. Additionally he states that he has some dysuria and urinary urgency. Was recently diagnosed with BPH as well. Related Data Home Medications ?Medication ?Instructions ?Recorded ?Confirmed nitroglycerin 0.4 mg sublingual 0.4 mg sublingual [id number] PRN 02/08/24 03/26/25 tablet Chest Pain cholecalciferol (vitamin D3) 50 50 mcg PO DAILY 04/16/24 03/26/25 mcg (2,000 unit) capsule calcium polycarbophil 625 mg 1,250 mg PO DAILY 09/23/25 09/23/25 tablet (FiberCon) Previous Rx's ?Medication ?Instructions ?Recorded aspirin 81 mg chewable tablet 81 mg PO DAILY #30 tabs 04/02/24 clopidogrel 75 mg tablet See Rx Instructions .Route 04/16/24 .COMPLEX #90 tabs lancets (Accu-Chek Fastclix Lancet #102 ea 05/11/24 Drum) cyclobenzaprine 5 mg tablet See Rx Instructions .Route 07/05/24 .COMPLEX #90 tabs pantoprazole 40 mg tablet,delayed 40 mg PO DAILY stomach issues #90 11/12/24 release tabs bisoprolol fumarate 5 mg tablet 5 mg PO DAILY #90 tabs 12/12/24 metformin 1,000 mg tablet 1,000 mg PO BID #120 tabs 01/02/25 hydralazine 10 mg tablet See Rx Instructions .Route 01/14/25 .COMPLEX #120 tabs hydrocodone 5 mg-acetaminophen 325 1 tab PO DAILY PRN pain #30 tabs 01/24/25 mg tablet atorvastatin 80 mg tablet 80 mg PO DAILY #30 tabs 01/28/25 hydrochlorothiazide 25 mg tablet 25 mg PO DAILY #90 tabs 02/12/25 blood sugar diagnostic (Accu-Chek #100 ea 02/14/25 Guide test strips) fluoxetine 20 mg capsule See Rx Instructions .Route 03/10/25 .COMPLEX #90 caps enalapril maleate 20 mg tablet 20 mg PO DAILY #180 tabs 03/25/25 iron sucrose 200 mg iron/10 mL 200 mg (10 mL) IV Q3D 5 doses 03/26/25 intravenous solution (Venofer) Allergies Allergy/AdvReac Type Severity Reaction Status Date / Time morphine AdvReac Mild Other Verified 03/28/25 18:31 oxycodone (From Percocet) AdvReac Unknown Verified 03/28/25 18:31 allergy reaction [facility] Disclaimer: The information contained in this section may have been updated after the patient was seen, as this information can be updated by other users. Medical History Perforation of left tympanic membrane Deviated septum Mixed hearing loss Mixed hyperlipidemia Bradycardia Diabetes mellitus type 2 with complications Diabetes mellitus type 2, noninsulin dependent Acute dysfunction of both eustachian tubes Sinus bradycardia Bleeding from right ear I saw some dried blood in the right EAC however I did not see any in overt lesions. Abrasion of ear canal Atypical chest pain Arthralgia of left acromioclavicular joint Obesity Diabetes mellitus Right renal stone Low back pain Sinusitis Chest pain Abnormal cardiovascular stress test Atypical angina Angina at rest Ankle pain, left Ureterolithiasis LUCIAN (acute kidney injury) Lamellar nail splitting Onychoincurvatum Ingrown toenail of both feet Class 1 obesity Trigger point of thoracic region Fatigue Bronchitis COPD exacerbation Acute viral syndrome H/O nephrolithotomy with removal of calculi Chest pain Sinus pressure Tinnitus Dizziness Hypokalemia Hyperlipidemia Hearing loss in left ear Otalgia, bilateral Myopathy Dyspnea Palpitations Family history of heart disease Tobacco user COPD (chronic obstructive pulmonary disease) CAD (coronary artery disease) Hypertension Chronic back pain Surgical History History of back surgery History of carpal tunnel release of both wrists History of heart artery stent History of cardiac cath History of colon resection Family History Other No significant family history Social History Smoking Status: Former smoker second hand exposure: No alcohol intake: never substance use type: denies use current occupational status: retired Travel in the last 8 weeks?: Inside the [place] household members: spouse housing: house current occupational exposures/hazards: No caffeine: No Have you lived/traveled outside US in past 30 days?: No Contact w/someone who lives/traveled outside US past 30 days?: No Exposure to someone with infectious disease in past 14 days?: No Do you have a fever (greater than 100.4 F or 38 C)?: No Have you tested positive for COVID-19?: No Exposed to someone with COVID-19 in past 14 days?: No Do you have a sore throat?: No Do you have a cough?: No Do you have any weakness?: No Do you have any diarrhea?: No Are you experiencing any unusual bleeding?: No Do you have any muscle aches/pain?: No Do you have any abdominal pain?: No Are you experiencing loss of taste or smell?: No Other Medical History Have you received the Flu Vaccine for this season: Yes Have you received the Pneumonia Vaccine: Yes ROS Obtained: Yes All systems reviewed & no additional complaints except as documented Physical Exam General General appearance: alert and in no apparent distress Respiratory Respiratory exam: Present normal lung sounds bilaterally Cardiovascular Cardiovascular exam: Present regular rate; Absent normal rhythm Abdominal Exam Abdominal exam: Present soft; Absent distention or tenderness Neurological Exam Neurological exam: Present alert, oriented X3, CN II-XII intact, normal gait and other (Normal finger-nose and bfxt-cg-irdi bilaterally); Absent motor sensory deficit Medical Decision Making Medical Records Screening: Per USPSTF and CDC recommendations, given the prevalence of disease in our region, it is our hospital?s policy to screen for HIV and viral Hepatitis for all patients aged 18 and over and those with ongoing risk factors. Nav Inquiry Pt receiving controlled substance: No Vital Signs: 03/31/25 08:39 03/31/25 08:43 03/31/25 08:45 Temperature 99.5 F Temperature Source Oral Pulse Rate 78 73 Pulse Rate [Right Radial] 77 Respiratory Rate 19 15 19 Blood Pressure Blood Pressure [Right Arm] 153/75 H Blood Pressure Mean [Right Arm] 101 Blood Pressure Position [Right Arm] Sitting 02 Sat by Pulse Oximetry 94 L 95 95 Oxygen Delivery Method Room Air Room Air Room Air 03/31/25 09:00 03/31/25 09:15 03/31/25 10:00 Temperature Temperature Source Pulse Rate 75 76 74 Pulse Rate [Right Radial] Respiratory Rate 19 Blood Pressure 139/74 155/73 H Blood Pressure [Right Arm] Blood Pressure Mean [Right Arm] Blood Pressure Position [Right Arm] 02 Sat by Pulse Oximetry 95 94 L 95 Oxygen Delivery Method Room Air Room Air Room Air Lab Data Lab results reviewed: Yes I reviewed the patient's lab results. Lab Results 03/31/25 08:39: WBC 11.3 H, RBC 4.48 L, Hgb 12.4 L, Hct 37.5 L, MCV 83.7, MCH 27.7, MCHC 33.1, RDW 14.6, Plt Count 254, MPV 10.4, Neut % (Auto) 82.9 H, Lymph % (Auto) 9.5 L, [place] % (Auto) 6.6, Eos % (Auto) 0.4, Baso % (Auto) 0.4, Neut # (Auto) 9.4 H, Lymph # (Auto) 1.1, [place] # (Auto) 0.8, Eos # (Auto) 0.0, Baso # (Auto) 0.0, Sodium 131 L, Potassium 3.5, Chloride 98, Carbon Dioxide 24, Anion Gap 12.5, BUN 20, Creatinine 1.00, Estimated Creat Clear 85, Estimated GFR 74, Est GFR ( Amer) 90, Glucose 134 H, Calcium 9.1, Phosphorus 2.9, Magnesium 1.3 L, Total Bilirubin 0.7, AST 45, ALT 34, Alkaline Phosphatase 85, Total Protein 6.7, Albumin 4.2, Globulin 2.5, Albumin/Globulin Ratio 1.7, HCV Ab ARLENE w/Rflx PCR Qn Negative, HIV Ag/Ab Combo Qual Negative 03/31/25 08:57: Urine Color Yellow, Urine Appearance Clear, Urine pH 6.5, Ur Specific [place] 1.010, Urine Protein Negative, Urine Glucose (UA) Negative, Urine Ketones Negative, Urine Blood Negative, Urine Nitrate Negative, Urine Bilirubin Negative, Urine Urobilinogen 0.2, Ur Leukocyte Esterase Negative, Urine RBC None, Urine WBC None, Ur Squamous Epith Cells Occasional, Urine Bacteria Trace 03/31/25 08:39 03/31/25 08:39 Orders (Tests/Meds): ED MEDICATIONS Discontinued Medications Generic Name Dose Route Start Last Admin Trade Name Freq PRN Reason Stop Dose Admin Lactated Ringer's 1,000 mls @ 999 mls/hr 03/31/25 09:00 03/31/25 10:06 Lactated Ringer's 1000 Ml Bag IV 03/31/25 10:00 Infused .Q1H1M WILBERTO Infusion Magnesium Sulfate 2 gm in 50 mls @ 50 mls/hr 03/31/25 09:06 03/31/25 10:07 Magnesium Sulfate 2gm/50ml Premix IV 03/31/25 10:05 Infused ONCE ONE Infusion ORDERS Category Date Time Status CT head/brain wo con Stat Cat Scan 03/31/25 08:46 Completed CBC w/Auto Diff [Complete Blood Count Auto Diff] Stat Lab 03/31/25 08:39 Completed CMP [Comprehensive Metabolic Panel] Stat Lab 03/31/25 08:39 Completed HIV Combo Stat Lab 03/31/25 08:39 Completed Hepatitis C Ab Qual. W/ RFX Stat Lab 03/31/25 08:39 Completed Magnesium Stat Lab 03/31/25 08:39 Completed Phosphorous Stat Lab 03/31/25 08:39 Completed UA [Urinalysis and Microscopic] Stat Lab 03/31/25 08:57 Completed Medical Decision Narrative: Patient with above history and physical differential includes dehydration electrolyte abnormalities metastatic disease to the brain anemia etc. Basic blood work noncontrasted CT scan of the patient's head have all been ordered. IV fluids will be administered. CT scan of the patient's head performed which I personally interpreted shows no evidence of any metastatic disease or other neurologic emergency. Reassessment at 1048 patient feeling much better after IV fluids and magnesium administration. Symptoms are consistent with dehydration and low magnesium. No other significant abnormalities noted on patient's labs. He will follow-up outpatient with his previously instructed physicians. Critical Care Critical Care Time Critical Care Time: No
[2025-03-31 08:59] LABS: Alanine Aminotransferase 34 U/L (12-78); Albumin Level 4.2 g/dl (3.5-5.0); Albumin/Globulin Ratio 1.7 (1.1-1.8); Alkaline Phosphatase 85 U/L (38-126); Anion Gap 12.5 mEq/L (5-15); Aspartate Amino Transferase 45 U/L (17-59); Bilirubin,Total 0.7 mg/dl (0.2-1.3); Blood Urea Nitrogen 20 mg/dl (9-20); Calcium 9.1 mg/dl (8.4-10.2); Carbon Dioxide 24 mmol/L (22.0-30.0); Chloride 98 mmol/L (98-107); Creatinine Clearance Estimated 85 mL/min (50-200); Creatinine,Serum 1.00 mg/dl (0.66-1.25); Estimated Glomerular Filt Rate 74 ml/min (>60); GFR (African American) 90 ML/MIN (>60); Globulin 2.5 g/dL (1.3-3.2); Glucose 134 mg/dl (74-100); Magnesium 1.3 mg/dl (1.6-2.3); Phosphorous 2.9 mg/dl (2.5-4.5); Potassium 3.5 mmoL/L (3.5-5.1); Sodium 131 mmol/L (136-145); Total Protein,Serum 6.7 g/dl (6.3-8.2)
[2025-03-31 09:01] LABS: Bilirubin,Urine Negative (Negative); Color,Urine YELLOW (Yellow); Glucose,Urine (UA) Negative (Negative); Ketones,Urine Negative (Negative); Leukocyte Esterase,Urine Negative (Negative); Microscopic, Urine URINE MICROSCOPIC (MICROSCOPIC); PH,Urine 6.5 (5.0-8.5); Protein,Urine Negative (Negative); Specific Gravity, Urine 1.010 (1.005-1.030); Urobilinogen,Urine 0.2 EU/dl (0.2)
--- NOTE | 2025-03-31 09:05 | ECG_ITS ---
APPROVED REPORT Exam: Resting ECG HR:70 bpm ECG Measurements Heart Rate 70 AXES NJ 158 P 66 QRSd 94 QRS 24 QT 424 T 60 QTc 445 Conclusion SINUS RHYTHM MINIMAL ST DEPRESSION [0.025+ mV ST DEPRESSION] BORDERLINE ECG UNCONFIRMED REPORT Electronically signed by : JOELLEN APPIAH, 04/01/2025 23:04:19
[2025-03-31] MEDS: LACTATED RINGERS 1000ML 1,000 ML 999 ML IV (09:07)
[2025-03-31 09:10] LABS: Bacteria,Urine Trace /lpf; Squamous Epithelial Cell,Urine Occasional #/hpf (0-5)
[2025-03-31] MEDS: MAGNESIUM SULFATE IN WATER 2 GM/50 ML PIGGYBACK IV (09:10)
[2025-03-31 09:12] LABS: Hematocrit 37.5 % (42.0-52.0); Hemoglobin 12.4 g/dL (14.1-18.0); Immature Granulocytes % 0.2 %; Mean Corpuscular HGB Conc 33.1 g/dL (31.8-35.4); Mean Corpuscular Hemoglobin 27.7 pg (27.0-31.2); Mean Corpuscular Volume 83.7 fl (80-94); Nucleated Red Blood Cells % 0 %; Platelet Count 254 K/mm3 (142-424); Red Blood Count 4.48 M/mm3 (4.60-6.20); Red Cell Distribution Width-SD 44.3 fL; White Blood Count 11.3 K/mm3 (4.8-10.8)
[2025-03-31 10:08] LABS: Hepatitis C Ab Qual. W/ RFX NEGATIVE (Negative)
== END 2025-03-31 10:54 | disposition home or self-care (01) ==
PROVIDERS: Emergency Provider Student in an Organized Health Care Education/Training Program; PCP Family Medicine
DX: E86.0 Dehydration (principal); E83.42 Hypomagnesemia; E87.1 Hypo-osmolality and hyponatremia; R42 Dizziness and giddiness; R30.0 Dysuria
CPT/HCPCS: 70450; 80053; 81001; 83735; 84100; 85025; 86803; 87389; 93005; 96365; 99284; J3475; J7120

== ENCOUNTER 2025-04-09 09:05 | Outpatient (CLI) | payer MEDICARE, SELFPAY ==
--- OUTSIDE RECORDS SUMMARY | 2025-04-09 09:08 | XMS_ITS | Clinical Summary ---
[facility] Address [address] [place] [address] Care Team Providers Care Business Education Professor Name Role Phone Annmarie Gutierrez MD Primary Care Provider [phone] Allergies Active Allergy Reactions Criticality Noted Date [...] (01/20/2017): Added automatically from request for surgery [id number] Family History Medical History Relation Name Comments [...] history exists Medical Devices Implanted Type Area Welfare Specialist Device Identifier Shelf Expiration Date Model / Serial / Lot Stent Xience Alpine Wali Rx [id number] - [id number] Implanted:Qty: 1 on 01/25/2017 by Saurav English MD at [facility] [id number] / / Stent Xience Alpine Wali Rx [id number] - [id number] Implanted:Qty: 1 on 01/25/2017 by Saurav English MD at [facility] [id number] / / Insurance J[facility]ET [facility] PPO Care Teams Business Education Professor Relationship Specialty Start Date End Date Annmarie Gutierrez MD PCP - General Family Medicine 01/25/17
--- OUTSIDE RECORDS SUMMARY | 2025-04-09 09:08 | XMS_ITS | Clinical Summary ---
Author Organization Healthcare Address [address] [id number] Care Team Providers Care Cell Assembly Pinner Name Role Phone Annmarie Gutierrez MD Primary Care Provider [phone] Social History Tobacco Use Types Packs/Day Years [...] 2005 UKY-Zoster Vaccines (1 of 2) 2005 [id number] Vaccine (1 - 20 24-25 season) 2025 [...] age to complete this topic Care Teams Cell Assembly Pinner Relationship Specialty Start Date End [place] [address] PCP - General 11/14/20
--- NOTE | 2025-04-09 09:30 | CT_ITS ---
FINAL REPORT TECHNIQUE: Thin section axial images were obtained from the thoracic inlet through the upper abdomen after intravenous contrast injection. Reconstruction images were obtained from the axial data. Exam was performed using dose reduction technique. CLINICAL HISTORY: colon cancer COMPARISON: 02/20/2024 FINDINGS: There is no mediastinal, hilar, or axillary lymphadenopathy. There is no pleural or pericardial effusion. There is evidence of prior granulomatous disease. The lungs are clear. There is no suspicious nodule or mass. No areas of consolidation are seen. Limited evaluation of the upper abdomen demonstrates stable bilateral adrenal nodules. Again seen is dilatation of the descending thoracic aorta measuring up to 38 mm. No acute osseous abnormality. IMPRESSION: No evidence of metastatic disease. Dilatation of the descending thoracic aorta. Reviewed, Interpreted and Dictated by Lita Guy MD Transcribed by Arlene Romero Authenticated and [facility]
[2025-04-09] MEDS: IOPAMIDOL-370 (76%);100ML BOTTLE 75 ML IV (09:31)
[2025-04-09] MEDS: SODIUM CHLORIDE 0.9% 10ML SYR (RAD ONLY) 10 ML IV (09:31)
== END 2025-04-09 23:59 | disposition home or self-care (01) ==
LOC: RAD 09:06
PROVIDERS: PCP Family Medicine; Visit Provider Internal Medicine Medical Oncology
DX: I77.810 Thoracic aortic ectasia (principal); D64.9 Anemia, unspecified; K63.89 Other specified diseases of intestine
CPT/HCPCS: 71260; Q9967

== ENCOUNTER 2025-04-17 10:14 | Outpatient (CLI) | payer MEDICARE, SELFPAY ==
--- OUTSIDE RECORDS SUMMARY | 2025-04-17 10:28 | XMS_ITS | Clinical Summary ---
Author Organization Healthcare Address [address] [id number] Care Team Providers Care Trackmobile Operator Name Role Phone Annmarie Gutierrez MD Primary Care Provider [phone] Social History Tobacco Use Types Packs/Day Years [...] 2005 UKY-Zoster Vaccines (1 of 2) 2005 [id number]-SEGSX-05 Vaccine (1 - 20 24-25 season) 2025 [...] age to complete this topic Care Teams Trackmobile Operator Relationship Specialty Start Date [place] [address] PCP - General 11/14/20
--- OUTSIDE RECORDS SUMMARY | 2025-04-17 10:28 | XMS_ITS | Clinical Summary ---
[facility] [address] [place] [address] Care Team Providers Care Lumber Yard Worker Name Role Phone Annmarie Gutierrez MD Primary Care Provider [phone] Allergies Active Allergy Reactions Criticality Noted Date [...] (01/20/2017): Added automatically from request for surgery [id number] Family History Medical History Relation Name Comments [...] history exists Medical Devices Implanted Type Area Credit Support Counselor Device Identifier Shelf Expiration Date Model / Serial / Lot Stent Xience Alpine Wali Rx [id number] - [id number] Implanted:Qty: 1 on 01/25/2017 by Saurav English MD at [facility] [id number] / / Stent Xience Alpine Wali Rx [id number] - [id number] Implanted:Qty: 1 on 01/25/2017 by Saurav English MD at [facility] [id number] / / Insurance JANET [facility] PPO Care Teams Lumber Yard Worker Relationship Specialty Start Date End Date Annmarie Gutierrez MD PCP - General Family Medicine 01/25/17
--- OUTSIDE RECORDS SUMMARY | 2025-04-17 10:28 | XMS_ITS | Data Portability ---
Author Organization [place] [facility] [place] & L[facility] Hendricks[facility] ADMIN Address [address] [place] [id number] Care Team Providers Care Tank Maker Wood Name Role Phone NATALEE SIMPSON Primary Care Provider Assessment No assessment recorded. Plan of Treatment Reminders Order Date Submit Date Provider Last Modified By Organization Details Last Modified Time Details Appointments None recorded. Lab None recorded. Referral None recorded. Procedures None recorded. Surgeries None recorded. Imaging CT, abdomen + pelvis, w/o contrast 2022 023 [facility] (Scheduling), [address], [place], [address], 09:28:13 Medication Orders None recorded. Patient TargetsNo targets recorded. Patient InstructionsNo instructions recorded. Reason for Referral None Reported. Results Created Date Observation Date Name Description Value Unit Range Abnormal Flag Note LastModifiedBy Organization Detail LastModifiedTime 03/28/20 23 03/28/2023 CT, abdom en + pelvi s, w/o contr ast No observ ation record ed. [facility] [address], [place], [address], 04/14/2023 14:49:58 Result Notes None recorded. Medical [...] Updated DateTime 03/21/2023 175.26 cm 29.8 kg/m2 86865.66 g 97 [degF] Becky [facility] [place] & [place] 03/21/2023 14:56:01 Social History None recorded. Functional [...] ICD10 Code Diagnosis IMO Codes Diagnosis Note [id number] Amandeep Dodson Jr, MD [facility] [address] [place] [id number] 03/21/2023 14:42:17 03/21/2023 15:53:05 Left flank pain [id number] R10.9 patient with history of stones in [...] PLUS (MEDICARE REPLACEMENT HMO) [id number] Alejandro Jasmine [id number] Alejandro Jasmine Notes Date Note Type Note Provider Name and Address Organization Details Recorded Time 03/21/2023 text/html Patient is a 67-year-old white male with a history of nephrolithiasis with recent left-sided flank pain. He went to [facility] on March 10 with left-sided flank pain. 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 No evidence of stones were noted. Amandeep Dodson Jr, MD [address] [place] [address], [address], [place], [address], [place] - [place] - [place] & [place] 03/24/2023 12:49:03
[2025-04-17 10:30] VITALS: BP 99/56; PULSE 71; RESP 18; TEMP 36.4; O2SAT 99
[2025-04-17] MEDS: IRON SUCROSE COMPLEX 200 MG in 0.9 % SODIUM CHLORIDE 100 ML 220 MG IV (10:31)
[2025-04-17 11:00] VITALS: BP 100/56; PULSE 75
[2025-04-17] MEDS: SODIUM CHLORIDE 0.9% 10ML FLUSH SYRINGE 10 ML IV (11:00)
== END 2025-04-17 23:59 | disposition home or self-care (01) ==
LOC: INF 10:15
PROVIDERS: PCP Family Medicine; Visit Provider Internal Medicine Medical Oncology
DX: D64.9 Anemia, unspecified (principal); K63.89 Other specified diseases of intestine
CPT/HCPCS: 96365; J1756

== ENCOUNTER 2025-04-19 08:47 | Outpatient (CLI) | payer MEDICARE, SELFPAY ==
[2025-04-19 05:48] VITALS: BMI 28.6
--- OUTSIDE RECORDS SUMMARY | 2025-04-19 08:50 | XMS_ITS | Clinical Summary ---
Author Organization [facility] Address [address] [place] [address] Care Team Providers Care Athletics Director Name Role Phone Annmarie Gutierrez MD Primary Care Provider [phone] Allergies Active Allergy Reactions Criticality Noted Date [...] (01/20/2017): Added automatically from request for surgery [id number] Family History Medical History Relation Name Comments [...] history exists Medical Devices Implanted Type Area Play Leader Device Identifier Shelf Expiration Date Model / Serial / Lot Stent Xience Alpine Wali Rx [id number] - [id number] Implanted:Qty: 1 on 01/25/2017 by Saurav English MD at [facility] [id number] / / Stent Xience Alpine Wali Rx [id number] - [id number] Implanted:Qty: 1 on 01/25/2017 by Saurav English MD at [facility] [id number] / / Insurance JANET [facility] PPO Care Teams Athletics Director Relationship Specialty Start Date End Date Annmarie Gutierrez MD PCP - General Family Medicine 01/25/17
--- OUTSIDE RECORDS SUMMARY | 2025-04-19 08:50 | XMS_ITS | Clinical Summary ---
Author Organization Healthcare Address [address] [id number] Care Team Providers Care Supervisor Industrial Garment Name Role Phone Annmarie Gutierrez MD Primary Care Provider Social History Tobacco Use Types Packs/Day Years [...] 2005 UKY-Zoster Vaccines (1 of 2) 2005 YGE-[id number]-09 Vaccine (1 - 20 24-25 season) 2025 [...] age to complete this topic Care Teams Supervisor Industrial Garment Relationship Specialty Start Date End [place] [address] PCP - General 11/14/20
[2025-04-19 09:19] LABS: Chloride 96 mmol/L (98-107); Hematocrit 36.2 % (42.0-52.0); Hemoglobin 11.8 g/dL (14.1-18.0); Immature Granulocytes % 0.3 %; Mean Corpuscular HGB Conc 32.6 g/dL (31.8-35.4); Mean Corpuscular Hemoglobin 27.5 pg (27.0-31.2); Mean Corpuscular Volume 84.4 fl (80-94); Nucleated Red Blood Cells % 0 %; Platelet Count 291 K/mm3 (142-424); Red Blood Count 4.29 M/mm3 (4.60-6.20); Red Cell Distribution Width-SD 43.4 fL; Sodium 137 mmol/L (136-145); White Blood Count 10.3 K/mm3 (4.8-10.8)
[2025-04-19 09:21] LABS: Potassium 3.5 mmoL/L (3.5-5.1)
[2025-04-19 09:22] LABS: Blood Urea Nitrogen 23 mg/dl (9-20); Creatinine Clearance Estimated 87 mL/min (50-200); Creatinine,Serum 1.00 mg/dl (0.66-1.25); Estimated Glomerular Filt Rate 74 ml/min (>60); GFR (African American) 90 ML/MIN (>60)
[2025-04-19 09:23] LABS: Anion Gap 13.5 mEq/L (5-15); Calcium 8.9 mg/dl (8.4-10.2); Carbon Dioxide 31 mmol/L (22.0-30.0); Glucose 123 mg/dl (74-100)
[2025-04-19] MEDS: IRON SUCROSE COMPLEX 200 MG in 0.9 % SODIUM CHLORIDE 100 ML 220 MG IV (09:28)
[2025-04-19 09:33] VITALS: BP 110/55; PULSE 55; RESP 18; TEMP 36.8; O2SAT 99
[2025-04-19 10:00] VITALS: BP 114/59; PULSE 56
== END 2025-04-19 23:59 | disposition home or self-care (01) ==
LOC: PREOP 08:47 → INF 09:12
PROVIDERS: PCP Family Medicine; Visit Provider Surgery
DX: D64.9 Anemia, unspecified (principal); K63.89 Other specified diseases of intestine
CPT/HCPCS: 80048; 85025; 96365; J1756

== ENCOUNTER 2025-04-22 09:39 | Outpatient (CLI) | payer MEDICARE, SELFPAY ==
[2025-04-22 10:03] VITALS: BP 100/55; PULSE 56; RESP 18; TEMP 36.4; O2SAT 96
[2025-04-22] MEDS: SODIUM CHLORIDE 0.9% 10ML FLUSH SYRINGE 10 ML IV (10:03)
[2025-04-22] MEDS: IRON SUCROSE COMPLEX 200 MG in 0.9 % SODIUM CHLORIDE 100 ML 220 MG IV (10:03)
[2025-04-22 10:33] VITALS: BP 100/52; PULSE 60; RESP 16; TEMP 36.4; O2SAT 97
== END 2025-04-22 23:59 | disposition home or self-care (01) ==
LOC: INF 09:40
PROVIDERS: PCP Family Medicine; Visit Provider Internal Medicine Medical Oncology
DX: D64.9 Anemia, unspecified (principal); K63.89 Other specified diseases of intestine
CPT/HCPCS: 96365; J1756

== ENCOUNTER 2025-04-24 09:38 | Outpatient (CLI) | payer MEDICARE, SELFPAY ==
--- OUTSIDE RECORDS SUMMARY | 2025-04-24 09:43 | XMS_ITS | Clinical Summary ---
[facility] Address [address] [place] [address] Care Team Providers Care 3Rd Grade Reading Teacher Name Role Phone Annmarie Gutierrez MD Primary Care Provider [phone] Allergies Active Allergy Reactions Criticality Noted Date [...] (01/20/2017): Added automatically from request for surgery [id number] Family History Medical History Relation Name Comments [...] history exists Medical Devices Implanted Type Area Concrete Laborer Device Identifier Shelf Expiration Date Model / Serial / Lot Stent Xience Alpine Wali Rx [id number] - [id number] Implanted:Qty: 1 on 01/25/2017 by Saurav English MD at [facility] [id number] / / Stent Xience Alpine Wali Rx [id number] - [id number] Implanted:Qty: 1 on 01/25/2017 by Saurav English MD at [facility] [id number] / / Insurance JANET [employer] PPO Care Teams 3Rd Grade Reading Teacher Relationship Specialty Start Date End Date Annmarie Gutierrez MD PCP - General Family Medicine 01/25/17
--- OUTSIDE RECORDS SUMMARY | 2025-04-24 09:43 | XMS_ITS | Clinical Summary ---
Author Organization Healthcare Address [address] [id number] Care Team Providers Care Professional Programmer Analyst Name Role Phone Annmarie Gutierrez MD Primary Care Provider [phone] Social History Tobacco Use Types Packs/Day Years [...] 2005 UKY-Zoster Vaccines (1 of 2) 2005 OUU-[id number]-86 Vaccine (1 - 20 24-25 season) 2025 [...] age to complete this topic Care Teams Professional Programmer Analyst Relationship Specialty Start Date End [place] [address] PCP - General 11/14/20
[2025-04-24 09:55] VITALS: BP 121/63; PULSE 56; RESP 16; O2SAT 96
[2025-04-24] MEDS: IRON SUCROSE COMPLEX 200 MG in 0.9 % SODIUM CHLORIDE 100 ML 220 MG IV (09:55)
[2025-04-24 10:30] VITALS: BP 115/59; PULSE 55; RESP 17
== END 2025-04-24 23:59 | disposition home or self-care (01) ==
LOC: INF 09:41
PROVIDERS: PCP Family Medicine; Visit Provider Internal Medicine Medical Oncology
DX: K63.89 Other specified diseases of intestine (principal); D64.9 Anemia, unspecified
CPT/HCPCS: 96365; J1756

== ENCOUNTER 2025-04-29 08:38 | Outpatient (CLI) | payer MEDICARE, SELFPAY ==
--- OUTSIDE RECORDS SUMMARY | 2025-04-29 08:49 | XMS_ITS | Clinical Summary ---
Author Organization Healthcare Address [address] [id number] Care Team Providers Care Book Reviewer Name Role Phone Annmarie Gutierrez MD Primary Care Provider [phone] Social History Tobacco Use Types Packs/Day Years [...] 2005 UKY-Zoster Vaccines (1 of 2) 2005 [id number] Vaccine (1 - 20 24-25 season) 2025 [...] age to complete this topic Care Teams Book Reviewer Relationship Specialty Start Date End [place] [address] PCP - General 11/14/20
[2025-04-29] MEDS: IRON SUCROSE COMPLEX 200 MG in 0.9 % SODIUM CHLORIDE 100 ML 220 MG IV (09:03)
[2025-04-29 09:10] VITALS: BP 119/65; PULSE 71; RESP 18; TEMP 36.6; O2SAT 99
[2025-04-29] MEDS: SODIUM CHLORIDE 0.9% 10ML FLUSH SYRINGE 10 ML IV (09:35)
== END 2025-04-29 23:59 | disposition home or self-care (01) ==
LOC: INF 08:39
PROVIDERS: PCP Family Medicine; Visit Provider Internal Medicine Medical Oncology
DX: D64.9 Anemia, unspecified (principal); K63.89 Other specified diseases of intestine
CPT/HCPCS: 96365; J1756

== ENCOUNTER 2025-05-03 12:27 | Inpatient (IN) | payer MEDICARE, SELFPAY ==
[2025-04-19 13:32] VITALS: BMI 28.6
[2025-05-03] VITALS (29 sets, daily range): BP systolic 106–149; BP diastolic 53–79; PULSE 60–78; RESP 14–30; TEMP 36.2–38; O2SAT 90–98; BMI 28.6; BMI 29.1
--- NOTE | 2025-05-03 06:45 | EXP.GEN.HP ---
HPI HPI HPI: This is a 70-year-old gentleman who presents for resection of colon cancer. Since evaluation earlier this month he has had no medical changes. He feels fine . Forwarded from office visit dated April 03, 2025: This is a 69-year-old gentleman seen in consultation from Dr. 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 Forwarded from Dr. Villegas's note dated March 26, 2025: Mr. Alejandro Jasmine is a 69-year-old gentleman who is sent in consultation by Dr. Kings Baeza with a new diagnosis of adenocarcinoma of the colon. His oncology history consist of: 1. March 15, 2025: After a few weeks of dark/tarry bowel movements and mild abdominal discomfort presented to the emergency room at [facility]. CTA of the abdomen and pelvis revealed an infrarenal abdominal aortic aneurysm as well as a heterogeneous mass concern to be located in the cecum and potential additional masses in the right colon. CBC with white count 15.1, hemoglobin 12.6 with normal MCV, plate count 278,000. CMP with glucose 128 and otherwise normal. 2. March 20, 2025: Underwent EGD and colonoscopy by Dr. Baeza with EGD showing mild gastropathy. Colonoscopy revealed with 6 polyps noted in the ascending and transverse colon that were removed via polypectomy. There was a larger descending/sigmoid colon pedunculated polyp that was 1.7 cm and removed via polypectomy. In the sigmoid: There was a Tyron for antral friable fungating mass encompassing 60% of the circumference extending at least 3 to 4 cm. Biopsies were taken and final pathology revealed revealed all benign findings with no high-grade dysplasia or malignancy aside from sigmoid colon mass with invasive moderately differentiated adenocarcinoma that was MSI?stable by IHC staining. CEA normal at 2.5. Iron studies with low iron 30 and TIBC at 241 and saturation low at 12.4%. Ferritin low normal at 59.9. Mr. Jasmine has never had previous colon cancer screening with colonoscopy or Cologuard testing. There are no family history of colon or rectal cancer though mother had breast cancer in her 30s. He has lost 10 to 15 pounds over the last few weeks due to decreased appetite. Endoscopic note and photographs dated March 20, [address] scan dated March 15, 2025 reviewed. 4.47 cm infrarenal aortic aneurysm noted. Prior measurement of 4.[address] scan dated February 13, 2024. Patient has ongoing evaluation by Dr. Jonah Figueroa with regard to his aneurysm. A heterogeneous mass measuring 4.5 cm in the cecum noted. This area appeared normal per colonoscopy (Dr. Baeza). CEA dated March 20, 2025 reviewed. 2.5 ng/mL CBC dated March 31, 2025 reviewed. WBC 11.3. Hemoglobin 12.4. Platelet count 254. CMP dated March 23, 2025 reviewed. LFTs normal. Potassium 3.5. Creatinine 1.0. PFSH PFSH Disclaimer: The information contained in this section may have been updated after the patient was seen, as this information can be updated by other users. Medical History (Updated 05/03/25 @ 06:53 by Curtis Stewart MD) History of kidney stones Patient left without being seen Abnormal colonoscopy Colon cancer Perforation of left tympanic membrane Deviated septum Mixed hearing loss Mixed hyperlipidemia Bradycardia Diabetes mellitus type 2 with complications Diabetes mellitus type 2, noninsulin dependent Acute dysfunction of both eustachian tubes Sinus bradycardia Bleeding from right ear Abrasion of ear canal Atypical chest pain Arthralgia of left acromioclavicular joint Obesity Diabetes mellitus Right renal stone Low back pain Sinusitis Chest pain Abnormal cardiovascular stress test Atypical angina Angina at rest Ankle pain, left Ureterolithiasis LUCIAN (acute kidney injury) Lamellar nail splitting Onychoincurvatum Ingrown toenail of both feet Class 1 obesity Trigger point of thoracic region Fatigue Bronchitis COPD exacerbation Acute viral syndrome H/O nephrolithotomy with removal of calculi Chest pain Sinus pressure Tinnitus Dizziness Hypokalemia Hyperlipidemia Hearing loss in left ear Otalgia, bilateral Myopathy Dyspnea Palpitations Family history of heart disease Tobacco user COPD (chronic obstructive pulmonary disease) CAD (coronary artery disease) Hypertension Chronic back pain Surgical History (Updated 05/03/25 @ 06:53 by Curtis Stewart MD) History of esophagogastroduodenoscopy (EGD) History of back surgery History of carpal tunnel release of both wrists History of heart artery stent History of cardiac cath Family History Other Family history of breast cancer Family history of heart disease Social History (Updated 05/03/25 @ 06:28 by Mena Tompkins RN) Smoking Status: Former smoker second hand exposure: No alcohol intake: never substance use type: denies use current occupational status: retired Travel in the last 8 weeks?: None household members: spouse housing: house current occupational exposures/hazards: No caffeine: No Have you lived/traveled outside US in past 30 days?: No Contact w/someone who lives/traveled outside US past 30 days?: No Exposure to someone with infectious disease in past 14 days?: No Do you have a fever (greater than 100.4 F or 38 C)?: No Have you tested positive for COVID-19?: No Exposed to someone with COVID-19 in past 14 days?: No Do you have a sore throat?: No Do you have a cough?: No Do you have any weakness?: No Are you experiencing any nausea/vomitting?: No Do you have any diarrhea?: No Are you experiencing any unusual bleeding?: No Do you have any muscle aches/pain?: No Do you have any abdominal pain?: No Are you experiencing loss of taste or smell?: No Other Medical History Have you received the Flu Vaccine for this season: Yes Have you received the Pneumonia Vaccine: Yes Review of Systems Review of Systems Review of systems:: pertinent systems reviewed and negative unless documented below Meds Home Medications and Allergies Home Medications ?Medication ?Instructions ?Recorded ?Confirmed ?Type nitroglycerin 0.4 mg sublingual 0.4 mg sublingual [id number] PRN 02/08/24 04/25/25 History tablet Chest Pain aspirin 81 mg chewable tablet 81 mg PO DAILY #30 tabs 04/02/24 04/25/25 Rx cholecalciferol (vitamin D3) 50 50 mcg PO DAILY 04/16/24 04/25/25 History mcg (2,000 unit) capsule lancets (Accu-Chek Fastclix Lancet #102 ea 05/11/24 04/25/25 Rx Drum) cyclobenzaprine 5 mg tablet See Rx Instructions .Route 07/05/24 04/25/25 Rx .COMPLEX #90 tabs pantoprazole 40 mg tablet,delayed 40 mg PO DAILY stomach issues #90 11/12/24 04/25/25 Rx release tabs metformin 1,000 mg tablet 1,000 mg PO BID #120 tabs 01/02/25 04/25/25 Rx atorvastatin 80 mg tablet 80 mg PO DAILY #30 tabs 01/28/25 04/25/25 Rx hydrochlorothiazide 25 mg tablet 25 mg PO DAILY #90 tabs 02/12/25 04/25/25 Rx blood sugar diagnostic (Accu-Chek #100 ea 02/14/25 04/25/25 Rx Guide test strips) fluoxetine 20 mg capsule See Rx Instructions .Route 03/10/25 04/25/25 Rx .COMPLEX #90 caps enalapril maleate 20 mg tablet 20 mg PO DAILY #180 tabs 03/25/25 04/25/25 Rx calcium polycarbophil 625 mg 1,250 mg PO DAILY 03/26/25 04/25/25 History tablet (FiberCon) iron sucrose 200 mg iron/10 mL 200 mg (10 mL) IV Q3D 5 doses 03/26/25 04/25/25 Rx intravenous solution (Venofer) clopidogrel 75 mg tablet See Rx Instructions .Route 04/04/25 04/25/25 Rx .COMPLEX #90 tabs hydralazine 10 mg tablet See Rx Instructions .Route 04/08/25 04/25/25 Rx .COMPLEX #120 tabs hydrocodone 5 mg-acetaminophen 325 1 tab PO DAILY PRN pain #30 tabs 04/16/25 04/25/25 Rx mg tablet fluoxetine 10 mg capsule 10 mg PO DAILY 90 days #90 caps 04/25/25 04/25/25 Rx New Prescriptions to Start Prescriptions: Allergies Allergy/AdvReac Type Severity Reaction Status Date / Time morphine AdvReac Mild Other Verified 04/19/25 08:54 oxycodone (From Percocet) AdvReac itch Verified 04/25/25 08:56 Exam Data for Last 24 hours Vital signs and Labs for Last 24 Hours: Temp Pulse Resp BP Pulse Ox O2 Del Method 97.2 F L 60 18 149/75 H 97 Room Air 05/03/25 06:25 05/03/25 06:25 05/03/25 06:25 05/03/25 06:25 05/03/25 06:25 05/03/25 06:25 I & O for Last 24 hours: Intake & Output 04/30/25 05/01/25 05/02/25 05/03/25 11:59 11:59 11:59 11:59 Weight 194 lb Constitutional Constitutional: no acute distress *Routine HEENT Exam Head: Present normocephalic Eye: Present EOMI ENT: Present mucous membranes moist *Routine Neck Exam Neck: Present full ROM *Routine Respiratory Exam Respiratory: Absent respiratory distress *Routine Cardiovascular Exam Cardiovascular: Absent tachycardia *Routine Abdominal Exam Abdominal: Present soft *Routine Rectal Exam Rectal:: deferred *Routine Genitalia Exam Genitalia:: deferred *Routine Extremities Exam Extremities: Present full ROM *Routine Skin Exam Skin: Absent erythema *Routine Neurological Exam Neurological: Present alert Results Results CT scan - abdomen: report reviewed and image reviewed CT scan - pelvis: report reviewed and image reviewed Assessment and Plan *Assessment and plan (1) Cancer of descending colon: Status: Acute Category: Medical Code(s): C18.6 - Malignant neoplasm of descending colon (2) CAD (coronary artery disease): Status: Chronic Qualifiers: Coronary Disease-Associated Artery/Lesion type: [place] artery [place] vs. transplanted heart: [place] heart Associated angina: without angina Qualified Code(s): I25.10 - Atherosclerotic heart disease of [place] coronary artery without angina pectoris Category: Medical Code(s): I25.10 - Atherosclerotic heart disease of [place] coronary artery without angina pectoris (3) COPD (chronic obstructive pulmonary disease): Status: Chronic Qualifiers: COPD type: unspecified COPD Qualified Code(s): J44.9 - Chronic obstructive pulmonary disease, unspecified Category: Medical Code(s): J44.9 - Chronic obstructive pulmonary disease, unspecified (4) Hypertension: Status: Chronic Qualifiers: Hypertension type: essential hypertension Qualified Code(s): I10 - Essential (primary) hypertension Category: Medical Code(s): I10 - Essential (primary) hypertension (5) Tobacco user: Status: Chronic Category: Social Hx Code(s): Z72.0 - Tobacco use (6) AAA (abdominal aortic aneurysm): Status: Acute Qualifiers: Abdominal aorta location: unspecified Presence of rupture: without rupture Qualified Code(s): I71.40 - Abdominal aortic aneurysm, without rupture, unspecified Category: Medical Code(s): I71.40 - Abdominal aortic aneurysm, without rupture, unspecified (7) Palpitations: Status: Acute Category: Medical Code(s): R00.2 - Palpitations Plan Plan partial colectomy today I have discussed the risks and benefits including, but not limited to: Bleeding Infection Damage to surrounding tissue Inherent risks of sedation The patient agrees to proceed.
[2025-05-03] MEDS: 0.9 % SODIUM CHLORIDE 1000ML 1,000 ML 25 ML IV (06:46)
[2025-05-03] MEDS: ACETAMINOPHEN 500MG TAB 1000 MG PO (07:15)
--- NOTE | 2025-05-03 07:15 | EXP.ANES.CKL ---
[facility] Disclaimer: The information contained in this section may have been updated after the patient was seen, as this information can be updated by other users. Medical History (Updated 05/03/25 @ 06:53 by Curtis Stewart MD) History of kidney stones Patient left without being seen Abnormal colonoscopy Colon cancer Perforation of left tympanic membrane Deviated septum Mixed hearing loss Mixed hyperlipidemia Bradycardia Diabetes mellitus type 2 with complications Diabetes mellitus type 2, noninsulin dependent Acute dysfunction of both eustachian tubes Sinus bradycardia Bleeding from right ear Abrasion of ear canal Atypical chest pain Arthralgia of left acromioclavicular joint Obesity Diabetes mellitus Right renal stone Low back pain Sinusitis Chest pain Abnormal cardiovascular stress test Atypical angina Angina at rest Ankle pain, left Ureterolithiasis LUCIAN (acute kidney injury) Lamellar nail splitting Onychoincurvatum Ingrown toenail of both feet Class 1 obesity Trigger point of thoracic region Fatigue Bronchitis COPD exacerbation Acute viral syndrome H/O nephrolithotomy with removal of calculi Chest pain Sinus pressure Tinnitus Dizziness Hypokalemia Hyperlipidemia Hearing loss in left ear Otalgia, bilateral Myopathy Dyspnea Palpitations Family history of heart disease Tobacco user COPD (chronic obstructive pulmonary disease) CAD (coronary artery disease) Hypertension Chronic back pain Surgical History (Updated 05/03/25 @ 06:53 by Curtis Stewart MD) History of esophagogastroduodenoscopy (EGD) History of back surgery History of carpal tunnel release of both wrists History of heart artery stent History of cardiac cath Family History Other Family history of breast cancer Family history of heart disease Social History (Updated 05/03/25 @ 06:28 by Mena Tompkins RN) Smoking Status: Former smoker second hand exposure: No alcohol intake: never substance use type: denies use current occupational status: retired Travel in the last 8 weeks?: None household members: spouse housing: house current occupational exposures/hazards: No caffeine: No Have you lived/traveled outside US in past 30 days?: No Contact w/someone who lives/traveled outside US past 30 days?: No Exposure to someone with infectious disease in past 14 days?: No Do you have a fever (greater than 100.4 F or 38 C)?: No Have you tested positive for COVID-19?: No Exposed to someone with COVID-19 in past 14 days?: No Do you have a sore throat?: No Do you have a cough?: No Do you have any weakness?: No Are you experiencing any nausea/vomitting?: No Do you have any diarrhea?: No Are you experiencing any unusual bleeding?: No Do you have any muscle aches/pain?: No Do you have any abdominal pain?: No Are you experiencing loss of taste or smell?: No [facility] Anesthesia Checklist Patient Identification Patient Identification: Arm Band Structural Data Admitted From: Home Planned Operative Procedure/s: Sigmoid Colectomy Consent for Planned Operative Procedure(s) Verified: Yes Verified Documents: Surgical Consent, History and Physical and Cardiac Clearance NPO Status Verified Time NPO: 00:00 Additional verifications Anesthesia Reactions: Yes (hypotension/hypertension) Hx Blood Transfusions: No Blood Transfusion Reaction: No Airway Assessment Mallampati Score:: Class II C-Spine Mobility Assessed: Yes TMJ Mobility Assessed: Yes Dentition: Edentulous Neurological Assessment Level of Consciousness: Awake, Alert and Appropriate Anesthesia Plan Anesthesia Risk discussed: Yes Anesthesia Plan: Verified ASA Class: III Anesthesia Type: General
--- NOTE | 2025-05-03 07:19 | P.OP_ITS ---
Date of procedure: 05/03/25 Pre-op Diagnosis:: Distal sigmoid carcinoma Post-op Diagnosis:: Same Procedure performed:: Sigmoid colectomy Surgeon:: Curtis Stewart MD NET TECHNICAL ARCHITECT:: Mariam Bennett Anesthesia: GETA Estimated blood loss (mL): 100 Operative findings:: Lesion confirmed by inspection after resection Left ureter not visualized with certainty No obvious ureteral injury or bladder injury noted Methylene blue injected per anesthesia protocol with no obvious intra-abdominal staining Bladder filled with saline with no obvious evidence of leak Gastrointestinal anastomosis tested with no obvious leak Operative note:: After informed consent was obtained the patient was taken to the operating room and placed in the supine position. General anesthesia was induced and his abdomen was prepped and draped in a sterile fashion. A lower midline laparotomy incision was made. The abdomen was entered with a combination of sharp dissection and electrocautery. Significant anterior wall adhesions were carefully taken down with a combination of sharp dissection and blunt dissection. A large Deniz retractor was placed in position. The left colon/sigmoid colon was carefully elevated and retracted medially. The white line was taken down sharply as elevation continued. Significant adhesions were noted throughout the region likely secondary to prior trauma laparotomy. A point of transection proximal to the palpable distal sigmoid lesion was chosen. The linear stapler was then used to transect at this site. The intervening mesentery was taken with a combination of suture ligation/transection and Enseal transection. The distal point of transection just above the pelvic reflection was chosen. The contour stapler was utilized to transect at this site. The specimen was passed off for pathologic evaluation after confirmation on the back table. Despite extended inspection the left ureter was not able to be identified with certainty. The patient has a known horseshoe kidney . To evaluate for possible ureteral injury or bladder injury, methylene blue was given intravenously. Once the patient was confirmed to have blue-tinged urine , careful inspection of the abdomen was completed. No obvious sign of staining intra-abdominally was noted. The bladder was then filled with saline without obvious sign of leakage. A 31 mm EEA stapled anastomosis was then completed in the standard fashion. Both donuts confirmed. Rigid proctoscope inspection including a leak test revealed no definitive abnormality. The abdomen was irrigated. No sign of active bleeding or injury was noted. Fascia was reapproximated with #2 Novafil. Skin was then closed with a combination of interrupted 4-0 nylon and vincent. Dressings were applied and the patient was transferred to recovery in stable condition. Condition: stable Disposition: PACU Specimens:: Sigmoid colon Complications:: No immediate Colon Resection Operation performed with curative intent: Yes Tumor location: Sigmoid colon Extent of colon and vascular resection: Sigmoid resection
[2025-05-03] MEDS: METRONIDAZ/SOD CHL 500 MG/100 ML PIGGYBACK 100 MG IV (07:28)
[2025-05-03] MEDS: CEFAZOLIN 2GM VIAL 2 GM (07:28)
[2025-05-03] MEDS: GABAPENTIN 600MG TABLET 600 MG PO (07:35)
[2025-05-03 09:20] LABS: POC Glucose,Bedside 111 gm/dL (70-110)
[2025-05-03] MEDS: METHYLENE BLUE 0.5% 10ML AMPULE 50 MG IV (09:32)
--- NOTE | 2025-05-03 11:48 | EXP.ANES.I ---
[facility] Anesthesia Record Part I Anesthesia Record I Intake, IV Amount: 3,500 Hydration: Adequate Estimated blood loss (mL): 100 Urine output (mL): 200 Blood Pressure: 119/72 SaO2: 95 Pulse Rate: 72 Airway Patency: Patent Respiratory Rate: 18 Temperature: 97.3 F Patient is:: Awake Stable to PACU at:: 11:50
[2025-05-03 12:13] LABS: POC Glucose,Bedside 166 gm/dL (70-110)
--- NOTE | 2025-05-03 13:07 | PC.NURSE ---
arrived to floor by bed from surgery at 13:00
--- NOTE | 2025-05-03 13:22 | P.PNANES_ITS ---
[facility] Anesthesia Record Part II Anesthesia Record Part II Discharge Time: 12:50 Destination: Medical Surgical Department PACU nurse assessment reviewed?: Yes Patient Condition:: Good Anesthesia Complications:: None Swallowing reflex intact?: Yes Airway Patency: Patent Cyanosis?: No Blood Pressure: 110/79 SaO2: 94 Respiratory Rate: 16 Pulse Rate: 72 Temperature: 97.8 F Mental Status: Alert & Oriented Pain level:: 0 Nausea and/or vomitting:: None Intake, IV Amount: 0 Hydration: Adequate
[2025-05-03] MEDS: KETOROLAC 30MG/ML VIAL 15 MG IV (13:30)
--- NOTE | 2025-05-03 13:55 | CT_ITS ---
FINAL REPORT TECHNIQUE: After the administration of oral and intravenous contrast, axial images were obtained through the abdomen and pelvis by computed tomography. The study was performed with techniques to keep radiation dose as low as reasonably achievable, (ALARA). Individual dose reduction techniques using automated exposure control or adjustment of mA and/or kV according to the patient's size were employed. CLINICAL HISTORY: ? ureteral injury (study as per Radjohan GRIMES) COMPARISON: 02/20/2024 FINDINGS: Abdomen: There is mild edema and/or atelectasis in the lung bases. The liver parenchyma is homogeneous. The gallbladder is present. There is intraperitoneal free air with a midline row of vincent consistent with postoperative change. The right adrenal nodule noted on a prior exam is stable. The spleen and pancreas appear unremarkable. A horseshoe kidney is present. There is an abdominal aortic aneurysm, measuring 4.5 x 3.3 cm in size, unchanged. There is no free fluid or adenopathy. Pelvis: Postoperative changes of the sigmoid colon anastomosis are present, new since the prior exam. There is a small amount of pelvic free fluid and stranding consistent with recent surgery. The appendix is not identified. There is a lymph node, 11 mm, anterior to the aortic bifurcation that has increased in size since the prior CT. Advanced degenerative disc disease is noted at the L4-5 and L5-S1 levels. The urinary bladder is unremarkable without extravasation of urine. A Yen catheter is present and a decompressed bladder. There is no free fluid. IMPRESSION: Postoperative changes in the abdomen and pelvis as described above. Stable abdominal aortic aneurysm, unchanged from the prior exam of 02/20/2024. A lymph node is anterior to the aortic bifurcation and has increased in size since the prior exam, currently measuring 11 mm in size. There is no extravasation of urine from the collecting system, which is nondilated. A Yen catheter is in a decompressed bladder. If there is persistent concern for ureteral injury, a retrograde study might be helpful. Reviewed, Interpreted and Dictated by Esequiel Núñez MD Transcribed by Raya Asher Authenticated and [facility]
[2025-05-03 14:06] LABS: Microscopic, Urine URINE MICROSCOPIC (MICROSCOPIC)
[2025-05-03 14:15] LABS: Color,Urine YELLOW (Yellow); Glucose,Urine (UA) Negative (Negative); Ketones,Urine 3+ (Negative); Leukocyte Esterase,Urine Negative (Negative); PH,Urine 6.0 (5.0-8.5); Protein,Urine TRACE (Negative); Urobilinogen,Urine 0.2 EU/dl (0.2)
--- NOTE | 2025-05-03 14:17 | PC.NURSE ---
patient arrived to the ICU room 265 @[id number] via bed with RN.
[2025-05-03 14:25] LABS: Bilirubin,Urine 2+ (Negative); Specific Gravity, Urine 1.025 (1.005-1.030)
[2025-05-03 14:35] LABS: Bacteria,Urine 1+ /lpf; Mucus,Urine 1+ /lpf; Squamous Epithelial Cell,Urine Occasional #/hpf (0-5); WBC,Urine Occasional #/hpf (0-3)
[2025-05-03] MEDS: HYDROMORPHONE 2MG/ML SYRINGE 0.5 MG IV ×2 (15:02→18:25)
[2025-05-03] MEDS: IOPAMIDOL-370 (76%);100ML BOTTLE 75 ML IV (15:26)
[2025-05-03] MEDS: SODIUM CHLORIDE 0.9% 10ML SYR (RAD ONLY) 10 ML IV (15:26)
--- NOTE | 2025-05-03 15:45 | PC.NURSE ---
PT TAKEN AN INCENTIVE SPIROMETER AND TEACHING DONE AND PT DEMONSTRATED USE.
[2025-05-03] MEDS: PIPERACILLIN/TAZO 4.5 GM in 0.9 % SODIUM CHLORIDE 100 ML IV ×2 (16:19→21:10)
[2025-05-03 16:38] LABS: POC Glucose,Bedside 194 gm/dL (70-110)
--- NOTE | 2025-05-03 16:41 | EXP.MED.CON ---
History of Present Illness *History of present illness: Alejandro Jasmine is a 70-year-old male with a medical history significant for sigmoid adenocarcinoma, CAD with stents, infrarenal AAA, type 2 diabetes presented for planned sigmoidectomy due to invasive sigmoid adenocarcinoma. Patient tolerated procedure well. Discussed with Dr. Stewart who performed surgery, but due to multiple comorbidities agreed to medically consult on the patient. Of note, there was concern of ureteral injury during surgery. Patient had good urinary output of injected methylene blue. CT abdomen/pelvis was obtained postop with delayed imaging which did not indicate ureteral leak. General surgery will do intravenous pyelogram in the morning to confirm. On my evaluation, patient was lying in bed comfortably without acute distress. Denied chest pain, shortness of breath, abdominal pain. Follow-up CBC, CMP. From general surgery H&P note: This is a 70-year-old gentleman who presents for resection of colon cancer. Since evaluation earlier this month he has had no medical changes. He feels fine . Forwarded from office visit dated April 03, 2025: This is a 69-year-old gentleman seen in consultation from Dr. 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 Forwarded from Dr. Villegas's note dated March 26, 2025: Mr. Alejandro Jasmine is a 69-year-old gentleman who is sent in consultation by Dr. Kings Baeza with a new diagnosis of adenocarcinoma of the colon. His oncology history consist of: 1. March 15, 2025: After a few weeks of dark/tarry bowel movements and mild abdominal discomfort presented to the emergency room at [facility]. CTA of the abdomen and pelvis revealed an infrarenal abdominal aortic aneurysm as well as a heterogeneous mass concern to be located in the cecum and potential additional masses in the right colon. CBC with white count 15.1, hemoglobin 12.6 with normal MCV, plate count 278,000. CMP with glucose 128 and otherwise normal. 2. March 20, 2025: Underwent EGD and colonoscopy by Dr. Baeza with EGD showing mild gastropathy. Colonoscopy revealed with 6 polyps noted in the ascending and transverse colon that were removed via polypectomy. There was a larger descending/sigmoid colon pedunculated polyp that was 1.7 cm and removed via polypectomy. In the sigmoid: There was a Tyron for antral friable fungating mass encompassing 60% of the circumference extending at least 3 to 4 cm. Biopsies were taken and final pathology revealed revealed all benign findings with no high-grade dysplasia or malignancy aside from sigmoid colon mass with invasive moderately differentiated adenocarcinoma that was MSI?stable by IHC staining. CEA normal at 2.5. Iron studies with low iron 30 and TIBC at 241 and saturation low at 12.4%. Ferritin low normal at 59.9. Mr. Jasmine has never had previous colon cancer screening with colonoscopy or Cologuard testing. There are no family history of colon or rectal cancer though mother had breast cancer in her 30s. He has lost 10 to 15 pounds over the last few weeks due to decreased appetite. Endoscopic note and photographs dated March 20, [address] scan dated March 15, 2025 reviewed. 4.47 cm infrarenal aortic aneurysm noted. Prior measurement of 4.[address] scan dated February 13, 2024. Patient has ongoing evaluation by Dr. Jonah Figueroa with regard to his aneurysm. A heterogeneous mass measuring 4.5 cm in the cecum noted. This area appeared normal per colonoscopy (Dr. Baeza). CEA dated March 20, 2025 reviewed. 2.5 ng/mL CBC dated March 31, 2025 reviewed. WBC 11.3. Hemoglobin 12.4. Platelet count 254. CMP dated March 23, 2025 reviewed. LFTs normal. Potassium 3.5. Creatinine 1.0. PFSH PFS Disclaimer: The information contained in this section may have been updated after the patient was seen, as this information can be updated by other users. Medical History (Updated 05/03/25 @ 21:28 by Duy Brown MD) History of kidney stones Patient left without being seen Abnormal colonoscopy Colon cancer Perforation of left tympanic membrane Deviated septum Mixed hearing loss Mixed hyperlipidemia Bradycardia Diabetes mellitus type 2 with complications Diabetes mellitus type 2, noninsulin dependent Acute dysfunction of both eustachian tubes Sinus bradycardia Bleeding from right ear Abrasion of ear canal Atypical chest pain Arthralgia of left acromioclavicular joint Obesity Diabetes mellitus Right renal stone Low back pain Sinusitis Chest pain Abnormal cardiovascular stress test Atypical angina Angina at rest Ankle pain, left Ureterolithiasis LUCIAN (acute kidney injury) Lamellar nail splitting Onychoincurvatum Ingrown toenail of both feet Class 1 obesity Trigger point of thoracic region Fatigue Bronchitis COPD exacerbation Acute viral syndrome H/O nephrolithotomy with removal of calculi Chest pain Sinus pressure Tinnitus Dizziness Hypokalemia Hyperlipidemia Hearing loss in left ear Otalgia, bilateral Myopathy Dyspnea Palpitations Family history of heart disease Tobacco user COPD (chronic obstructive pulmonary disease) CAD (coronary artery disease) Hypertension Chronic back pain Surgical History History of esophagogastroduodenoscopy (EGD) History of back surgery History of carpal tunnel release of both wrists History of heart artery stent History of cardiac cath Family History Other Family history of breast cancer Family history of heart disease Social History (Updated 05/03/25 @ 18:15 by Alva Dumont RN) Smoking Status: Former smoker second hand exposure: No alcohol intake: never substance use type: denies use current occupational status: retired Travel in the last 8 weeks?: None household members: spouse housing: house current occupational exposures/hazards: No caffeine: No Have you lived/traveled outside [place] in past 30 days?: No Contact w/someone who lives/traveled outside [place] past 30 days?: No Exposure to someone with infectious disease in past 14 days?: No Do you have a fever (greater than 100.4 F or 38 C)?: No Have you tested positive for COVID-19?: No Exposed to someone with COVID-19 in past 14 days?: No Do you have a sore throat?: No Do you have a cough?: No Do you have any weakness?: No Are you experiencing any nausea/vomitting?: No Do you have any diarrhea?: No Are you experiencing any unusual bleeding?: No Do you have any muscle aches/pain?: No Do you have any abdominal pain?: No Are you experiencing loss of taste or smell?: No Exam Data for Last 24 hours Vital signs and Labs for Last 24 Hours: Temp Pulse Resp BP Pulse Ox O2 Del Method 97.5 F L 72 24 106/62 L 93 L Room Air 05/03/25 14:21 05/03/25 16:00 05/03/25 16:00 05/03/25 16:00 05/03/25 16:00 05/03/25 16:00 Laboratory Results - last 24 hr 05/03/25 06:37: POC Glucose 111 H 05/03/25 07:50: Urine Color Yellow, Urine Appearance Clear, Urine pH 6.0, Ur Specific [place] 1.025, Urine Protein Trace, Urine Glucose (UA) Negative, Urine Ketones 3+, Urine Blood Negative, Urine Nitrate Negative, Urine Bilirubin 2+ A, Urine Urobilinogen 0.2, Ur Leukocyte Esterase Negative, Urine RBC None, Urine WBC Occasional, Ur Squamous Epith Cells Occasional, Urine Bacteria 1+, Urine Mucus 1+ 05/03/25 12:07: POC Glucose 166 H 05/03/25 16:31: POC Glucose 194 H I & O for Last 24 hours: Intake & Output 04/30/25 05/01/25 05/02/25 05/03/25 23:59 23:59 23:59 23:59 Intake Total 3600 / 3600 Balance 3600 / 3600 Weight 89.499 kg Constitutional Constitutional: no acute distress *Routine HEENT Exam Head: Present normocephalic Eye: Present EOMI and PERRL ENT: Present mucous membranes moist *Routine Neck Exam Neck: Present supple; Absent lymphadenopathy *Routine Respiratory Exam Respiratory: Present CTA bilaterally *Routine Cardiovascular Exam Cardiovascular: Present RRR *Routine Abdominal Exam Abdominal: Present soft and normoactive bowel sounds; Absent tenderness Comments: Ex lap incision site clean dry and intact. *Routine Extremities Exam Extremities: Absent cyanosis, clubbing or edema *Routine Skin Exam Skin: Present warm; Absent rash *Routine Neurological Exam Neurological: Present alert and oriented X3 Meds Home Medications and Allergies Home Medications ?Medication ?Instructions ?Recorded ?Confirmed ?Type nitroglycerin 0.4 mg sublingual 0.4 mg sublingual [id number] PRN 02/08/24 04/25/25 History tablet Chest Pain aspirin 81 mg chewable tablet 81 mg PO DAILY #30 tabs 04/02/24 04/25/25 Rx cholecalciferol (vitamin D3) 50 50 mcg PO DAILY 04/16/24 04/25/25 History mcg (2,000 unit) capsule lancets (Accu-Chek Fastclix Lancet #102 ea 05/11/24 04/25/25 Rx Drum) metformin 1,000 mg tablet 1,000 mg PO BID #120 tabs 01/02/25 04/25/25 Rx atorvastatin 80 mg tablet 80 mg PO DAILY #30 tabs 01/28/25 04/25/25 Rx hydrochlorothiazide 25 mg tablet 25 mg PO DAILY #90 tabs 02/12/25 04/25/25 Rx blood sugar diagnostic (Accu-Chek #100 ea 02/14/25 04/25/25 Rx Guide test strips) enalapril maleate 20 mg tablet 20 mg PO DAILY #180 tabs 03/25/25 04/25/25 Rx calcium polycarbophil 625 mg 1,250 mg PO DAILY 03/26/25 04/25/25 History tablet (FiberCon) hydrocodone 5 mg-acetaminophen 325 1 tab PO DAILY PRN pain #30 tabs 04/16/25 04/25/25 Rx mg tablet fluoxetine 10 mg capsule 10 mg PO DAILY 90 days #90 caps 04/25/25 05/03/25 Rx bisoprolol fumarate 5 mg tablet 5 mg PO DAILY 05/03/25 05/03/25 History bupropion HCl 150 mg 24 hr tablet, 150 mg PO DAILY 05/03/25 05/03/25 History extended release clopidogrel 75 mg tablet 75 mg PO DAILY 05/03/25 05/03/25 History cyclobenzaprine 5 mg tablet 5 mg PO HSP PRN Muscle spasms 05/03/25 05/03/25 History fluoxetine 20 mg capsule 20 mg PO DAILY 05/03/25 05/03/25 History hydralazine 10 mg tablet 20 mg PO BID 05/03/25 05/03/25 History pantoprazole 40 mg tablet,delayed 40 mg PO DAILY 05/03/25 04/19/25 History release New Prescriptions to Start Prescriptions: Allergies Allergy/AdvReac Type Severity Reaction Status Date / Time morphine AdvReac Mild Other Verified 04/19/25 08:54 oxycodone (From Percocet) AdvReac itch Verified 04/25/25 08:56 Results Labs Labs: Abnormal lab results 05/03/25 05/03/25 05/03/25 Range/Units 06:37 07:50 12:07 POC Glucose 111 H 166 H (70-110) gm/dL Urine Bilirubin 2+ A (Negative) 05/03/25 Range/Units 16:31 POC Glucose 194 H (70-110) gm/dL Urine Bilirubin (Negative) All other labs normal. Assessment and Plan *Assessment and plan (1) Adenocarcinoma of sigmoid colon: Status: Acute Category: Medical Code(s): C18.7 - Malignant neoplasm of sigmoid colon Plan Alejandro Jasmine is a 70-year-old male with a medical history significant for sigmoid adenocarcinoma, CAD with stents, infrarenal AAA, type 2 diabetes presented for planned sigmoidectomy due to invasive sigmoid adenocarcinoma. Patient tolerated procedure well. Discussed with Dr. Stewart who performed surgery, but due to multiple comorbidities agreed to medically consult on the patient. Of note, there was concern of ureteral injury during surgery. Patient had good urinary output of injected methylene blue. CT abdomen/pelvis was obtained postop with delayed imaging which did not indicate ureteral leak. General surgery will do intravenous pyelogram in the morning to confirm. On my evaluation, patient was lying in bed comfortably without acute distress. Denied chest pain, shortness of breath, abdominal pain. Follow-up CBC, CMP. #Sigmoid adenocarcinoma s/p sigmoidectomy #History of iron deficiency anemia ? Colonoscopy biopsies by Dr. Baeza revealed invasive sigmoid adenocarcinoma. ? General Surgery performed sigmoid colectomy on 05/03/2025. No colostomy. Patient tolerated procedure well. ? Per general surgery, continue Zosyn 4.5 every 6 hours, IV LR at 100 mL/h pending advancement in diet. N.p.o. for now. ? Advance diet per general surgery. ? Continue regular follow-ups with Dr. Villegas. ? Follow-up iron panel. #Type 2 diabetes ? Hemoglobin A1c 6.3% in April 2025. Will hold off on ACHS checks for now. Follow-up morning glucose. #AAA, infrarenal #Former smoker #Hypertension ? Resume home ? Stable 4.5 x 3.3 cm infrarenal AAA. Following with cardiology. ? Continue to monitor blood pressures, currently at goal 131/67. ? Resume home bisoprolol, enalapril, hydrochlorothiazide, hydralazine once appropriate. #History of CAD with stents ? Continue home aspirin 81 mg, Plavix 75 mg bisoprolol. #Anxiety/depression ? Continue home fluoxetine, bupropion once reconciled. #GERD ? Continue PPI. DNR/DNI DVT prophylaxis: Lovenox 40 mg Home medications: Pending pharmacy reconciliation.
[2025-05-03 19:48] LABS: POC Glucose,Bedside 206 gm/dL (70-110)
[2025-05-03] MEDS: humaLOG 100 UNITS/ML 10ML VIAL (SSI) SUBCUT (21:08)
[2025-05-03] MEDS: 0.9 % SODIUM CHLORIDE 1000ML 1,000 ML 100 ML IV (21:08)
[2025-05-03] MEDS: PANTOPRAZOLE 40MG VIAL 40 MG IV (21:09)
[2025-05-03 21:42] LABS: Hematocrit 29.8 % (42.0-52.0); Hemoglobin 9.9 g/dL (14.1-18.0); Immature Granulocytes % 0.2 %; Mean Corpuscular HGB Conc 33.2 g/dL (31.8-35.4); Mean Corpuscular Hemoglobin 28.7 pg (27.0-31.2); Mean Corpuscular Volume 86.4 fl (80-94); Nucleated Red Blood Cells % 0 %; Platelet Count 208 K/mm3 (142-424); Red Blood Count 3.45 M/mm3 (4.60-6.20); Red Cell Distribution Width-SD 47.8 fL; White Blood Count 12.8 K/mm3 (4.8-10.8)
[2025-05-03 21:52] LABS: Albumin Level 3.5 g/dl (3.5-5.0); Chloride 101 mmol/L (98-107); Potassium 3.6 mmoL/L (3.5-5.1); Sodium 133 mmol/L (136-145)
[2025-05-03 21:55] LABS: Alanine Aminotransferase 16 U/L (12-78); Albumin/Globulin Ratio 1.8 (1.1-1.8); Alkaline Phosphatase 66 U/L (38-126); Anion Gap 9.6 mEq/L (5-15); Aspartate Amino Transferase 20 U/L (17-59); Bilirubin,Total 0.3 mg/dl (0.2-1.3); Calcium 7.5 mg/dl (8.4-10.2); Carbon Dioxide 26 mmol/L (22.0-30.0); Globulin 1.9 g/dL (1.3-3.2); Glucose 202 mg/dl (74-100); Total Protein,Serum 5.4 g/dl (6.3-8.2)
[2025-05-03 22:00] LABS: Blood Urea Nitrogen 17 mg/dl (9-20); Creatinine Clearance Estimated 67 mL/min (50-200); Creatinine,Serum 1.30 mg/dl (0.66-1.25); Estimated Glomerular Filt Rate 55 ml/min (>60); GFR (African American) 66 ML/MIN (>60)
[2025-05-04] VITALS (14 sets, daily range): BP systolic 107–153; BP diastolic 55–71; PULSE 59–72; RESP 12–24; TEMP 36.8–37.1; O2SAT 92–96; BMI 28.1
[2025-05-04] MEDS: HYDROMORPHONE 2MG/ML SYRINGE 0.5 MG IV ×2 (02:25→22:53)
[2025-05-04] MEDS: PIPERACILLIN/TAZO 4.5 GM in 0.9 % SODIUM CHLORIDE 100 ML IV ×4 (03:02→20:52)
[2025-05-04] MEDS: KETOROLAC 30MG/ML VIAL 15 MG IV ×3 (05:31→19:57)
[2025-05-04 06:16] LABS: POC Glucose,Bedside 141 gm/dL (70-110)
[2025-05-04 06:46] LABS: Hematocrit 27.2 % (42.0-52.0); Immature Granulocytes % 0.3 %; Mean Corpuscular HGB Conc 32.0 g/dL (31.8-35.4); Mean Corpuscular Hemoglobin 27.8 pg (27.0-31.2); Mean Corpuscular Volume 86.9 fl (80-94); Nucleated Red Blood Cells % 0 %; Platelet Count 202 K/mm3 (142-424); Red Blood Count 3.13 M/mm3 (4.60-6.20); Red Cell Distribution Width-SD 49.0 fL; White Blood Count 11.7 K/mm3 (4.8-10.8)
[2025-05-04 06:49] LABS: Anion Gap 8.5 mEq/L (5-15); Blood Urea Nitrogen 21 mg/dl (9-20); Calcium 7.7 mg/dl (8.4-10.2); Carbon Dioxide 26 mmol/L (22.0-30.0); Chloride 105 mmol/L (98-107); Creatinine Clearance Estimated 60 mL/min (50-200); Creatinine,Serum 1.40 mg/dl (0.66-1.25); Estimated Glomerular Filt Rate 50 ml/min (>60); GFR (African American) 61 ML/MIN (>60); Glucose 151 mg/dl (74-100); Potassium 3.5 mmoL/L (3.5-5.1); Sodium 136 mmol/L (136-145)
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
[2025-05-04 07:20] LABS: Hemoglobin 9.0 g/dL (14.1-18.0)
--- NOTE | 2025-05-04 07:26 | P.PN_ITS ---
Subjective Patient reports: no new complaints and no flatus Exam Data for Last 24 hours Vital signs and Labs for Last 24 Hours: Temp Pulse Resp BP Pulse Ox O2 Del Method 98.4 F 62 21 107/55 L 92 L Room Air 05/04/25 04:00 05/04/25 06:00 05/04/25 06:00 05/04/25 06:00 05/04/25 06:00 05/04/25 06:46 Laboratory Results - last 24 hr 05/03/25 06:37: POC Glucose 111 H 05/03/25 07:50: Urine Color Yellow, Urine Appearance Clear, Urine pH 6.0, Ur Specific [place] 1.025, Urine Protein Trace, Urine Glucose (UA) Negative, Urine Ketones 3+, Urine Blood Negative, Urine Nitrate Negative, Urine Bilirubin 2+ A, Urine Urobilinogen 0.2, Ur Leukocyte Esterase Negative, Urine RBC None, Urine WBC Occasional, Ur Squamous Epith Cells Occasional, Urine Bacteria 1+, Urine Mucus 1+ 05/03/25 12:07: POC Glucose 166 H 05/03/25 16:31: POC Glucose 194 H 05/03/25 19:37: POC Glucose 206 H 05/03/25 21:34: WBC 12.8 H, RBC 3.45 L, Hgb 9.9 L, Hct 29.8 L, MCV 86.4, MCH 28.7, MCHC 33.2, RDW 15.2, Plt Count 208, MPV 9.3, Neut % (Auto) 85.7 H, Lymph % (Auto) 6.1 L, [place] % (Auto) 7.8, Eos % (Auto) 0.0 L, Baso % (Auto) 0.2, Neut # (Auto) 11.0 H, Lymph # (Auto) 0.8, [place] # (Auto) 1.0, Eos # (Auto) 0.0, Baso # (Auto) 0.0, Sodium 133 L, Potassium 3.6, Chloride 101, Carbon Dioxide 26, Anion Gap 9.6, BUN 17, Creatinine 1.30 H, Estimated Creat Clear 67, Estimated GFR 55 L , Est GFR ( Amer) 66, Glucose 202 H, Calcium 7.5 L, Total Bilirubin 0.3, AST 20, ALT 16, Alkaline Phosphatase 66, Total Protein 5.4 L, Albumin 3.5, Globulin 1.9, Albumin/Globulin Ratio 1.8 05/04/25 06:07: POC Glucose 141 H 05/04/25 06:13: WBC 11.7 H, RBC 3.13 L, Hgb 9.0 L, Hct 27.2 L, MCV 86.9, MCH 27.8, MCHC 32.0, RDW 15.4, Plt Count 202, MPV 10.1, Neut % (Auto) 77.1, Lymph % (Auto) 12.4, [place] % (Auto) 10.0 H, Eos % (Auto) 0.0 L, Baso % (Auto) 0.2, Neut # (Auto) 9.0 H, Lymph # (Auto) 1.5, [place] # (Auto) 1.2 H, Eos # (Auto) 0.0, Baso # (Auto) 0.0 I & O for Last 24 hours: Intake & Output 05/01/25 05/02/25 05/03/25 05/04/25 11:59 11:59 11:59 11:59 Intake Total 3600 / 3600 300 / 300 Output Total 1300 / 1300 Balance 3600 / 3600 -1000 / -1000 Weight 194 lb 190 lb 1.6 oz Constitutional Constitutional: no acute distress *Routine Respiratory Exam Respiratory: Absent respiratory distress *Routine Cardiovascular Exam Cardiovascular: Absent tachycardia *Routine Abdominal Exam Comments: Dressing intact and dry. No erythema. Progress Note: A&P Assessment and plan (1) Adenocarcinoma of sigmoid colon: Status: Acute Assessment and plan: Note inability to identify left ureter intraoperatively. Note horseshoe kidney. Overall, doing well postoperative day 1 status post sigmoid resection. No definitive evidence of urologic injury per CT scan yesterday; however, study somewhat limited. Currently the ability to perform a retrograde study is not available at this facility. IVP/KUB pending. Follow-up IVP/KUB Continue Yen catheter for now (continue strict I's and O's, may require for retrograde study, and will allow for continued observation of the urine quality) Increase ambulation (2) Horseshoe kidney: Status: Acute Assessment and plan: See #1 above (3) Diabetes mellitus type 2 in nonobese: Status: Chronic Assessment and plan: As per hospitalist service (4) AAA (abdominal aortic aneurysm): Status: Acute (5) COPD (chronic obstructive pulmonary disease): Status: Chronic Assessment and plan: As per hospitalist service (6) CAD (coronary artery disease): Status: Chronic Assessment and plan: As per hospitalist service (7) Hypertension: Status: Chronic Assessment and plan: As per hospitalist service
--- NOTE | 2025-05-04 07:40 | P.PN_ITS ---
Subjective *Date: 05/04/25 *Time: 10:25 Interval history: Still having some abdominal discomfort this morning. No nausea or vomiting. Has not pooped or passed gas yet however. Denies chest pain or shortness of breath stable on room air. Taken for KUB with IV pyelogram. Yen in place draining light green urine (urine plus methylene blue that is still being excreted) afebrile. Medical Exam Vital signs and Labs for Last 24 Hours: Vital Signs Temp Pulse Pulse Resp BP BP Pulse Ox 05/04/25 06:46 05/04/25 06:00 62 21 107/55 L 92 L 05/04/25 05:00 05/04/25 04:00 98.4 F 64 12 113/63 94 L 05/04/25 04:00 61 05/04/25 02:55 05/04/25 02:00 65 24 118/57 L 94 L 05/04/25 02:00 05/04/25 01:00 05/04/25 00:00 60 05/04/25 00:00 98.6 F 62 12 137/65 92 L 05/03/25 23:00 05/03/25 22:00 66 24 139/67 92 L 05/03/25 21:00 05/03/25 20:30 131/67 05/03/25 20:30 65 16 90 L 05/03/25 20:20 129/63 05/03/25 20:20 66 22 91 L 05/03/25 20:15 68 21 91 L 05/03/25 20:10 62 14 94 L 05/03/25 20:10 128/66 05/03/25 20:00 05/03/25 20:00 67 05/03/25 20:00 98.4 F 65 18 122/63 95 05/03/25 18:50 05/03/25 18:41 05/03/25 18:00 65 18 119/53 L 91 L 05/03/25 17:00 05/03/25 16:40 70 20 114/60 91 L 05/03/25 16:00 70 05/03/25 16:00 72 24 106/62 L 93 L 05/03/25 15:50 69 18 127/65 90 L 05/03/25 15:29 78 30 H 131/62 92 L 05/03/25 15:00 67 15 126/66 94 L 05/03/25 15:00 05/03/25 14:21 97.5 F L 71 22 128/66 91 L 05/03/25 13:50 69 16 117/56 L 94 L 05/03/25 13:35 98.0 F 70 14 126/60 93 L 05/03/25 13:22 16 05/03/25 13:20 70 14 117/54 L 95 05/03/25 13:05 97.5 F L 69 14 120/58 L 98 05/03/25 12:50 97.8 F 72 16 110/79 94 L 05/03/25 12:40 72 17 130/63 94 L 05/03/25 12:30 72 17 124/61 93 L 05/03/25 12:20 70 16 130/68 94 L 05/03/25 12:10 74 17 130/65 91 L 05/03/25 12:00 73 17 123/65 94 L 05/03/25 11:50 75 18 123/63 95 05/03/25 11:49 97.3 F L 72 18 119/72 05/03/25 11:40 97.3 F L 65 18 119/72 95 O2 Del Method 05/04/25 06:46 Room Air 05/04/25 06:00 Room Air 05/04/25 05:00 Room Air 05/04/25 04:00 Room Air 05/04/25 04:00 05/04/25 02:55 Room Air 05/04/25 02:00 Room Air 05/04/25 02:00 Room Air 05/04/25 01:00 Room Air 05/04/25 00:00 05/04/25 00:00 Room Air 05/03/25 23:00 Room Air 05/03/25 22:00 Room Air 05/03/25 21:00 Room Air 05/03/25 20:30 05/03/25 20:30 05/03/25 20:20 05/03/25 20:20 05/03/25 20:15 05/03/25 20:10 05/03/25 20:10 05/03/25 20:00 Room Air 05/03/25 20:00 05/03/25 20:00 Room Air 05/03/25 18:50 Room Air 05/03/25 18:41 Room Air 05/03/25 18:00 Room Air 05/03/25 17:00 Room Air 05/03/25 16:40 Room Air 05/03/25 16:00 05/03/25 16:00 Room Air 05/03/25 15:50 Room Air 05/03/25 15:29 Room Air 05/03/25 15:00 Room Air 05/03/25 15:00 Room Air 05/03/25 14:21 Room Air 05/03/25 13:50 Room Air 05/03/25 13:35 Room Air 05/03/25 13:22 05/03/25 13:20 Room Air 05/03/25 13:05 Room Air 05/03/25 12:50 Room Air 05/03/25 12:40 Room Air 05/03/25 12:30 Room Air 05/03/25 12:20 Room Air 05/03/25 12:10 Room Air 05/03/25 12:00 Room Air 05/03/25 11:50 Room Air 05/03/25 11:49 05/03/25 11:40 Room Air Intake and Output 05/03/25 05/03/25 05/04/25 15:59 23:59 07:59 Intake Total 3500 / 3800 200 / 3800 100 / 100 Output Total 100 / 600 500 / 600 700 / 700 Balance 3400 / 3200 -300 / 3200 -600 / -600 Intake: Intake, Total IV Amount 3500 / 3800 200 / 3800 100 / 100 Piperacillin/Tazo 4.5 gm In 0.9 200 / 200 100 / 100 % Sodium Chloride 100 ml @ 200 mls/hr IV Q6H [facility] Rx#:[id number] Output: Output, Urine Amount 100 / 300 200 / 300 700 / 700 Output, Urine Amount (Catheter) 300 / 300 Yen 300 / 300 Other: Number of Unmeasured Voids 0 0 0 Weight 89.499 kg 89.499 kg 86.228 kg Patient Weight 05/04/25 23:59 Weight 86.228 kg Laboratory Results - last 24 hr 05/03/25 06:37: POC Glucose 111 H 05/03/25 07:50: Urine Color Yellow, Urine Appearance Clear, Urine pH 6.0, Ur Specific [place] 1.025, Urine Protein Trace, Urine Glucose (UA) Negative, Urine Ketones 3+, Urine Blood Negative, Urine Nitrate Negative, Urine Bilirubin 2+ A, Urine Urobilinogen 0.2, Ur Leukocyte Esterase Negative, Urine RBC None, Urine WBC Occasional, Ur Squamous Epith Cells Occasional, Urine Bacteria 1+, Urine Mucus 1+ 05/03/25 12:07: POC Glucose 166 H 05/03/25 16:31: POC Glucose 194 H 05/03/25 19:37: POC Glucose 206 H 05/03/25 21:34: WBC 12.8 H, RBC 3.45 L, Hgb 9.9 L, Hct 29.8 L, MCV 86.4, MCH 28.7, MCHC 33.2, RDW 15.2, Plt Count 208, MPV 9.3, Neut % (Auto) 85.7 H, Lymph % (Auto) 6.1 L, [place] % (Auto) 7.8, Eos % (Auto) 0.0 L, Baso % (Auto) 0.2, Neut # (Auto) 11.0 H, Lymph # (Auto) 0.8, [place] # (Auto) 1.0, Eos # (Auto) 0.0, Baso # (Auto) 0.0, Sodium 133 L, Potassium 3.6, Chloride 101, Carbon Dioxide 26, Anion Gap 9.6, BUN 17, Creatinine 1.30 H, Estimated Creat Clear 67, Estimated GFR 55 L , Est GFR ( Amer) 66, Glucose 202 H, Calcium 7.5 L, Total Bilirubin 0.3, AST 20, ALT 16, Alkaline Phosphatase 66, Total Protein 5.4 L, Albumin 3.5, Globulin 1.9, Albumin/Globulin Ratio 1.8 05/04/25 06:07: POC Glucose 141 H 05/04/25 06:13: WBC 11.7 H, RBC 3.13 L, Hgb 9.0 L, Hct 27.2 L, MCV 86.9, MCH 27.8, MCHC 32.0, RDW 15.4, Plt Count 202, MPV 10.1, Neut % (Auto) 77.1, Lymph % (Auto) 12.4, [place] % (Auto) 10.0 H, Eos % (Auto) 0.0 L, Baso % (Auto) 0.2, Neut # (Auto) 9.0 H, Lymph # (Auto) 1.5, [place] # (Auto) 1.2 H, Eos # (Auto) 0.0, Baso # (Auto) 0.0, Sodium 136, Potassium 3.5, Chloride 105, Carbon Dioxide 26, Anion Gap 8.5, BUN 21 H, Creatinine 1.40 H, Estimated Creat Clear 60, Estimated GFR 50 L, Est GFR ( Amer) 61, Glucose 151 H D, Calcium 7.7 L I & O for Labs for Last 24 Hours: Intake & Output 05/01/25 05/02/25 05/03/25 05/04/25 23:59 23:59 23:59 23:59 Intake Total 3800 / 3800 100 / 100 Output Total 600 / 600 700 / 700 Balance 3200 / 3200 -600 / -600 Weight 89.499 kg 86.228 kg Constitutional: Present no acute distress and cooperative Head: Absent atraumatic or normocephalic Respiratory: Present normal respiratory effort; Absent respiratory distress, stridor, wheezes or crackles Cardiac: Present Reg Rate and Rhythm GI: Present soft, distention, tenderness (Mild, non-focal, more around surgical incision) and hypoactive bowel sounds Extremities: Present normal inspection and full ROM Skin: Present intact; Absent erythema Neuro: Present Grossly Intact, alert, awake, oriented x 3 and moves all extremities Assessment and Plan *Assessment and plan (1) Adenocarcinoma of sigmoid colon: Status: Acute Category: Medical Code(s): C18.7 - Malignant neoplasm of sigmoid colon (2) KITA (generalized anxiety disorder): Status: Acute Category: Medical Code(s): F41.1 - Generalized anxiety disorder (3) Major depression: Status: Acute Category: Medical Code(s): F32.9 - Major depressive disorder, single episode, unspecified (4) Diabetes mellitus type 2 in nonobese: Status: Chronic Category: Medical Code(s): E11.9 - Type 2 diabetes mellitus without complications (5) Horseshoe kidney: Status: Acute Category: Medical Code(s): Q63.1 - Lobulated, fused and horseshoe kidney (6) COPD (chronic obstructive pulmonary disease): Status: Chronic Qualifiers: COPD type: unspecified COPD Qualified Code(s): J44.9 - Chronic obstructive pulmonary disease, unspecified Category: Medical Code(s): J44.9 - Chronic obstructive pulmonary disease, unspecified (7) Hypertension: Status: Chronic Qualifiers: Hypertension type: essential hypertension Qualified Code(s): I10 - Essential (primary) hypertension Category: Medical Code(s): I10 - Essential (primary) hypertension Plan Alejandro Jasmine is a 70-year-old male with a medical history significant for sigmoid adenocarcinoma, CAD with stents, infrarenal AAA, type 2 diabetes presented for planned sigmoidectomy due to invasive sigmoid adenocarcinoma. Patient tolerated procedure well. Discussed with Dr. Stewart who performed surgery, but due to multiple comorbidities agreed to medically consult on the patient. Of note, there was concern of ureteral injury during surgery. Patient had good urinary output of injected methylene blue. CT abdomen/pelvis was obtained postop with delayed imaging which did not indicate ureteral leak. IV pyelogram obtained this morning. No extravasation noted. Patient appears comfortable. Still no bowel movement or passing flatus. Okay to downgrade to MedSurg however. Continues to require inpatient management. Problems addressed as follows: #Sigmoid adenocarcinoma s/p sigmoidectomy #History of iron deficiency anemia ? Colonoscopy biopsies by Dr. Baeza revealed invasive sigmoid adenocarcinoma. ? General Surgery performed sigmoid colectomy on 05/03/2025. No colostomy. Patient tolerated procedure well. ? Per general surgery, continue Zosyn 4.5 every 6 hours; having good urinary output. Kidney function normal with BUN 21, creatinine 1.4. Will hold IV fluids today. Consider giving boluses as needed. - N.p.o. at surgery's recommendations. Will advance diet per surgery when appropriate, monitor for flatus and bowel movement ? Continue regular follow-ups with Dr. Villegas. ? B12 low at 218, ferritin high at 510. Iron level low at 39 and TIBC of 199. Will administer 200 mg IV iron today along with B12 IM 1000mg - White count 11.7, hemoglobin 9; down from 9.9 yesterday; repeat CBC, CMP ordered for the morning #Type 2 diabetes ? Hemoglobin A1c 6.3% in April 2025. Will hold off on ACHS checks for now. Morning glucose 151. #AAA, infrarenal #Former smoker #Hypertension ? Stable 4.5 x 3.3 cm infrarenal AAA. Following with cardiology. ? Continue to monitor blood pressures, currently at goal 131/67. ?Continue home bisoprolol, enalapril, hydrochlorothiazide, hydralazine. #History of CAD with stents ?Continue home aspirin 81 mg, Plavix 75 mg bisoprolol. #Anxiety/depression ?Resume Prozac 30 mg daily and Wellbutrin 150 mg daily #GERD ? Continue PPI. DNR/DNI DVT prophylaxis: Lovenox 40 mg DNR/DNI
[2025-05-04] MEDS: IOPAMIDOL-370 (76%);100ML BOTTLE 60 ML IV (07:51)
--- NOTE | 2025-05-04 09:26 | HMH.PHAINT1 ---
Pharmacy Intervention Comments: MEDICATION RECONCILIATION COMPLETE USING EXTERNAL PHARMACY FILL HISTORY, HARSHAL REPORT, AND RECENT MD OFFICE VISIT NOTES.
[2025-05-04 09:27] LABS: Iron 39 ug/dL (49-181)
[2025-05-04] MEDS: ASPIRIN 81MG CHEWABLE TABLET 81 MG PO (09:27)
[2025-05-04] MEDS: FLUOXETINE 10MG CAPSULE 10 MG PO (09:27)
[2025-05-04] MEDS: FLUOXETINE 20MG CAPSULE 20 MG PO (09:27)
[2025-05-04] MEDS: CLOPIDOGREL 75MG TAB 75 MG PO (09:28)
[2025-05-04 09:37] LABS: Total Iron Binding Capacity 199 ug/dL (261-462)
[2025-05-04 10:04] LABS: Ferritin 510 ng/ml (17.9-464)
--- NOTE | 2025-05-04 10:05 | PC.NURSE ---
Report called to YUE Gordillo at this time.
--- NOTE | 2025-05-04 10:08 | PC.NURSE ---
patient left via wheelchair with med surg srna staff at this time
--- NOTE | 2025-05-04 10:10 | PC.NURSE ---
arrived by w/c from ICU
[2025-05-04 10:19] LABS: Vitamin B12 218 pg/mL (239-931)
[2025-05-04] MEDS: IRON SUCROSE COMPLEX 200 MG in 0.9 % SODIUM CHLORIDE 100 ML 220 MG IV (10:57)
[2025-05-04] MEDS: VITAMIN B-12 1,000 MCG 1ML VIAL 1000 MCG IM (10:57)
[2025-05-04 17:15] LABS: POC Glucose,Bedside 111 gm/dL (70-110)
[2025-05-04 17:15] LABS: POC Glucose,Bedside 122 gm/dL (70-110)
--- NOTE | 2025-05-04 17:15 | PC.NURSE ---
aox4, ambulated in hallway multiple times today independently and tolerated well. medicated for pain per mar with good effectiveness. still no bm pt also denies passing gas.
[2025-05-04 19:53] LABS: POC Glucose,Bedside 122 gm/dL (70-110)
[2025-05-04] MEDS: PANTOPRAZOLE 40MG VIAL 40 MG IV (20:00)
[2025-05-05] VITALS (7 sets, daily range): BP systolic 150–189; BP diastolic 75–87; PULSE 63–73; RESP 16–18; TEMP 36.8–37; O2SAT 93–96; BMI 28.7
[2025-05-05] MEDS: KETOROLAC 30MG/ML VIAL 15 MG IV ×3 (03:12→15:29)
[2025-05-05] MEDS: PIPERACILLIN/TAZO 4.5 GM in 0.9 % SODIUM CHLORIDE 100 ML IV ×4 (03:13→20:57)
[2025-05-05 05:26] LABS: POC Glucose,Bedside 94 gm/dL (70-110)
[2025-05-05 06:47] LABS: Anion Gap 13.9 mEq/L (5-15); Blood Urea Nitrogen 16 mg/dl (9-20); Calcium 7.8 mg/dl (8.4-10.2); Carbon Dioxide 22 mmol/L (22.0-30.0); Chloride 105 mmol/L (98-107); Creatinine Clearance Estimated 71 mL/min (50-200); Creatinine,Serum 1.20 mg/dl (0.66-1.25); Estimated Glomerular Filt Rate 60 ml/min (>60); GFR (African American) 72 ML/MIN (>60); Glucose 92 mg/dl (74-100); Sodium 138 mmol/L (136-145)
[2025-05-05 06:53] LABS: Hematocrit 25.5 % (42.0-52.0); Hemoglobin 8.2 g/dL (14.1-18.0); Immature Granulocytes % 0.3 %; Mean Corpuscular HGB Conc 32.2 g/dL (31.8-35.4); Mean Corpuscular Hemoglobin 27.9 pg (27.0-31.2); Mean Corpuscular Volume 86.7 fl (80-94); Nucleated Red Blood Cells % 0 %; Platelet Count 202 K/mm3 (142-424); Red Blood Count 2.94 M/mm3 (4.60-6.20); Red Cell Distribution Width-SD 49.7 fL; White Blood Count 11.7 K/mm3 (4.8-10.8)
[2025-05-05 06:56] LABS: Potassium 2.9 mmoL/L (3.5-5.1)
[2025-05-05] MEDS: FLUOXETINE 10MG CAPSULE 10 MG PO (07:55)
[2025-05-05] MEDS: FLUOXETINE 20MG CAPSULE 20 MG PO (07:55)
[2025-05-05] MEDS: CLOPIDOGREL 75MG TAB 75 MG PO (07:55)
[2025-05-05] MEDS: ASPIRIN 81MG CHEWABLE TABLET 81 MG PO (07:55)
[2025-05-05] MEDS: BISOPROLOL 5MG TABLET 5 MG PO (07:56)
[2025-05-05] MEDS: POTASSIUM CHLORIDE 20MEQ TAB 40 MEQ PO ×3 (07:56→14:48)
[2025-05-05 08:21] LABS: POC Glucose,Bedside 89 gm/dL (70-110)
[2025-05-05 09:28] LABS: POC Glucose,Bedside 142 gm/dL (70-110)
--- NOTE | 2025-05-05 10:10 | P.PN_ITS ---
<Statement entered by Bryce Lema MD - 05/05/25 12:32> Rounded on patient after nurse practitioner. Personally examined and interviewed patient. Agree with exam findings and care plan as documented. Subjective *Date: 05/05/25 *Time: 10:10 Interval history: Patient doing very well today. Complains of little to no pain. Passing flatus, no bowel movement. Advancing diet to clear liquids, if tolerates well full liquids for dinner. Patient ambulating in the halls without issue. Hemoglobin slightly low at 8.2, continuing to monitor. Potassium low at 2.9, replacing per protocol. Medical Exam Vital signs and Labs for Last 24 Hours: Vital Signs Temp Pulse Resp BP Pulse Ox O2 Del Method 05/05/25 08:09 Room Air 05/05/25 08:00 98.3 F 63 16 151/78 H 93 L Room Air 05/05/25 08:00 Room Air 05/05/25 05:00 Room Air 05/05/25 04:00 98.2 F 71 16 170/79 H 95 Room Air 05/05/25 03:00 Room Air 05/05/25 01:00 EST Room Air 05/05/25 00:00 98.2 F 72 16 150/75 H 95 Room Air 05/04/25 23:00 Room Air 05/04/25 21:00 Room Air 05/04/25 20:00 98.7 F 72 16 153/69 H 95 Room Air 05/04/25 20:00 Room Air 05/04/25 18:20 Room Air 05/04/25 16:49 Room Air 05/04/25 16:00 98.2 F 69 16 134/71 95 Room Air 05/04/25 15:00 Room Air 05/04/25 12:43 Room Air 05/04/25 12:00 98.4 F 71 16 139/64 96 Room Air Intake and Output 05/04/25 05/05/25 05/05/25 23:59 06:59 15:59 Intake Total 200 / 1510 100 / 100 0 / 100 Output Total 100 / 925 400 / 400 Balance 100 / 585 -300 / -300 0 / -300 Intake: Intake, Oral Amount 0 / 0 0 / 0 Intake, Total IV Amount 200 / 1510 100 / 100 Piperacillin/Tazo 4.5 gm In 0.9 200 / 400 100 / 100 % Sodium Chloride 100 ml @ 200 mls/hr IV Q6H [facility] Rx#:[id number] Output: Output, Urine Amount 100 / 925 400 / 400 Other: Weight 87.952 kg Patient Weight 05/05/25 22:59 Weight 87.952 kg Laboratory Results - last 24 hr 05/04/25 12:27: POC Glucose 111 H 05/04/25 16:10: POC Glucose 122 H 05/04/25 19:43: POC Glucose 122 H 05/05/25 04:59: POC Glucose 94 05/05/25 06:05: WBC 11.7 H, RBC 2.94 L, Hgb 8.2 L, Hct 25.5 L, MCV 86.7, MCH 27.9, MCHC 32.2, RDW 15.8, Plt Count 202, MPV 10.4, Neut % (Auto) 67.3, Lymph % (Auto) 23.4, [place] % (Auto) 7.5, Eos % (Auto) 0.9, Baso % (Auto) 0.6, Neut # (Auto) 7.9 H, Lymph # (Auto) 2.7, [place] # (Auto) 0.9, Eos # (Auto) 0.1, Baso # (Auto) 0.1, Sodium 138, Potassium 2.9 L*, Chloride 105, Carbon Dioxide 22, Anion Gap 13.9, BUN 16, Creatinine 1.20, Estimated Creat Clear 71, Estimated GFR 60, Est GFR ( Amer) 72, Glucose 92 D, Calcium 7.8 L 05/05/25 08:13: POC Glucose 89 05/05/25 09:21: POC Glucose 142 H I & O for Labs for Last 24 Hours: Intake & Output 05/02/25 05/03/25 05/04/25 05/05/25 23:59 23:59 23:59 22:59 Intake Total 3800 / 3800 1510 / 1510 100 / 100 Output Total 600 / 600 925 / 925 400 / 400 Balance 3200 / 3200 585 / 585 -300 / -300 Weight 89.499 kg 86.228 kg 87.952 kg Constitutional: Present no acute distress, average body habitus and cooperative Head: Absent atraumatic or normocephalic Neck: Present normal inspection Respiratory: Present CTA bilaterally and normal respiratory effort; Absent respiratory distress, stridor, wheezes or crackles Cardiac: Present Reg Rate and Rhythm, Regular Rate, Regular Rhythm and No Murmur GI: Present soft, distention, tenderness (Mild, non-focal, more around surgical incision) and normal bowel sounds Rectal (male): Present deferred (male): Present deferred Extremities: Present normal inspection and full ROM Skin: Present intact and dry; Absent erythema Neuro: Present Grossly Intact, alert, awake, oriented x 3 and moves all extremities Assessment and Plan *Assessment and plan (1) Adenocarcinoma of sigmoid colon: Status: Acute Category: Medical Code(s): C18.7 - Malignant neoplasm of sigmoid colon (2) KITA (generalized anxiety disorder): Status: Acute Category: Medical Code(s): F41.1 - Generalized anxiety disorder (3) Major depression: Status: Acute Category: Medical Code(s): F32.9 - Major depressive disorder, single episode, unspecified (4) Diabetes mellitus type 2 in nonobese: Status: Chronic Category: Medical Code(s): E11.9 - Type 2 diabetes mellitus without complications (5) Horseshoe kidney: Status: Acute Category: Medical Code(s): Q63.1 - Lobulated, fused and horseshoe kidney (6) COPD (chronic obstructive pulmonary disease): Status: Chronic Qualifiers: COPD type: unspecified COPD Qualified Code(s): J44.9 - Chronic obstructive pulmonary disease, unspecified Category: Medical Code(s): J44.9 - Chronic obstructive pulmonary disease, unspecified (7) Hypertension: Status: Chronic Qualifiers: Hypertension type: essential hypertension Qualified Code(s): I10 - Essential (primary) hypertension Category: Medical Code(s): I10 - Essential (primary) hypertension Plan Alejandro Jasmine is a 70-year-old male with a medical history significant for sigmoid adenocarcinoma, CAD with stents, infrarenal AAA, type 2 diabetes presented for planned sigmoidectomy due to invasive sigmoid adenocarcinoma. Patient tolerated procedure well. Discussed with Dr. Stewart who performed surgery, but due to multiple comorbidities agreed to medically consult on the patient. Of note, there was concern of ureteral injury during surgery. Patient had good urinary output of injected methylene blue. Patient continues to have output of methylene blue, voiding regularly. Encourage fluid intake. CT abdomen/pelvis was obtained postop with delayed imaging which did not indicate ureteral leak. IV pyelogram obtained this morning. No extravasation noted. Patient appears comfortable. Passing flatus but no bowel movement, normoactive bowel sounds. Downgraded to MedSurg. Continues to require inpatient management. Problems addressed as follows: #Sigmoid adenocarcinoma s/p sigmoidectomy #History of iron deficiency anemia ? Colonoscopy biopsies by Dr. Baeza revealed invasive sigmoid adenocarcinoma. ? General Surgery performed sigmoid colectomy on 05/03/2025. No colostomy. Patient tolerated procedure well. ? Per general surgery, continue Zosyn 4.5 every 6 hours; having good urinary output. Kidney function normal with BUN 16, creatinine 1.20. Patient tolerating p.o. intake well, clear liquid diet. Consider giving boluses as needed. ? Continue to monitor for increased flatus and bowel movement. Will advance diet to full liquids for dinner if tolerates clears throughout the day. ? Continue regular follow-ups with Dr. Villegas. ? B12 low at 218, ferritin high at 510. Iron level low at 39 and TIBC of 199. Will administer 200 mg IV iron today along with B12 IM 1000mg. - White count 11.7, hemoglobin 8.2; down from 9.0 yesterday; repeat CBC, CMP ordered for the morning. Monitoring closely. Threshold to infuse globin less than 7. #Hypokalemia: Patient potassium 2.9 this morning. Replacing orally per protocol. Recheck in the a.m. #Type 2 diabetes ? Hemoglobin A1c 6.3% in April 2025. Will hold off on ACHS checks for now. Morning glucose 92. #AAA, infrarenal #Former smoker #Hypertension ? Stable 4.5 x 3.3 cm infrarenal AAA. Following with cardiology. ? Continue to monitor blood pressures, currently at goal 131/67. ? Continue home bisoprolol, enalapril, hydrochlorothiazide, hydralazine. #History of CAD with stents ?Continue home aspirin 81 mg, Plavix 75 mg bisoprolol. #Anxiety/depression ?Resume Prozac 30 mg daily and Wellbutrin 150 mg daily #GERD ? Continue PPI. DNR/DNI DVT prophylaxis: Lovenox 40 mg
--- NOTE | 2025-05-05 10:25 | EXP.SURG.PN ---
Subjective Patient reports: no new complaints, feels better, flatus and no bowel movement Exam Data for Last 24 hours Vital signs and Labs for Last 24 Hours: Temp Pulse Resp BP Pulse Ox O2 Del Method 98.3 F 63 16 151/78 H 93 L Room Air 05/05/25 08:00 05/05/25 08:00 05/05/25 08:00 05/05/25 08:00 05/05/25 08:00 05/05/25 10:12 Laboratory Results - last 24 hr 05/04/25 12:27: POC Glucose 111 H 05/04/25 16:10: POC Glucose 122 H 05/04/25 19:43: POC Glucose 122 H 05/05/25 04:59: POC Glucose 94 05/05/25 06:05: WBC 11.7 H, RBC 2.94 L, Hgb 8.2 L, Hct 25.5 L, MCV 86.7, MCH 27.9, MCHC 32.2, RDW 15.8, Plt Count 202, MPV 10.4, Neut % (Auto) 67.3, Lymph % (Auto) 23.4, [place] % (Auto) 7.5, Eos % (Auto) 0.9, Baso % (Auto) 0.6, Neut # (Auto) 7.9 H, Lymph # (Auto) 2.7, [place] # (Auto) 0.9, Eos # (Auto) 0.1, Baso # (Auto) 0.1, Sodium 138, Potassium 2.9 L*, Chloride 105, Carbon Dioxide 22, Anion Gap 13.9, BUN 16, Creatinine 1.20, Estimated Creat Clear 71, Estimated GFR 60, Est GFR ( Amer) 72, Glucose 92 D, Calcium 7.8 L 05/05/25 08:13: POC Glucose 89 05/05/25 09:21: POC Glucose 142 H I & O for Last 24 hours: Intake & Output 05/02/25 05/03/25 05/04/25 05/05/25 11:59 11:59 11:59 10:59 Intake Total 3600 / 3600 1510 / 1510 400 / 400 Output Total 1425 / 1425 500 / 500 Balance 3600 / 3600 85 / 85 -100 / -100 Weight 194 lb 190 lb 1.6 oz 193 lb 14.4 oz Constitutional Constitutional: no acute distress *Routine Respiratory Exam Respiratory: Absent respiratory distress *Routine Cardiovascular Exam Cardiovascular: Absent tachycardia *Routine Abdominal Exam Comments: Dressing intact and dry. No erythema. Progress Note: A&P Assessment and plan (1) Adenocarcinoma of sigmoid colon: Status: Acute Assessment and plan: Overall, doing well postoperative day 2 status post sigmoid resection. Note inability to identify left ureter intraoperatively. Note horseshoe kidney. No definitive evidence of urologic injury per CT scan (05/03) or IVP/KUB (05/04); however, study somewhat limited. Currently the ability to perform a retrograde study is not available at this facility. Limited clear liquid diet Continue to increase ambulation (2) Postoperative anemia: Status: Acute Assessment and plan: Repeat labs pending tomorrow morning (3) Hypokalemia: Status: Acute Assessment and plan: Replace as per protocol/hospitalist service (4) KITA (generalized anxiety disorder): Status: Acute (5) Major depression: Status: Acute (6) Diabetes mellitus type 2 in nonobese: Status: Chronic Assessment and plan: As per hospitalist service (7) Horseshoe kidney: Status: Acute Assessment and plan: See #1 above (8) COPD (chronic obstructive pulmonary disease): Status: Chronic Assessment and plan: As per hospitalist service (9) Hypertension: Status: Chronic Assessment and plan: As per hospitalist service (10) AAA (abdominal aortic aneurysm): Status: Acute (11) CAD (coronary artery disease): Status: Chronic Assessment and plan: As per hospitalist service
--- NOTE | 2025-05-05 14:28 | PC.NURSE ---
Aox 4, up ad melanie and ambulating hallway, on RA, pain meds given once, Midline incision c/d/i, fsbg achs, lovenox VTE, on clears, 20g r ac sl, consult to CM, Nutrition, hospice.
[2025-05-05] MEDS: LISINOPRIL 20MG TABLET 20 MG PO (14:48)
[2025-05-05 15:00] LABS: POC Glucose,Bedside 116 gm/dL (70-110)
[2025-05-05 19:51] LABS: POC Glucose,Bedside 100 gm/dL (70-110)
[2025-05-05] MEDS: HYDRALAZINE 10MG TABLET 20 MG PO (20:08)
[2025-05-05] MEDS: PANTOPRAZOLE 40MG VIAL 40 MG IV (20:08)
[2025-05-05] MEDS: SODIUM CHLORIDE 0.9% 10ML VIAL 10 ML IV (20:08)
[2025-05-05] MEDS: HYDROMORPHONE 2MG/ML SYRINGE 0.5 MG IV (20:09)
[2025-05-06] VITALS: BP 146/78; PULSE 64; RESP 16; TEMP 36.8; O2SAT 96
[2025-05-06] MEDS: PIPERACILLIN/TAZO 4.5 GM in 0.9 % SODIUM CHLORIDE 100 ML IV ×4 (03:03→20:48)
--- NOTE | 2025-05-06 03:42 | PC.NURSE ---
Alert and oriented. Complained of pain one time, treated per sep. Patient ambulated in the hallway 2 times this shift. Midline incision, vincent in place, CDI. Passing gas, no bowel movement this shift, bowel sounds active. No other complaints. IV abx given as scheduled. Call light in reach.
[2025-05-06 04:00] VITALS: BP 185/78; PULSE 61; RESP 16; TEMP 36.4; O2SAT 97; BMI 29.0
[2025-05-06] MEDS: KETOROLAC 30MG/ML VIAL 15 MG IV (04:55)
[2025-05-06] MEDS: HYDROMORPHONE 2MG/ML SYRINGE 0.5 MG IV (06:13)
[2025-05-06 06:40] LABS: Hematocrit 25.0 % (42.0-52.0); Hemoglobin 8.0 g/dL (14.1-18.0); Immature Granulocytes % 0.3 %; Mean Corpuscular HGB Conc 32.0 g/dL (31.8-35.4); Mean Corpuscular Hemoglobin 28.3 pg (27.0-31.2); Mean Corpuscular Volume 88.3 fl (80-94); Nucleated Red Blood Cells % 0 %; Platelet Count 200 K/mm3 (142-424); Red Blood Count 2.83 M/mm3 (4.60-6.20); Red Cell Distribution Width-SD 51.6 fL; White Blood Count 9.2 K/mm3 (4.8-10.8)
[2025-05-06 07:00] LABS: Anion Gap 12.5 mEq/L (5-15); Blood Urea Nitrogen 13 mg/dl (9-20); Calcium 7.8 mg/dl (8.4-10.2); Carbon Dioxide 21 mmol/L (22.0-30.0); Chloride 107 mmol/L (98-107); Creatinine Clearance Estimated 79 mL/min (50-200); Creatinine,Serum 1.10 mg/dl (0.66-1.25); Estimated Glomerular Filt Rate 66 ml/min (>60); GFR (African American) 80 ML/MIN (>60); Glucose 93 mg/dl (74-100); Potassium 3.5 mmoL/L (3.5-5.1); Sodium 137 mmol/L (136-145)
--- NOTE | 2025-05-06 07:26 | HMH.PHAAMS2 ---
- Antimicrobial Stewardship Review 48 hour timeout review Stewardship interventions: 48 hour timeout review, reviewed - no change Comments: EMPIRIC TREATMENT FOR BOWEL RESECTION WITH PIPERCILLIN/TAZOBACTAM. NO CULTURES AVAILABLE
[2025-05-06 08:00] VITALS: BP 157/75; PULSE 61; RESP 16; TEMP 36.4; O2SAT 95
--- NOTE | 2025-05-06 08:39 | P.PN_ITS ---
Subjective Patient reports: no new complaints, flatus and no bowel movement Exam Data for Last 24 hours Vital signs and Labs for Last 24 Hours: Temp Pulse Resp BP Pulse Ox O2 Del Method 97.5 F L 61 16 157/75 H 95 Room Air 05/06/25 08:00 05/06/25 08:00 05/06/25 08:00 05/06/25 08:00 05/06/25 08:00 05/06/25 08:00 Laboratory Results - last 24 hr 05/05/25 09:21: POC Glucose 142 H 05/05/25 14:49: POC Glucose 116 H 05/05/25 19:45: POC Glucose 100 05/06/25 05:42: WBC 9.2, RBC 2.83 L, Hgb 8.0 L, Hct 25.0 L, MCV 88.3, MCH 28.3, MCHC 32.0, RDW 15.9, Plt Count 200, MPV 10.5 H, Neut % (Auto) 64.6, Lymph % (Auto) 24.2, [place] % (Auto) 7.0, Eos % (Auto) 3.4, Baso % (Auto) 0.5, Neut # (Auto) 6.0, Lymph # (Auto) 2.2, [place] # (Auto) 0.7, Eos # (Auto) 0.3, Baso # (Auto) 0.1, Sodium 137, Potassium 3.5 D, Chloride 107, Carbon Dioxide 21 L, Anion Gap 12.5, BUN 13, Creatinine 1.10, Estimated Creat Clear 79, Estimated GFR 66, Est GFR ( Amer) 80, Glucose 93, Calcium 7.8 L I & O for Last 24 hours: Intake & Output 05/03/25 05/04/25 05/05/25 05/06/25 11:59 11:59 10:59 11:59 Intake Total 3600 / 3600 1510 / 1510 400 / 400 1480 / 1480 Output Total 1425 / 1425 500 / 500 1375 / 1375 Balance 3600 / 3600 85 / 85 -100 / -100 105 / 105 Weight 194 lb 190 lb 1.6 oz 193 lb 14.4 oz 196 lb 6.4 oz Constitutional Constitutional: no acute distress *Routine Respiratory Exam Respiratory: Absent respiratory distress *Routine Cardiovascular Exam Cardiovascular: Absent tachycardia *Routine Abdominal Exam Comments: Central portion of wound with intact dressing. No erythema. Progress Note: A&P Assessment and plan (1) Adenocarcinoma of sigmoid colon: Status: Acute Assessment and plan: Overall, doing well postoperative day 3 status post sigmoid resection. Note inability to identify left ureter intraoperatively. Note horseshoe kidney. No definitive evidence of urologic injury per CT scan (05/03) or IVP/KUB (05/04); however, study somewhat limited. Currently the ability to perform a retrograde study is not available at this facility. Full liquid diet Continue to increase ambulation (2) Postoperative anemia: Status: Acute Assessment and plan: Hemoglobin stable (8.0 this a.m.). Repeat labs pending tomorrow morning (3) Hypokalemia: Status: Acute Assessment and plan: Resolved status post replacement yesterday. Continue to replace as needed as per protocol/hospitalist service (4) KITA (generalized anxiety disorder): Status: Acute (5) Major depression: Status: Acute (6) Diabetes mellitus type 2 in nonobese: Status: Chronic Assessment and plan: As per hospitalist service (7) Horseshoe kidney: Status: Acute Assessment and plan: See #1 above (8) COPD (chronic obstructive pulmonary disease): Status: Chronic Assessment and plan: As per hospitalist service (9) Hypertension: Status: Chronic Assessment and plan: As per hospitalist service (10) CAD (coronary artery disease): Status: Chronic Assessment and plan: As per hospitalist service (11) AAA (abdominal aortic aneurysm): Status: Acute
[2025-05-06] MEDS: POTASSIUM CHLORIDE 20MEQ TAB 40 MEQ PO ×2 (08:47→13:50)
[2025-05-06] MEDS: BISOPROLOL 5MG TABLET 5 MG PO (08:48)
[2025-05-06] MEDS: ASPIRIN 81MG CHEWABLE TABLET 81 MG PO (08:48)
[2025-05-06] MEDS: CLOPIDOGREL 75MG TAB 75 MG PO (08:49)
[2025-05-06] MEDS: HYDRALAZINE 10MG TABLET 20 MG PO ×2 (08:50→20:48)
[2025-05-06] MEDS: FLUOXETINE 20MG CAPSULE 20 MG PO (08:50)
[2025-05-06] MEDS: FLUOXETINE 10MG CAPSULE 10 MG PO (08:50)
[2025-05-06] MEDS: LISINOPRIL 20MG TABLET 20 MG PO (08:51)
[2025-05-06 09:06] LABS: POC Glucose,Bedside 89 gm/dL (70-110)
--- NOTE | 2025-05-06 11:12 | P.PN_ITS ---
<Statement entered by Bryce Lema MD - 05/06/25 15:42> Rounded on patient after nurse practitioner. Personally examined and interviewed patient. Agree with exam findings and care plan as documented. Subjective *Date: 05/06/25 *Time: 11:12 Interval history: Mr. Jasmine is doing excellent this morning. Patient has been ambulating the halls, tolerating full liquid diet without issues. Patient has required a few doses of IV pain medication, transitioning today to oral pain medication. Patient had bowel movement this morning. Continuing to pass flatus. Anticipate discharge home tomorrow. Medical Exam Vital signs and Labs for Last 24 Hours: Vital Signs Temp Pulse Resp BP Pulse Ox O2 Del Method 05/06/25 08:00 97.5 F L 61 16 157/75 H 95 Room Air 05/06/25 06:39 Room Air 05/06/25 05:00 Room Air 05/06/25 04:00 97.5 F L 61 16 185/78 H 97 Room Air 05/06/25 03:00 Room Air 05/06/25 00:51 Room Air 05/06/25 00:00 98.3 F 64 16 146/78 H 96 Room Air 05/05/25 23:00 Room Air 05/05/25 21:00 Room Air 05/05/25 20:00 Room Air 05/05/25 20:00 98.4 F 71 16 189/87 H 96 Room Air 05/05/25 17:50 Room Air 05/05/25 17:29 172/86 H 05/05/25 16:19 Room Air 05/05/25 15:52 98.2 F 73 17 180/75 H 96 Room Air 05/05/25 14:26 Room Air 05/05/25 12:00 98.6 F 71 18 174/79 H 96 Room Air Intake and Output 05/05/25 05/06/25 05/06/25 23:59 07:59 15:59 Intake Total 460 / 1580 400 / 400 Output Total 850 / 1400 375 / 525 150 / 525 Balance -390 / 180 25 / -125 -150 / -125 Intake: Intake, Oral Amount 360 / 1180 300 / 300 Intake, Total IV Amount 100 / 400 100 / 100 Piperacillin/Tazo 4.5 gm In 0.9 100 / 400 100 / 100 % Sodium Chloride 100 ml @ 200 mls/hr IV Q6H [facility] Rx#:[id number] Output: Output, Urine Amount 850 / 1400 375 / 525 150 / 525 Other: Number of Unmeasured Voids 0 0 Weight 89.086 kg Patient Weight 05/06/25 23:59 Weight 89.086 kg Laboratory Results - last 24 hr 05/05/25 14:49: POC Glucose 116 H 05/05/25 19:45: POC Glucose 100 05/06/25 05:42: WBC 9.2, RBC 2.83 L, Hgb 8.0 L, Hct 25.0 L, MCV 88.3, MCH 28.3, MCHC 32.0, RDW 15.9, Plt Count 200, MPV 10.5 H, Neut % (Auto) 64.6, Lymph % (Auto) 24.2, [place] % (Auto) 7.0, Eos % (Auto) 3.4, Baso % (Auto) 0.5, Neut # (Auto) 6.0, Lymph # (Auto) 2.2, [place] # (Auto) 0.7, Eos # (Auto) 0.3, Baso # (Auto) 0.1, Sodium 137, Potassium 3.5 D, Chloride 107, Carbon Dioxide 21 L, Anion Gap 12.5, BUN 13, Creatinine 1.10, Estimated Creat Clear 79, Estimated GFR 66, Est GFR ( Amer) 80, Glucose 93, Calcium 7.8 L 05/06/25 08:57: POC Glucose 89 I & O for Labs for Last 24 Hours: Intake & Output 05/03/25 05/04/25 05/05/25 05/06/25 23:59 23:59 22:59 23:59 Intake Total 3800 / 3800 1510 / 1510 1280 / 1580 400 / 400 Output Total 600 / 600 925 / 925 1250 / 1400 525 / 525 Balance 3200 / 3200 585 / 585 30 / 180 -125 / -125 Weight 89.499 kg 86.228 kg 87.952 kg 89.086 kg Constitutional: Present no acute distress, average body habitus and cooperative Head: Absent atraumatic or normocephalic Neck: Present normal inspection Respiratory: Present CTA bilaterally and normal respiratory effort; Absent respiratory distress, stridor, wheezes or crackles Cardiac: Present Reg Rate and Rhythm, Regular Rate, Regular Rhythm and No Murmur GI: Present soft, distention, tenderness (Mild, non-focal, more around surgical incision), normal bowel sounds and incision Comments:: Midline surgical incision with vincent clean dry and intact Rectal (male): Present deferred (male): Present deferred Extremities: Present normal inspection and full ROM Skin: Present intact and dry; Absent erythema Neuro: Present Grossly Intact, alert, awake, oriented x 3 and moves all extremities Assessment and Plan *Assessment and plan (1) Adenocarcinoma of sigmoid colon: Status: Acute Category: Medical Code(s): C18.7 - Malignant neoplasm of sigmoid colon (2) KITA (generalized anxiety disorder): Status: Acute Category: Medical Code(s): F41.1 - Generalized anxiety disorder (3) Major depression: Status: Acute Category: Medical Code(s): F32.9 - Major depressive disorder, single episode, unspecified (4) Diabetes mellitus type 2 in nonobese: Status: Chronic Category: Medical Code(s): E11.9 - Type 2 diabetes mellitus without complications (5) Horseshoe kidney: Status: Acute Category: Medical Code(s): Q63.1 - Lobulated, fused and horseshoe kidney (6) COPD (chronic obstructive pulmonary disease): Status: Chronic Qualifiers: COPD type: unspecified COPD Qualified Code(s): J44.9 - Chronic obstructive pulmonary disease, unspecified Category: Medical Code(s): J44.9 - Chronic obstructive pulmonary disease, unspecified (7) Hypertension: Status: Chronic Qualifiers: Hypertension type: essential hypertension Qualified Code(s): I10 - Essential (primary) hypertension Category: Medical Code(s): I10 - Essential (primary) hypertension Plan Alejandro Jasmine is a 70-year-old male with a medical history significant for sigmoid adenocarcinoma, CAD with stents, infrarenal AAA, type 2 diabetes presented for planned sigmoidectomy due to invasive sigmoid adenocarcinoma. Patient tolerated procedure well. Discussed with Dr. Stewart who performed surgery, but due to multiple comorbidities agreed to medically consult on the patient. Of note, there was concern of ureteral injury during surgery. Patient had good urinary output of injected methylene blue. Patient continues to have output of methylene blue, voiding regularly. Encourage fluid intake. CT abdomen/pelvis was obtained postop with delayed imaging which did not indicate ureteral leak. IV pyelogram obtained, no acute abnormalities. No extravasation noted. Patient appears comfortable. Passing flatus and had 1 small bowel movement this morning. Normoactive bowel sounds. Downgraded to MedSurg. Continues to require inpatient management. Problems addressed as follows: #Sigmoid adenocarcinoma s/p sigmoidectomy #History of iron deficiency anemia ? Colonoscopy biopsies by Dr. Baeza revealed invasive sigmoid adenocarcinoma. ? General Surgery performed sigmoid colectomy on 05/03/2025. No colostomy. Patient tolerated procedure well. ? Per general surgery, continue Zosyn 4.5 every 6 hours; having good urinary output. Kidney function normal with BUN 13, creatinine 1.10. Patient tolerating p.o. intake well, advance this morning to full liquid diet. ? Continue to monitor for increased flatus and bowel movements. Will advance to regular diet this evening if tolerating fulls well. ? Continue regular follow-ups with Dr. Villegas. ? B12 low at 218, ferritin high at 510. Iron level low at 39 and TIBC of 199. Patient received Venofer 200 mg IV on 05/04/2025. Hemoglobin stable today at 8.0, yesterday 8.2. Continuing to monitor. - Repeat CBC, CMP ordered for the morning. Monitoring closely. Threshold to infuse hemoglobin less than 7. ? Discontinued Dilaudid, transitioning to [place] 5/325 1-2 tabs every 4 hours as needed for moderate to severe pain. Added MiraLAX for bowel regimen to prevent constipation. #Hypokalemia, resolved: Patient had notable hypokalemia at 2.9 yesterday. Potassium today 3.5. Continuing to monitor. #Type 2 diabetes ? Hemoglobin A1c 6.3% in April 2025. Will hold off on ACHS checks for now. Morning glucose 93. #AAA, infrarenal #Former smoker #Hypertension ? Stable 4.5 x 3.3 cm infrarenal AAA. Following with cardiology. ? Continue to monitor blood pressures, currently at goal 131/67. ? Continue home bisoprolol, enalapril, hydrochlorothiazide, hydralazine. #History of CAD with stents ?Continue home aspirin 81 mg, Plavix 75 mg bisoprolol. #Anxiety/depression ?Resume Prozac 30 mg daily and Wellbutrin 150 mg daily #GERD ? Continue PPI. DNR/DNI DVT prophylaxis: Lovenox 40 mg Full liquid diet Ambulate as tolerated
[2025-05-06 11:55] LABS: POC Glucose,Bedside 124 gm/dL (70-110)
[2025-05-06 12:00] VITALS: BP 146/79; PULSE 57; RESP 16; TEMP 36.4; O2SAT 96
[2025-05-06] MEDS: POLYETHYLENE GLYCOL 3350 17 GM PACKET PO (13:49)
[2025-05-06 14:06] LABS: Hematocrit 26.7 % (42.0-52.0); Hemoglobin 8.4 g/dL (14.1-18.0); Immature Granulocytes % 1.0 %; Mean Corpuscular HGB Conc 31.5 g/dL (31.8-35.4); Mean Corpuscular Hemoglobin 28.0 pg (27.0-31.2); Mean Corpuscular Volume 89.0 fl (80-94); Nucleated Red Blood Cells % 0 %; Platelet Count 196 K/mm3 (142-424); Red Blood Count 3.00 M/mm3 (4.60-6.20); Red Cell Distribution Width-SD 51.8 fL; White Blood Count 10.2 K/mm3 (4.8-10.8)
--- NOTE | 2025-05-06 14:55 | PC.NURSE ---
at 1202 patient stated he thought his blood sugar was low i assessed FSBS and it was 124. patient stated he felt weak, SOB, and sweaty. BP-149/75, HR 65, 02 95% RA, oral temp 98.2. notified hospitalist. patient stated he was walking around when symptoms began and stated he may have over done it. and he was probably tired. patient stated he has had 2 BM, stated the first BM was dark and had a scant amount of blood on toilet paper, second BM was brown and no blood noted by patient. hospitalist ordered CBC. assessed patient at 1300 and patient stated he felt much better after taking a nap. family at bedside, call light within reach.
[2025-05-06 16:00] VITALS: BP 142/86; PULSE 67; RESP 16; TEMP 36.6; O2SAT 96
[2025-05-06 20:00] VITALS: BP 193/86; PULSE 68; RESP 16; TEMP 36.7; O2SAT 98
[2025-05-06 20:04] LABS: POC Glucose,Bedside 102 gm/dL (70-110)
[2025-05-06] MEDS: PANTOPRAZOLE 40MG TABLET 40 MG PO (20:48)
--- NOTE | 2025-05-06 22:12 | PC.NURSE ---
patients came out and asked if i could check on patient. patient stated that he walked to the bathroom and back and couldnt catch his breath, O2 sat 98% RA, BP 177/82, patient appears pale and mildly diaphoretic, hospitalist notified, patient placed on 2L NC for SOA, patient then complained of sharp chest pain, respiratory notified for EKG, troponin and H/H ordered.
--- NOTE | 2025-05-06 22:21 | ECG_ITS ---
APPROVED REPORT Exam: Resting ECG HR:75 bpm ECG Measurements Heart Rate 75 AXES UT 154 P 57 QRSd 100 QRS 39 QT 444 T 58 QTc 473 Conclusion SINUS RHYTHM PROLONGED QT INTERVAL ABNORMAL ECG UNCONFIRMED REPORT Electronically signed by : Clifton Ortega MD 05/07/2025 08:47:41
[2025-05-06 22:39] LABS: Hematocrit 26.6 % (42.0-52.0); Hemoglobin 8.8 g/dL (14.1-18.0)
[2025-05-06 23:32] LABS: Troponin I < 0.01 ng/ml (0.00-0.034)
[2025-05-07] VITALS: BP 163/78; PULSE 66; RESP 16; TEMP 37.1; O2SAT 96
[2025-05-07] MEDS: KETOROLAC 30MG/ML VIAL 15 MG IV (00:53)
[2025-05-07] MEDS: ONDANSETRON 4MG/2ML VIAL 4 MG IV (01:39)
[2025-05-07] MEDS: HYDROCODONE/APAP 5/325 MG TABLET 1 TAB PO (01:42)
--- NOTE | 2025-05-07 03:39 | PC.NURSE ---
Patient left for home at 03:38.
--- NOTE | 2025-05-07 04:02 | PC.NURSE ---
patients asked to speak with me and stated that patient is insisting on leaving. She stated that he has made up his mind and there is no reasoning with him. Hospitalist was called to bedside and explained to patient the risks of leaving and explained that patient would be leaving against medical advice. patient stated I just need to get home now and please take this needle out of my arm . Patient stated that everyone here has done everything right . IV was removed, patient signed AMA form, assisted patient out.
--- NOTE | 2025-05-07 08:59 | EXP.DC.SUM ---
General Admission date:: 05/03/25 Discharge date: 05/07/25 HPI HPI HPI: Alejandro Jasmine is a 70-year-old male with a medical history significant for sigmoid adenocarcinoma, CAD with stents, infrarenal AAA, type 2 diabetes presented for planned sigmoidectomy due to invasive sigmoid adenocarcinoma. Patient tolerated procedure well. Discussed with Dr. Stewart who performed surgery, but due to multiple comorbidities agreed to medically consult on the patient. Of note, there was concern of ureteral injury during surgery. Patient had good urinary output of injected methylene blue. CT abdomen/pelvis was obtained postop with delayed imaging which did not indicate ureteral leak. General surgery will do intravenous pyelogram in the morning to confirm. On my evaluation, patient was lying in bed comfortably without acute distress. Denied chest pain, shortness of breath, abdominal pain. Follow-up CBC, CMP. From general surgery H&P note: This is a 70-year-old gentleman who presents for resection of colon cancer. Since evaluation earlier this month he has had no medical changes. He feels fine . Forwarded from office visit dated April 03, 2025: This is a 69-year-old gentleman seen in consultation from Dr. 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 Forwarded from Dr. Villegas's note dated March 26, 2025: Mr. Alejandro Jasmine is a 69-year-old gentleman who is sent in consultation by Dr. Kings Baeza with a new diagnosis of adenocarcinoma of the colon. His oncology history consist of: 1. March 15, 2025: After a few weeks of dark/tarry bowel movements and mild abdominal discomfort presented to the emergency room at [facility]. CTA of the abdomen and pelvis revealed an infrarenal abdominal aortic aneurysm as well as a heterogeneous mass concern to be located in the cecum and potential additional masses in the right colon. CBC with white count 15.1, hemoglobin 12.6 with normal MCV, plate count 278,000. CMP with glucose 128 and otherwise normal. 2. March 20, 2025: Underwent EGD and colonoscopy by Dr. Baeza with EGD showing mild gastropathy. Colonoscopy revealed with 6 polyps noted in the ascending and transverse colon that were removed via polypectomy. There was a larger descending/sigmoid colon pedunculated polyp that was 1.7 cm and removed via polypectomy. In the sigmoid: There was a Tyron for antral friable fungating mass encompassing 60% of the circumference extending at least 3 to 4 cm. Biopsies were taken and final pathology revealed revealed all benign findings with no high-grade dysplasia or malignancy aside from sigmoid colon mass with invasive moderately differentiated adenocarcinoma that was MSI?stable by IHC staining. CEA normal at 2.5. Iron studies with low iron 30 and TIBC at 241 and saturation low at 12.4%. Ferritin low normal at 59.9. Mr. Jasmine has never had previous colon cancer screening with colonoscopy or Cologuard testing. There are no family history of colon or rectal cancer though mother had breast cancer in her 30s. He has lost 10 to 15 pounds over the last few weeks due to decreased appetite. Endoscopic note and photographs dated March 20, [address] scan dated March 15, 2025 reviewed. 4.47 cm infrarenal aortic aneurysm noted. Prior measurement of 4.[address] scan dated February 13, 2024. Patient has ongoing evaluation by Dr. Jonah Figueroa with regard to his aneurysm. A heterogeneous mass measuring 4.5 cm in the cecum noted. This area appeared normal per colonoscopy (Dr. Baeza). CEA dated March 20, 2025 reviewed. 2.5 ng/mL CBC dated March 31, 2025 reviewed. WBC 11.3. Hemoglobin 12.4. Platelet count 254. CMP dated March 23, 2025 reviewed. LFTs normal. Potassium 3.5. Creatinine 1.0. Hospital Course Hospital Course Hospital Course: The patient underwent sigmoid colectomy on May 03, 2025. Please see operative report for detail. Postoperatively, he convalesced well. The Hospitalist service was consulted for medical management of his comorbid conditions. Postoperative anemia with a melony of 8.0 (postoperative day 3) noted. He did not require transfusion. Iron supplementation implemented . In addition, he had evidence of bowel function returned in the form of flatus. His diet was in the process of being slowly advanced with anticipation of discharge (process of discharge planning) pending final evaluation and labs on postoperative day 4. However, the patient chose to forego repeat laboratory evaluation and left AGAINST MEDICAL ADVICE early in the morning of postoperative day 4. Exam Data for Last 24 hours Vital signs and Labs for Last 24 Hours: Temp Pulse Resp BP Pulse Ox O2 Del Method O2 Flow Rate 98.8 F 66 16 163/78 H 96 Room Air 2 05/07/25 00:00 05/07/25 00:00 05/07/25 00:00 05/07/25 00:00 05/07/25 00:00 05/07/25 03:00 05/07/25 01:00 Laboratory Results - last 24 hr 05/06/25 08:57: POC Glucose 89 05/06/25 11:45: POC Glucose 124 H 05/06/25 13:59: WBC 10.2, RBC 3.00 L, Hgb 8.4 L, Hct 26.7 L, MCV 89.0, MCH 28.0, MCHC 31.5 L, RDW 15.9, Plt Count 196, MPV 9.5, Neut % (Auto) 67.0, Lymph % (Auto) 22.3, [place] % (Auto) 5.6, Eos % (Auto) 3.4, Baso % (Auto) 0.7, Neut # (Auto) 6.8, Lymph # (Auto) 2.3, [place] # (Auto) 0.6, Eos # (Auto) 0.4, Baso # (Auto) 0.1 05/06/25 19:58: POC Glucose 102 05/06/25 20:32: Hgb 8.8 L, Hct 26.6 L, Troponin I < 0.01 I & O for Last 24 hours: Intake & Output 05/04/25 05/05/25 05/06/25 05/07/25 11:59 10:59 11:59 11:59 Intake Total 1510 / 1510 400 / 400 1580 / 1580 950 / 950 Output Total 1425 / 1425 500 / 500 1375 / 1375 100 / 100 Balance 85 / 85 -100 / -100 205 / 205 850 / 850 Weight 190 lb 1.6 oz 193 lb 14.4 oz 196 lb 6.4 oz Constitutional Constitutional: no acute distress Comments: The patient left AGAINST MEDICAL ADVICE. Physical exam not completed just prior to discharge; however, a physical exam was completed earlier that day. *Routine HEENT Exam Head: Present normocephalic Eye: Present EOMI ENT: Present mucous membranes moist *Routine Neck Exam Neck: Present full ROM Routine Chest/Breast/Axilla Exam Chest wall: Absent tenderness *Routine Respiratory Exam Respiratory: Absent respiratory distress *Routine Cardiovascular Exam Cardiovascular: Absent tachycardia *Routine Abdominal Exam Comments: Incision healing without evidence of infection *Routine Rectal Exam Patient deferred: digital exam *Routine Exam Patient deferred: groin exam *Routine Extremities Exam Extremities: Present full ROM Routine Back/Spine/Pelvis Exam Back/Spine: Present full ROM *Routine Skin Exam Skin: Absent erythema *Routine Neurological Exam Neurological: Present alert Routine Psychiatric Exam Psychiatric: Present normal affect Results Data Completed and Pending Labs on day of discharge: Labs from last 24 hours 05/06/25 05/06/25 05/06/25 20:32 19:58 13:59 WBC 10.2 RBC 3.00 L Hgb 8.8 L 8.4 L Hct 26.6 L 26.7 L MCV 89.0 MCH 28.0 MCHC 31.5 L RDW 15.9 Plt Count 196 MPV 9.5 Neut % (Auto) 67.0 Lymph % (Auto) 22.3 [place] % (Auto) 5.6 Eos % (Auto) 3.4 Baso % (Auto) 0.7 Neut # (Auto) 6.8 Lymph # (Auto) 2.3 [place] # (Auto) 0.6 Eos # (Auto) 0.4 Baso # (Auto) 0.1 POC Glucose 102 Troponin I < 0.01 05/06/25 05/06/25 11:45 08:57 WBC RBC Hgb Hct MCV MCH MCHC RDW Plt Count MPV Neut % (Auto) Lymph % (Auto) [place] % (Auto) Eos % (Auto) Baso % (Auto) Neut # (Auto) Lymph # (Auto) [place] # (Auto) Eos # (Auto) Baso # (Auto) POC Glucose 124 H 89 Troponin I DS: Diagnosis Discharge Diagnosis (1) Adenocarcinoma of sigmoid colon: Status: Acute Code(s): C18.7 - Malignant neoplasm of sigmoid colon (2) KITA (generalized anxiety disorder): Status: Acute Code(s): F41.1 - Generalized anxiety disorder (3) Major depression: Status: Acute Code(s): F32.9 - Major depressive disorder, single episode, unspecified (4) Diabetes mellitus type 2 in nonobese: Status: Chronic Code(s): E11.9 - Type 2 diabetes mellitus without complications (5) Horseshoe kidney: Status: Acute Code(s): Q63.1 - Lobulated, fused and horseshoe kidney (6) COPD (chronic obstructive pulmonary disease): Status: Chronic Code(s): J44.9 - Chronic obstructive pulmonary disease, unspecified Qualifiers: COPD type: unspecified COPD Qualified Code(s): J44.9 - Chronic obstructive pulmonary disease, unspecified (7) Hypertension: Status: Chronic Code(s): I10 - Essential (primary) hypertension Qualifiers: Hypertension type: essential hypertension Qualified Code(s): I10 - Essential (primary) hypertension Meds Home Medications and Allergies Home Medications ?Medication ?Instructions ?Recorded ?Confirmed ?Type nitroglycerin 0.4 mg sublingual 0.4 mg sublingual [id number] PRN 02/08/24 05/04/25 History tablet Chest Pain aspirin 81 mg chewable tablet 81 mg PO DAILY #30 tabs 04/02/24 05/04/25 Rx cholecalciferol (vitamin D3) 50 50 mcg PO DAILY 04/16/24 05/04/25 History mcg (2,000 unit) capsule metformin 1,000 mg tablet 1,000 mg PO BID #120 tabs 01/02/25 05/04/25 Rx atorvastatin 80 mg tablet 80 mg PO DAILY #30 tabs 01/28/25 05/04/25 Rx hydrochlorothiazide 25 mg tablet 25 mg PO DAILY #90 tabs 02/12/25 05/04/25 Rx enalapril maleate 20 mg tablet 20 mg PO DAILY #180 tabs 03/25/25 05/04/25 Rx calcium polycarbophil 625 mg 1,250 mg PO DAILY 03/26/25 05/04/25 History tablet (FiberCon) fluoxetine 10 mg capsule 10 mg PO DAILY 90 days #90 caps 04/25/25 05/04/25 Rx bisoprolol fumarate 5 mg tablet 5 mg PO DAILY 05/03/25 05/04/25 History bupropion HCl 150 mg 24 hr tablet, 150 mg PO DAILY 05/03/25 05/04/25 History extended release clopidogrel 75 mg tablet 75 mg PO DAILY 05/03/25 05/04/25 History cyclobenzaprine 5 mg tablet 5 mg PO HSP PRN Muscle spasms 05/03/25 05/04/25 History fluoxetine 20 mg capsule 20 mg PO DAILY 05/03/25 05/04/25 History hydralazine 10 mg tablet 20 mg PO BID 05/03/25 05/04/25 History pantoprazole 40 mg tablet,delayed 40 mg PO DAILY 05/03/25 05/04/25 History release hydrocodone 5 mg-acetaminophen 325 1 tab PO DAILYP PRN Severe Pain 05/04/25 05/04/25 History mg tablet (Scale Score 7-10) New Prescriptions to Start Prescriptions: Allergies Allergy/AdvReac Type Severity Reaction Status Date / Time morphine AdvReac Mild Other Verified 04/19/25 08:54 oxycodone (From Percocet) AdvReac itch Verified 04/25/25 08:56 Discharge Plan Disposition Patient Disposition: Left Against Medical Advice Condition: Fair Patient Discharge Instructions Print Language: Frisian Providers Admit Provider: Curtis Stewart Attending Provider: Curtis Stewart
[2025-05-09 16:09] LABS: POC Glucose,Bedside 116 gm/dL (70-110)
== END 2025-05-07 03:40 | disposition left against medical advice (07) | DRG 330 ==
LOC: 2ND 12:28 → ICU 14:14 → 2ND 05-04 09:43
PROVIDERS: Nurse Practitioner Acute Care; Student in an Organized Health Care Education/Training Program; Admitting Provider Surgery; PCP Family Medicine; Visit Provider Surgery
PROC: 0DBN0ZZ Excision of Sigmoid Colon, Open Approach (ICD-10-PCS; principal; 2025-05-03 07:30)
DX: C18.7 Malignant neoplasm of sigmoid colon (principal); D62 Acute posthemorrhagic anemia; J44.9 Chronic obstructive pulmonary disease, unspecified; I10 Essential (primary) hypertension; I71.43 Infrarenal abdominal aortic aneurysm, without rupture; E11.9 Type 2 diabetes mellitus without complications; F32.9 Major depressive disorder, single episode, unspecified; D50.9 Iron deficiency anemia, unspecified; Q63.1 Lobulated, fused and horseshoe kidney; E87.6 Hypokalemia; I25.10 Atherosclerotic heart disease of native coronary artery without angina pectoris; F41.1 Generalized anxiety disorder; K21.9 Gastro-esophageal reflux disease without esophagitis; R00.2 Palpitations; Z66 Do not resuscitate; Z87.891 Personal history of nicotine dependence; Z53.29 Procedure and treatment not carried out because of patient's decision for other reasons; Z95.5 Presence of coronary angioplasty implant and graft; Z88.5 Allergy status to narcotic agent; Z79.02 Long term (current) use of antithrombotics/antiplatelets; Z79.82 Long term (current) use of aspirin; Z79.85 Long-term (current) use of injectable non-insulin antidiabetic drugs; Z79.899 Other long term (current) drug therapy
CPT/HCPCS: 36415; 51702; 74177; 74400; 80048; 80053; 81001; 82607; 82728; 82962; 83540; 83550; 84484; 85014; 85018; 85025; 93005; 96374; J0665; J0666; J0690; J1100; J1171; J1200; J1650; J1756; J1836; J1885; J2003; J2405; J2470; J2543; J2704; J3010; J3420; J7030; J7120; Q9967

== ENCOUNTER 2025-05-08 11:17 | Outpatient (CLI) | payer MEDICARE, SELFPAY ==
--- OUTSIDE RECORDS SUMMARY | 2025-05-08 11:54 | XMS_ITS | Clinical Summary ---
[facility] Address [address] [place] [address] Care Team Providers Care Tenter Frame Back Tender Name Role Phone Annmarie Gutierrez MD Primary Care Provider [phone] Allergies Active Allergy Reactions Criticality Noted Date [...] (01/20/2017): Added automatically from request for surgery [id number] Family History Medical History Relation Name Comments [...] history exists Medical Devices Implanted Type Area Hash Slinger Device Identifier Shelf Expiration Date Model / Serial / Lot Stent Xience Alpine Wali Rx [id number] - [id number] Implanted:Qty: 1 on 01/25/2017 by Saurav English MD at [facility] [id number] / / Stent Xience Alpine Wali Rx [id number] - [id number] Implanted:Qty: 1 on 01/25/2017 by Saurav English MD at [facility]ASCULAR [id number] / / Insurance [facility] PPO Care Teams Tenter Frame Back Tender Relationship Specialty Start Date End Date Annmarie Gutierrez MD PCP - General Family Medicine 01/25/17
--- OUTSIDE RECORDS SUMMARY | 2025-05-08 11:54 | XMS_ITS | Clinical Summary ---
Author Organization Healthcare Address [address] [id number] Care Team Providers Care Sales Solutions Associate Name Role Phone Annmarie Gutierrez MD Primary Care Provider [phone] Social History Tobacco Use Types Packs/Day Years [...] 2005 UKY-Zoster Vaccines (1 of 2) 2005 [id number]-72 Vaccine (1 - 20 24-25 season) 2025 [...] age to complete this topic Care Teams Sales Solutions Associate Relationship Specialty Start Date End Date [place] [address] PCP - General 11/14/20
[2025-05-08 11:56] LABS: Hematocrit 30.1 % (42.0-52.0); Hemoglobin 9.8 g/dL (14.1-18.0)
== END 2025-05-08 23:59 | disposition home or self-care (01) ==
LOC: LAB 11:17
PROVIDERS: PCP Family Medicine; Visit Provider Surgery
DX: D64.9 Anemia, unspecified (principal)
CPT/HCPCS: 36415; 85014; 85018

== ENCOUNTER 2025-05-15 14:56 | Outpatient (CLI) | payer MEDICARE, SELFPAY ==
--- OUTSIDE RECORDS SUMMARY | 2025-05-15 14:59 | XMS_ITS | Clinical Summary ---
[facility] [address] [place] [address] Care Team Providers Care Pressroom Foreman Name Role Phone Annmarie Gutierrez MD Primary Care Provider [phone] Allergies Active Allergy Reactions Criticality Noted Date [...] (01/20/2017): Added automatically from request for surgery [id number] Family History Medical History Relation Name Comments [...] history exists Medical Devices Implanted Type Area Well Surveying Engineer Device Identifier Shelf Expiration Date Model / Serial / Lot Stent Xience Alpine Wali Rx [id number] - [id number] Implanted:Qty: 1 on 01/25/2017 by Saurav English MD at [facility] [id number] / / Stent Xience Alpine Wali Rx [id number] - [id number] Implanted:Qty: 1 on 01/25/2017 by Saurav English MD at [facility] VASCULAR [id number] / / Insurance [facility] PPO Care Teams Pressroom Foreman Relationship Specialty Start Date End Date Annmarie Gutierrez MD PCP - General Family Medicine 01/25/17
--- OUTSIDE RECORDS SUMMARY | 2025-05-15 14:59 | XMS_ITS | Clinical Summary ---
Author Organization Healthcare Address [address] [id number] Care Team Providers Care Car Rental Sales Assistant Name Role Phone Annmarie Gutierrez MD Primary Care Provider [phone] Social History Tobacco Use Types Packs/Day Years [...] 2005 UKY-Zoster Vaccines (1 of 2) 2005 [id number]-[id number]-55 Vaccine (1 - 20 24-25 season) 2025 [...] age to complete this topic Care Teams Car Rental Sales Assistant Relationship Specialty Start Date [place] [id number] PCP - General 11/14/20
--- NOTE | 2025-05-15 15:00 | CT_ITS ---
FINAL REPORT TECHNIQUE: Thin section axial CT with contrast with multiplanar reconstruction This study was performed with techniques to keep radiation doses as low as reasonably achievable, (ALARA). Individualized dose reduction techniques using automated exposure control or adjustment of mA and/or kV according to the patient''s size were employed. CLINICAL HISTORY: post op SOB/ fAtigue COMPARISON: 04/09/2025 FINDINGS: Pulmonary vessels enhance in normal fashion without evidence of embolism. 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 No pulmonary mass or infiltrate is present. There is no significant pleural effusion. There is no significant pericardial effusion. No mediastinal or hilar adenopathy is present. IMPRESSION: No acute pulmonary findings. 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 Reviewed, Interpreted and Dictated by Dejon Soto MD Transcribed by Miriam Lema Authenticated and . [facility]
[2025-05-15] MEDS: SODIUM CHLORIDE 0.9% 10ML SYR (RAD ONLY) 10 ML IV (15:22)
[2025-05-15] MEDS: 0.9 % SODIUM CHLORIDE 50 ML VIAL IV (15:22)
[2025-05-15] MEDS: IOPAMIDOL-370 (76%);100ML BOTTLE 85 ML IV (15:22)
== END 2025-05-15 23:59 | disposition home or self-care (01) ==
LOC: RAD 14:57
PROVIDERS: PCP Family Medicine; Visit Provider Family Medicine
DX: I71.23 Aneurysm of the descending thoracic aorta, without rupture (principal); R42 Dizziness and giddiness; R06.09 Other forms of dyspnea; R53.83 Other fatigue; J95.89 Other postprocedural complications and disorders of respiratory system, not elsewhere classified; R06.02 Shortness of breath
CPT/HCPCS: 71275; Q9967

== ENCOUNTER 2025-05-16 14:11 | Emergency (ER) | payer MEDICARE, SELFPAY ==
[2025-05-16] VITALS (7 sets, daily range): BP systolic 130–151; BP diastolic 64–77; PULSE 62–68; RESP 12–19; TEMP 36.4–36.6; O2SAT 95–99; BMI 26.4
--- NOTE | 2025-05-16 14:23 | CT_ITS ---
FINAL REPORT TECHNIQUE: Noncontrast exam This study was performed with techniques to keep radiation doses as low as reasonably achievable, (ALARA). Individualized dose reduction techniques using automated exposure control or adjustment of mA and/or kV according to the patient''s size were employed. CLINICAL HISTORY: acute encephalopathy non focal COMPARISON: 03/31/2025 FINDINGS: Mild atrophy and chronic ischemic white matter changes are noted. No cortical edema is present. There is no mass or hemorrhage. Ventricles are normal. Bone windows show no skull fracture or obvious obstructive lesion. IMPRESSION: 1. No acute intracranial abnormality or obvious mass. 2. Atrophy and chronic ischemic white matter changes as above. Reviewed, Interpreted and Dictated by Dejon Soto MD Transcribed by Sabine Clark Authenticated and [facility]
--- NOTE | 2025-05-16 14:24 | XR_ITS ---
FINAL REPORT CLINICAL HISTORY: Shortness of breath COMPARISON: 02/12/2024 FINDINGS: A single frontal view of the chest was obtained. No acute pulmonary opacity is present. There is no evidence of effusion or pneumothorax. Mediastinum is unremarkable. Heart size is normal. IMPRESSION: No active disease. No change from prior. Reviewed, Interpreted and Dictated by Dejon Soto MD Transcribed by Sabine Clark Authenticated and [facility]
--- NOTE | 2025-05-16 14:25 | ECG_ITS ---
APPROVED REPORT Exam: Resting ECG HR:63 bpm ECG Measurements Heart Rate 63 AXES AL 167 P 66 QRSd 91 QRS 43 QT 466 T 47 QTc 473 Conclusion SINUS RHYTHM MINIMAL ST DEPRESSION [0.025+ mV ST DEPRESSION] PROLONGED QT INTERVAL ABNORMAL ECG UNCONFIRMED REPORT Electronically signed by : Bryce Jeffries, 05/20/2025 15:54:20
--- OUTSIDE RECORDS SUMMARY | 2025-05-16 14:26 | XMS_ITS | Clinical Summary ---
Author Organization Healthcare Address [address] [id number] Care Team Providers Care Outside Sales Associate Name Role Phone Annmarie Gutierrez MD Primary Care Provider [phone] Social History Tobacco Use Types Packs/Day Years [...] 2005 UKY-Zoster Vaccines (1 of 2) 2005 [id number]-39 Vaccine (1 - 20 24-25 season) 2025 [...] age to complete this topic Care Teams Outside Sales Associate Relationship Specialty Start Date End Date [place] [address] PCP - General 11/14/20
--- OUTSIDE RECORDS SUMMARY | 2025-05-16 14:26 | XMS_ITS | Clinical Summary ---
[facility] Address [address] [place] [address] Care Team Providers Care Veterinary Receptionist Name Role Phone Annmarie Gutierrez MD Primary Care Provider [phone] Allergies Active Allergy Reactions Criticality Noted Date [...] (01/20/2017): Added automatically from request for surgery [id number] Family History Medical History Relation Name Comments [...] history exists Medical Devices Implanted Type Area Delivery Crew Worker Device Identifier Shelf Expiration Date Model / Serial / Lot Stent Xience Alpine Wali Rx [id number] - [id number] Implanted:Qty: 1 on 01/25/2017 by Saurav English MD at [facility] [id number] / / Stent Xience Alpine Wali Rx [id number] - [id number] Implanted:Qty: 1 on 01/25/2017 by Suarav English MD at [facility] VASCULAR [id number] / / Insurance [facility] PPO Care Teams Veterinary Receptionist Relationship Specialty Start Date End Date Annmarie Gutierrez MD PCP - General Family Medicine 01/25/17
--- NOTE | 2025-05-16 14:39 | HMH.EDGENADL ---
Discharge Plan Disposition Patient Disposition: Home, Self-Care Condition: Good Prescriptions Prescriptions: No Action cholecalciferol (vitamin D3) 50 mcg (2,000 unit) capsule 50 mcg PO DAILY hydrocodone-acetaminophen 5-325 mg tablet 1 tab PO DAILYP PRN (Reason: Severe Pain (Scale Score 7-10)) Qty: 30 0RF fluoxetine 10 mg capsule 10 mg PO DAILY 90 Days Qty: 90 0RF Rx Instructions: take with 20mg for daily total 30mg fluoxetine 20 mg capsule 20 mg PO DAILY 30 Days Qty: 30 2RF Rx Instructions: take with 10mg for daily total 30mg hydroxyzine pamoate [Vistaril] 25 mg capsule 25 mg PO HS PRN (Reason: panic attacks) 30 Days Qty: 30 2RF bupropion HCl 150 mg tablet extended release 24 hr 150 mg PO DAILY 30 Days Qty: 30 2RF calcium polycarbophil [FiberCon] 625 mg tablet 1,250 mg PO DAILY metformin 1,000 mg tablet 1,000 mg PO BID Qty: 120 4RF atorvastatin 80 mg tablet 80 mg PO DAILY Qty: 30 5RF hydrochlorothiazide 25 mg tablet 25 mg PO DAILY Qty: 90 1RF Patient Comments: TAKE 1 TABLET BY MOUTH ONCE DAILY enalapril maleate 20 mg tablet 20 mg PO DAILY Qty: 180 5RF hydralazine 10 mg tablet 20 mg PO BID clopidogrel 75 mg tablet 75 mg PO DAILY pantoprazole 40 mg tablet,delayed release (DR/EC) 40 mg PO DAILY cyclobenzaprine 5 mg tablet 5 mg PO HSP PRN (Reason: Muscle spasms) bisoprolol fumarate 5 mg tablet 5 mg PO DAILY Patient Comments: TAKE 1 TABLET BY MOUTH ONCE DAILY nitroglycerin 0.4 mg tablet, sublingual 0.4 mg sublingual [id number] PRN (Reason: Chest Pain) Patient Comments: DISSOLVE ONE TABLET UNDER THE TONGUE EVERY 5 MINUTES NEEDED FOR CHEST PAIN. DO NOT EXCEED A TOTAL OF 3 DOSES IN 15 MINUTES aspirin 81 mg Tablet,Chewable 81 mg PO DAILY Qty: 30 3RF Referrals Follow up/Referrals: Stacie Arango APRN [Primary Care Provider, Family Practice] - See instructions Activity Restrictions/Add. Instructions Additional Instructions/Restrictions: Up with GI as scheduled on Tuesday. Return to the emergency department for any acute worsening symptoms, continued weakness or if you have any other acute concerns. Clinical Impressions Clinical Impression: Acute confusion, Generalized weakness Print Language Print Language: Icelandic Discharge ED Provider: Seb Jeffries General Adult HPI <Seb Jeffries MD - Last Filed: 05/16/25 14:47> General Chief complaint: Weakness Stated complaint: confusion, dizzy, dehydrated Time Seen by Provider: 05/16/25 14:16 Mode of Arrival: Wheelchair Source of Information: Patient and Spouse Description of Symptoms (Recalled from ER Triage Doc. by RN): Reports feeling confused, dizzy, diarrhea, slow moving, pale, tired and weak. Recent colectomy performed on 05/03. History of Present Illness HPI narrative: Patient is a 70-year-old male presenting today with confusion and accompanied by his . He also has severe generalized weakness. Had chronic diarrhea and concern for possible blood in the stool had a colonoscopy demonstrating a sigmoid mass ultimately had this resected this was found to be adenocarcinoma he has not yet seen an oncologist. This surgery was on . Denies any worsening abdominal pain his surgical site from historic standpoint is good. Denies any pain anywhere just generalized weakness and became acutely confused today no focal deficits from historical standpoint. Patient does have a history of anemia. States his tarry stools continued after surgery but have not been present for at least a week. Patient continues to have significant diarrhea. Related Data Home Medications ?Medication ?Instructions ?Recorded ?Confirmed nitroglycerin 0.4 mg sublingual 0.4 mg sublingual [id number] PRN 02/08/24 05/16/25 tablet Chest Pain cholecalciferol (vitamin D3) 50 50 mcg PO DAILY 04/16/24 05/16/25 mcg (2,000 unit) capsule calcium polycarbophil 625 mg 1,250 mg PO DAILY 03/26/25 05/16/25 tablet (FiberCon) bisoprolol fumarate 5 mg tablet 5 mg PO DAILY 05/03/25 05/16/25 clopidogrel 75 mg tablet 75 mg PO DAILY 05/03/25 05/16/25 cyclobenzaprine 5 mg tablet 5 mg PO HSP PRN Muscle spasms 05/03/25 05/16/25 hydralazine 10 mg tablet 20 mg PO BID 05/03/25 05/16/25 pantoprazole 40 mg tablet,delayed 40 mg PO DAILY 05/03/25 05/16/25 release Previous Rx's ?Medication ?Instructions ?Recorded aspirin 81 mg chewable tablet 81 mg PO DAILY #30 tabs 04/02/24 metformin 1,000 mg tablet 1,000 mg PO BID #120 tabs 01/02/25 atorvastatin 80 mg tablet 80 mg PO DAILY #30 tabs 01/28/25 hydrochlorothiazide 25 mg tablet 25 mg PO DAILY #90 tabs 02/12/25 enalapril maleate 20 mg tablet 20 mg PO DAILY #180 tabs 03/25/25 hydrocodone 5 mg-acetaminophen 325 1 tab PO DAILYP PRN Severe Pain 05/15/25 mg tablet (Scale Score 7-10) #30 tabs bupropion HCl 150 mg 24 hr tablet, 150 mg PO DAILY 30 days #30 tabs 05/16/25 extended release fluoxetine 10 mg capsule 10 mg PO DAILY 90 days #90 caps 05/16/25 fluoxetine 20 mg capsule 20 mg PO DAILY 30 days #30 caps 05/16/25 hydroxyzine pamoate 25 mg capsule 25 mg PO HS PRN panic attacks 30 05/16/25 (Vistaril) days #30 caps Allergies Allergy/AdvReac Type Severity Reaction Status Date / Time morphine AdvReac Mild Other Verified 05/16/25 13:30 oxycodone (From Percocet) AdvReac itch Verified 05/16/25 13:30 [facility] <Seb Jeffries MD - Last Filed: 05/16/25 14:47> [facility] Disclaimer: The information contained in this section may have been updated after the patient was seen, as this information can be updated by other users. Medical History History of kidney stones Patient left without being seen Abnormal colonoscopy Colon cancer Perforation of left tympanic membrane Deviated septum Mixed hearing loss Mixed hyperlipidemia Bradycardia Diabetes mellitus type 2 with complications Diabetes mellitus type 2, noninsulin dependent Acute dysfunction of both eustachian tubes Sinus bradycardia Bleeding from right ear I saw some dried blood in the right EAC however I did not see any in overt lesions. Abrasion of ear canal Atypical chest pain Arthralgia of left acromioclavicular joint Obesity Diabetes mellitus Right renal stone Low back pain Sinusitis Chest pain Abnormal cardiovascular stress test Atypical angina Angina at rest Ankle pain, left Ureterolithiasis LUCIAN (acute kidney injury) Lamellar nail splitting Onychoincurvatum Ingrown toenail of both feet Class 1 obesity Trigger point of thoracic region Fatigue Bronchitis COPD exacerbation Acute viral syndrome H/O nephrolithotomy with removal of calculi Chest pain Sinus pressure Tinnitus Dizziness Hypokalemia Hyperlipidemia Hearing loss in left ear Otalgia, bilateral Myopathy Dyspnea Palpitations Family history of heart disease Tobacco user COPD (chronic obstructive pulmonary disease) CAD (coronary artery disease) Hypertension Chronic back pain Surgical History History of colon resection History of esophagogastroduodenoscopy (EGD) History of back surgery History of carpal tunnel release of both wrists History of heart artery stent History of cardiac cath Family History Other Family history of breast cancer Family history of heart disease Social History Smoking Status: Never smoker second hand exposure: No alcohol intake: never substance use type: denies use current occupational status: retired Travel in the last 8 weeks?: None household members: spouse housing: house current occupational exposures/hazards: No caffeine: No Have you lived/traveled outside [place] in past 30 days?: No Contact w/someone who lives/traveled outside US past 30 days?: No Exposure to someone with infectious disease in past 14 days?: No Do you have a fever (greater than 100.4 F or 38 C)?: No Have you tested positive for COVID-19?: No Exposed to someone with COVID-19 in past 14 days?: No Do you have a sore throat?: No Do you have a cough?: No Do you have any weakness?: No Do you have any diarrhea?: No Are you experiencing any unusual bleeding?: No Do you have any muscle aches/pain?: No Do you have any abdominal pain?: No Are you experiencing loss of taste or smell?: No Other Medical History Have you received the Flu Vaccine for this season: Yes Have you received the Pneumonia Vaccine: Yes <Seb Jeffries MD - Last Filed: 05/16/25 14:47> ROS Obtained: Yes All systems reviewed & no additional complaints except as documented Physical Exam <Seb Jeffries MD - Last Filed: 05/16/25 14:47> General General appearance: alert, in no apparent distress and other (Appears pale) Respiratory Respiratory exam: Present normal lung sounds bilaterally; Absent respiratory distress Cardiovascular Cardiovascular exam: Present regular rate and normal rhythm Abdominal Exam Abdominal exam: Present soft and other (Midline in incisional scar relatively fresh sutures removed yesterday but otherwise clean dry intact no evidence of dehiscence no purulence no erythema no tenderness); Absent distention or tenderness Neurological Exam Neurological exam: Present alert, oriented X3 and other (Nonfocal) Medical Decision Making <eSb Jeffries MD - Last Filed: 05/16/25 14:47> Medical Records Screening: Per USPSTF and CDC recommendations, given the prevalence of disease in our region, it is our hospital?s policy to screen for HIV and viral Hepatitis for all patients aged 18 and over and those with ongoing risk factors. Nav Inquiry Pt receiving controlled substance: No Vital Signs: 05/16/25 14:28 05/16/25 14:48 05/16/25 15:00 Temperature 97.6 F Temperature Source Oral Pulse Rate 62 Pulse Rate [Radial] 68 Respiratory Rate 18 18 Blood Pressure 140/64 Blood Pressure [Right Arm] 138/77 Blood Pressure Mean 107 Blood Pressure Mean [Right Arm] 97 Blood Pressure Source Blood Pressure Source [Right Arm] Automatic Cuff Blood Pressure Position Blood Pressure Position [Right Arm] Sitting 02 Sat by Pulse Oximetry 98 99 98 Oxygen Delivery Method Room Air Room Air 05/16/25 15:30 05/16/25 16:00 05/16/25 16:49 Temperature Temperature Source Pulse Rate 62 63 64 Pulse Rate [Radial] Respiratory Rate 19 19 12 Blood Pressure 148/67 H 149/71 H 151/73 H Blood Pressure [Right Arm] Blood Pressure Mean Blood Pressure Mean [Right Arm] Blood Pressure Source Blood Pressure Source [Right Arm] Blood Pressure Position Blood Pressure Position [Right Arm] 02 Sat by Pulse Oximetry 95 95 96 Oxygen Delivery Method 05/16/25 17:07 Temperature 97.9 F Temperature Source Oral Pulse Rate 62 Pulse Rate [Radial] Respiratory Rate 17 Blood Pressure 130/77 Blood Pressure [Right Arm] Blood Pressure Mean Blood Pressure Mean [Right Arm] Blood Pressure Source Automatic Cuff Blood Pressure Source [Right Arm] Blood Pressure Position Supine Blood Pressure Position [Right Arm] 02 Sat by Pulse Oximetry Oxygen Delivery Method Room Air Lab Data Lab Results 05/16/25 14:34: WBC 11.7 H, RBC 3.78 L, Hgb 10.8 L, Hct 33.4 L, MCV 88.4, MCH 28.6, MCHC 32.3, RDW 16.3, Plt Count 320, MPV 10.6 H, Neut % (Auto) 70.2, Lymph % (Auto) 17.6, [place] % (Auto) 6.8, Eos % (Auto) 4.3, Baso % (Auto) 0.8, Neut # (Auto) 8.2 H, Lymph # (Auto) 2.1, [place] # (Auto) 0.8, Eos # (Auto) 0.5 H, Baso # (Auto) 0.1, Sodium 135 L, Potassium 3.3 L, Chloride 99, Carbon Dioxide 27, Anion Gap 12.3, BUN 21 H, Creatinine 1.20, Estimated Creat Clear 66, Estimated GFR 60, Est GFR ( Amer) 72, Glucose 130 H, Calcium 9.3, Phosphorus 2.9, Magnesium 1.4 L, Total Bilirubin 0.6, AST 26, ALT 21, Alkaline Phosphatase 83, Troponin I < 0.01, Total Protein 6.9 D, Albumin 4.2, Globulin 2.7, Albumin/Globulin Ratio 1.6, TSH 1.07, Blood Type A Negative, Antibody Screen Negative 05/16/25 14:57: Urine Color Yellow, Urine Appearance Clear, Urine pH 6.0, Ur Specific Horace 1.020, Urine Protein Negative, Urine Glucose (UA) Negative, Urine Ketones Negative, Urine Blood Negative, Urine Nitrate Negative, Urine Bilirubin Negative, Urine Urobilinogen 0.2, Ur Leukocyte Esterase Negative, Urine RBC None, Urine WBC None, Ur Squamous Epith Cells None, Urine Bacteria Trace 05/16/25 14:34 05/16/25 14:34 Orders (Tests/Meds): ED MEDICATIONS Discontinued Medications Generic Name Dose Route Start Last Admin Trade Name Freq PRN Reason Stop Dose Admin Lactated Ringer's 1,000 mls @ 999 mls/hr 05/16/25 14:30 05/16/25 15:50 Lactated Ringer's 1000 Ml Bag IV 05/16/25 15:30 Infused .Q1H1M WILBERTO Infusion Magnesium Oxide 400 mg 05/16/25 16:08 05/16/25 16:16 Magnesium Oxide 400mg Tablet PO 05/16/25 16:09 400 mg ONCE ONE Administration Potassium Chloride 40 meq 05/16/25 16:07 05/16/25 16:15 Potassium Chloride 20meq Tab PO 05/16/25 16:08 40 meq ONCE ONE Administration ORDERS Category Date Time Status Type and Screen Stat BBK 05/16/25 14:[address] head/brain wo con Stat Cat Scan 05/16/25 14:23 Completed CXR --portable [XR chest portable] Stat Exams 05/16/25 14:24 Completed CBC w/Auto Diff [Complete Blood Count Auto Diff] Stat Lab 05/16/25 14:34 Completed CMP [Comprehensive Metabolic Panel] Stat Lab 05/16/25 14:34 Completed Magnesium Stat Lab 05/16/25 14:34 Completed Phosphorous Stat Lab 05/16/25 14:34 Completed TSH [Thyroid Stimulating Hormone] Stat Lab 05/16/25 14:34 Completed Trop I [Troponin I] Stat Lab 05/16/25 14:34 Completed UA [Urinalysis and Microscopic] Stat Lab 05/16/25 14:57 Completed Medical Decision Narrative: 70-year-old with above history and physical from historical standpoint according to his he is confused and slowed cognitively however he is alert oriented x 3 answering my questions appropriately but he admits to feeling like his thinking is slowed. He does appear pale and has generalized weakness broad Alterman status workup has been initiated. CT scan of the patient's head performed to rule out any type of hemorrhage no history from a trauma standpoint but he does have a history of cancer we will make sure is no obvious growing metastatic lesion. Also on the differential includes dehydration from diarrhea electrolyte abnormalities renal insufficiency infections worsening anemia etc. Care will be transitioned to Dr. Pollard at 3 PM. <Raya Pollard, DO - Last Filed: 05/16/25 17:37> Nav Inquiry Nav was queried for this patient: No Vital Signs: 05/16/25 14:28 05/16/25 14:48 05/16/25 15:00 Temperature 97.6 F Temperature Source Oral Pulse Rate 62 Pulse Rate [Radial] 68 Respiratory Rate 18 18 Blood Pressure 140/64 Blood Pressure [Right Arm] 138/77 Blood Pressure Mean 107 Blood Pressure Mean [Right Arm] 97 Blood Pressure Source Blood Pressure Source [Right Arm] Automatic Cuff Blood Pressure Position Blood Pressure Position [Right Arm] Sitting 02 Sat by Pulse Oximetry 98 99 98 Oxygen Delivery Method Room Air Room Air 05/16/25 15:30 05/16/25 16:00 05/16/25 16:49 Temperature Temperature Source Pulse Rate 62 63 64 Pulse Rate [Radial] Respiratory Rate 19 19 12 Blood Pressure 148/67 H 149/71 H 151/73 H Blood Pressure [Right Arm] Blood Pressure Mean Blood Pressure Mean [Right Arm] Blood Pressure Source Blood Pressure Source [Right Arm] Blood Pressure Position Blood Pressure Position [Right Arm] 02 Sat by Pulse Oximetry 95 95 96 Oxygen Delivery Method 05/16/25 17:07 Temperature 97.9 F Temperature Source Oral Pulse Rate 62 Pulse Rate [Radial] Respiratory Rate 17 Blood Pressure 130/77 Blood Pressure [Right Arm] Blood Pressure Mean Blood Pressure Mean [Right Arm] Blood Pressure Source Automatic Cuff Blood Pressure Source [Right Arm] Blood Pressure Position Supine Blood Pressure Position [Right Arm] 02 Sat by Pulse Oximetry Oxygen Delivery Method Room Air Lab Data Lab results reviewed: Yes I reviewed the patient's lab results. Lab Results 05/16/25 14:34: WBC 11.7 H, RBC 3.78 L, Hgb 10.8 L, Hct 33.4 L, MCV 88.4, MCH 28.6, MCHC 32.3, RDW 16.3, Plt Count 320, MPV 10.6 H, Neut % (Auto) 70.2, Lymph % (Auto) 17.6, [place] % (Auto) 6.8, Eos % (Auto) 4.3, Baso % (Auto) 0.8, Neut # (Auto) 8.2 H, Lymph # (Auto) 2.1, [place] # (Auto) 0.8, Eos # (Auto) 0.5 H, Baso # (Auto) 0.1, Sodium 135 L, Potassium 3.3 L, Chloride 99, Carbon Dioxide 27, Anion Gap 12.3, BUN 21 H, Creatinine 1.20, Estimated Creat Clear 66, Estimated GFR 60, Est GFR ( Amer) 72, Glucose 130 H, Calcium 9.3, Phosphorus 2.9, Magnesium 1.4 L, Total Bilirubin 0.6, AST 26, ALT 21, Alkaline Phosphatase 83, Troponin I < 0.01, Total Protein 6.9 D, Albumin 4.2, Globulin 2.7, Albumin/Globulin Ratio 1.6, TSH 1.07, Blood Type A Negative, Antibody Screen Negative 05/16/25 14:57: Urine Color Yellow, Urine Appearance Clear, Urine pH 6.0, Ur Specific Horace 1.020, Urine Protein Negative, Urine Glucose (UA) Negative, Urine Ketones Negative, Urine Blood Negative, Urine Nitrate Negative, Urine Bilirubin Negative, Urine Urobilinogen 0.2, Ur Leukocyte Esterase Negative, Urine RBC None, Urine WBC None, Ur Squamous Epith Cells None, Urine Bacteria Trace Orders (Tests/Meds): ED MEDICATIONS Discontinued Medications Generic Name Dose Route Start Last Admin Trade Name Jama PRN Reason Stop Dose Admin Lactated Ringer's 1,000 mls @ 999 mls/hr 05/16/25 14:30 05/16/25 15:50 Lactated Ringer's 1000 Ml Bag IV 05/16/25 15:30 Infused .Q1H1M WILBERTO Infusion Magnesium Oxide 400 mg 05/16/25 16:08 05/16/25 16:16 Magnesium Oxide 400mg Tablet PO 05/16/25 16:09 400 mg ONCE ONE Administration Potassium Chloride 40 meq 05/16/25 16:07 05/16/25 16:15 Potassium Chloride 20meq Tab PO 05/16/25 16:08 40 meq ONCE ONE Administration ORDERS Category Date Time Status Type and Screen Stat BBK 05/16/25 14:[address] head/brain wo con Stat Cat Scan 05/16/25 14:23 Completed CXR --portable [XR chest portable] Stat Exams 05/16/25 14:24 Completed CBC w/Auto Diff [Complete Blood Count Auto Diff] Stat Lab 05/16/25 14:34 Completed CMP [Comprehensive Metabolic Panel] Stat Lab 05/16/25 14:34 Completed Magnesium Stat Lab 05/16/25 14:34 Completed Phosphorous Stat Lab 05/16/25 14:34 Completed TSH [Thyroid Stimulating Hormone] Stat Lab 05/16/25 14:34 Completed Trop I [Troponin I] Stat Lab 05/16/25 14:34 Completed UA [Urinalysis and Microscopic] Stat Lab 05/16/25 14:57 Completed Medical Decision Narrative: 70-year-old with above history and physical from historical standpoint according to his he is confused and slowed cognitively however he is alert oriented x 3 answering my questions appropriately but he admits to feeling like his thinking is slowed. He does appear pale and has generalized weakness broad Alterman status workup has been initiated. CT scan of the patient's head performed to rule out any type of hemorrhage no history from a trauma standpoint but he does have a history of cancer we will make sure is no obvious growing metastatic lesion. Also on the differential includes dehydration from diarrhea electrolyte abnormalities renal insufficiency infections worsening anemia etc. Care will be transitioned to Dr. Pollard at 3 PM. Raya Pollard, DO I assumed care of the patient at 2200. Patient's labs were reviewed and interpreted by myself: CBC showed mild leukocytosis of 11, hemoglobin was stable. CMP was unremarkable. Glucose was normal. Magnesium slightly low at 1.4. Potassium 3.3. UA showed no evidence of infection. Chest x-ray was reviewed and interpreted by myself and showed no focal consolidation, pneumothorax, pleural effusion or other acute cardiopulmonary process. CT head was reviewed and interpreted by myself and showed no acute intracranial pathology. At this time, on repeat assessment, patient stated that his symptoms and his weakness felt significantly improved. Patient thinks that he is dehydrated from the diarrhea. Patient has follow-up with GI scheduled on Tuesday. At this time patient was stable and appropriate for discharge home. Return precautions were discussed. Critical Care <Seb Jeffries MD - Last Filed: 05/16/25 14:47> Critical Care Time Critical Care Time: Yes Attestation: On 05/16/25, the high probability of a clinically significant, sudden or life threatening deterioration of the following system(s) required my full and direct attention, intervention and personal management. The time I documented below is in addition to time spent performing reported procedures but includes the following listed in this critical care notation. Total Time Total Critical Care Time: 35
[2025-05-16] MEDS: LACTATED RINGERS 1000ML 1,000 ML 999 ML IV (14:41)
[2025-05-16 14:49] LABS: Hematocrit 33.4 % (42.0-52.0); Hemoglobin 10.8 g/dL (14.1-18.0); Immature Granulocytes % 0.3 %; Mean Corpuscular HGB Conc 32.3 g/dL (31.8-35.4); Mean Corpuscular Hemoglobin 28.6 pg (27.0-31.2); Mean Corpuscular Volume 88.4 fl (80-94); Nucleated Red Blood Cells % 0 %; Platelet Count 320 K/mm3 (142-424); Red Blood Count 3.78 M/mm3 (4.60-6.20); Red Cell Distribution Width-SD 52.9 fL; White Blood Count 11.7 K/mm3 (4.8-10.8)
[2025-05-16 15:01] LABS: Alanine Aminotransferase 21 U/L (12-78); Albumin Level 4.2 g/dl (3.5-5.0); Albumin/Globulin Ratio 1.6 (1.1-1.8); Alkaline Phosphatase 83 U/L (38-126); Anion Gap 12.3 mEq/L (5-15); Aspartate Amino Transferase 26 U/L (17-59); Bilirubin,Total 0.6 mg/dl (0.2-1.3); Blood Urea Nitrogen 21 mg/dl (9-20); Calcium 9.3 mg/dl (8.4-10.2); Carbon Dioxide 27 mmol/L (22.0-30.0); Chloride 99 mmol/L (98-107); Creatinine Clearance Estimated 66 mL/min (50-200); Creatinine,Serum 1.20 mg/dl (0.66-1.25); Estimated Glomerular Filt Rate 60 ml/min (>60); GFR (African American) 72 ML/MIN (>60); Globulin 2.7 g/dL (1.3-3.2); Glucose 130 mg/dl (74-100); Magnesium 1.4 mg/dl (1.6-2.3); Phosphorous 2.9 mg/dl (2.5-4.5); Potassium 3.3 mmoL/L (3.5-5.1); Sodium 135 mmol/L (136-145); Total Protein,Serum 6.9 g/dl (6.3-8.2)
[2025-05-16 15:04] LABS: Microscopic, Urine URINE MICROSCOPIC (MICROSCOPIC)
[2025-05-16 15:07] LABS: Bilirubin,Urine Negative (Negative); Color,Urine YELLOW (Yellow); Glucose,Urine (UA) Negative (Negative); Ketones,Urine Negative (Negative); Leukocyte Esterase,Urine Negative (Negative); PH,Urine 6.0 (5.0-8.5); Protein,Urine Negative (Negative); Specific Gravity, Urine 1.020 (1.005-1.030); Urobilinogen,Urine 0.2 EU/dl (0.2)
[2025-05-16 15:14] LABS: Troponin I < 0.01 ng/ml (0.00-0.034)
[2025-05-16 15:19] LABS: Bacteria,Urine Trace /lpf
[2025-05-16 15:31] LABS: Thyroid Stimulating Hormone 1.07 uIU/mL (0.465-4.68)
[2025-05-16] MEDS: POTASSIUM CHLORIDE 20MEQ TAB 40 MEQ PO (16:15)
[2025-05-16] MEDS: MAGNESIUM OXIDE 400MG TABLET 400 MG PO (16:16)
== END 2025-05-16 17:15 | disposition home or self-care (01) ==
PROVIDERS: Emergency Provider Student in an Organized Health Care Education/Training Program; PCP Family Medicine
DX: R53.1 Weakness (principal)
CPT/HCPCS: 70450; 71045; 80053; 81001; 83735; 84100; 84443; 84484; 85025; 86850; 93005; 96360; 99285; J7120

== ENCOUNTER 2025-05-22 09:21 | Outpatient (CLI) | payer MEDICARE, SELFPAY ==
[2025-05-22 16:11] LABS: Hematocrit 36.5 % (42.0-52.0); Hemoglobin 11.4 g/dL (14.1-18.0); Immature Granulocytes % 0.3 %; Mean Corpuscular HGB Conc 31.2 g/dL (31.8-35.4); Mean Corpuscular Hemoglobin 28.1 pg (27.0-31.2); Mean Corpuscular Volume 89.9 fl (80-94); Nucleated Red Blood Cells % 0 %; Platelet Count 327 K/mm3 (142-424); Red Blood Count 4.06 M/mm3 (4.60-6.20); Red Cell Distribution Width-SD 53.9 fL; White Blood Count 10.1 K/mm3 (4.8-10.8)
[2025-05-22 16:56] LABS: Iron 75 ug/dL (49-181); Magnesium 1.4 mg/dl (1.6-2.3)
[2025-05-22 17:01] LABS: Alanine Aminotransferase 17 U/L (12-78); Albumin Level 4.2 g/dl (3.5-5.0); Alkaline Phosphatase 75 U/L (38-126); Anion Gap 14.1 mEq/L (5-15); Aspartate Amino Transferase 20 U/L (17-59); Bilirubin,Total 0.5 mg/dl (0.2-1.3); Blood Urea Nitrogen 20 mg/dl (9-20); Calcium 10.0 mg/dl (8.4-10.2); Carbon Dioxide 29 mmol/L (22.0-30.0); Chloride 97 mmol/L (98-107); Creatinine,Serum 1.20 mg/dl (0.66-1.25); Estimated Glomerular Filt Rate 60 ml/min (>60); GFR (African American) 72 ML/MIN (>60); Glucose 128 mg/dl (74-100); Potassium 4.1 mmoL/L (3.5-5.1); Sodium 136 mmol/L (136-145)
[2025-05-22 17:05] LABS: Total Iron Binding Capacity 274 ug/dL (261-462)
[2025-05-22 17:31] LABS: Ferritin 226 ng/ml (17.9-464)
[2025-05-22 18:17] LABS: Albumin/Globulin Ratio 1.9 (1.1-1.8); Globulin 2.2 g/dL (1.3-3.2); Total Protein,Serum 6.4 g/dl (6.3-8.2)
--- OUTSIDE RECORDS SUMMARY | 2025-05-23 10:25 | XMS_ITS | Clinical Summary ---
[facility] [address] [place] [address] Care Team Providers Care Multiple Punch Press Operator Name Role Phone Annmarie Gutierrez MD Primary Care Provider [phone] Allergies Active Allergy Reactions Criticality Noted Date [...] (01/20/2017): Added automatically from request for surgery [id number] Family History Medical History Relation Name Comments [...] history exists Medical Devices Implanted Type Area Lay Out Technician Device Identifier Shelf Expiration Date Model / Serial / Lot Stent Xience Alpine Wali Rx [id number] - [id number] Implanted:Qty: 1 on 01/25/2017 by Saurav English MD at [facility] [id number] / / Stent Xience Alpine Wali Rx [id number] - [id number] Implanted:Qty: 1 on 01/25/2017 by Saurav English MD at [facility] [id number] / / Insurance [facility] PPO Care Teams Multiple Punch Press Operator Relationship Specialty Start Date End Date Annmarie Gutierrez MD PCP - General Family Medicine 01/25/17
--- OUTSIDE RECORDS SUMMARY | 2025-05-23 10:25 | XMS_ITS | Clinical Summary ---
Author Organization Healthcare Address [address] [id number] Care Team Providers Care Supervisor Finishing Room Name Role Phone Annmarie Gutierrez MD Primary Care Provider [phone] Social History Tobacco Use Types Packs/Day Years [...] 2005 [facility]Y-Zoster Vaccines (1 of 2) 2005 VII-BQUJA-26 Vaccine (1 - 20 25-26 season) 2025 UKY-Influenza Vaccine (#1) 2025 UKY-RSV [...] to complete this topic Care Teams Supervisor Finishing Room Relationship Specialty Start Date End Date Annmar[place] [address] PCP - General 11/14/20
== END 2025-05-22 23:59 ==
LOC: LAB.DROPOF 05-23 09:21
PROVIDERS: Internal Medicine Medical Oncology; PCP Family Medicine; Visit Provider Family Medicine
DX: C18.7 Malignant neoplasm of sigmoid colon (principal); E86.0 Dehydration; D64.9 Anemia, unspecified
CPT/HCPCS: 80053; 82728; 83540; 83550; 83735; 85025

== ENCOUNTER 2025-06-18 10:14 | Outpatient (CLI) | payer MEDICARE, SELFPAY ==
[2025-06-18 10:32] LABS: Hematocrit 39.3 % (42.0-52.0); Hemoglobin 13.3 g/dL (14.1-18.0); Immature Granulocytes % 0.5 %; Mean Corpuscular HGB Conc 33.8 g/dL (31.8-35.4); Mean Corpuscular Hemoglobin 29.4 pg (27.0-31.2); Mean Corpuscular Volume 86.8 fl (80-94); Nucleated Red Blood Cells % 0 %; Platelet Count 238 K/mm3 (142-424); Red Blood Count 4.53 M/mm3 (4.60-6.20); Red Cell Distribution Width-SD 47.1 fL; White Blood Count 15.5 K/mm3 (4.8-10.8)
[2025-06-18 10:34] VITALS: BP 101/54; PULSE 76; RESP 17; O2SAT 95
[2025-06-18] MEDS: 0.9 % SODIUM CHLORIDE 500 ML 999 ML IV (10:36)
--- OUTSIDE RECORDS SUMMARY | 2025-06-18 10:48 | XMS_ITS | Clinical Summary ---
[facility] [address] [place] [address] Care Team Providers Care Hydrometeorological Technician Name Role Phone Annmarie Gutierrez MD Primary Care Provider [phone] Allergies Active Allergy Reactions Criticality Noted Date [...] (01/20/2017): Added automatically from request for surgery [id number] Family History Medical History Relation Name Comments [...] history exists Medical Devices Implanted Type Area Hand Spring Repairer Device Identifier Shelf Expiration Date Model / Serial / Lot Stent Xience Alpine Wali Rx [id number] - [id number] Implanted:Qty: 1 on 01/25/2017 by Saurav English MD at [facility] [id number] / / Stent Xience Alpine Wali Rx [id number] - [id number] Implanted:Qty: 1 on 01/25/2017 by Saurav English MD at [facility]ULAR [id number] / / Insurance [facility] PPO Care Teams Hydrometeorological Technician Relationship Specialty Start Date End Date Annmarie Gutierrez MD PCP - General Family Medicine 01/25/17
--- OUTSIDE RECORDS SUMMARY | 2025-06-18 10:48 | XMS_ITS | Clinical Summary ---
Author Organization Healthcare Address [address] [id number] Care Team Providers Care Drill Press Hand Name Role Phone Annmarie Gutierrez MD Primary [...] 2005 [facility]Y-Zoster Vaccines (1 of 2) 2005 [id number]-30 Vaccine (1 - 20 25-26 season) 2025 [facility]Y-Influenza Vaccine (#1) 2025 [facility]Y-RSV Vaccine: 60+ Years o r (1 - 1-dose 75+ series) 2030 HPV Vaccines (No Doses Required) Completed [facility]Y-HIB Vaccines Aged Out No longer e [...] age to complete this topic Care Teams Drill Press Hand Relationship Specialty Start Date End [place] [address] PCP - General 11/14/20
[2025-06-18 11:09] LABS: Alanine Aminotransferase 27 U/L (12-78); Albumin Level 4.6 g/dl (3.5-5.0); Albumin/Globulin Ratio 1.6 (1.1-1.8); Alkaline Phosphatase 113 U/L (38-126); Anion Gap 15.7 mEq/L (5-15); Aspartate Amino Transferase 28 U/L (17-59); Bilirubin,Total 0.5 mg/dl (0.2-1.3); Blood Urea Nitrogen 26 mg/dl (9-20); Calcium 9.4 mg/dl (8.4-10.2); Carbon Dioxide 26 mmol/L (22.0-30.0); Chloride 99 mmol/L (98-107); Creatinine,Serum 1.70 mg/dl (0.66-1.25); Estimated Glomerular Filt Rate 40 ml/min (>60); GFR (African American) 48 ML/MIN (>60); Globulin 2.8 g/dL (1.3-3.2); Glucose 139 mg/dl (74-100); Magnesium 1.7 mg/dl (1.6-2.3); Potassium 3.7 mmoL/L (3.5-5.1); Sodium 137 mmol/L (136-145); Total Protein,Serum 7.4 g/dl (6.3-8.2)
[2025-06-18 11:15] VITALS: BP 110/58; PULSE 79; RESP 18; O2SAT 95
== END 2025-06-18 23:59 | disposition home or self-care (01) ==
LOC: LAB 10:15 → INF 10:45
PROVIDERS: PCP Student in an Organized Health Care Education/Training Program; Visit Provider Internal Medicine Medical Oncology
DX: C18.7 Malignant neoplasm of sigmoid colon (principal); C18.6 Malignant neoplasm of descending colon
CPT/HCPCS: 80053; 83735; 85025; 96360; J7040

== ENCOUNTER 2025-06-25 08:47 | Outpatient (CLI) | payer MEDICARE, SELFPAY ==
--- NOTE | 2025-06-25 08:50 | PC.NURSE ---
Labs drawn per order with a butterfly needle via his left AC. pt tolerated well
[2025-06-25 08:51] VITALS: BMI 26.4
--- OUTSIDE RECORDS SUMMARY | 2025-06-25 08:53 | XMS_ITS | Clinical Summary ---
[facility] Address [address] [place] [address] Care Team Providers Care Front Worker Name Role Phone Annmarie Gutierrez MD Primary Care Provider [phone] Allergies Active Allergy Reactions Criticality Noted Date [...] (01/20/2017): Added automatically from request for surgery [id number] Family History Medical History Relation Name Comments [...] history exists Medical Devices Implanted Type Area Sulfuric Acid Plant Operator Device Identifier Shelf Expiration Date Model / Serial / Lot Stent Xience Alpine Wali Rx [id number] - [id number] Implanted:Qty: 1 on 01/25/2017 by Saurav English MD at [facility] [id number] / / Stent Xience Alpine Wali Rx [id number] - [id number] Implanted:Qty: 1 on 01/25/2017 by Saurav English MD at [facility] [id number] / / Insurance [facility] P[facility] Care Teams Front Worker Relationship Specialty Start Date End Date Annmarie Gutierrez MD PCP - General Family Medicine 01/25/17
--- OUTSIDE RECORDS SUMMARY | 2025-06-25 08:53 | XMS_ITS | Clinical Summary ---
Author Organization Healthcare Address [address] [id number] Care Team Providers Care Television Engineering Teacher Name Role Phone Annmarie Gutierrez MD Primary Care Provider [phone] Social History Tobacco Use Types Packs/Day Years [...] 2005 UKY-Zoster Vaccines (1 of 2) 2005 [id number] Vaccine (1 - 20 25-26 season) 2025 [...] age to complete this topic Care Teams Television Engineering Teacher Relationship Specialty Start Date End [place] [address] PCP - General 11/14/20
[2025-06-25 08:58] LABS: Hematocrit 35.6 % (42.0-52.0); Hemoglobin 11.9 g/dL (14.1-18.0); Immature Granulocytes % 0.5 %; Mean Corpuscular HGB Conc 33.4 g/dL (31.8-35.4); Mean Corpuscular Hemoglobin 29.5 pg (27.0-31.2); Mean Corpuscular Volume 88.1 fl (80-94); Nucleated Red Blood Cells % 0 %; Platelet Count 222 K/mm3 (142-424); Red Blood Count 4.04 M/mm3 (4.60-6.20); Red Cell Distribution Width-SD 53.7 fL; White Blood Count 11.2 K/mm3 (4.8-10.8)
[2025-06-25 09:09] LABS: Albumin Level 4.0 g/dl (3.5-5.0); Chloride 103 mmol/L (98-107); Potassium 4.3 mmoL/L (3.5-5.1); Sodium 139 mmol/L (136-145)
[2025-06-25 09:11] LABS: Alanine Aminotransferase 28 U/L (12-78); Aspartate Amino Transferase 27 U/L (17-59); Blood Urea Nitrogen 10 mg/dl (9-20); Creatinine Clearance Estimated 61 mL/min (50-200); Creatinine,Serum 1.30 mg/dl (0.66-1.25); Estimated Glomerular Filt Rate 55 ml/min (>60); GFR (African American) 66 ML/MIN (>60)
[2025-06-25 09:12] LABS: Albumin/Globulin Ratio 1.7 (1.1-1.8); Alkaline Phosphatase 82 U/L (38-126); Anion Gap 9.3 mEq/L (5-15); Bilirubin,Total 0.2 mg/dl (0.2-1.3); Calcium 10.5 mg/dl (8.4-10.2); Carbon Dioxide 31 mmol/L (22.0-30.0); Globulin 2.3 g/dL (1.3-3.2); Glucose 106 mg/dl (74-100); Magnesium 2.3 mg/dl (1.6-2.3); Total Protein,Serum 6.3 g/dl (6.3-8.2)
== END 2025-06-25 23:59 | disposition home or self-care (01) ==
LOC: INF 08:48
PROVIDERS: PCP Student in an Organized Health Care Education/Training Program; Visit Provider Internal Medicine Medical Oncology
DX: C18.9 Malignant neoplasm of colon, unspecified (principal)
CPT/HCPCS: 36415; 80053; 83735; 85025